=== PATIENT | male | born 1950 | race Caucasian/White ===

== ENCOUNTER 2018-07-03 12:04 | Observation (INO) | payer MEDICARE ==
--- NOTE | 2018-07-03 12:52 | ERPHSYRPT ---
- History of Present Illness Time Seen by Provider: 07/03/18 12:20 Source: patient Exam Limitations: clinical condition Patient Subjective Stated Complaint: Been confused for the past week, doesn't know if he has messed up his meds or not, fell and hit head 2 weeks ago and states that he has a headache rated at 7/10 Triage Nursing Assessment: Pt reports that he fell and hit his head on his coffee table 2 weeks ago and did lose consciousness, for the past week he has been confused and doing "strange" things like talking into the phone and no one is there, he has a headache rated 7/10, he isn't sure if he has messed his medications up or if he has even taken them, dizzy, mild weakness on the right side Physician History: PATIENT WITH A HISTORY OF HYPERTENSION, CORONARY ARTERY DISEASE, COPD, SLIPPED AND FELL 2 WEEKS AGO AND STRUCK TOP OF HIS HEAD ON COFFEE TABLE, HAD ASSOCIATED LOSS OF CONSCIOUSNESS, INTERMITTENT HEADACHE OVER PASS WEEK. PATIENT COMPLAINS OF DIZZINESS AND CONFUSION. DENIES BLURRED VISION, SLURRED SPEECH, NECK PAIN, OR FOCAL NUMBNESS, TINGLING OR WEAKNESS IN EXTREMITIES. PATIENT SMOKES 3 PACKS CIGARETTS DAILY FOR 50 YEARS. ALSO COMPLAINS OF A NONPRODUCTIVE COUGH. Timing/Duration: week(s) Severity: moderate Character of Deficits: other (CONFUSION) Baseline/Normal Cognition: alert oriented x 3 Current Cognition: alert oriented x 3 Baseline Gait: walks w/o assistance Associated Symptoms: confusion Allergies/Adverse Reactions: No Known Drug Allergies Allergy (Verified 07/03/18 12:28) Home Medications: Carvedilol 25 mg PO BID 07/03/18 [History] Diltiazem HCl [Cartia Xt] 240 mg PO DAILY 07/03/18 [History] Isosorbide Mononitrate 30 mg [Imdur 30 MG] 30 mg PO DAILY 07/03/18 [History ] - Review of Systems Constitutional: No Fever, No Chills Eyes: No Symptoms Ears, Nose, & Throat: No Symptoms Respiratory: No Symptoms, No Cough, No Dyspnea Cardiac: No Symptoms, No Chest Pain, No Edema, No Syncope Abdominal/Gastrointestinal: No Symptoms, No Abdominal Pain, No Nausea, No Vomiting, No Diarrhea Genitourinary Symptoms: No Symptoms, No Dysuria Musculoskeletal: No Back Pain, No Neck Pain Skin: No Rash Neurological: Headache, Other (CONFUSION), No Dizziness, No Focal Weakness, No Sensory Changes Psychological: No Symptoms Endocrine: No Symptoms All Other Systems: Reviewed and Negative - Past Medical History Pertinent Past Medical History: Yes Cardiac History: Arrhythmia, Other Respiratory History: Pneumonia, Tuberculosis History: Renal Disease - Past Surgical History Past Surgical History: Yes Genitourinary: Kidney Surgery Musculoskeletal: Other - Social History Smoking Status: Current every day smoker How long have you smoked: 60 years Exposure to second hand smoke: Yes Drug Use: none Patient Lives Alone: Yes - Nursing Vital Signs Nursing Vital Signs: Initial Vital Signs Temperature 98.2 F 07/03/18 12:15 Pulse Rate 62 07/03/18 12:15 Blood Pressure 155/93 07/03/18 12:15 O2 Sat by Pulse Oximetry 98 07/03/18 12:15 Pain Scale Pain Intensity 7 - Denzel Coma Scale Best Eye Response (Denzel): (4) open spontaneously Best Verbal Response (Denzel): (5) oriented Best Motor Response (Mathias): (6) obeys commands Denzel Total: 15 - Physical Exam General Appearance: no apparent distress, alert Eye Exam: bilateral eye: PERRL, EOMI Ears, Nose, Throat Exam: normal ENT inspection, moist mucous membranes Neck Exam: normal inspection, non-tender, supple Respiratory: normal breath sounds, lungs clear, airway intact, No respiratory distress Cardiovascular: regular rate/rhythm, No edema Gastrointestinal: soft, normal bowel sounds, other (NONTENDER), No tenderness, No distention Back Exam: normal inspection Extremity Exam: normal inspection, No pedal edema Peripheral Pulses: carotid (R): 2+, carotid (L): 2+, femoral (R): 2+, femoral (L ): 2+, dorsalis-pedis (R): 2+, dorsalis-pedis (L): 2+ Mental 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: alert, 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 Exam: normal hearing, normal speech, tongue midline Coordination/Gait: normal finger to nose, normal gait Motor/Sensory: no motor deficit, no sensory deficit DTR: bicep (R): 2+, bicep (L): 2+, tricep (R): 2+, tricep (L): 2+, knee (R): 2+ , knee (L): 2+, ankle (R): 2+, ankle (L): 2+ Skin Exam: normal color, warm, dry, No rash SpO2 Interpretation: normal SpO2: 98 - Course EKG Interpreted by Me: RATE, Sinus Rhythm, Sinus Ryan, Left [place] Deviation, Non -specific ST Changes - Radiology Exams Chest X-ray Interpretation: Discussed w/ radiologist, Negative, No Infiltrates - CT Exams Head CT Interpretation: Discussed w/radiologist, No/Intracranial Hemorrhag Ordered Tests: Active Orders 24 hr Category Date Time Status Field Recruiter STAT Care 07/03/18 12:42 Active Clean Catch Urine Specimen STAT Care 07/03/18 12:39 Active EKG-ER Only STAT Care 07/03/18 12:39 Active IV Insertion STAT Care 07/03/18 12:39 Active CHEST 1 VIEW (PORTABLE) Stat Exams 07/03/18 12:45 Completed HEAD WITHOUT CONTRAST [CT] Stat Exams 07/03/18 12:50 Completed BLOOD CULTURE Stat Lab 07/03/18 13:40 Received CBC W DIFF Stat Lab 07/03/18 12:55 Completed CMP Stat Lab 07/03/18 12:55 Completed MAGNESIUM Stat Lab 07/03/18 12:55 Completed PT INR [PROTIME WITH INR] Stat Lab 07/03/18 12:55 Completed TROPONIN Q3H Lab 07/03/18 12:55 Completed TROPONIN Q3H Lab 07/03/18 16:00 Ordered TROPONIN Q3H Lab 07/03/18 19:00 Ordered TROPONIN Q3H Lab 07/03/18 22:00 Ordered TROPONIN Q3H Lab 07/04/18 01:00 Ordered UA W/RFX UR CULTURE Stat Lab 07/03/18 13:27 Completed VBG [VENOUS BLOOD GAS] Stat Lab 07/03/18 13:00 Completed Peak Expiratory Flow Rate ONCE RT 07/03/18 14:17 Active Respiratory Nebulizer STAT RT 07/03/18 14:17 Completed Respiratory Therapy Assessment DAILY RT 07/03/18 14:28 Active Transfer Order Routine Transfer 07/03/18 Ordered Medication Summary Generic Name Dose Route Start Last Admin Trade Name Freq PRN Reason Stop Dose Admin Sodium Chloride 1,000 mls @ 50 mls/hr 07/03/18 13:00 07/03/18 13:11 Sodium Chloride 0.9% 1000 Ml IV 08/02/18 12:59 50 mls/hr .Q20H CLOTILDE Administration Discontinued Medications Generic Name Dose Route Start Last Admin Trade Name Freq PRN Reason Stop Dose Admin Acetaminophen Confirm 07/03/18 13:12 Tylenol 325 Mg Administered 07/03/18 13:13 Dose 650 mg .ROUTE .STK-MED ONE Albuterol/Ipratropium 3 ml 07/03/18 14:17 07/03/18 14:25 Duoneb 0.5-3 Mg/3 Ml Neb IH 07/03/18 14:18 3 ml STAT ONE Administration Albuterol/Ipratropium Confirm 07/03/18 14:25 Duoneb 0.5-3 Mg/3 Ml Neb Administered 07/03/18 14:26 Dose 3 ml IH .STK-MED ONE Ceftriaxone Sodium/Dextrose 1 g in 50 mls @ 100 mls/hr 07/03/18 13:28 14:26 Rocephin 1 Gm-D5w 50 Ml Bag IV 07/03/18 13:57 Infused STAT STA Infusion Azithromycin 500 mg in 250 mls @ 250 mls/hr 07/03/18 13:28 07/03/18 13:52 Zithromax 500 Mg/ 250 Ml Nacl Premix IV 07/03/18 14:27 250 mls/hr STAT STA 250 mls/hr Administration Azithromycin Confirm 07/03/18 13:42 Zithromax 500 Mg/ 250 Ml Nacl Premix Administered 07/03/18 13:43 Dose 500 mg in 250 mls @ ud IV .STK-MED ONE Ceftriaxone Sodium/Dextrose Confirm 07/03/18 13:42 Rocephin 1 Gm-D5w 50 Ml Bag Administered 07/03/18 13:43 Dose 1 g in 50 mls @ ud IV .STK-MED ONE Methylprednisolone Sodium Succinate 125 mg 07/03/18 14:17 07/03/18 14:25 Solu-Medrol 125 Mg IV 07/03/18 14:18 125 mg STAT ONE Administration Methylprednisolone Sodium Succinate Confirm 07/03/18 14:20 Solu-Medrol 125 Mg Administered 07/03/18 14:21 Dose 125 mg .ROUTE .STK-MED ONE Lab/Rad Data: Laboratory Result Diagrams 07/03/18 12:55 07/03/18 12:55 Laboratory Results 07/03/18 07/03/18 07/03/18 Range/Units 13:27 13:00 12:55 WBC (4.0-10.5) K/mm3 RBC (4.1-5.6) M/mm3 Hgb (12.5-18.0) gm/dl Hct (42-50) % MCV (78-100) fl MCH (26-32) pg MCHC (32-36) g/dl RDW (11.5-14.0) % Plt Count (150-450) K/mm3 MPV (6-9.5) fl Gran % (36.0-66.0) % Eos # (Auto) (0-0.5) Absolute Lymphs (auto) (1.0-4.6) Absolute Monos (auto) (0.0-1.3) Lymphocytes % (24.0-44.0) % Monocytes % (0.0-12.0) % Eosinophils % (0.00-5.0) % Basophils % (0.0-0.4) % Absolute Granulocytes (1.4-6.9) Basophils # (0-0.4) PT 12.8 (8.83-12.87) SECONDS INR 1.10 (0.8-3.0) pO2/FiO2 Ratio 21.0 % VBG pH 7.46 H (7.32-7.42) VBG pCO2 at Pat Temp 36 L (42-55) mm/Hg VBG pO2 at Pat Temp 53 H (25-40) mm/Hg VBG HCO3 25.6 (22-28) meq/L VBG O2 Sat (Rebeca) 93.5 L (95-100) VBG Base Excess 2.0 (-2.0-2.0) VBG Hemoglobin 15.0 VBG Carboxyhemoglobin 10.7 H* (0.0-6.9) % T HGB POC Potassium 3.9 (3.5-5.1) Sodium (137-145) mmol/L Potassium (3.5-5.1) mmol/L Chloride (98-107) mmol/L Carbon Dioxide (22-30) mmol/L Anion Gap (5-15) MEQ/L BUN (9-20) mg/dL Creatinine (0.66-1.25) mg/dL Estimated GFR ML/MIN Glucose (74-106) mg/dL Calcium (8.4-10.2) mg/dL Magnesium (1.6-2.3) mg/dL Total Bilirubin (0.2-1.3) mg/dL AST (17-59) U/L ALT (0-50) U/L Alkaline Phosphatase (38-126) U/L Troponin I (0.000-0.034) ng/mL Serum Total Protein (6.3-8.2) g/dL Albumin (3.5-5.0) g/dL Urine Color YELLOW (YELLOW) Urine Appearance CLEAR (CLEAR) Urine pH 7.0 (5-6) Ur Specific [place] 1.014 (1.005-1.025) Urine Protein NEGATIVE (Negative) Urine Ketones NEGATIVE (NEGATIVE) Urine Blood SMALL (0-5) Emil/ul Urine Nitrite NEGATIVE (NEGATIVE) Urine Bilirubin NEGATIVE (NEGATIVE) Urine Urobilinogen 2 (0-1) mg/dL Ur Leukocyte Esterase NEGATIVE (NEGATIVE) Urine WBC (Auto) NONE SEEN (0-5) /HPF Urine RBC (Auto) 3-5 (0-2) /HPF U Epithel Cells (Auto) NONE (FEW) /HPF Urine Bacteria (Auto) NONE SEEN (NEGATIVE) /HPF Urine Mucus (Auto) SLIGHT (NEGATIVE) /HPF Urine Culture Reflexed NO (NO) Urine Glucose NEGATIVE (NEGATIVE) mg/dL 07/03/18 07/03/18 07/03/18 Range/Units 12:55 12:55 12:55 WBC (4.0-10.5) K/mm3 RBC (4.1-5.6) M/mm3 Hgb (12.5-18.0) gm/dl Hct (42-50) % MCV (78-100) fl MCH (26-32) pg MCHC (32-36) g/dl RDW (11.5-14.0) % Plt Count (150-450) K/mm3 MPV (6-9.5) fl Gran % (36.0-66.0) % Eos # (Auto) (0-0.5) Absolute Lymphs (auto) (1.0-4.6) Absolute Monos (auto) (0.0-1.3) Lymphocytes % (24.0-44.0) % Monocytes % (0.0-12.0) % Eosinophils % (0.00-5.0) % Basophils % (0.0-0.4) % Absolute Granulocytes (1.4-6.9) Basophils # (0-0.4) PT (8.83-12.87) SECONDS INR (0.8-3.0) pO2/FiO2 Ratio % VBG pH (7.32-7.42) VBG pCO2 at Pat Temp (42-55) mm/Hg VBG pO2 at Pat Temp (25-40) mm/Hg VBG HCO3 (22-28) meq/L VBG O2 Sat (Rebeca) (95-100) VBG Base Excess (-2.0-2.0) VBG Hemoglobin VBG Carboxyhemoglobin (0.0-6.9) % T HGB POC Potassium (3.5-5.1) Sodium 142 (137-145) mmol/L Potassium 4.0 (3.5-5.1) mmol/L Chloride 106 (98-107) mmol/L Carbon Dioxide 25 (22-30) mmol/L Anion Gap 15.1 H (5-15) MEQ/L BUN 22 H (9-20) mg/dL Creatinine 1.28 H (0.66-1.25) mg/dL Estimated GFR 59.8 ML/MIN Glucose 102 (74-106) mg/dL Calcium 9.5 (8.4-10.2) mg/dL Magnesium 2.1 (1.6-2.3) mg/dL Total Bilirubin 0.60 (0.2-1.3) mg/dL AST 27 (17-59) U/L ALT 19 (0-50) U/L Alkaline Phosphatase 117 (38-126) U/L Troponin I 0.013 (0.000-0.034) ng/mL Serum Total Protein 7.4 (6.3-8.2) g/dL Albumin 4.3 (3.5-5.0) g/dL Urine Color (YELLOW) Urine Appearance (CLEAR) Urine pH (5-6) Ur Specific [place] (1.005-1.025) Urine Protein (Negative) Urine Ketones (NEGATIVE) Urine Blood (0-5) Emil/ul Urine Nitrite (NEGATIVE) Urine Bilirubin (NEGATIVE) Urine Urobilinogen (0-1) mg/dL Ur Leukocyte Esterase (NEGATIVE) Urine WBC (Auto) (0-5) /HPF Urine RBC (Auto) (0-2) /HPF U Epithel Cells (Auto) (FEW) /HPF Urine Bacteria (Auto) (NEGATIVE) /HPF Urine Mucus (Auto) (NEGATIVE) /HPF Urine Culture Reflexed (NO) Urine Glucose (NEGATIVE) mg/dL 07/03/18 Range/Units 12:55 WBC 12.1 H (4.0-10.5) K/mm3 RBC 4.53 (4.1-5.6) M/mm3 Hgb 14.2 (12.5-18.0) gm/dl Hct 42.3 (42-50) % MCV 93.4 (78-100) fl MCH 31.3 (26-32) pg MCHC 33.6 (32-36) g/dl RDW 14.6 H (11.5-14.0) % Plt Count 243 (150-450) K/mm3 MPV 9.4 (6-9.5) fl Gran % 71.2 H (36.0-66.0) % Eos # (Auto) 0.12 (0-0.5) Absolute Lymphs (auto) 2.41 (1.0-4.6) Absolute Monos (auto) 0.92 (0.0-1.3) Lymphocytes % 19.9 L (24.0-44.0) % Monocytes % 7.6 (0.0-12.0) % Eosinophils % 1.0 (0.00-5.0) % Basophils % 0.3 (0.0-0.4) % Absolute Granulocytes 8.62 H (1.4-6.9) Basophils # 0.04 (0-0.4) PT (8.83-12.87) SECONDS INR (0.8-3.0) pO2/FiO2 Ratio % VBG pH (7.32-7.42) VBG pCO2 at Pat Temp (42-55) mm/Hg VBG pO2 at Pat Temp (25-40) mm/Hg VBG HCO3 (22-28) meq/L VBG O2 Sat (Rebeca) (95-100) VBG Base Excess (-2.0-2.0) VBG Hemoglobin VBG Carboxyhemoglobin (0.0-6.9) % T HGB POC Potassium (3.5-5.1) Sodium (137-145) mmol/L Potassium (3.5-5.1) mmol/L Chloride (98-107) mmol/L Carbon Dioxide (22-30) mmol/L Anion Gap (5-15) MEQ/L BUN (9-20) mg/dL Creatinine (0.66-1.25) mg/dL Estimated GFR ML/MIN Glucose (74-106) mg/dL Calcium (8.4-10.2) mg/dL Magnesium (1.6-2.3) mg/dL Total Bilirubin (0.2-1.3) mg/dL AST (17-59) U/L ALT (0-50) U/L Alkaline Phosphatase (38-126) U/L Troponin I (0.000-0.034) ng/mL Serum Total Protein (6.3-8.2) g/dL Albumin (3.5-5.0) g/dL Urine Color (YELLOW) Urine Appearance (CLEAR) Urine pH (5-6) Ur Specific [place] (1.005-1.025) Urine Protein (Negative) Urine Ketones (NEGATIVE) Urine Blood (0-5) Emil/ul Urine Nitrite (NEGATIVE) Urine Bilirubin (NEGATIVE) Urine Urobilinogen (0-1) mg/dL Ur Leukocyte Esterase (NEGATIVE) Urine WBC (Auto) (0-5) /HPF Urine RBC (Auto) (0-2) /HPF U Epithel Cells (Auto) (FEW) /HPF Urine Bacteria (Auto) (NEGATIVE) /HPF Urine Mucus (Auto) (NEGATIVE) /HPF Urine Culture Reflexed (NO) Urine Glucose (NEGATIVE) mg/dL - Progress Progress: unchanged Progress Note: 07/03/18 13:32 VENOUS BLOOD GAS WITH CARBOXY HGB10.7, ADMINISTERED DUONEB AEROSOL TX, AFTER 2 SETS OF BLOOD CULTURES, ADMINISTERED ROCEPHIN 1GM, ZITHROMAX 500MG ORALLY 07/03/18 14:38, PEAK FLOW PRE 210, POST-250 Discussed with : Adilia (DISCUSSED WITH DR RMAACHANDRAN AT 1400 FOR OBSERVATION) - Departure Time of Disposition: 14:45 Departure Disposition: Observation Clinical Impression: ACUTE CONFUSION, Post concussive syndrome, ACUTE EXACERBATION COPD Condition: Stable Critical Care Time: No Referrals: ANAND RAMACHANDRAN [Primary Care Provider] -
[2018-07-03] MEDS ORDERED: Sodium Chloride 0.9% 1000 ML 1,000 ML ONE (12:57)
[2018-07-03 13:01] LABS: BASOPHIL % 0.3 % (0.0-0.4); Basophil (Absolute #) 0.04 (0-0.4); Eosinophil (Absolute #) 0.12 (0-0.5); Granulocyte Absolute (ANC) 8.62 (1.4-6.9); Granulocytes % 71.2 % (36.0-66.0); Hematocrit 42.3 % (42-50); Hemoglobin 14.2 gm/dl (12.5-18.0); Lymphocyte (Absolute #) 2.41 (1.0-4.6); Lymphocytes % 19.9 % (24.0-44.0); Mean Cell Volume 93.4 fl (78-100); Mean Corpuscular Hemoglobin 31.3 pg (26-32); Mean Corpuscular Hgb Concent. 33.6 g/dl (32-36); Mean Platelet Volume 9.4 fl (6-9.5); Monocyte (Absolute #) 0.92 (0.0-1.3); Monocytes % 7.6 % (0.0-12.0); Platelet Count 243 K/mm3 (150-450); Red Blood Count 4.53 M/mm3 (4.1-5.6); Red Cell Distribution Width 14.6 % (11.5-14.0); White Blood Count 12.1 K/mm3 (4.0-10.5)
[2018-07-03 13:06] LABS: INR 1.1 (0.8-3.0); PROTIME 12.8 SECONDS (8.83-12.87)
--- NOTE | 2018-07-03 13:09 | XRAY ---
Indication: Cough and confusion. Comparison: February 16, 2008. Portable apical lordotic chest again demonstrates normal heart and lungs with chronic blunting of the right costophrenic angle and a few calcified granulomas. Bony thorax intact again with mild degenerative changes. No new/acute findings. Impression: Stable nonacute chest with chronic features.
[2018-07-03 13:11] LABS: VBG HCO3- 25.6 meq/L (22-28); VBG O2 SATURATION 93.5 (95-100); VBG POTASSIUM 3.9 (3.5-5.1); VBG pH 7.46 (7.32-7.42)
[2018-07-03] MEDS: Sodium Chloride 0.9% 1000 ML 1,000 ML IV SCH (13:11)
[2018-07-03 13:12] LABS: VBG CARBOXYHEMOGLOBIN 10.7 % T HGB (0.0-6.9)
[2018-07-03] MEDS ORDERED: TYLENOL 325 MG ONE (13:12)
[2018-07-03 13:15] LABS: ALBUMIN 4.3 g/dL (3.5-5.0); ANION GAP 15.1 MEQ/L (5-15); BILIRUBIN,TOTAL 0.6 mg/dL (0.2-1.3); Calcium 9.5 mg/dL (8.4-10.2); Creatinine 1 1.28 mg/dL (0.66-1.25); Total Protein 7.4 g/dL (6.3-8.2)
[2018-07-03] MEDS ORDERED: ROCEPHIN 1 Gm-D5w 50 ml Bag** 1 G/50 ML IVPB IV STA (13:28)
[2018-07-03] MEDS ORDERED: Zithromax 500 MG/ 250 ML NaCl Premix 500 MG/250 ML IVPB IV STA (13:28)
--- NOTE | 2018-07-03 13:30 | XRAY ---
Indication: Confusion. Status post fall 2 weeks ago. Multiple contiguous axial images obtained through the head without contrast. Comparison: None Normal appearing brain parenchyma, ventricles, and bony calvarium. Visualized paranasal sinuses and mastoid air cells are clear. Impression: Normal CT head without contrast exam. CT DI 52.34
[2018-07-03] MEDS ORDERED: ROCEPHIN 1 Gm-D5w 50 ml Bag** 1 G/50 ML IVPB IV ONE (13:42)
[2018-07-03] MEDS ORDERED: Zithromax 500 MG/ 250 ML NaCl Premix 500 MG/250 ML IVPB IV ONE (13:42)
[2018-07-03 13:55] LABS: Appearance CLEAR (CLEAR); Bilirubin NEGATIVE (NEGATIVE); Blood SMALL Ery/ul (0-5); Glucose NEGATIVE (NEGATIVE); Ketones NEGATIVE (NEGATIVE); Leukocyte Esterase NEGATIVE (NEGATIVE); Mucus SLIGHT /HPF (NEGATIVE); Nitrite NEGATIVE (NEGATIVE); Protein,Urine Dip NEGATIVE (Negative); Specific Gravity 1.014 (1.005-1.025); Urobilinogen 2 mg/dL (0-1)
[2018-07-03 13:56] LABS: Bacteria NONE SEEN /HPF (NEGATIVE); WBC NONE SEEN /HPF (0-5)
[2018-07-03] MEDS ORDERED: DUONEB 0.5-3 MG/3 ml Neb IH ONE ×2 (14:17→14:25)
[2018-07-03] MEDS ORDERED: solu-MEDROL 125 MG IV ONE (14:17)
[2018-07-03] MEDS ORDERED: solu-MEDROL 125 MG ONE (14:20)
[2018-07-03] MEDS ORDERED: Zofran 4 MG/2 ML VIAL IV PRN (15:12)
[2018-07-03] MEDS ORDERED: DUONEB 0.5-3 MG/3 ml Neb IH PRN (15:12)
[2018-07-03] MEDS: Nicoderm CQ 21 MG TOP SCH (16:32)
[2018-07-03] MEDS: solu-MEDROL 125 MG IV SCH ×2 (18:50→23:25)
[2018-07-03] MEDS ORDERED: BENADRYL 50 MG/ML IV ONE (20:02)
[2018-07-03] MEDS ORDERED: Ativan 2 MG/1 ML VIAL IV ONE (20:03)
[2018-07-03] MEDS ORDERED: Ativan 2 MG/1 ML VIAL IM ONE (20:58)
[2018-07-03] MEDS: COREG 12.5 MG PO SCH (22:15)
[2018-07-03 22:23] LABS: BASOPHIL % 0.1 % (0.0-0.4); Basophil (Absolute #) 0.01 (0-0.4); Eosinophil (Absolute #) 0 (0-0.5); Granulocyte Absolute (ANC) 8.36 (1.4-6.9); Granulocytes % 91.3 % (36.0-66.0); Hematocrit 44.1 % (42-50); Hemoglobin 14.7 gm/dl (12.5-18.0); Lymphocyte (Absolute #) 0.76 (1.0-4.6); Lymphocytes % 8.3 % (24.0-44.0); Mean Cell Volume 93.6 fl (78-100); Mean Corpuscular Hemoglobin 31.2 pg (26-32); Mean Corpuscular Hgb Concent. 33.3 g/dl (32-36); Mean Platelet Volume 9.7 fl (6-9.5); Monocyte (Absolute #) 0.03 (0.0-1.3); Monocytes % 0.3 % (0.0-12.0); Platelet Count 242 K/mm3 (150-450); Red Blood Count 4.71 M/mm3 (4.1-5.6); Red Cell Distribution Width 14.6 % (11.5-14.0); White Blood Count 9.2 K/mm3 (4.0-10.5)
[2018-07-03] MEDS ORDERED: Ativan 2 MG/1 ML VIAL IV PRN (23:14)
[2018-07-03] MEDS ORDERED: Ativan 1 MG PO PRN (23:14)
[2018-07-03] MEDS ORDERED: Risperdal 1 MG PO ONE ×2 (23:30)
[2018-07-04] MEDS: TYLENOL 325 MG PO PRN (02:15)
[2018-07-04] MEDS: Ativan 2 MG/1 ML VIAL IM PRN ×2 (03:30→07:00)
[2018-07-04] MEDS ORDERED: Risperdal 1 MG PO ONE ×2 (04:10→23:00)
[2018-07-04 04:34] LABS: Amphetamine,Urine NEGATIVE (NEGATIVE); Barbiturate,Urine NEGATIVE (NEGATIVE); Benzodiazepine,Urine NEGATIVE (NEGATIVE); Cocaine,Urine NEGATIVE (NEGATIVE); Methadone,Urine NEGATIVE (NEGATIVE); Opiate,Urine NEGATIVE (NEGATIVE); PCP,Urine NEGATIVE (NEGATIVE); THC,Urine NEGATIVE (NEGATIVE)
[2018-07-04] MEDS ORDERED: Haldol 5 MG IM ONE (04:45)
[2018-07-04] MEDS ORDERED: BENADRYL 50 MG/ML IM ONE (04:46)
[2018-07-04] MEDS: solu-MEDROL 125 MG IV SCH ×4 (06:00→23:29)
[2018-07-04] MEDS ORDERED: Geodon 20 MG INJ IM ONE (06:10)
[2018-07-04] MEDS ORDERED: STERILE WATER FOR INJECTION 20 ML 20 ML ONE (06:15)
[2018-07-04] MEDS ORDERED: Ativan 2 MG/1 ML VIAL IM ONE (06:51)
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
[2018-07-04 10:41] LABS: A-aADO2 17; ABG HEMOGLOBIN 14.5; ABG POTASSIUM 4.1 (3.5-5.1); ABG SITE LEFT BRACHIAL; ARTERIAL BLOOD GAS BASE EXCESS -1.7 (-2.0-2.0); ARTERIAL BLOOD GAS FIO2 21 %; ARTERIAL BLOOD GAS PCO2 38 mmHg (35-45); ARTERIAL BLOOD GAS PO2 85 mmHg (75-100); ARTERIAL BLOOD GAS pH 7.39 (7.35-7.45); CARBOXYHEMOGLOBIN 2.6 % THgb (0.0-6.9); HGB O2 SAT 95.5 g/dF (94-100); paO2 pAO1 0.83
[2018-07-04] MEDS: Ativan 2 MG/1 ML VIAL IM SCH ×3 (10:48→13:09)
[2018-07-04] MEDS: Zithromax 500 MG/ 250 ML NaCl Premix 500 MG/250 ML IVPB IV SCH (11:13)
[2018-07-04] MEDS: ROCEPHIN 1 Gm-D5w 50 ml Bag** 1 G/50 ML IVPB IV SCH (11:13)
[2018-07-04] MEDS: ENOXAPARIN SODIUM SQ SCH (11:14)
[2018-07-04] MEDS: Nicoderm CQ 21 MG TOP SCH (11:15)
[2018-07-04] MEDS: Imdur 30 MG PO SCH (11:35)
[2018-07-04] MEDS: COREG 12.5 MG PO SCH ×3 (11:35→22:35)
[2018-07-04] MEDS: Cardizem CD 240 MG PO SCH (11:35)
[2018-07-04] MEDS ORDERED: Ativan 2 MG/1 ML VIAL IV SCH ×2 (13:15→15:00)
[2018-07-04] MEDS: Ativan 2 MG/1 ML VIAL IV SCH ×5 (15:58→23:28)
[2018-07-04] MEDS: Sodium Chloride 0.9% 1000 ML 1,000 ML IV SCH (18:01)
[2018-07-05] MEDS: Ativan 2 MG/1 ML VIAL IV SCH ×6 (00:31→13:35)
[2018-07-05] MEDS: solu-MEDROL 125 MG IV SCH ×2 (06:14→12:04)
[2018-07-05] MEDS: TYLENOL 325 MG PO PRN (07:55)
[2018-07-05] MEDS: Imdur 30 MG PO SCH (07:55)
[2018-07-05] MEDS: Cardizem CD 240 MG PO SCH (07:55)
[2018-07-05] MEDS: COREG 12.5 MG PO SCH (07:55)
[2018-07-05] MEDS: ROCEPHIN 1 Gm-D5w 50 ml Bag** 1 G/50 ML IVPB IV SCH (09:22)
[2018-07-05] MEDS: Nicoderm CQ 21 MG TOP SCH (09:23)
[2018-07-05] MEDS: ENOXAPARIN SODIUM SQ SCH (09:24)
[2018-07-05] MEDS: Zithromax 500 MG/ 250 ML NaCl Premix 500 MG/250 ML IVPB IV SCH (10:11)
--- NOTE | 2018-07-05 11:24 | PCM.DS ---
Discharge Summary Date of Admission: 07/03/18 15:04 Admitting Physician: ANAND PAT Consults: Consults on Case 07/04/18 10:00 Tele-Health Consult ROUTINE Primary Care Provider: ANAND PAT Allergies Allergies No Known Drug Allergies Allergy (Verified 07/03/18 12:28) Hospital Summary - Hospital Course Hospital Course: Pt is a 67 yo male pt of Dr. Pat with early dementia, COPD, and HTN who was admitted through the ER 2 days ago for confusion and recent head injury. He fell on a rug and hit the R parietal area of his head. He states he's had headaches in that area and increased memory loss since then. He also had respiratory symptoms and has been treated for COPD exacerbation. Head CT nonacute. CXR nonacute. The afternoon of admission he was doing well, alert and oriented, and it was anticipated that he would go home the next day. That evening he became very restless, and in the night he became combative. He was kicking, biting, disoriented, and was licking things. He did not quiet until after receiving a total of 1mg risperdal, 5mg haldol, 10mg geodon, and 7mg ativan. He slept for some time, then was up yesterday in the bathroom and he ate supper. Per his son yesterday, pt has been drinking beer and last drank maybe 4-5d ago. Pt's story is conflicting; says he started drinking beer again because his girlfriend left. Stated this was a week ago, but then stated that he hasn't been drinking for several weeks. Pt does agree he was drinking > 12 beers/d. He denies any other drug history. He does say he wasn't sleeping for about 4 days prior to admission. Son notes that there are some signs of dementia. Pt agrees he has had memory issues. Pt denies any suicidal ideation. Today he is just "restless" but is completely oriented. Feeling good. Denies any pain and specifically no headache. Would like to smoke. Would like to be discharged to home. I did speak with the staff person at [facility], [place]. I had ordered a [facility] consult yesterday but today I feel it is reasonable to discharge him to home and have him follow up outpatient. Home on antibiotics for COPD exacerbation. I discussed sending pt home on a benzodiazepine but he insists it has been some time (weeks) since he drank any alcohol, so I will defer that. Follow up with Dr. Pat should be within the next couple of days. - Vitals & Intake/Output Vital Signs: Vital Signs Temperature 98.6 F 07/05/18 07:10 Pulse Rate 87 07/05/18 07:10 Respiratory Rate 18 07/05/18 07:10 Blood Pressure 140/89 07/05/18 07:10 O2 Sat by Pulse Oximetry 97 07/05/18 07:10 Oxygen-Last Documented O2 Percentage 100% Intake & Output: Intake & Output 07/02/18 07/03/18 07/04/18 07/05/18 11:59 11:59 11:59 11:59 Intake Total 1274 1245 Balance 1274 1245 Weight 67.7 kg - Lab Result Diagrams: 07/03/18 22:22 07/03/18 12:55 Lab Results-Last 24 Hrs: Lab Results-Last 24 Hours 07/05/18 Range/Units 09:20 Ethyl Alcohol < 10 (0-10) mg/dL Micro Results-Entire Visit: Microbiology 07/03/18 13:40 Blood Culture - Preliminary Blood NO GROWTH TO DATE 07/03/18 13:35 Blood Culture - Preliminary Blood NO GROWTH TO DATE - Radiology Exams Ordered Rad Exams-Entire Visit: Radiology Procedures Category Date Time Status CHEST 1 VIEW (PORTABLE) Stat Exams 07/03/18 12:45 Completed HEAD WITHOUT CONTRAST [CT] Stat Exams 07/03/18 12:50 Completed - Procedures and Test Procedures and Tests throughout Hospitalization: Therapy Orders & Screens 07/03/18 14:17 Peak Expiratory Flow Rate ONCE Comment: Reason For Exam: Diagnosis: Shortness of Breath Respiratory Nebulizer STAT Comment: Diagnosis: Shortness of Breath 07/03/18 14:28 Respiratory Therapy Assessment DAILY Comment: Diagnosis: Shortness of Breath 07/03/18 15:12 Oxygen Nasal Cannula 2 lpm Comment: Respiratory Therapy Consult ROUTINE Comment: Reason For Exam: 07/03/18 15:17 Respiratory Therapy Assessment DAILY Comment: Discharge Exam General Appearance: no apparent distress, alert Neurologic Exam: oriented x 3, cooperative Skin Exam: normal color, warm, dry, No rash Neck Exam: normal inspection, non-tender, No lymphadenopathy Respiratory Exam: normal breath sounds, lungs clear, No crackles/rales, No rhonchi, No wheezing Cardiovascular Exam: regular rate/rhythm, normal heart sounds, No murmur Gastrointestinal/Abdomen Exam: soft, normal bowel sounds, No tenderness, No distention, No mass, No guarding, No rebound Extremity Exam: normal inspection, No pedal edema, No swelling Back Exam: normal inspection, No rash Final Diagnosis/Problem List - Final Discharge Diagnosis/Problem (1) COPD exacerbation Current Visit: Yes Status: Acute Assessment & Plan: Finish 10d of augmentin. Initially pt was on solumedrol, but that was discontinued when he had altered mental status. (2) Post concussive syndrome Current Visit: Yes Status: Acute Assessment & Plan: Clinically much better today. Likely exacerbated by illness and lack of sleep. (3) Altered mental status Current Visit: Yes Status: Resolved (4) Alcohol abuse Current Visit: Yes Status: Chronic Assessment & Plan: Recommend f/u to help him stay sober; he is stating currently that he'll just stop with no issues. (5) Dementia Current Visit: Yes Status: Chronic Assessment & Plan: Per son some signs of mild dementia. Recommend he not drive until further evaluation. (6) Insomnia Current Visit: Yes Status: Acute Assessment & Plan: Will try melatonin. - Discharge Disposition: Home, Self-Care Condition: Good Prescriptions: New Amoxicillin/Potassium Clav [Augmentin 875-125 Tablet] 875 mg PO BID #16 tablet Melatonin 5 mg PO QHS PRN #30 capsule PRN Reason: Insomnia Continue Isosorbide Mononitrate 30 mg [Imdur 30 MG] 30 mg PO DAILY Diltiazem HCl [Cartia Xt] 240 mg PO DAILY Carvedilol 25 mg PO BID Follow up with: ANAND PAT [Primary Care Provider] - 1 Week
[2018-07-05 12:01] VITALS: O2SAT 95
[2018-07-05 13:52] VITALS: BP 146/69; PULSE 75
--- NOTE | 2018-07-06 10:58 | HP ---
CHIEF COMPLAINT: Confusion. HISTORY OF PRESENT ILLNESS: The patient is a 67 year-old white male patient, heavy smoker, who reports that he fell about week or so ago and hit his head. He reports that he tripped on a throw rug. He did report losing consciousness shortly afterwards. He has been having problems with headaches since that time. He has had no appetite. He began seeing strange things and talking on the phone and then finding out that he realized that it was not even on. The patient at this time on my evaluation is alert, oriented x3 and recognizes me. He knows the day, date and time and the President of [facility]. He has no obvious neurologic deficits at this time focally otherwise. PAST MEDICAL/SURGICAL HISTORY: Coronary artery disease. MEDICATIONS: He takes carvedilol 25 mg b.i.d., diltiazem 240 mg daily, isosorbide 30 mg daily. ALLERGIES: NKDA. PHYSICAL EXAMINATION: His vital signs on admission showed temperature 98.2F, pulse 62, respiratory rate 16, blood pressure 155/93. O2 saturation 98% on room air. HEENT: Normocephalic, atraumatic. Pupils equal round reactive to light. Extraocular movements intact. Oropharynx is pink and moist. NECK: Supple without lymphadenopathy, thyromegaly or JVD. CHEST: Clear to auscultation with good air movement bilaterally. HEART: Regular rate and rhythm without murmurs, rubs or gallops. ABDOMEN: Soft. No palpable masses. EXTREMITIES: Without cyanosis, clubbing or edema. NEUROLOGIC: The patient is alert and oriented x3 with no focal deficits. LAB DATA AND TESTS: Magnesium 2.1. White count was elevated at 12,100 with hemoglobin 14.2, PLT 243,000. Venous blood gas showing pH 7.46, pCO2 of 32, carboxyhemoglobin however was 10.7. International normalized ratio was normal at 1.10. Troponin was 0.013. Sugar 102, BUN 23, creatinine 1.28. Electrolytes were normal. UA showed 3 to 5 red blood cells, no white blood cells, specific gravity of 1.014. CT scan of the head was normal without contrast. Chest x-ray was stable nonacute with chronic features. His EKG showed sinus bradycardia with no acute changes, left axis deviation. No significant ST or T wave changes are noted. ASSESSMENT: A patient with confusion which has been going on for the past week. He was admitted to the hospital for neural checks and observation. He has been discussed about stopping smoking as he smokes about three packs a day. He lives alone. His son works near where he lives but lives in [place]. The patient did drive himself to the hospital this morning. He is now in observation with IV fluid hydration and we will see how he tracks neurologically. He may need tele-neural consult but at this point in time he seems to be essentially back to normal.
== END 2018-07-05 14:07 | disposition home or self-care (01) ==
LOC: ED 12:04 → MED SURG 15:04
PROVIDERS: ADMIT Family Medicine; ATTEND Family Medicine
DX: J44.1 Chronic obstructive pulmonary disease with (acute) exacerbation (principal); G44.309 Post-traumatic headache, unspecified, not intractable; F07.81 Postconcussional syndrome; R41.82 Altered mental status, unspecified; F10.10 Alcohol abuse, uncomplicated; F03.90 Unspecified dementia, unspecified severity, without behavioral disturbance, psychotic disturbance, mood disturbance, and anxiety; G47.00 Insomnia, unspecified; I10 Essential (primary) hypertension; I25.10 Atherosclerotic heart disease of native coronary artery without angina pectoris; Z79.899 Other long term (current) drug therapy; F17.200 Nicotine dependence, unspecified, uncomplicated
CPT/HCPCS: 36415; 36600; 70450; 71045; 80053; 80307; 81001; 82140; 82375; 82803; 82805; 83735; 83880; 84484; 85025; 85610; 87040; 93005; 93041; 94150; 94640; 94760; 94762; 96365; 96374; 99285; G0480; 90791; 96360; 96368; G0378; J0456; J0696; J1200; J1630; J1650; J2060; J2930; J3486; Q3014; A9270-GY

== ENCOUNTER 2019-02-18 09:19 | Emergency (ER) | payer MEDICARE ==
[2019-02-18] MEDS ORDERED: Rocephin 1000 MG INJ IM STA (09:46)
[2019-02-18] MEDS ORDERED: CLEOCIN 150 MG CAPSULE PO ONE (09:46)
[2019-02-18] MEDS ORDERED: CLEOCIN 150 MG CAPSULE ONE (09:51)
[2019-02-18 09:52] VITALS: O2SAT 99
--- NOTE | 2019-02-18 09:53 | ERPHSYRPT ---
- History of Present Illness Time Seen by Provider: 02/18/19 09:31 Source: patient Exam Limitations: no limitations Patient Subjective Stated Complaint: states has had two 'spider bites' for two weeks. one on right forearm and one on left groin. states the groin area is draining. Triage Nursing Assessment: ambulated to room per self. skin w/d, color normal. large red area noted to right forearm with no drainage. red area to left upper thigh with drainaged. culture taken of left thigh area. Timing/Duration: day(s) (4) Quality: other Severity: moderate Location: extremities, genitalia Possible Causes: insect bite Allergies/Adverse Reactions: No Known Drug Allergies Allergy (Verified 02/18/19 09:31) Home Medications: Carvedilol 25 mg PO BID 07/03/18 [History] Diltiazem HCl [Cartia Xt] 240 mg PO DAILY 07/03/18 [History] Isosorbide Mononitrate 30 mg [Imdur 30 MG] 30 mg PO DAILY 07/03/18 [History ] Bupropion HCl Xl 150 mg [Wellbutrin XL 150 MG] 150 mg PO DAILY 02/18/19 [ History] Lisinopril 10 mg [Zestril 10 MG] 10 mg PO DAILY 02/18/19 [History] Hx Tetanus, Diphtheria Vaccination/Date Given: No Hx Influenza Vaccination/Date Given: No Hx Pneumococcal Vaccination/Date Given: Yes - Review of Systems Constitutional: No Fever, No Chills Eyes: No Symptoms Ears, Nose, & Throat: No Symptoms Respiratory: No Cough, No Dyspnea Cardiac: No Chest Pain, No Edema, No Syncope Abdominal/Gastrointestinal: No Abdominal Pain, No Nausea, No Vomiting, No Diarrhea Genitourinary Symptoms: No Dysuria Musculoskeletal: No Back Pain, No Neck Pain Skin: Cellulitis, Other (abscess) Neurological: No Dizziness, No Focal Weakness, No Sensory Changes Psychological: No Symptoms Endocrine: No Symptoms All Other Systems: Reviewed and Negative - Past Medical History Pertinent Past Medical History: Yes Neurological History: Seizures Cardiac History: Arrhythmia, Coronary Artery Disease, Hypertension, Other Respiratory History: COPD, Pneumonia, Tuberculosis History: Renal Disease Other Medical History: tuberculosis of kidney - Past Surgical History Past Surgical History: Yes Genitourinary: Kidney Surgery Musculoskeletal: Other Other Surgical History: Toes sewed together - Social History Smoking Status: Current every day smoker How long have you smoked: 54 Exposure to second hand smoke: Yes Drug Use: none Patient Lives Alone: No - Nursing Vital Signs Nursing Vital Signs: Initial Vital Signs Temperature 97.9 F 02/18/19 09:26 Pulse Rate 60 02/18/19 09:26 Respiratory Rate 16 02/18/19 09:26 Blood Pressure 158/61 02/18/19 09:26 O2 Sat by Pulse Oximetry 99 02/18/19 09:26 Pain Scale Pain Intensity 5 - Physical Exam General Appearance: no apparent distress, alert Eye Exam: PERRL/EOMI, eyes nml inspection Ears, Nose, Throat Exam: normal ENT inspection, pharynx normal, moist mucous membranes Neck Exam: normal inspection, non-tender, supple, full range of motion Respiratory Exam: normal breath sounds, lungs clear, No respiratory distress Cardiovascular Exam: regular rate/rhythm, normal heart sounds Gastrointestinal/Abdomen Exam: soft, mass, No tenderness Back Exam: normal inspection, normal range of motion, No CVA tenderness, No vertebral tenderness Extremity Exam: normal inspection, normal range of motion Neurologic Exam: alert, oriented x 3, cooperative, normal mood/affect, sensation nml, No motor deficits Skin Exam: normal color, warm, dry, other (abscess) SpO2: 99 Ordered Tests: Active Orders 24 hr Category Date Time Status CULTURE,WOUND Stat Lab 02/18/19 09:46 Uncollected Medication Summary Generic Name Dose Route Start Last Admin Trade Name Freq PRN Reason Stop Dose Admin Ceftriaxone Sodium mg 02/18/19 09:46 Rocephin 1000 Mg Inj IM 02/18/19 09:47 STAT STA Clindamycin HCl 300 mg 02/18/19 09:46 Cleocin 150 Mg Capsule PO 02/18/19 09:47 STAT ONE - Departure Departure Disposition: Home Clinical Impression: Abscess Condition: Stable Critical Care Time: No Referrals: ANAND RAMACHANDRAN [Primary Care Provider] - Plan of Treatment: Antibiotics warm soaks F/U with PCP in 2-3 days Prescriptions: Clindamycin HCl 300 mg PO TID 10 Days #30 capsule
[2019-02-18] MEDS ORDERED: Rocephin 1000 MG INJ ONE (09:54)
[2019-02-18] MEDS ORDERED: XYLOCAINE 1% HCL 20 ML MDV ONE (09:55)
[2019-02-18] MEDS ORDERED: Rocephin 1000 MG INJ IM ONE (09:58)
[2019-02-18 10:08] VITALS: BP 110/66; PULSE 58
== END 2019-02-18 10:22 | disposition home or self-care (01) ==
LOC: ED 09:19
DX: L02.214 Cutaneous abscess of groin (principal); T63.301A Toxic effect of unspecified spider venom, accidental (unintentional), initial encounter
CPT/HCPCS: 87070; 87077; 87186; 96372; 99284; J0696; A9270-GY

== ENCOUNTER 2019-03-25 19:34 | Emergency (ER) | payer MEDICARE ==
[2019-03-25] MEDS ORDERED: Catapres 0.1 MG PO ONE (20:38)
[2019-03-25 20:46] VITALS: O2SAT 98
[2019-03-25] MEDS ORDERED: Catapres 0.1 MG ONE (20:47)
--- NOTE | 2019-03-25 21:11 | ERPHSYRPT ---
- History of Present Illness Time Seen by Provider: 03/25/19 19:38 Source: patient, family Exam Limitations: other (PATIENT --CONFUSION :AMS FOR THE PAST 2 DAYS S/P FALL YESTERDAY WITH BLUNT HEAD TRAUMA ) Patient Subjective Stated Complaint: PT STATES HE HAS HAD HYPERTENSION FOR THE LAST TWO DAYS THAT IS ACCOMOPANIED BY HEADACHE AND SLEEPINESS THROUGHOUT THE DAY. Triage Nursing Assessment: PT ALERT AND ORIENTED, STATES THAT HE HAS NO PAIN AT THIS TIME BUT FEELS GENERALLY UNWELL. Timing/Duration: yesterday, worse Severity: moderate Character of Deficits: other (AMS;CONFUSION INITIALLY WITH SPEECH DIFFICULTY -- STARTED YESTERDAY LIVES WITH HER DAUGHTER : --SHE BROUGHT HER IN FOR [employer] ) Deficits: decrease ability to walk Baseline/Normal Cognition: alert/disoriented to time Current Cognition: alert but confused Allergies/Adverse Reactions: No Known Drug Allergies Allergy (Verified 02/18/19 09:31) Home Medications: Carvedilol 25 mg PO BID 07/03/18 [History] Diltiazem HCl [Cartia Xt] 240 mg PO DAILY 07/03/18 [History] Isosorbide Mononitrate 30 mg [Imdur 30 MG] 30 mg PO DAILY 07/03/18 [History ] Bupropion HCl Xl 150 mg [Wellbutrin XL 150 MG] 150 mg PO DAILY 02/18/19 [ History] Lisinopril 10 mg [Zestril 10 MG] 10 mg PO DAILY 02/18/19 [History] Hx Tetanus, Diphtheria Vaccination/Date Given: No Hx Influenza Vaccination/Date Given: No Hx Pneumococcal Vaccination/Date Given: Yes - Review of Systems Constitutional: Fatigue, Other (ALTERED MENTAL STATUS ---CONFUSION) Eyes: No Symptoms, No Discharge, No Eye Pain, No Eye Redness, No Itchy, No Photophobia Ears, Nose, & Throat: Hearing Changes, Nose Congestion, No Ear Pain, No Ear Discharge, No Epistaxis, No Mouth Pain, No Mouth Swelling Respiratory: Cough Cardiac: No Symptoms Abdominal/Gastrointestinal: No Symptoms, No Abdominal Pain, No Nausea, No Vomiting, No Diarrhea Genitourinary Symptoms: No Symptoms, Other (POS: PAST HX OF FREQ UTI'S PER HX OF THE DAUGHTER), No Dysuria, No Frequency, No Hematuria Musculoskeletal: Arthralgias, Back Pain, Joint Pain (POS: 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), Other (MILD DJD C,T, L SPINE WITH DECREASED ROM) Skin: No Symptoms Neurological: Dizziness, Other (POS: AMS: CONFUSION) Psychological: Hallucinations, Memory Loss, Other (GENERAL : AMS--CONFUSION ), No Alcohol Abuse, No Drug Abuse Endocrine: No Symptoms Hematologic/Lymphatic: No Symptoms Immunological/Allergic: No Symptoms All Other Systems: Reviewed and Negative - Past Medical History Pertinent Past Medical History: Yes Neurological History: Seizures Cardiac History: Arrhythmia, Coronary Artery Disease, Hypertension, Other Respiratory History: COPD, Pneumonia, Tuberculosis History: Renal Disease Other Medical History: tuberculosis of kidney - Past Surgical History Past Surgical History: Yes Genitourinary: Kidney Surgery Musculoskeletal: Other Other Surgical History: Toes sewed together - Social History Smoking Status: Current some day smoker How long have you smoked: 42 Exposure to second hand smoke: Yes Drug Use: none Patient Lives Alone: No - Nursing Vital Signs Nursing Vital Signs: Initial Vital Signs Temperature 98.7 F 03/25/19 19:38 Pulse Rate 58 L 03/25/19 19:38 Respiratory Rate 18 03/25/19 19:38 Blood Pressure 218/96 03/25/19 19:38 O2 Sat by Pulse Oximetry 99 03/25/19 19:38 - Denzel Coma Scale Best Eye Response (Denzel): (4) open spontaneously Best Verbal Response (Denzel): (4) confused conversation Best Motor Response (Denzel): (6) obeys commands Denzel Total: 14 - Physical Exam General Appearance: no apparent distress Eye Exam: bilateral eye: normal inspection, PERRL Ears, Nose, Throat Exam: normal ENT inspection, dry mucous membranes, other (NEG : TONGUE DEVIATION GAG REFLEX INTACT ) Neck Exam: other (POS: DJD WITH DECREASED ROM NEG: SPRING TEST POIS: SUBOCCIPITAL TENDERNESS R>L POS: PARACERVIOCAL FULLNESS R>L) Respiratory: diminished breath sounds, crackles/rales (BASES ), No respiratory distress Cardiovascular: regular rate/rhythm, murmur (GRD:2/6 SYS APEX PMI: SL : LAT DISPLACED ), capillary refill <2 sec, No edema, No pulse deficit Gastrointestinal: soft, normal bowel sounds, No tenderness, No distention, No mass, No guarding, No ecchymosis, No organomegaly, No splenomegaly Back Exam: other (POS: MILD KYPHOSIS POS: DJD C,T,L SPINE NEG: SIGNIFICANT TENDERNESS POS: DECREASED ROM) Extremity Exam: other (MODERATE DJD : BILATERAL SHOULDERS WITH DECRESES ROM : TENDERNESS [POS: DJD; LARGHE JOINTS LOWER EXTREMITIES WITH DECREASED ROM NEG : HIP --TENDERNESS OR KNEE TENDERNESS) Peripheral Pulses: carotid (R): 1+, carotid (L): 1+, femoral (R): 1+, femoral (L ): 1+ dining room captain Exam: tongue midline, No facial asymmetry, No facial droop, No facial paresthesias, No facial weakness, No gaze palsy, No hearing deficit (R), No hearing deficit (L), No tongue deviation to R, No tongue deviation to L Coordination/Gait: normal finger to nose Motor/Sensory: no motor deficit, no pronator drift, No pronator drift (R), No pronator drift (L), No weak motor strength LUE (SYMMETRICAL STRENTH U/L EXTREMITIES CONSISTENT WITH AGE/HABITUS ), No weak motor strength RLE, No weak motor strength LLE Skin Exam: normal color, dry SpO2 Interpretation: normal SpO2: 98 O2 Delivery: Room Air Ordered Tests: Active Orders 24 hr Category Date Time Status HEAD WITHOUT CONTRAST [CT] Stat Exams 03/25/19 21:05 Taken KUB Stat Exams 03/25/19 20:38 Taken LUMBAR LIMITED (2 OR 3 VIEWS) Stat Exams 03/25/19 21:05 Taken CBC W DIFF Stat Lab 03/25/19 20:36 Ordered CMP Stat Lab 03/25/19 20:36 Ordered Medication Summary Discontinued Medications Generic Name Dose Route Start Last Admin Trade Name Adrianne PRN Reason Stop Dose Admin Clonidine 0.1 mg 03/25/19 20:38 03/25/19 20:49 Catapres 0.1 Mg PO 03/25/19 20:39 0.1 mg STAT ONE Administration Clonidine Confirm 03/25/19 20:47 Catapres 0.1 Mg Administered 03/25/19 20:48 Dose 0.1 mg .ROUTE .STK-MED ONE - Departure Condition: Fair Referrals: ANAND RAMACHANDRAN [Primary Care Provider] -
[2019-03-25 21:17] LABS: Absolute Neutrophil Ct (ANC) 5.46 (1.4-6.9); BASOPHIL % 0.5 % (0.0-0.4); Basophil (Absolute #) 0.04 (0-0.4); Eosinophil % 2.7 % (0.00-5.0); Eosinophil (Absolute #) 0.23 (0-0.5); Hematocrit 43.2 % (42-50); Lymphocyte (Absolute #) 2.34 (1.0-4.6); Lymphocytes % 27.1 % (24.0-44.0); Mean Cell Volume 94.5 fl (78-100); Mean Corpuscular Hemoglobin 30.6 pg (26-32); Mean Corpuscular Hgb Concent. 32.4 g/dl (32-36); Mean Platelet Volume 10.4 fl (6-9.5); Monocyte (Absolute #) 0.55 (0.0-1.3); Monocytes % 6.4 % (0.0-12.0); Neutrophil % 63.3 % (36.0-66.0); Platelet Count 203 K/mm3 (150-450); Red Blood Count 4.57 M/mm3 (4.1-5.6); Red Cell Distribution Width 14.6 % (11.5-14.0); White Blood Count 8.6 K/mm3 (4.0-10.5)
[2019-03-25 21:31] LABS: ALBUMIN 4.5 g/dL (3.5-5.0); ANION GAP 14.7 MEQ/L (5-15); BILIRUBIN,TOTAL 0.4 mg/dL (0.2-1.3); Calcium 9.9 mg/dL (8.4-10.2); Creatinine 1 1.91 mg/dL (0.66-1.25); Potassium 4.4 mmol/L (3.5-5.1); Total Protein 8.2 g/dL (6.3-8.2)
--- NOTE | 2019-03-25 22:06 | ERPHSYRPT ---
- History of Present Illness Time Seen by Provider: 03/25/19 19:38 Source: patient, family Exam Limitations: no limitations Patient Subjective Stated Complaint: PT STATES HE HAS HAD HYPERTENSION FOR THE LAST TWO DAYS THAT IS ACCOMOPANIED BY HEADACHE AND SLEEPINESS THROUGHOUT THE DAY. Triage Nursing Assessment: PT ALERT AND ORIENTED, STATES THAT HE HAS NO PAIN AT THIS TIME BUT FEELS GENERALLY UNWELL. Physician History: C/O FATIGUE--HEADACHE MILD ,DIZZINESS TODAY FELT FATIGUED YESTERDAY HEAVY 3PPD SMOKER --POS: HX CAD S/P [place] X2 BLOOD PRESSURE TODAY 212/100 CURRENTLY W /O HEADACHE Timing/Duration: yesterday Severity: mild Modifying Factors: Improves With: movement, other (GENERAL ACTIVITY W/O CP/P OR SOB) Associated Symptoms: cough, headaches, malaise, No nausea, No vomiting, No abdominal pain, No shortness of breath, No heartburn, No diaphoresis, No chest pain, No fever Allergies/Adverse Reactions: No Known Drug Allergies Allergy (Verified 02/18/19 09:31) Home Medications: Carvedilol 25 mg PO BID 07/03/18 [History] Diltiazem HCl [Cartia Xt] 240 mg PO DAILY 07/03/18 [History] Isosorbide Mononitrate 30 mg [Imdur 30 MG] 30 mg PO DAILY 07/03/18 [History ] Bupropion HCl Xl 150 mg [Wellbutrin XL 150 MG] 150 mg PO DAILY 02/18/19 [ History] Lisinopril 10 mg [Zestril 10 MG] 10 mg PO DAILY 02/18/19 [History] Hx Tetanus, Diphtheria Vaccination/Date Given: No Hx Influenza Vaccination/Date Given: No Hx Pneumococcal Vaccination/Date Given: Yes - Review of Systems Constitutional: Fatigue, Malaise Eyes: No Symptoms Ears, Nose, & Throat: No Symptoms Respiratory: Cough Cardiac: No Chest Pain, No Edema Abdominal/Gastrointestinal: No Abdominal Pain, No Nausea, No Vomiting Musculoskeletal: Arthralgias, Back Pain Skin: No Symptoms Neurological: Dizziness, Headache Psychological: No Symptoms Endocrine: No Symptoms Hematologic/Lymphatic: No Symptoms Immunological/Allergic: No Symptoms All Other Systems: Reviewed and Negative - Past Medical History Pertinent Past Medical History: Yes Neurological History: Seizures Cardiac History: Arrhythmia, Coronary Artery Disease, Hypertension, Other Respiratory History: COPD, Pneumonia, Tuberculosis History: Renal Disease Other Medical History: tuberculosis of kidney - Past Surgical History Past Surgical History: Yes Genitourinary: Kidney Surgery Musculoskeletal: Other Other Surgical History: Toes sewed together - Social History Smoking Status: Current some day smoker How long have you smoked: 42 Exposure to second hand smoke: Yes Drug Use: none Patient Lives Alone: No - Nursing Vital Signs Nursing Vital Signs: Initial Vital Signs Temperature 98.7 F 03/25/19 19:38 Pulse Rate 58 L 03/25/19 19:38 Respiratory Rate 18 03/25/19 19:38 Blood Pressure 218/96 03/25/19 19:38 O2 Sat by Pulse Oximetry 99 03/25/19 19:38 Pain Scale Pain Intensity 0 - Physical Exam General Appearance: no apparent distress Eye Exam: PERRL/EOMI, eyes nml inspection Ears, Nose, Throat Exam: normal ENT inspection, TM abnormal (L) Neck Exam: normal inspection, non-tender, supple, full range of motion, No meningismus Respiratory Exam: diminished breath sounds, prolonged expirations, crackles/ rales (BASES), No respiratory distress Cardiovascular Exam: regular rate/rhythm, murmur (GRD1-2/6 APEX), capillary refill <2 sec (POS:CAROTIOD ,ABDOMIONAL,FEMOPRAL BRUIT), No edema Gastrointestinal/Abdomen Exam: soft, normal bowel sounds, bruit, No tenderness, No distention, No guarding, No rebound Male Genitalia Exam: normal genitalia Back Exam: normal inspection, normal range of motion, No CVA tenderness, No vertebral tenderness, No rash, No decreased range of motion Extremity Exam: normal inspection, normal range of motion, pelvis stable, No calf tenderness, No deformities Neurologic Exam: alert, oriented x 3, cooperative, mushroom picker II-XII nml as tested, normal mood/affect, nml cerebellar function, nml station & gait SpO2 Interpretation: normal SpO2: 98 O2 Delivery: Room Air - Course Nursing assessment & vital signs reviewed: Yes EKG Interpreted by Me: Left Finley Deviation, LAFB, Other (IRBBB LAD) Ordered Tests: Active Orders 24 hr Category Date Time Status HEAD WITHOUT CONTRAST [CT] Stat Exams 03/25/19 21:05 Taken KUB Stat Exams 03/25/19 20:38 Taken LUMBAR LIMITED (2 OR 3 VIEWS) Stat Exams 03/25/19 21:05 Taken CBC W DIFF Stat Lab 03/25/19 21:00 Completed CMP Stat Lab 03/25/19 21:00 Completed Medication Summary Discontinued Medications Generic Name Dose Route Start Last Admin Trade Name Adrianne PRN Reason Stop Dose Admin Clonidine 0.1 mg 03/25/19 20:38 03/25/19 20:49 Catapres 0.1 Mg PO 03/25/19 20:39 0.1 mg STAT ONE Administration Clonidine Confirm 03/25/19 20:47 Catapres 0.1 Mg Administered 03/25/19 20:48 Dose 0.1 mg .ROUTE .STK-MED ONE Lab/Rad Data: Laboratory Result Diagrams 03/25/19 21:00 03/25/19 21:00 Laboratory Results 03/25/19 03/25/19 Range/Units 21:00 21:00 WBC 8.6 (4.0-10.5) K/mm3 RBC 4.57 (4.1-5.6) M/mm3 Hgb 14.0 (12.5-18.0) gm/dl Hct 43.2 (42-50) % MCV 94.5 (78-100) fl MCH 30.6 (26-32) pg MCHC 32.4 (32-36) g/dl RDW 14.6 H (11.5-14.0) % Plt Count 203 (150-450) K/mm3 MPV 10.4 H (6-9.5) fl Gran % 63.3 (36.0-66.0) % Eos # (Auto) 0.23 (0-0.5) Absolute Lymphs (auto) 2.34 (1.0-4.6) Absolute Monos (auto) 0.55 (0.0-1.3) Lymphocytes % 27.1 (24.0-44.0) % Monocytes % 6.4 (0.0-12.0) % Eosinophils % 2.7 (0.00-5.0) % Basophils % 0.5 (0.0-0.4) % Absolute Granulocytes 5.46 (1.4-6.9) Basophils # 0.04 (0-0.4) Sodium 144 (137-145) mmol/L Potassium 4.4 (3.5-5.1) mmol/L Chloride 110 H (98-107) mmol/L Carbon Dioxide 23 (22-30) mmol/L Anion Gap 14.7 (5-15) MEQ/L BUN 29 H (9-20) mg/dL Creatinine 1.91 H (0.66-1.25) mg/dL Estimated GFR 37.5 ML/MIN Glucose 90 (74-106) mg/dL Calcium 9.9 (8.4-10.2) mg/dL Total Bilirubin 0.40 (0.2-1.3) mg/dL AST 23 (17-59) U/L ALT 11 (0-50) U/L Alkaline Phosphatase 155 H (38-126) U/L Serum Total Protein 8.2 (6.3-8.2) g/dL Albumin 4.5 (3.5-5.0) g/dL - Progress Progress: improved (D/C BP 144/84 ) Counseled pt/family regarding: lab results, diagnosis, need for follow-up, rad results, smoking cessation - Departure Departure Disposition: Home Clinical Impression: HTN (hypertension), malignant, Peripheral vascular disease, COPD (chronic obstructive pulmonary disease) Condition: Stable Critical Care Time: No Referrals: ANAND RAMACHANDRAN [Primary Care Provider] - Instructions: Chronic Obstructive Pulmonary Disease Additional Instructions: ADVISED STRONGLY TO STOP SMOKING--IMPROVE GENERAL LIFE STYLE FOLLOW UP WITH PCP NEXT WEEK TWICE A DAY BLOOD PRESSURE READING AND TAKE MEDICATIONS DIRECTED
[2019-03-25 22:11] VITALS: BP 144/84; PULSE 52
--- NOTE | 2019-03-26 08:31 | XRAY ---
Exam: CT of the head without IV contrast from 03/25/2019 CTDI: 56.14 Comparison: CT of the head without IV contrast from 07/03/2018. Indication: 68-year-old male with high blood pressure and headache in frontal area. Technique: Non-IV contrast axial images were obtained through the brain. Reconstructed coronal and sagittal images were created and reviewed. Findings: The ventricles appear of normal size and configuration. No focal mass effect or midline shift is seen. No acute intracranial bleed or abnormal extracerebral fluid collection is seen. The león matter-white matter interfaces appear unremarkable. No low attenuation lesion is seen to suggest a focal territorial infarction or localized edema. Some atherosclerotic vascular calcification is seen within the distal left vertebral artery on axial images #11 and #12. I also see some atherosclerotic vascular calcification within the distal internal carotid arteries in the parasellar region bilaterally. The cortical sulci and cisterns appear of normal size for age. The visualized maxillary sinuses appear clear. The mastoid air cells reveal no worrisome opacification or effusions. The middle ear cavities appear grossly unremarkable bilaterally. The calvarium of the skull is intact without fracture or other significant bone lesion. Impression: 1. No acute intracranial bleed or other acute intracranial process is seen. The findings are unchanged from 07/03/2018.
--- NOTE | 2019-03-26 09:10 | XRAY ---
Exam: 3 view lumbar spine series from 03/25/2019. Comparison: 3 view lumbar spine series from 09/20/2011. Indication: 68-year-old male with pain. Technique: AP, lateral, and a coned-down lateral film of the lumbosacral junction were obtained. Findings: There are 5 ahr-csx-eltnasp lumbar vertebra. I see no acute lumbar spine fracture or AP subluxation. There is some mild to moderate narrowing of the L-1L2 interspace height associated with vacuum disc phenomena and anterior lateral vertebral endplate spurring indicating mild to moderate degenerative disc disease at this level. These findings have mildly progressed as compared to 09/20/2011. There is also mild narrowing of the L2-L3 interspace which has progressed some. Slight narrowing of the L5-S1 interspace height is again seen. The other interspace heights are fairly well-maintained. I also note mild anterior lateral vertebral endplate spurs throughout the remainder of the lumbar spine. No bone destruction or definite spondylolysis is seen. Some atherosclerotic vascular calcification is seen within the distal abdominal aorta and iliac arteries. A small saccular aneurysm anterior to the L4 vertebral body cannot be excluded. This measures about 3.0 cm in AP dimension on the lateral radiograph. Consider further evaluation with a CT of the abdomen and pelvis with IV contrast for initial further evaluation. Surgical clips are seen overlying the medial aspect of the right mid abdomen. Correlate with prior surgical history. I also note some fine surgical suture material within the medial aspect of the right upper quadrant and a surgical clip just to the right of the L1 vertebral body. The bowel gas pattern appears unremarkable. No hepatosplenomegaly is seen. Atherosclerotic vascular calcification is seen within both common femoral arteries. Impression: 1. On the lateral radiograph, there is a suggestion of a possible small saccular aneurysm anterior to L4 within the most distal aspect of the abdominal aorta. Further evaluation with a CT of abdomen and pelvis with IV contrast is suggested. I personally called this report to the emergency Department at 8:54 AM on 03/26/2019. 2. Compared to 09/20/2011, there has been interval surgery. Surgical clips and fine surgical suture material are seen within the medial aspect of the right upper quadrant and right midabdomen. Correlate with surgical history. 3. I see no acute lumbar spine fracture or AP subluxation. 4. Mild to moderate degenerative changes are seen within the lumbar line. Specifically, there is mild to moderate degenerative disc disease at L1-L2 and mild degenerative disc disease at L2-L3 which have mildly progressed as compared to 09/20/2011.
--- NOTE | 2019-03-26 09:13 | XRAY ---
Exam: Supine film of the abdomen from 03/25/2019. Comparison: AP film of the abdomen from a lumbar spine series from 09/20/2011. Indication: 68-year-old male with pain. I am also given a history that the patient has high blood pressure and has had his right kidney removed in the past. Findings: The bowel gas pattern appears nonspecific with slight prominence of some small bowel within the left midabdomen. No significant bowel distention is seen. A mild amount of scattered colonic stool is seen. No hepatosplenomegaly is seen. Surgical clips and suture material are seen within medial aspect of the right upper quadrant and right midabdomen. This is consistent with the patient's prior right nephrectomy. No extrinsic soft tissue mass impressions or abnormal calcifications are seen. I note some atherosclerotic vascular calcification within portions of the iliac arteries. Mild diffuse degenerative changes are seen throughout the lumbar spine, most pronounced at L-1L2. The sacroiliac joints and hip joint spaces appear unremarkable. Impression: 1. Nonspecific bowel gas pattern, as described above. 2. Evidence of prior abdominal surgery to right of midline, as discussed above. 3. Mild lumbar spondylosis, most pronounced at L-1L2.
== END 2019-03-25 22:29 | disposition home or self-care (01) ==
LOC: ED 19:34
DX: I10 Essential (primary) hypertension (principal); I73.9 Peripheral vascular disease, unspecified; J44.9 Chronic obstructive pulmonary disease, unspecified; I25.10 Atherosclerotic heart disease of native coronary artery without angina pectoris; N28.9 Disorder of kidney and ureter, unspecified
CPT/HCPCS: 36415; 70450; 72100; 74018; 80053; 85025; 99284; A9270-GY

== ENCOUNTER 2020-10-13 05:46 | Day surgery (SDC) | payer MEDICARE ==
[2020-10-13] MEDS ORDERED: Lactated Ringers 1,000 ML IV SCH (06:30)
[2020-10-13] MEDS ORDERED: DIPRIVAN 200 MG/20 ML IV ONE ×2 (07:54→08:07)
[2020-10-13] MEDS ORDERED: ROBINUL ONE (08:07)
[2020-10-13] MEDS ORDERED: Ephedrine Sulfate 50 MG/ML ONE (08:09)
[2020-10-13 09:06] VITALS: O2SAT 99
[2020-10-13 09:28] VITALS: PULSE 64
[2020-10-13 09:32] VITALS: BP 112/74
--- NOTE | 2020-10-13 11:37 | OP ---
SURGERY DATE: 10/13/2020 SURGERY TIME: 755 PREOPERATIVE DIAGNOSIS: 1. RIGHT LOWER QUADRANT ABDOMINAL PAIN. POSTOPERATIVE DIAGNOSIS: 1. SIGMOID DIVERTICULOSIS, OTHERWISE NORMAL COLON. PROCEDURE: 1. Colonoscopy. SURGEON: Dr. Pat. ANESTHESIA: MAC. Medications given by the Anesthesia Department. BRIEF HISTORY: The patient is a 70 y/o WM patient who presents now for colonoscopic evaluation. He reports he has been having problems with right lower quadrant pain off and on for several days. He reports it was not better with the colon prep. On examination, his abdomen was soft and no palpable masses were felt. The patient was felt to need to have endoscopic evaluation. He was appraised of the risks of the procedure including the risk of perforation, phlebitis, untoward reaction to medication, bleeding, and missed lesions. The patient verbalized his understanding and desired to have the procedure performed. DESCRIPTION OF PROCEDURE: The patient was given the medications by the Anesthesia Department. He had continuous pulse oximetry, ECG monitoring, intermittent BP monitoring, and end tidal CO2 monitoring during the examination. He was placed in the left lateral decubitus position. A digital rectal examination was performed and revealed normal anal sphincter tone, no masses, and a normal prostate. The flexible Olympus pediatric colonoscope was used to intubate the rectum. A view of the colon was developed sequentially to the cecum. Upon insertion and withdrawal, including a retroflex view, was noted mild to moderate sigmoid diverticulosis. No other mucosal lesions were encountered. The scope was removed from the patient who tolerated the procedure well and was sent back to OP recovery in good condition. The prep was noted to be fair to good.
== END 2020-10-13 09:25 | disposition home or self-care (01) ==
LOC: SDC 05:46
PROVIDERS: ATTEND Family Medicine
DX: Z12.11 Encounter for screening for malignant neoplasm of colon (principal); K57.30 Diverticulosis of large intestine without perforation or abscess without bleeding; I10 Essential (primary) hypertension; J44.9 Chronic obstructive pulmonary disease, unspecified; Z79.899 Other long term (current) drug therapy
CPT/HCPCS: 82947; 93005; J2704

== ENCOUNTER 2020-12-26 09:17 | Inpatient (IN) | payer MEDICARE ==
[2020-12-26] MEDS ORDERED: Sodium Chloride 0.9% 1000 ML 1,000 ML IV STA (10:01)
[2020-12-26] MEDS ORDERED: Zofran 4 MG/2 ML VIAL IV ONE (10:01)
[2020-12-26 10:13] LABS: VBG BASE EXCESS -14.4 (-2.0-2.0); VBG CARBOXYHEMOGLOBIN 5.5 % T HGB (0.0-6.9); VBG HCO3- 13.5 meq/L (22-28); VBG HEMOGLOBIN 12.2; VBG O2 SATURATION 49.1 (95-100); VBG POTASSIUM 5.9 (3.5-5.1); VBG pH 7.16 (7.32-7.42)
--- NOTE | 2020-12-26 10:16 | ERPHSYRPT ---
- History of Present Illness Time Seen by Provider: 12/26/20 09:45 Source: patient Exam Limitations: no limitations Patient Subjective Stated Complaint: Patient states his blood pressure was 77/35 this morning. States it has been running low after he takes his blood pressure medication but if he doesnt take it, it will be high over the last 2 weeks. Triage Nursing Assessment: patient to ed for hypotension. patient is short of breath with subcostal retractions and expiratory wheeze. Physician History: This is a 70-year-old white male patient of Dr. Ramachandran and Dr. Gilmore(nephrology) who presents with weakness, nausea vomiting diarrhea, and low blood pressure. Patient states when he takes his blood pressure medicine the morning his blood pressure is very low. If he does not take his blood pressure medication his blood pressure runs too high per his report. This morning, his systolic blood pressure was in the high 70s. He denies chest pain. He denies shortness of breath. Patient does have a history of hypertension, COPD, peripheral vascular disease, dementia and history of alcohol abuse. Patient states that he does ache all over and he does have a mild cough. Patient has received the COVID-19 vaccination. He has not had a fever. His symptoms have been ongoing for approximately 2 weeks. Although the patient sees a doughmaker, he is not on any type of dialysis. Patient states that his card iologist is the younger Ennis that he sees here at [facility] cardiology clinic. Patient states he only has 1 kidney (the left 1 remains). Timing/Duration: week(s) (2) Associated Symptoms: nausea, vomiting, malaise, weakness, other (Diarrhea, a rthralgias myalgias.) Allergies/Adverse Reactions: No Known Drug Allergies Allergy (Verified 12/26/20 09:37) Home Medications: Diltiazem HCl [Cartia Xt] 240 mg PO DAILY 07/03/18 [History] Isosorbide Mononitrate 30 mg [Imdur 30 MG] 60 mg PO DAILY 07/03/18 [History] carvediloL [Carvedilol] 25 mg PO BID 07/03/18 [History] Lisinopril 10 mg [Zestril 10 MG] 20 mg PO DAILY 02/18/19 [History] Acetaminophen [Tylenol Extra Strength] 500 mg PO DAILY 10/13/20 [History] Donepezil HCl 10 mg [Aricept 10 MG] 10 mg DAILY 10/13/20 [History] Memantine HCl 5 mg [Namenda 5 MG] 5 tab PO 12/26/20 [History] Hx Tetanus, Diphtheria Vaccination/Date Given: No Hx Influenza Vaccination/Date Given: No Hx Pneumococcal Vaccination/Date Given: Yes Immunizations Up to Date: Yes Travel Risk - International Travel Have you traveled outside of the country in past 3 weeks: No - Coronavirus Screening Are you exhibiting any of the following symptoms?: Yes Symptoms: Cough: New Onset, Shortness of Breath Close contact with a COVID-19 positive Pt in past 14-21 Days: No - Vaccine Status Have you recieved a Covid-19 vaccination: Yes Infection Preventionist: Moderna - Vaccination Dates Date of 2cond Vaccination (if applicable): 07/05/20 - Review of Systems Constitutional: Weakness Eyes: No Symptoms Ears, Nose, & Throat: No Symptoms Respiratory: No Symptoms Cardiac: No Symptoms Abdominal/Gastrointestinal: Nausea, Vomiting, Diarrhea, No Abdominal Pain Genitourinary Symptoms: No Symptoms Musculoskeletal: Arthralgias, Myalgias Skin: No Symptoms Neurological: No Symptoms Psychological: No Symptoms Endocrine: No Symptoms Hematologic/Lymphatic: No Symptoms Immunological/Allergic: No Symptoms All Other Systems: Reviewed and Negative - Past Medical History Pertinent Past Medical History: Yes Neurological History: Seizures ENT History: No Pertinent History Cardiac History: Arrhythmia, Coronary Artery Disease, Hypertension, Other Respiratory History: CHF, COPD, Pneumonia, Tuberculosis Endocrine Medical History: No Pertinent History Musculoskeletal History: No Pertinent History GI Medical History: GI Bleed, Hemorrhoids, Polyps History: Renal Disease Psycho-Social History: No Pertinent History Male Reproductive Disorders: No Pertinent History Other Medical History: tuberculosis of kidney - Past Surgical History Past Surgical History: Yes Neuro Surgical History: No Pertinent History Cardiac: Cardiac Catheterization Respiratory: No Pertinent History Gastrointestinal: No Pertinent History Genitourinary: Kidney Surgery Musculoskeletal: Other Male Surgical History: No Pertinent History Other Surgical History: Toes sewed together,colonoscopy - Social History Smoking Status: Current every day smoker How long have you smoked: 54 Exposure to second hand smoke: Yes Drug Use: none Patient Lives Alone: Yes - Nursing Vital Signs Nursing Vital Signs: Initial Vital Signs Temperature 97 F 12/26/20 09:26 Pulse Rate 57 L 12/26/20 09:26 Respiratory Rate 16 12/26/20 09:26 Blood Pressure 86/45 12/26/20 09:26 O2 Sat by Pulse Oximetry 97 12/26/20 09:26 Pain Scale Pain Intensity 7 - Physical Exam General Appearance: no apparent distress, alert, anxiety Eye Exam: PERRL/EOMI, eyes nml inspection Ears, Nose, Throat Exam: normal ENT inspection, moist mucous membranes Neck Exam: normal inspection, non-tender, supple, full range of motion Respiratory Exam: normal breath sounds, lungs clear, airway intact, No chest tenderness, No respiratory distress Cardiovascular Exam: regular rate/rhythm, normal heart sounds, normal peripheral pulses Gastrointestinal/Abdomen Exam: soft, normal bowel sounds, No tenderness Rectal Exam: not done Back Exam: normal inspection, normal range of motion, No CVA tenderness, No vertebral tenderness Extremity Exam: normal inspection, normal range of motion, pelvis stable Neurologic Exam: alert, oriented x 3, cooperative, 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 as tested, normal mood/affect, nml cerebellar function, nml station & gait, sensation nml Skin Exam: normal color, warm, dry Lymphatic Exam: No adenopathy SpO2 Interpretation: normal SpO2: 97 O2 Delivery: Room Air - Course Nursing assessment & vital signs reviewed: Yes Ordered Tests: Active Orders 24 hr Category Date Time Status EKG-ER Only STAT Care 12/26/20 10:01 Active IV Insertion STAT Care 12/26/20 10:01 Active IV Insertion-2nd Peripheral STAT Care 12/26/20 11:14 Active Isolation, Initiate & Maintain STAT Care 12/26/20 10:01 Active CHEST 1 VIEW (PORTABLE) Stat Exams 12/26/20 10:02 Completed AMYLASE Stat Lab 12/26/20 10:00 Completed BLOOD CULTURE Stat Lab 12/26/20 10:28 Received CBC W DIFF Stat Lab 12/26/20 10:00 Completed CMP Stat Lab 12/26/20 10:00 Completed Ferritin Stat Lab 12/26/20 10:00 Completed INFLUENZA A+B MOMO Stat Lab 12/26/20 10:22 Completed LDH-LACTATE DEHYDROGENASE Stat Lab 12/26/20 10:00 Completed LIPASE Stat Lab 12/26/20 10:00 Completed Lactic Acid Stat Lab 12/26/20 10:01 Completed MAGNESIUM Stat Lab 12/26/20 10:00 Completed Marathon Screen Stat Lab 12/26/20 10:00 Completed POCT GLUCOSE Stat Lab 12/26/20 11:10 Completed TROPONIN Q3H Lab 12/26/20 10:00 Completed TROPONIN Q3H Lab 12/26/20 13:24 Received TROPONIN Q3H Lab 12/26/20 16:15 Ordered TROPONIN Q3H Lab 12/26/20 19:15 Ordered TROPONIN Q3H Lab 12/26/20 22:15 Ordered UA W/RFX UR CULTURE Stat Lab 12/26/20 12:12 Completed VBG [VENOUS BLOOD GAS] Stat Lab 12/26/20 10:12 Completed Transfer Order Routine Transfer 12/26/20 Ordered Medication Summary Discontinued Medications Generic Name Dose Route Start Last Admin Trade Name Dariusq PRN Reason Stop Dose Admin Atropine Sulfate 1 mg 12/26/20 11:05 12/26/20 12:06 Atropine Sulfate 1mg Syr Abboject IV 12/26/20 11:06 1 mg STAT ONE Administration Atropine Sulfate Confirm 12/26/20 12:05 Atropine Sulfate 1mg Syr Abboject Administered 12/26/20 12:06 Dose 1 mg .ROUTE .STK-MED ONE Calcium Gluconate 1,000 mg 12/26/20 11:03 12/26/20 11:19 Calcium Gluconate 10% 1000 Mg IV 12/26/20 11:04 1,000 mg STAT ONE Administration Calcium Gluconate Confirm 12/26/20 11:15 Calcium Gluconate 10% 1000 Mg Administered 12/26/20 11:16 Dose 1,000 mg IV .STK-MED ONE Dextrose 50 ml 12/26/20 11:02 12/26/20 11:20 D50w 50 Ml Abboject IV 12/26/20 11:03 50 ml STAT ONE Administration Dextrose Confirm 12/26/20 11:17 D50w 50 Ml Abboject Administered 12/26/20 11:18 Dose 50 ml IV .STK-MED ONE Sodium Chloride 1,000 mls @ 999 mls/hr 12/26/20 10:01 12/26/20 11:32 Sodium Chloride 0.9% 1000 Ml IV 12/26/20 11:01 Infused .Q1H1M STA Infusion Sodium Chloride Confirm 12/26/20 10:21 Sodium Chloride 0.9% 1000 Ml Administered 12/26/20 10:22 Dose 1,000 mls @ ud .ROUTE .STK-MED ONE Insulin Human Regular 4 unit 12/26/20 11:03 12/26/20 11:20 Humulin R IV 12/26/20 11:04 4 unit STAT ONE Administration Insulin Human Regular Confirm 12/26/20 11:16 Humulin R Administered 12/26/20 11:17 Dose 4 unit .ROUTE .STK-MED ONE Ondansetron HCl 4 mg 12/26/20 10:01 12/26/20 10:24 Zofran 4 Mg/2 Ml Vial IV 12/26/20 10:02 4 mg STAT ONE Administration Ondansetron HCl Confirm 12/26/20 10:21 Zofran 4 Mg/2 Ml Vial Administered 12/26/20 10:22 Dose 4 mg .ROUTE .STK-MED ONE Patiromer 8.4 gm 12/26/20 11:04 12/26/20 11:19 Veltassa PO 12/26/20 11:05 8.4 gm STAT STA Administration Patiromer Confirm 12/26/20 11:17 Veltassa Administered 12/26/20 11:18 Dose 8.4 gm PO .STK-MED ONE Lab/Rad Data: Laboratory Result Diagrams 12/26/20 10:00 12/26/20 10:00 Laboratory Results 12/26/20 12/26/20 12/26/20 Range/Units 12:12 11:10 10:22 WBC (4.0-10.5) K/mm3 RBC (4.1-5.6) M/mm3 Hgb (12.5-18.0) gm/dl Hct (42-50) % MCV (78-100) fl MCH (26-32) pg MCHC (32-36) g/dl RDW (11.5-14.0) % Plt Count (150-450) K/mm3 MPV (7.5-11.0) fl Gran % (36.0-66.0) % Eos # (Auto) (0-0.5) Absolute Lymphs (auto) (1.0-4.6) Absolute Monos (auto) (0.0-1.3) Lymphocytes % (24.0-44.0) % Monocytes % (0.0-12.0) % Eosinophils % (0.00-5.0) % Basophils % (0.0-0.4) % Absolute Granulocytes (1.4-6.9) Basophils # (0-0.4) pO2/FiO2 Ratio % VBG pH (7.32-7.42) VBG pCO2 at Pat Temp (42-55) mm/Hg VBG pO2 at Pat Temp (25-40) mm/Hg VBG HCO3 (22-28) meq/L VBG O2 Sat (Rebeca) (95-100) VBG Base Excess (-2.0-2.0) VBG Hemoglobin VBG Carboxyhemoglobin (0.0-6.9) % T HGB POC Potassium (3.5-5.1) Sodium (137-145) mmol/L Potassium (3.5-5.1) mmol/L Chloride (98-107) mmol/L Carbon Dioxide (22-30) mmol/L Anion Gap (5-15) MEQ/L BUN (9-20) mg/dL Creatinine (0.66-1.25) mg/dL Estimated GFR ML/MIN Glucose (74-106) mg/dL POC Glucometer 103 (74 to 106) mg/dL Lactic Acid (0.4-2.0) Calcium (8.4-10.2) mg/dL Magnesium (1.6-2.3) mg/dL Ferritin (17.9-464) ng/mL Total Bilirubin (0.2-1.3) mg/dL AST (17-59) U/L ALT (0-50) U/L Alkaline Phosphatase (38-126) U/L Lactate Dehydrogenase (120-246) U/L Troponin I (0.000-0.034) ng/mL Serum Total Protein (6.3-8.2) g/dL Albumin (3.5-5.0) g/dL Amylase (30-110) U/L Lipase (23-300) U/L Urine Color YELLOW (YELLOW) Urine Appearance SLIGHTLY CLOUDY (CLEAR) Urine pH 5.0 (5-6) Ur Specific Sellers 1.027 (1.005-1.025) Urine Protein 30 (Negative) Urine Ketones NEGATIVE (NEGATIVE) Urine Blood NEGATIVE (0-5) Emil/ul Urine Nitrite NEGATIVE (NEGATIVE) Urine Bilirubin SMALL (NEGATIVE) Urine Urobilinogen NEGATIVE (0-1) mg/dL Ur Leukocyte Esterase NEGATIVE (NEGATIVE) Urine WBC (Auto) 0-2 (0-5) /HPF Urine RBC (Auto) NONE (0-2) /HPF U Epithel Cells (Auto) NONE (FEW) /HPF Urine Bacteria (Auto) NONE (NEGATIVE) /HPF Urine Mucus (Auto) SLIGHT (NEGATIVE) /HPF Urine Culture Reflexed NO (NO) Urine Glucose NEGATIVE (NEGATIVE) mg/dL Monoscreen (Negative) Influenza Type A Ag (NEGATIVE) Influenza Type B Ag (NEGATIVE) Group A Strep Antibody NOT DETECTED (NEGATIVE) 12/26/20 12/26/20 12/26/20 Range/Units 10:22 10:12 10:01 WBC (4.0-10.5) K/mm3 RBC (4.1-5.6) M/mm3 Hgb (12.5-18.0) gm/dl Hct (42-50) % MCV (78-100) fl MCH (26-32) pg MCHC (32-36) g/dl RDW (11.5-14.0) % Plt Count (150-450) K/mm3 MPV (7.5-11.0) fl Gran % (36.0-66.0) % Eos # (Auto) (0-0.5) Absolute Lymphs (auto) (1.0-4.6) Absolute Monos (auto) (0.0-1.3) Lymphocytes % (24.0-44.0) % Monocytes % (0.0-12.0) % Eosinophils % (0.00-5.0) % Basophils % (0.0-0.4) % Absolute Granulocytes (1.4-6.9) Basophils # (0-0.4) pO2/FiO2 Ratio 21.0 % VBG pH 7.16 L* (7.32-7.42) VBG pCO2 at Pat Temp 38 L (42-55) mm/Hg VBG pO2 at Pat Temp 24 L (25-40) mm/Hg VBG HCO3 13.5 L* (22-28) meq/L VBG O2 Sat (Rebeca) 49.1 L (95-100) VBG Base Excess -14.4 L (-2.0-2.0) VBG Hemoglobin 12.2 VBG Carboxyhemoglobin 5.5 (0.0-6.9) % T HGB POC Potassium 5.9 H (3.5-5.1) Sodium (137-145) mmol/L Potassium (3.5-5.1) mmol/L Chloride (98-107) mmol/L Carbon Dioxide (22-30) mmol/L Anion Gap (5-15) MEQ/L BUN (9-20) mg/dL Creatinine (0.66-1.25) mg/dL Estimated GFR ML/MIN Glucose (74-106) mg/dL POC Glucometer (74 to 106) mg/dL Lactic Acid 0.6 (0.4-2.0) Calcium (8.4-10.2) mg/dL Magnesium (1.6-2.3) mg/dL Ferritin (17.9-464) ng/mL Total Bilirubin (0.2-1.3) mg/dL AST (17-59) U/L ALT (0-50) U/L Alkaline Phosphatase (38-126) U/L Lactate Dehydrogenase (120-246) U/L Troponin I (0.000-0.034) ng/mL Serum Total Protein (6.3-8.2) g/dL Albumin (3.5-5.0) g/dL Amylase (30-110) U/L Lipase (23-300) U/L Urine Color (YELLOW) Urine Appearance (CLEAR) Urine pH (5-6) Ur Specific Sellers (1.005-1.025) Urine Protein (Negative) Urine Ketones (NEGATIVE) Urine Blood (0-5) Emil/ul Urine Nitrite (NEGATIVE) Urine Bilirubin (NEGATIVE) Urine Urobilinogen (0-1) mg/dL Ur Leukocyte Esterase (NEGATIVE) Urine WBC (Auto) (0-5) /HPF Urine RBC (Auto) (0-2) /HPF U Epithel Cells (Auto) (FEW) /HPF Urine Bacteria (Auto) (NEGATIVE) /HPF Urine Mucus (Auto) (NEGATIVE) /HPF Urine Culture Reflexed (NO) Urine Glucose (NEGATIVE) mg/dL Monoscreen (Negative) Influenza Type A Ag NEGATIVE (NEGATIVE) Influenza Type B Ag NEGATIVE (NEGATIVE) Group A Strep Antibody (NEGATIVE) 12/26/20 12/26/20 12/26/20 Range/Units 10:00 10:00 10:00 WBC (4.0-10.5) K/mm3 RBC (4.1-5.6) M/mm3 Hgb (12.5-18.0) gm/dl Hct (42-50) % MCV (78-100) fl MCH (26-32) pg MCHC (32-36) g/dl RDW (11.5-14.0) % Plt Count (150-450) K/mm3 MPV (7.5-11.0) fl Gran % (36.0-66.0) % Eos # (Auto) (0-0.5) Absolute Lymphs (auto) (1.0-4.6) Absolute Monos (auto) (0.0-1.3) Lymphocytes % (24.0-44.0) % Monocytes % (0.0-12.0) % Eosinophils % (0.00-5.0) % Basophils % (0.0-0.4) % Absolute Granulocytes (1.4-6.9) Basophils # (0-0.4) pO2/FiO2 Ratio % VBG pH (7.32-7.42) VBG pCO2 at Pat Temp (42-55) mm/Hg VBG pO2 at Pat Temp (25-40) mm/Hg VBG HCO3 (22-28) meq/L VBG O2 Sat (Rebeca) (95-100) VBG Base Excess (-2.0-2.0) VBG Hemoglobin VBG Carboxyhemoglobin (0.0-6.9) % T HGB POC Potassium (3.5-5.1) Sodium (137-145) mmol/L Potassium (3.5-5.1) mmol/L Chloride (98-107) mmol/L Carbon Dioxide (22-30) mmol/L Anion Gap (5-15) MEQ/L BUN (9-20) mg/dL Creatinine (0.66-1.25) mg/dL Estimated GFR ML/MIN Glucose (74-106) mg/dL POC Glucometer (74 to 106) mg/dL Lactic Acid (0.4-2.0) Calcium (8.4-10.2) mg/dL Magnesium 2.5 H (1.6-2.3) mg/dL Ferritin 130 (17.9-464) ng/mL Total Bilirubin (0.2-1.3) mg/dL AST (17-59) U/L ALT (0-50) U/L Alkaline Phosphatase (38-126) U/L Lactate Dehydrogenase (120-246) U/L Troponin I (0.000-0.034) ng/mL Serum Total Protein (6.3-8.2) g/dL Albumin (3.5-5.0) g/dL Amylase (30-110) U/L Lipase (23-300) U/L Urine Color (YELLOW) Urine Appearance (CLEAR) Urine pH (5-6) Ur Specific Sellers (1.005-1.025) Urine Protein (Negative) Urine Ketones (NEGATIVE) Urine Blood (0-5) Emil/ul Urine Nitrite (NEGATIVE) Urine Bilirubin (NEGATIVE) Urine Urobilinogen (0-1) mg/dL Ur Leukocyte Esterase (NEGATIVE) Urine WBC (Auto) (0-5) /HPF Urine RBC (Auto) (0-2) /HPF U Epithel Cells (Auto) (FEW) /HPF Urine Bacteria (Auto) (NEGATIVE) /HPF Urine Mucus (Auto) (NEGATIVE) /HPF Urine Culture Reflexed (NO) Urine Glucose (NEGATIVE) mg/dL Monoscreen NEGATIVE (Negative) Influenza Type A Ag (NEGATIVE) Influenza Type B Ag (NEGATIVE) Group A Strep Antibody (NEGATIVE) 12/26/20 12/26/20 12/26/20 Range/Units 10:00 10:00 10:00 WBC 9.4 (4.0-10.5) K/mm3 RBC 3.78 L (4.1-5.6) M/mm3 Hgb 12.0 L (12.5-18.0) gm/dl Hct 38.2 L (42-50) % MCV 101.1 H (78-100) fl MCH 31.7 (26-32) pg MCHC 31.4 L (32-36) g/dl RDW 15.0 H (11.5-14.0) % Plt Count 253 (150-450) K/mm3 MPV 10.6 (7.5-11.0) fl Gran % 77.8 H (36.0-66.0) % Eos # (Auto) 0.29 (0-0.5) Absolute Lymphs (auto) 1.33 (1.0-4.6) Absolute Monos (auto) 0.42 (0.0-1.3) Lymphocytes % 14.1 L (24.0-44.0) % Monocytes % 4.5 (0.0-12.0) % Eosinophils % 3.1 (0.00-5.0) % Basophils % 0.5 (0.0-0.4) % Absolute Granulocytes 7.32 H (1.4-6.9) Basophils # 0.05 (0-0.4) pO2/FiO2 Ratio % VBG pH (7.32-7.42) VBG pCO2 at Pat Temp (42-55) mm/Hg VBG pO2 at Pat Temp (25-40) mm/Hg VBG HCO3 (22-28) meq/L VBG O2 Sat (Rebeca) (95-100) VBG Base Excess (-2.0-2.0) VBG Hemoglobin VBG Carboxyhemoglobin (0.0-6.9) % T HGB POC Potassium (3.5-5.1) Sodium 140 (137-145) mmol/L Potassium 6.0 H* (3.5-5.1) mmol/L Chloride 116 H (98-107) mmol/L Carbon Dioxide 11 L* (22-30) mmol/L Anion Gap 19.1 H (5-15) MEQ/L BUN 91 H (9-20) mg/dL Creatinine 4.43 H (0.66-1.25) mg/dL Estimated GFR 14.1 ML/MIN Glucose 109 H (74-106) mg/dL POC Glucometer (74 to 106) mg/dL Lactic Acid (0.4-2.0) Calcium 9.5 (8.4-10.2) mg/dL Magnesium (1.6-2.3) mg/dL Ferritin (17.9-464) ng/mL Total Bilirubin 0.30 (0.2-1.3) mg/dL AST 18 (17-59) U/L ALT 11 (0-50) U/L Alkaline Phosphatase 139 H (38-126) U/L Lactate Dehydrogenase 123 (120-246) U/L Troponin I < 0.012 (0.000-0.034) ng/mL Serum Total Protein 7.6 (6.3-8.2) g/dL Albumin 4.5 (3.5-5.0) g/dL Amylase 143 H (30-110) U/L Lipase 393 H (23-300) U/L Urine Color (YELLOW) Urine Appearance (CLEAR) Urine pH (5-6) Ur Specific Sellers (1.005-1.025) Urine Protein (Negative) Urine Ketones (NEGATIVE) Urine Blood (0-5) Emil/ul Urine Nitrite (NEGATIVE) Urine Bilirubin (NEGATIVE) Urine Urobilinogen (0-1) mg/dL Ur Leukocyte Esterase (NEGATIVE) Urine WBC (Auto) (0-5) /HPF Urine RBC (Auto) (0-2) /HPF U Epithel Cells (Auto) (FEW) /HPF Urine Bacteria (Auto) (NEGATIVE) /HPF Urine Mucus (Auto) (NEGATIVE) /HPF Urine Culture Reflexed (NO) Urine Glucose (NEGATIVE) mg/dL Monoscreen (Negative) Influenza Type A Ag (NEGATIVE) Influenza Type B Ag (NEGATIVE) Group A Strep Antibody (NEGATIVE) - Progress Progress: improved, re-examined Progress Note: 12/26/20 11:40 Chest x-ray showed mild blunting of bilateral costovertebral angles. No new/acute cardiopulmonary processes. 12/26/20 12:37 Medical decision making: This patient has been having bradycardia and hypertension for nearly 2 weeks per his report. It is symptomatic.. After IV fluid, cardioprotection with calcium gluconate, lowering of potassium using Veltassa, insulin, IV fluids and dextrose plus a milligram of intravenous atropine, the patient's heart rate is now in the 50s instead of the high 30s and low 40s. His systolic blood pressure now is in the high 80s to low 90s. Patient is aware we still may need to pace him. At this time he does not want that and he seems to be responding to the treatment. Per his request, we have contacted [facility] in [facility]. They are incomplete di version or not excepting any patients at this time. We will contact [facility] to attempt to arrange transfer there. If unable to transfer there then we will try [facility] in [facility]. 12/26/20 14:00 Medical decision making [facility] in [facility] are not accepting patients in transfer. [facility] told us that there may not be any beds available for 2 days. [facility] in [facility] states that they do not have any open beds for this patient. I spoke with Dr. Desir who is covering for Dr. Ramachandran (the patient's primary care provider), and I reviewed the patient history, the results of his work-up, and the response to the treatment given here in the emergency department. She accepts him for admission into a monitored bed. She wants me to prescribe him his Coreg but half the dose for this evening. She will make a determination on what his blood pressure medicine regimen will be in the hospital tomorrow morning. We will repeat his potassium level tonight and repeat other labs in the morning. Counseled pt/family regarding: lab results, diagnosis, need for follow-up, rad results - Departure Departure Disposition: In-patient Admission Clinical Impression: Hypotension, Bradycardia, Acute on chronic renal failure, Hyperkalemia Condition: Fair Critical Care Time: Yes Critical Care Time(excluding separately billable procedures): Critical 30-74 mi ns Referrals: ANAND RAMACHANDRAN [Primary Care Provider] -
[2020-12-26] MEDS ORDERED: Sodium Chloride 0.9% 1000 ML 1,000 ML ONE ×2 (10:21→14:15)
[2020-12-26] MEDS ORDERED: Zofran 4 MG/2 ML VIAL ONE (10:21)
[2020-12-26 10:45] LABS: Absolute Neutrophil Ct (ANC) 7.32 (1.4-6.9); BASOPHIL % 0.5 % (0.0-0.4); Basophil (Absolute #) 0.05 (0-0.4); Eosinophil % 3.1 % (0.00-5.0); Eosinophil (Absolute #) 0.29 (0-0.5); Hematocrit 38.2 % (42-50); Lymphocyte (Absolute #) 1.33 (1.0-4.6); Lymphocytes % 14.1 % (24.0-44.0); Mean Cell Volume 101.1 fl (78-100); Mean Corpuscular Hemoglobin 31.7 pg (26-32); Mean Corpuscular Hgb Concent. 31.4 g/dl (32-36); Mean Platelet Volume 10.6 fl (7.5-11.0); Monocyte (Absolute #) 0.42 (0.0-1.3); Monocytes % 4.5 % (0.0-12.0); Neutrophil % 77.8 % (36.0-66.0); Platelet Count 253 K/mm3 (150-450); Red Blood Count 3.78 M/mm3 (4.1-5.6); White Blood Count 9.4 K/mm3 (4.0-10.5)
[2020-12-26 10:56] LABS: ALBUMIN 4.5 g/dL (3.5-5.0); ANION GAP 19.1 MEQ/L (5-15); BILIRUBIN,TOTAL 0.3 mg/dL (0.2-1.3); Calcium 9.5 mg/dL (8.4-10.2); Creatinine 1 4.43 mg/dL (0.66-1.25); EST GLOMERULAR FILTRATION RATE 14.1 ML/MIN; Total Protein 7.6 g/dL (6.3-8.2)
--- NOTE | 2020-12-26 10:57 | XRAY ---
Indication: Weakness. Low blood pressure. Comparison: July 03, 2018. Portable chest again demonstrates chronic blunting right costophrenic angle and a few tiny calcified granulomas. Remaining heart and lungs unremarkable. Bony thorax intact again with mild degenerative changes. No new/acute findings.
[2020-12-26] MEDS ORDERED: D50W 50 ml Abboject IV ONE ×2 (11:02→11:17)
[2020-12-26] MEDS ORDERED: Calcium Gluconate 10% 1000 MG IV ONE ×2 (11:03→11:15)
[2020-12-26] MEDS ORDERED: HUMULIN R IV ONE (11:03)
[2020-12-26] MEDS ORDERED: VELTASSA PO STA (11:04)
[2020-12-26] MEDS ORDERED: ATROPINE SULFATE 1MG SYR ABBOJECT IV ONE (11:05)
[2020-12-26 11:14] LABS: INFLUENZA A NEGATIVE (NEGATIVE); INFLUENZA B NEGATIVE (NEGATIVE)
[2020-12-26] MEDS ORDERED: HUMULIN R ONE (11:16)
[2020-12-26] MEDS ORDERED: VELTASSA PO ONE (11:17)
[2020-12-26] MEDS ORDERED: ATROPINE SULFATE 1MG SYR ABBOJECT ONE (12:05)
[2020-12-26 12:27] LABS: Appearance SLIGHTLY CLOUDY (CLEAR); Bilirubin SMALL (NEGATIVE); Blood NEGATIVE Ery/ul (0-5); Glucose NEGATIVE (NEGATIVE); Ketones NEGATIVE (NEGATIVE); Leukocyte Esterase NEGATIVE (NEGATIVE); Mucus SLIGHT /HPF (NEGATIVE); Nitrite NEGATIVE (NEGATIVE); Protein,Urine Dip 30 (Negative); Specific Gravity 1.027 (1.005-1.025); Urobilinogen NEGATIVE mg/dL (0-1); WBC 0-2 /HPF (0-5)
[2020-12-26] MEDS ORDERED: Zofran 4 MG/2 ML VIAL IV PRN (17:09)
[2020-12-26] MEDS ORDERED: TYLENOL 325 MG PO PRN (17:22)
[2020-12-26] MEDS ORDERED: Nicoderm CQ 21 MG ONE (17:26)
[2020-12-26] MEDS ORDERED: TYLENOL 325 MG ONE (17:26)
[2020-12-26] MEDS: Nicoderm CQ 21 MG TOP SCH (17:33)
[2020-12-26] MEDS: Sodium Chloride 0.9% 1000 ML 1,000 ML IV SCH ×2 (17:36→22:42)
[2020-12-26] MEDS ORDERED: Ativan 1 MG PO PRN (18:28)
[2020-12-26] MEDS: MORPHINE SULFATE 4 MG INJ IV PRN (18:50)
[2020-12-26 19:29] LABS: ANION GAP 17.5 MEQ/L (5-15); Creatinine 1 3.64 mg/dL (0.66-1.25); EST GLOMERULAR FILTRATION RATE 17.7 ML/MIN; Potassium 5.7 mmol/L (3.5-5.1)
[2020-12-26] MEDS ORDERED: COREG 12.5 MG PO SCH (22:00)
[2020-12-26] MEDS: Namenda 5 MG PO SCH (22:39)
[2020-12-26] MEDS: Aricept 10 MG PO SCH (22:39)
[2020-12-27] MEDS: MORPHINE SULFATE 4 MG INJ IV PRN ×3 (04:00→18:17)
[2020-12-27 05:06] LABS: Absolute Neutrophil Ct (ANC) 6.65 (1.4-6.9); BASOPHIL % 0.4 % (0.0-0.4); Basophil (Absolute #) 0.04 (0-0.4); Eosinophil % 3.7 % (0.00-5.0); Eosinophil (Absolute #) 0.35 (0-0.5); Hematocrit 34.4 % (42-50); Hemoglobin 10.7 gm/dl (12.5-18.0); Lymphocyte (Absolute #) 1.85 (1.0-4.6); Lymphocytes % 19.6 % (24.0-44.0); Mean Cell Volume 101.2 fl (78-100); Mean Corpuscular Hemoglobin 31.5 pg (26-32); Mean Corpuscular Hgb Concent. 31.1 g/dl (32-36); Mean Platelet Volume 10.1 fl (7.5-11.0); Monocyte (Absolute #) 0.53 (0.0-1.3); Monocytes % 5.6 % (0.0-12.0); Neutrophil % 70.7 % (36.0-66.0); Platelet Count 234 K/mm3 (150-450); White Blood Count 9.4 K/mm3 (4.0-10.5)
[2020-12-27 05:25] LABS: ALBUMIN 3.7 g/dL (3.5-5.0); ANION GAP 15.1 MEQ/L (5-15); BILIRUBIN,TOTAL 0.2 mg/dL (0.2-1.3); Calcium 8.9 mg/dL (8.4-10.2); Creatinine 1 2.63 mg/dL (0.66-1.25); EST GLOMERULAR FILTRATION RATE 25.8 ML/MIN; Potassium 5.4 mmol/L (3.5-5.1); Total Protein 6.7 g/dL (6.3-8.2)
[2020-12-27] MEDS ORDERED: Lactated Ringers 1,000 ML IV ONE ×2 (06:56→10:46)
--- NOTE | 2020-12-27 08:41 | XRAY ---
Indication: Right abdomen pain, nausea, and vomiting. Right nephrectomy and cholecystectomy. Multiple contiguous axial images obtained through the abdomen and pelvis without contrast. Comparison: April 01, 2019. Lung bases again demonstrates minimal subsegmental atelectasis/scarring. No infiltrate or effusion. Heart not enlarged. Stomach is distended with food/fluid. Noncontrasted stomach and bowel loops nonobstructed. Normal appendix. Again scattered descending/sigmoid diverticulosis, right nephrectomy, and cholecystectomy. No free fluid/air. Remaining liver, pancreas, spleen, adrenal glands, left kidney, left ureter, and bladder are unremarkable for noncontrast exam. Again moderate diffuse scattered aortoiliac calcifications without AAA. Osseous structures intact again with mild/moderate degenerative changes of the spine. Impression: 1. Again incidental colonic diverticulosis without diverticulitis and scattered arteriosclerotic disease. 2. Remaining CT abdomen/pelvis without contrast exam is negative.
--- NOTE | 2020-12-27 08:58 | PCM.HP ---
History of Present Illness - Chief Complaint Chief Complaint: hypotension and ckd History of Present Illness: is a 70 year old male pt of DR. Pat with HTN, COPD, PVD, dementia, hx EtOH abuse, and chronic renal failure who was admitted through ER with acute renal failure, hypotension, and bradycardia. He had been ill for 2 weeks with N/V/D, abd pain, weakness, aching, and cough. No fever. BP was 70s systolic at home the day of admission. He would have high BP then take his BP meds then have low blood pressure. In ER, his HR was 30s-40s initially and BP 70s-80s systolic. K+ was > 6. He was given IV fluids, calcium gluconate, Valtessa, insulin, and dextrose. Given 1 mg atropine. HR improved and is now 40s-50s with BP 108-148 systolic. Initially his CO2 was 11, and improved to 12. This morning is was 9. He is still c/o abd pain; periumbilical, constant, 8/10, nonradiating. was previously in RLQ. Did tolerate some orange juice this morning. CT abd/pelvis in ER (without contrast) was nonacute. eGFR appears to generally be in the 30s; he sees Dr. Rees but has not wanted dialysis. On admission the eGFR was 14.1; this morning it is 25.8. He made 1250 of urine last night. - Review of Systems Constitutional: Fatigue, Weakness, No Fever Respiratory: Cough, Short Of Breath (chronic) Cardiac: Chest Pain (chronic) Abdominal/Gastrointestinal: Abdominal Pain, Nausea, Vomiting, Diarrhea Musculoskeletal: Back Pain (posterior shoulders/upper back), Neck Pain Neurological: Dizziness, Headache Psychological: Anxiety, Depression, No Suicidal Ideations, No Homicidal Ideations All Other Systems: Reviewed and Negative Medications & Allergies Home Medications: Home Medication List Diltiazem HCl [Cartia Xt] 360 mg PO DAILY 07/03/18 [History Confirmed 12/26/20] Isosorbide Mononitrate 30 mg [Imdur 30 MG] 60 mg PO DAILY 07/03/18 [History Confirmed 12/26/20] carvediloL [Carvedilol] 25 mg PO BID 07/03/18 [History Confirmed 12/26/20] Lisinopril 10 mg [Zestril 10 MG] 20 mg PO DAILY 02/18/19 [History Confirmed 12/26/20] Acetaminophen [Tylenol Extra Strength] 500 mg PO DAILY PRN 10/13/20 [History Confirmed 12/26/20] Donepezil HCl 10 mg [Aricept 10 MG] 10 mg HS 10/13/20 [History Confirmed 12/26/20] Melatonin 10 mg PO QHS PRN 12/26/20 [History Confirmed 12/26/20] Memantine HCl 5 mg [Namenda 5 MG] 5 tab PO BID 12/26/20 [History Confirmed 12/26/20] Allergies/Adverse Reactions: Allergies Allergy/AdvReac Type Severity Reaction Status Date / Time No Known Drug Allergies Allergy Verified 12/26/20 09:37 - Past Medical History Past Medical History: Yes Neurological History: Seizures ENT History: No Pertinent History Cardiac History: Arrhythmia, Coronary Artery Disease, Hypertension, Other Respiratory History: CHF, COPD, Pneumonia, Tuberculosis Endocrine Medical History: No Pertinent History Musculoskelatal History: No Pertinent History GI Medical History: GI Bleed, Hemorrhoids, Polyps History: Renal Disease Pyscho-Social History: No Pertinent History Male Reproductive Disorders: No Pertinent History Comment: tuberculosis of kidney - Past Surgical History Past Surgical History: Yes Neuro Surgical History: No Pertinent History Cardiac History: Cardiac Catheterization Respiratory Surgery: No Pertinent History GI Surgical History: No Pertinent History Genitourinary Surgical Hx: Kidney Surgery, Other Musculskeletal Surgical Hx: Other Male Surgical History: No Pertinent History Other Surgical History: Toes sewed together,colonoscopy, pt only has left kidney - Social History Smoking Status: Current every day smoker How long have you smoked: 54 Exposure to second hand smoke: Yes Alcohol: None Drug Use: none - Physical Exam Vital Signs: Vital Signs - 24 hr Temp Pulse Resp BP Pulse Ox 12/27/20 04:00 97.6 F 52 L 20 148/67 98 12/27/20 00:00 98.3 F 52 L 20 108/51 97 12/26/20 20:01 97.9 F 54 L 18 111/56 98 12/26/20 20:00 18 12/26/20 16:22 97.5 F 51 L 16 132/60 99 12/26/20 16:01 97.5 F 51 L 22 132/60 98 12/26/20 15:10 55 L 16 122/51 98 12/26/20 14:11 97 12/26/20 14:06 50 L 104/52 100 12/26/20 13:00 52 L 16 93/52 99 12/26/20 12:04 42 L 18 89/51 98 12/26/20 11:07 47 L 17 71/43 100 12/26/20 09:26 97 F 57 L 16 86/45 97 General Appearance: no apparent distress, alert Neurologic Exam: oriented x 3, cooperative Eye Exam: eyes nml inspection Ears, Nose, Throat Exam: moist mucous membranes Neck Exam: normal inspection Respiratory Exam: diminished breath sounds, wheezing (expiratory, mild to moderate, throughout), No crackles/rales, No rhonchi Cardiovascular Exam: regular rate/rhythm, normal heart sounds, No murmur Gastrointestinal/Abdomen Exam: soft, normal bowel sounds, tenderness (generalized, mild), No distention, No mass, No guarding, No rebound Extremity Exam: normal inspection, No pedal edema, No swelling Skin Exam: normal color, warm, dry, No rash Results - Labs Lab/Micro Results: Lab Results-Last 24 Hours 12/26/20 12/26/20 12/26/20 Range/Units 10:00 10:00 10:00 WBC 9.4 (4.0-10.5) K/mm3 RBC 3.78 L (4.1-5.6) M/mm3 Hgb 12.0 L (12.5-18.0) gm/dl Hct 38.2 L (42-50) % MCV 101.1 H (78-100) fl MCH 31.7 (26-32) pg MCHC 31.4 L (32-36) g/dl RDW 15.0 H (11.5-14.0) % Plt Count 253 (150-450) K/mm3 MPV 10.6 (7.5-11.0) fl Gran % 77.8 H (36.0-66.0) % Eos # (Auto) 0.29 (0-0.5) Absolute Lymphs (auto) 1.33 (1.0-4.6) Absolute Monos (auto) 0.42 (0.0-1.3) Lymphocytes % 14.1 L (24.0-44.0) % Monocytes % 4.5 (0.0-12.0) % Eosinophils % 3.1 (0.00-5.0) % Basophils % 0.5 (0.0-0.4) % Absolute Granulocytes 7.32 H (1.4-6.9) Basophils # 0.05 (0-0.4) pO2/FiO2 Ratio % VBG pH (7.32-7.42) VBG pCO2 at Pat Temp (42-55) mm/Hg VBG pO2 at Pat Temp (25-40) mm/Hg VBG HCO3 (22-28) meq/L VBG O2 Sat (Rebeca) (95-100) VBG Base Excess (-2.0-2.0) VBG Hemoglobin VBG Carboxyhemoglobin (0.0-6.9) % T HGB POC Potassium (3.5-5.1) Sodium 140 (137-145) mmol/L Potassium 6.0 H* (3.5-5.1) mmol/L Chloride 116 H (98-107) mmol/L Carbon Dioxide 11 L* (22-30) mmol/L Anion Gap 19.1 H (5-15) MEQ/L BUN 91 H (9-20) mg/dL Creatinine 4.43 H (0.66-1.25) mg/dL Estimated GFR 14.1 ML/MIN Glucose 109 H (74-106) mg/dL POC Glucometer (74 to 106) mg/dL Lactic Acid (0.4-2.0) Calcium 9.5 (8.4-10.2) mg/dL Magnesium (1.6-2.3) mg/dL Ferritin (17.9-464) ng/mL Total Bilirubin 0.30 (0.2-1.3) mg/dL AST 18 (17-59) U/L ALT 11 (0-50) U/L Alkaline Phosphatase 139 H (38-126) U/L Lactate Dehydrogenase 123 (120-246) U/L Troponin I < 0.012 (0.000-0.034) ng/mL Serum Total Protein 7.6 (6.3-8.2) g/dL Albumin 4.5 (3.5-5.0) g/dL Amylase 143 H (30-110) U/L Lipase 393 H (23-300) U/L Urine Color (YELLOW) Urine Appearance (CLEAR) Urine pH (5-6) Ur Specific [place] (1.005-1.025) Urine Protein (Negative) Urine Ketones (NEGATIVE) Urine Blood (0-5) Emil/ul Urine Nitrite (NEGATIVE) Urine Bilirubin (NEGATIVE) Urine Urobilinogen (0-1) mg/dL Ur Leukocyte Esterase (NEGATIVE) Urine WBC (Auto) (0-5) /HPF Urine RBC (Auto) (0-2) /HPF U Epithel Cells (Auto) (FEW) /HPF Urine Bacteria (Auto) (NEGATIVE) /HPF Urine Mucus (Auto) (NEGATIVE) /HPF Urine Culture Reflexed (NO) Urine Glucose (NEGATIVE) mg/dL Monoscreen (Negative) Influenza Type A Ag (NEGATIVE) Influenza Type B Ag (NEGATIVE) SARS-CoV-2 (PCR) (NEGATIVE) Group A Strep Antibody (NEGATIVE) 12/26/20 12/26/20 12/26/20 Range/Units 10:00 10:00 10:00 WBC (4.0-10.5) K/mm3 RBC (4.1-5.6) M/mm3 Hgb (12.5-18.0) gm/dl Hct (42-50) % MCV (78-100) fl MCH (26-32) pg MCHC (32-36) g/dl RDW (11.5-14.0) % Plt Count (150-450) K/mm3 MPV (7.5-11.0) fl Gran % (36.0-66.0) % Eos # (Auto) (0-0.5) Absolute Lymphs (auto) (1.0-4.6) Absolute Monos (auto) (0.0-1.3) Lymphocytes % (24.0-44.0) % Monocytes % (0.0-12.0) % Eosinophils % (0.00-5.0) % Basophils % (0.0-0.4) % Absolute Granulocytes (1.4-6.9) Basophils # (0-0.4) pO2/FiO2 Ratio % VBG pH (7.32-7.42) VBG pCO2 at Pat Temp (42-55) mm/Hg VBG pO2 at Pat Temp (25-40) mm/Hg VBG HCO3 (22-28) meq/L VBG O2 Sat (Rebeca) (95-100) VBG Base Excess (-2.0-2.0) VBG Hemoglobin VBG Carboxyhemoglobin (0.0-6.9) % T HGB POC Potassium (3.5-5.1) Sodium (137-145) mmol/L Potassium (3.5-5.1) mmol/L Chloride (98-107) mmol/L Carbon Dioxide (22-30) mmol/L Anion Gap (5-15) MEQ/L BUN (9-20) mg/dL Creatinine (0.66-1.25) mg/dL Estimated GFR ML/MIN Glucose (74-106) mg/dL POC Glucometer (74 to 106) mg/dL Lactic Acid (0.4-2.0) Calcium (8.4-10.2) mg/dL Magnesium 2.5 H (1.6-2.3) mg/dL Ferritin 130 (17.9-464) ng/mL Total Bilirubin (0.2-1.3) mg/dL AST (17-59) U/L ALT (0-50) U/L Alkaline Phosphatase (38-126) U/L Lactate Dehydrogenase (120-246) U/L Troponin I (0.000-0.034) ng/mL Serum Total Protein (6.3-8.2) g/dL Albumin (3.5-5.0) g/dL Amylase (30-110) U/L Lipase (23-300) U/L Urine Color (YELLOW) Urine Appearance (CLEAR) Urine pH (5-6) Ur Specific [place] (1.005-1.025) Urine Protein (Negative) Urine Ketones (NEGATIVE) Urine Blood (0-5) Emil/ul Urine Nitrite (NEGATIVE) Urine Bilirubin (NEGATIVE) Urine Urobilinogen (0-1) mg/dL Ur Leukocyte Esterase (NEGATIVE) Urine WBC (Auto) (0-5) /HPF Urine RBC (Auto) (0-2) /HPF U Epithel Cells (Auto) (FEW) /HPF Urine Bacteria (Auto) (NEGATIVE) /HPF Urine Mucus (Auto) (NEGATIVE) /HPF Urine Culture Reflexed (NO) Urine Glucose (NEGATIVE) mg/dL Monoscreen NEGATIVE (Negative) Influenza Type A Ag (NEGATIVE) Influenza Type B Ag (NEGATIVE) SARS-CoV-2 (PCR) (NEGATIVE) Group A Strep Antibody (NEGATIVE) 12/26/20 12/26/20 12/26/20 Range/Units 10:01 10:12 10:22 WBC (4.0-10.5) K/mm3 RBC (4.1-5.6) M/mm3 Hgb (12.5-18.0) gm/dl Hct (42-50) % MCV (78-100) fl MCH (26-32) pg MCHC (32-36) g/dl RDW (11.5-14.0) % Plt Count (150-450) K/mm3 MPV (7.5-11.0) fl Gran % (36.0-66.0) % Eos # (Auto) (0-0.5) Absolute Lymphs (auto) (1.0-4.6) Absolute Monos (auto) (0.0-1.3) Lymphocytes % (24.0-44.0) % Monocytes % (0.0-12.0) % Eosinophils % (0.00-5.0) % Basophils % (0.0-0.4) % Absolute Granulocytes (1.4-6.9) Basophils # (0-0.4) pO2/FiO2 Ratio 21.0 % VBG pH 7.16 L* (7.32-7.42) VBG pCO2 at Pat Temp 38 L (42-55) mm/Hg VBG pO2 at Pat Temp 24 L (25-40) mm/Hg VBG HCO3 13.5 L* (22-28) meq/L VBG O2 Sat (Rebeca) 49.1 L (95-100) VBG Base Excess -14.4 L (-2.0-2.0) VBG Hemoglobin 12.2 VBG Carboxyhemoglobin 5.5 (0.0-6.9) % T HGB POC Potassium 5.9 H (3.5-5.1) Sodium (137-145) mmol/L Potassium (3.5-5.1) mmol/L Chloride (98-107) mmol/L Carbon Dioxide (22-30) mmol/L Anion Gap (5-15) MEQ/L BUN (9-20) mg/dL Creatinine (0.66-1.25) mg/dL Estimated GFR ML/MIN Glucose (74-106) mg/dL POC Glucometer (74 to 106) mg/dL Lactic Acid 0.6 (0.4-2.0) Calcium (8.4-10.2) mg/dL Magnesium (1.6-2.3) mg/dL Ferritin (17.9-464) ng/mL Total Bilirubin (0.2-1.3) mg/dL AST (17-59) U/L ALT (0-50) U/L Alkaline Phosphatase (38-126) U/L Lactate Dehydrogenase (120-246) U/L Troponin I (0.000-0.034) ng/mL Serum Total Protein (6.3-8.2) g/dL Albumin (3.5-5.0) g/dL Amylase (30-110) U/L Lipase (23-300) U/L Urine Color (YELLOW) Urine Appearance (CLEAR) Urine pH (5-6) Ur Specific [place] (1.005-1.025) Urine Protein (Negative) Urine Ketones (NEGATIVE) Urine Blood (0-5) Emil/ul Urine Nitrite (NEGATIVE) Urine Bilirubin (NEGATIVE) Urine Urobilinogen (0-1) mg/dL Ur Leukocyte Esterase (NEGATIVE) Urine WBC (Auto) (0-5) /HPF Urine RBC (Auto) (0-2) /HPF U Epithel Cells (Auto) (FEW) /HPF Urine Bacteria (Auto) (NEGATIVE) /HPF Urine Mucus (Auto) (NEGATIVE) /HPF Urine Culture Reflexed (NO) Urine Glucose (NEGATIVE) mg/dL Monoscreen (Negative) Influenza Type A Ag NEGATIVE (NEGATIVE) Influenza Type B Ag NEGATIVE (NEGATIVE) SARS-CoV-2 (PCR) (NEGATIVE) Group A Strep Antibody (NEGATIVE) 12/26/20 12/26/20 12/26/20 Range/Units 10:22 11:10 12:12 WBC (4.0-10.5) K/mm3 RBC (4.1-5.6) M/mm3 Hgb (12.5-18.0) gm/dl Hct (42-50) % MCV (78-100) fl MCH (26-32) pg MCHC (32-36) g/dl RDW (11.5-14.0) % Plt Count (150-450) K/mm3 MPV (7.5-11.0) fl Gran % (36.0-66.0) % Eos # (Auto) (0-0.5) Absolute Lymphs (auto) (1.0-4.6) Absolute Monos (auto) (0.0-1.3) Lymphocytes % (24.0-44.0) % Monocytes % (0.0-12.0) % Eosinophils % (0.00-5.0) % Basophils % (0.0-0.4) % Absolute Granulocytes (1.4-6.9) Basophils # (0-0.4) pO2/FiO2 Ratio % VBG pH (7.32-7.42) VBG pCO2 at Pat Temp (42-55) mm/Hg VBG pO2 at Pat Temp (25-40) mm/Hg VBG HCO3 (22-28) meq/L VBG O2 Sat (Rebeca) (95-100) VBG Base Excess (-2.0-2.0) VBG Hemoglobin VBG Carboxyhemoglobin (0.0-6.9) % T HGB POC Potassium (3.5-5.1) Sodium (137-145) mmol/L Potassium (3.5-5.1) mmol/L Chloride (98-107) mmol/L Carbon Dioxide (22-30) mmol/L Anion Gap (5-15) MEQ/L BUN (9-20) mg/dL Creatinine (0.66-1.25) mg/dL Estimated GFR ML/MIN Glucose (74-106) mg/dL POC Glucometer 103 (74 to 106) mg/dL Lactic Acid (0.4-2.0) Calcium (8.4-10.2) mg/dL Magnesium (1.6-2.3) mg/dL Ferritin (17.9-464) ng/mL Total Bilirubin (0.2-1.3) mg/dL AST (17-59) U/L ALT (0-50) U/L Alkaline Phosphatase (38-126) U/L Lactate Dehydrogenase (120-246) U/L Troponin I (0.000-0.034) ng/mL Serum Total Protein (6.3-8.2) g/dL Albumin (3.5-5.0) g/dL Amylase (30-110) U/L Lipase (23-300) U/L Urine Color YELLOW (YELLOW) Urine Appearance SLIGHTLY CLOUDY (CLEAR) Urine pH 5.0 (5-6) Ur Specific [place] 1.027 (1.005-1.025) Urine Protein 30 (Negative) Urine Ketones NEGATIVE (NEGATIVE) Urine Blood NEGATIVE (0-5) Emil/ul Urine Nitrite NEGATIVE (NEGATIVE) Urine Bilirubin SMALL (NEGATIVE) Urine Urobilinogen NEGATIVE (0-1) mg/dL Ur Leukocyte Esterase NEGATIVE (NEGATIVE) Urine WBC (Auto) 0-2 (0-5) /HPF Urine RBC (Auto) NONE (0-2) /HPF U Epithel Cells (Auto) NONE (FEW) /HPF Urine Bacteria (Auto) NONE (NEGATIVE) /HPF Urine Mucus (Auto) SLIGHT (NEGATIVE) /HPF Urine Culture Reflexed NO (NO) Urine Glucose NEGATIVE (NEGATIVE) mg/dL Monoscreen (Negative) Influenza Type A Ag (NEGATIVE) Influenza Type B Ag (NEGATIVE) SARS-CoV-2 (PCR) (NEGATIVE) Group A Strep Antibody NOT DETECTED (NEGATIVE) 12/26/20 12/26/20 12/26/20 Range/Units 13:24 14:07 16:00 WBC (4.0-10.5) K/mm3 RBC (4.1-5.6) M/mm3 Hgb (12.5-18.0) gm/dl Hct (42-50) % MCV (78-100) fl MCH (26-32) pg MCHC (32-36) g/dl RDW (11.5-14.0) % Plt Count (150-450) K/mm3 MPV (7.5-11.0) fl Gran % (36.0-66.0) % Eos # (Auto) (0-0.5) Absolute Lymphs (auto) (1.0-4.6) Absolute Monos (auto) (0.0-1.3) Lymphocytes % (24.0-44.0) % Monocytes % (0.0-12.0) % Eosinophils % (0.00-5.0) % Basophils % (0.0-0.4) % Absolute Granulocytes (1.4-6.9) Basophils # (0-0.4) pO2/FiO2 Ratio % VBG pH (7.32-7.42) VBG pCO2 at Pat Temp (42-55) mm/Hg VBG pO2 at Pat Temp (25-40) mm/Hg VBG HCO3 (22-28) meq/L VBG O2 Sat (Rebeca) (95-100) VBG Base Excess (-2.0-2.0) VBG Hemoglobin VBG Carboxyhemoglobin (0.0-6.9) % T HGB POC Potassium (3.5-5.1) Sodium (137-145) mmol/L Potassium (3.5-5.1) mmol/L Chloride (98-107) mmol/L Carbon Dioxide (22-30) mmol/L Anion Gap (5-15) MEQ/L BUN (9-20) mg/dL Creatinine (0.66-1.25) mg/dL Estimated GFR ML/MIN Glucose (74-106) mg/dL POC Glucometer (74 to 106) mg/dL Lactic Acid (0.4-2.0) Calcium (8.4-10.2) mg/dL Magnesium (1.6-2.3) mg/dL Ferritin (17.9-464) ng/mL Total Bilirubin (0.2-1.3) mg/dL AST (17-59) U/L ALT (0-50) U/L Alkaline Phosphatase (38-126) U/L Lactate Dehydrogenase (120-246) U/L Troponin I < 0.012 < 0.012 (0.000-0.034) ng/mL Serum Total Protein (6.3-8.2) g/dL Albumin (3.5-5.0) g/dL Amylase (30-110) U/L Lipase (23-300) U/L Urine Color (YELLOW) Urine Appearance (CLEAR) Urine pH (5-6) Ur Specific [place] (1.005-1.025) Urine Protein (Negative) Urine Ketones (NEGATIVE) Urine Blood (0-5) Emil/ul Urine Nitrite (NEGATIVE) Urine Bilirubin (NEGATIVE) Urine Urobilinogen (0-1) mg/dL Ur Leukocyte Esterase (NEGATIVE) Urine WBC (Auto) (0-5) /HPF Urine RBC (Auto) (0-2) /HPF U Epithel Cells (Auto) (FEW) /HPF Urine Bacteria (Auto) (NEGATIVE) /HPF Urine Mucus (Auto) (NEGATIVE) /HPF Urine Culture Reflexed (NO) Urine Glucose (NEGATIVE) mg/dL Monoscreen (Negative) Influenza Type A Ag (NEGATIVE) Influenza Type B Ag (NEGATIVE) SARS-CoV-2 (PCR) NEGATIVE (NEGATIVE) Group A Strep Antibody (NEGATIVE) 12/26/20 12/26/20 12/26/20 Range/Units 19:15 19:15 22:29 WBC (4.0-10.5) K/mm3 RBC (4.1-5.6) M/mm3 Hgb (12.5-18.0) gm/dl Hct (42-50) % MCV (78-100) fl MCH (26-32) pg MCHC (32-36) g/dl RDW (11.5-14.0) % Plt Count (150-450) K/mm3 MPV (7.5-11.0) fl Gran % (36.0-66.0) % Eos # (Auto) (0-0.5) Absolute Lymphs (auto) (1.0-4.6) Absolute Monos (auto) (0.0-1.3) Lymphocytes % (24.0-44.0) % Monocytes % (0.0-12.0) % Eosinophils % (0.00-5.0) % Basophils % (0.0-0.4) % Absolute Granulocytes (1.4-6.9) Basophils # (0-0.4) pO2/FiO2 Ratio % VBG pH (7.32-7.42) VBG pCO2 at Pat Temp (42-55) mm/Hg VBG pO2 at Pat Temp (25-40) mm/Hg VBG HCO3 (22-28) meq/L VBG O2 Sat (Rebeca) (95-100) VBG Base Excess (-2.0-2.0) VBG Hemoglobin VBG Carboxyhemoglobin (0.0-6.9) % T HGB POC Potassium (3.5-5.1) Sodium 140 (137-145) mmol/L Potassium 5.7 H (3.5-5.1) mmol/L Chloride 116 H (98-107) mmol/L Carbon Dioxide 12 L* (22-30) mmol/L Anion Gap 17.5 H (5-15) MEQ/L BUN 88 H (9-20) mg/dL Creatinine 3.64 H (0.66-1.25) mg/dL Estimated GFR 17.7 ML/MIN Glucose 101 (74-106) mg/dL POC Glucometer (74 to 106) mg/dL Lactic Acid (0.4-2.0) Calcium 9.0 (8.4-10.2) mg/dL Magnesium (1.6-2.3) mg/dL Ferritin (17.9-464) ng/mL Total Bilirubin (0.2-1.3) mg/dL AST (17-59) U/L ALT (0-50) U/L Alkaline Phosphatase (38-126) U/L Lactate Dehydrogenase (120-246) U/L Troponin I < 0.012 < 0.012 (0.000-0.034) ng/mL Serum Total Protein (6.3-8.2) g/dL Albumin (3.5-5.0) g/dL Amylase (30-110) U/L Lipase (23-300) U/L Urine Color (YELLOW) Urine Appearance (CLEAR) Urine pH (5-6) Ur Specific [place] (1.005-1.025) Urine Protein (Negative) Urine Ketones (NEGATIVE) Urine Blood (0-5) Emil/ul Urine Nitrite (NEGATIVE) Urine Bilirubin (NEGATIVE) Urine Urobilinogen (0-1) mg/dL Ur Leukocyte Esterase (NEGATIVE) Urine WBC (Auto) (0-5) /HPF Urine RBC (Auto) (0-2) /HPF U Epithel Cells (Auto) (FEW) /HPF Urine Bacteria (Auto) (NEGATIVE) /HPF Urine Mucus (Auto) (NEGATIVE) /HPF Urine Culture Reflexed (NO) Urine Glucose (NEGATIVE) mg/dL Monoscreen (Negative) Influenza Type A Ag (NEGATIVE) Influenza Type B Ag (NEGATIVE) SARS-CoV-2 (PCR) (NEGATIVE) Group A Strep Antibody (NEGATIVE) 12/27/20 12/27/20 Range/Units 04:56 04:56 WBC 9.4 (4.0-10.5) K/mm3 RBC 3.40 L (4.1-5.6) M/mm3 Hgb 10.7 L (12.5-18.0) gm/dl Hct 34.4 L (42-50) % MCV 101.2 H (78-100) fl MCH 31.5 (26-32) pg MCHC 31.1 L (32-36) g/dl RDW 15.0 H (11.5-14.0) % Plt Count 234 (150-450) K/mm3 MPV 10.1 (7.5-11.0) fl Gran % 70.7 H (36.0-66.0) % Eos # (Auto) 0.35 (0-0.5) Absolute Lymphs (auto) 1.85 (1.0-4.6) Absolute Monos (auto) 0.53 (0.0-1.3) Lymphocytes % 19.6 L (24.0-44.0) % Monocytes % 5.6 (0.0-12.0) % Eosinophils % 3.7 (0.00-5.0) % Basophils % 0.4 (0.0-0.4) % Absolute Granulocytes 6.65 (1.4-6.9) Basophils # 0.04 (0-0.4) pO2/FiO2 Ratio % VBG pH (7.32-7.42) VBG pCO2 at Pat Temp (42-55) mm/Hg VBG pO2 at Pat Temp (25-40) mm/Hg VBG HCO3 (22-28) meq/L VBG O2 Sat (Rebeca) (95-100) VBG Base Excess (-2.0-2.0) VBG Hemoglobin VBG Carboxyhemoglobin (0.0-6.9) % T HGB POC Potassium (3.5-5.1) Sodium 140 (137-145) mmol/L Potassium 5.4 H (3.5-5.1) mmol/L Chloride 121 H (98-107) mmol/L Carbon Dioxide 9 L* (22-30) mmol/L Anion Gap 15.1 H (5-15) MEQ/L BUN 73 H (9-20) mg/dL Creatinine 2.63 H (0.66-1.25) mg/dL Estimated GFR 25.8 ML/MIN Glucose 88 (74-106) mg/dL POC Glucometer (74 to 106) mg/dL Lactic Acid (0.4-2.0) Calcium 8.9 (8.4-10.2) mg/dL Magnesium (1.6-2.3) mg/dL Ferritin (17.9-464) ng/mL Total Bilirubin 0.20 (0.2-1.3) mg/dL AST 18 (17-59) U/L ALT 11 (0-50) U/L Alkaline Phosphatase 138 H (38-126) U/L Lactate Dehydrogenase (120-246) U/L Troponin I (0.000-0.034) ng/mL Serum Total Protein 6.7 (6.3-8.2) g/dL Albumin 3.7 (3.5-5.0) g/dL Amylase (30-110) U/L Lipase (23-300) U/L Urine Color (YELLOW) Urine Appearance (CLEAR) Urine pH (5-6) Ur Specific [place] (1.005-1.025) Urine Protein (Negative) Urine Ketones (NEGATIVE) Urine Blood (0-5) Eiml/ul Urine Nitrite (NEGATIVE) Urine Bilirubin (NEGATIVE) Urine Urobilinogen (0-1) mg/dL Ur Leukocyte Esterase (NEGATIVE) Urine WBC (Auto) (0-5) /HPF Urine RBC (Auto) (0-2) /HPF U Epithel Cells (Auto) (FEW) /HPF Urine Bacteria (Auto) (NEGATIVE) /HPF Urine Mucus (Auto) (NEGATIVE) /HPF Urine Culture Reflexed (NO) Urine Glucose (NEGATIVE) mg/dL Monoscreen (Negative) Influenza Type A Ag (NEGATIVE) Influenza Type B Ag (NEGATIVE) SARS-CoV-2 (PCR) (NEGATIVE) Group A Strep Antibody (NEGATIVE) - Radiology Impressions Radiology Exams & Impressions: Radiology Procedures Category Date Time Status ABDOMEN AND PELVIS W/0 CONTRAS [CT] Routine Exams 12/26/20 17:09 Completed CHEST 1 VIEW (PORTABLE) Stat Exams 12/26/20 10:02 Completed Assessment/Plan (1) Acute on chronic renal failure Current Visit: Yes Status: Acute Qualifiers: Acute renal failure type: unspecified Chronic kidney disease stage: stage 5, not on chronic dialysis Qualified Code(s): N17.9 - Acute kidney failure, unspecified; N18.5 - Chronic kidney disease, stage 5 Assessment & Plan: Likely due to long course of dehydration. Improved this morning. Will consult nephrology. CO2 still quite low. He is getting infusion of LR but his urine output is high. Code(s): N17.9 - ACUTE KIDNEY FAILURE, UNSPECIFIED; N18.9 - CHRONIC KIDNEY DISEASE, UNSPECIFIED (2) Abdominal pain Current Visit: Yes Status: Acute Qualifiers: Abdominal location: periumbilical Qualified Code(s): R10.33 - Periumbilical pain Assessment & Plan: His CT abd/pelvis (albeit w/o contrast) was nonacute yesterday. Will back off on diet (I had ordered CLD yesterday, but he had a full breakfast ordered this morning, of which he only ate orange juice). Exam is benign. Code(s): R10.9 - UNSPECIFIED ABDOMINAL PAIN (3) Hypertension Current Visit: Yes Status: Chronic Qualifiers: Hypertension type: primary hypertension Qualified Code(s): I10 - Essential (primary) hypertension Assessment & Plan: I have adjusted his BP meds; will need to resume home meds as his condition improves. Code(s): I10 - ESSENTIAL (PRIMARY) HYPERTENSION (4) Bradycardia Current Visit: Yes Status: Acute Assessment & Plan: I have decreased his cardizem po by half. Code(s): R00.1 - BRADYCARDIA, UNSPECIFIED (5) Hyperkalemia Current Visit: Yes Status: Acute Assessment & Plan: Mild this morning, K+ 5.4. Code(s): E87.5 - HYPERKALEMIA (6) Hypotension Current Visit: Yes Status: Resolved Qualifiers: Hypotension type: hypotension due to hypovolemia Qualified Code(s): I95.89 - Other hypotension; E86.1 - Hypovolemia Code(s): I95.9 - HYPOTENSION, UNSPECIFIED (7) COPD (chronic obstructive pulmonary disease) Current Visit: No Status: Acute Qualifiers: COPD type: unspecified COPD Qualified Code(s): J44.9 - Chronic obstructive pulmonary disease, unspecified Assessment & Plan: wheezing; nebs prn
[2020-12-27] MEDS: Cardizem CD 180 MG PO SCH (09:41)
[2020-12-27] MEDS: Namenda 5 MG PO SCH ×2 (09:41→21:04)
[2020-12-27] MEDS: COREG 12.5 MG PO SCH ×2 (09:41→21:04)
[2020-12-27] MEDS: Nicoderm CQ 21 MG TOP SCH (09:41)
[2020-12-27] MEDS ORDERED: DILTIAZEM HCL 180 MG PO SCH (10:00)
[2020-12-27] MEDS ORDERED: CARVEDILOL 12.5 MG PO SCH (10:00)
[2020-12-27 10:09] LABS: Calcium 8.8 mg/dL (8.4-10.2); Creatinine 1 2.09 mg/dL (0.66-1.25); EST GLOMERULAR FILTRATION RATE 33.6 ML/MIN; Potassium 5.4 mmol/L (3.5-5.1)
[2020-12-27] MEDS ORDERED: Ativan 2 MG/1 ML VIAL IV PRN (10:44)
[2020-12-27] MEDS ORDERED: Ativan 1 MG PO PRN (10:44)
[2020-12-27] MEDS: PROTONIX 40 MG IV IV SCH (10:58)
[2020-12-27] MEDS: Sodium Chloride 0.9% 1000 ML 1,000 ML IV SCH ×2 (11:36→21:08)
[2020-12-27 15:52] LABS: ANION GAP 12.6 MEQ/L (5-15); Calcium 8.8 mg/dL (8.4-10.2); Creatinine 1 1.67 mg/dL (0.66-1.25); EST GLOMERULAR FILTRATION RATE 43.6 ML/MIN; Potassium 5.7 mmol/L (3.5-5.1)
[2020-12-27] MEDS: Aricept 10 MG PO SCH (21:04)
[2020-12-28] MEDS: MORPHINE SULFATE 4 MG INJ IV PRN (05:51)
[2020-12-28] MEDS: Sodium Chloride 0.9% 1000 ML 1,000 ML IV SCH (06:53)
[2020-12-28 08:24] LABS: VBG BASE EXCESS -10.4 (-2.0-2.0); VBG CARBOXYHEMOGLOBIN 2.3 % T HGB (0.0-6.9); VBG HCO3- 15.7 meq/L (22-28); VBG HEMOGLOBIN 11.1; VBG O2 SATURATION 85.7 (95-100); VBG POTASSIUM 5.6 (3.5-5.1); VBG pH 7.26 (7.32-7.42)
[2020-12-28] MEDS: Dextrose 5% -0.45 NaCl 1000 ML 1,000 ML IV SCH ×3 (08:47→17:10)
[2020-12-28] MEDS: Nicoderm CQ 21 MG TOP SCH (09:21)
[2020-12-28] MEDS: COREG 12.5 MG PO SCH ×2 (09:21→21:23)
[2020-12-28] MEDS: PROTONIX 40 MG IV IV SCH (09:21)
[2020-12-28] MEDS: Cardizem CD 180 MG PO SCH (09:21)
[2020-12-28] MEDS: Namenda 5 MG PO SCH ×2 (09:21→21:23)
[2020-12-28 09:23] LABS: ALBUMIN 3.8 g/dL (3.5-5.0); ALKALINE PHOSPHATASE 105 U/L (38-126); ANION GAP 13.1 MEQ/L (5-15); BLOOD UREA NITROGEN 32 mg/dL (9-20); CHLORIDE 119 mmol/L (98-107); EST GLOMERULAR FILTRATION RATE > 60.0 ML/MIN; Glucose 84 mg/dL (74-106); Potassium 5.5 mmol/L (3.5-5.1); SGOT/AST 22 U/L (17-59); SGPT/ALT 13 U/L (0-50); SODIUM 142 mmol/L (137-145); Total Protein 6.6 g/dL (6.3-8.2)
[2020-12-28 09:25] LABS: Carbon Dioxide 15 mmol/L (22-30)
[2020-12-28 09:43] LABS: Absolute Neutrophil Ct (ANC) 4.69 (1.4-6.9); BASOPHIL % 0.6 % (0.0-0.4); Basophil (Absolute #) 0.04 (0-0.4); Eosinophil % 3.6 % (0.00-5.0); Eosinophil (Absolute #) 0.24 (0-0.5); Hematocrit 35.3 % (42-50); Lymphocyte (Absolute #) 1.29 (1.0-4.6); Lymphocytes % 19.4 % (24.0-44.0); Mean Cell Volume 101.1 fl (78-100); Mean Corpuscular Hemoglobin 31.5 pg (26-32); Mean Corpuscular Hgb Concent. 31.2 g/dl (32-36); Mean Platelet Volume 10.2 fl (7.5-11.0); Neutrophil % 70.4 % (36.0-66.0); Platelet Count 243 K/mm3 (150-450); Red Blood Count 3.49 M/mm3 (4.1-5.6); Red Cell Distribution Width 14.9 % (11.5-14.0); White Blood Count 6.7 K/mm3 (4.0-10.5)
[2020-12-28 11:52] VITALS: O2SAT 98
[2020-12-28] MEDS: NORCO 5/325 MG PO PRN ×2 (13:04→21:28)
[2020-12-29] MEDS: Dextrose 5% -0.45 NaCl 1000 ML 1,000 ML IV SCH (00:53)
[2020-12-29 05:33] LABS: BASOPHIL % 0.6 % (0.0-0.4); Basophil (Absolute #) 0.04 (0-0.4); Eosinophil % 5.2 % (0.00-5.0); Eosinophil (Absolute #) 0.36 (0-0.5); Hematocrit 32.6 % (42-50); Hemoglobin 10.2 gm/dl (12.5-18.0); Lymphocyte (Absolute #) 1.73 (1.0-4.6); Lymphocytes % 24.8 % (24.0-44.0); Mean Cell Volume 99.4 fl (78-100); Mean Corpuscular Hemoglobin 31.1 pg (26-32); Mean Corpuscular Hgb Concent. 31.3 g/dl (32-36); Mean Platelet Volume 10.4 fl (7.5-11.0); Monocyte (Absolute #) 0.54 (0.0-1.3); Monocytes % 7.7 % (0.0-12.0); Neutrophil % 61.7 % (36.0-66.0); Platelet Count 229 K/mm3 (150-450); Red Blood Count 3.28 M/mm3 (4.1-5.6); Red Cell Distribution Width 14.6 % (11.5-14.0)
[2020-12-29 06:01] LABS: ALBUMIN 3.4 g/dL (3.5-5.0); ALKALINE PHOSPHATASE 119 U/L (38-126); ANION GAP 11.7 MEQ/L (5-15); BLOOD UREA NITROGEN 21 mg/dL (9-20); CHLORIDE 115 mmol/L (98-107); Calcium 8.9 mg/dL (8.4-10.2); Carbon Dioxide 17 mmol/L (22-30); Creatinine 1 1.02 mg/dL (0.66-1.25); EST GLOMERULAR FILTRATION RATE > 60.0 ML/MIN; Glucose 75 mg/dL (74-106); PROCALCITONIN 0.045 ng/mL (0.030-0.080); Potassium 4.5 mmol/L (3.5-5.1); SGOT/AST 21 U/L (17-59); SGPT/ALT 12 U/L (0-50); SODIUM 140 mmol/L (137-145)
[2020-12-29 09:12] VITALS: BP 117/79; PULSE 58
[2020-12-29] MEDS: Namenda 5 MG PO SCH (09:53)
[2020-12-29] MEDS: COREG 12.5 MG PO SCH (09:53)
[2020-12-29] MEDS: Cardizem CD 180 MG PO SCH (09:53)
--- NOTE | 2020-12-29 12:52 | DS ---
DISCHARGE DIAGNOSES: 1) HYPOTENSION. 2) ACUTE KIDNEY INJURY. 3) BRADYCARDIA. HOSPITAL COURSE: The patient is a 70 year-old white male patient who had been for approximately two weeks at home before he sought help in the emergency room. The patient was found to be hypotensive, bradycardic. He had a creatinine of over 4 and was acidotic. The patient responded nicely to just IV fluid hydration and continuing his medications. His kidney functions resolved remarkably to a creatinine of only 1.02 and BUN 21 from high greater than 4 on his creatinine. The patient's CO2 is still slightly low at 17 but has improved from his original of 11. He is eating and drinking fine at this point in time. His procalcitonin level was normal. His white count was normal. His hemoglobin was slightly anemic at 10.2. The patient was felt to be ready for discharge home on 12/29/2020 to follow up in the office. The only medicine we changed on his home medication list was benazepril which we discontinued. He was continued on his usual home medications including diltiazem, isosorbide, lisinopril, acetaminophen and melatonin. The patient does see a renal specialist which we asked for a consultation during his stay but this was not accomplished during his stay. The patient was asked to see his home companion as an outpatient, to follow up with me in the office in the next ten days. He is to call if he has any further problems in the interim.
[2021-01-01 19:15] LABS: QuantiFERON-TB Gold Plus Positive (Negative)
== END 2020-12-29 10:00 | disposition home or self-care (01) | DRG 315 ==
LOC: ED 09:17 → MED SURG 15:50
PROVIDERS: ADMIT Family Medicine; ATTEND Family Medicine
DX: I95.9 Hypotension, unspecified (principal); N17.9 Acute kidney failure, unspecified; E87.5 Hyperkalemia; I13.10 Hypertensive heart and chronic kidney disease without heart failure, with stage 1 through stage 4 chronic kidney disease, or unspecified chronic kidney disease; N18.9 Chronic kidney disease, unspecified; R00.1 Bradycardia, unspecified; Z79.899 Other long term (current) drug therapy; R07.9 Chest pain, unspecified; R06.02 Shortness of breath; J44.9 Chronic obstructive pulmonary disease, unspecified; Z90.5 Acquired absence of kidney; R10.9 Unspecified abdominal pain; Z20.822 Contact with and (suspected) exposure to COVID-19
CPT/HCPCS: 36000; 36415; 71045; 74176; 80048; 80053; 81001; 82150; 82728; 82805; 82947; 83605; 83615; 83690; 83735; 84145; 84484; 85025; 86308; 86480; 87040; 87400; 87651; 93005; 94760; 96360; 96374; 96375; 99285; 99291; U0003; J0461; J0610; J1815; J2060; J2270; J2405; A9270-GY

== ENCOUNTER 2024-02-02 08:41 | Emergency (ER) | payer MEDICARE ==
[2024-02-02 09:06] VITALS: TEMP 98.3
[2024-02-02 09:26] LABS: Absolute Neutrophil Ct (ANC) 6.22 x10^3/uL (1.78-5.38); BASOPHIL % 0.8 % (0.2-1.2); Basophil (Absolute #) 0.07 x10^3/uL (0.01-0.08); Eosinophil % 2.1 % (0.8-7.0); Eosinophil (Absolute #) 0.19 x10^3/uL (0.04-0.54); Hemoglobin 14.5 g/dL (13.7-17.5); IMMATURE GRAN # 0.05 x10^3u/L (0.001-0.031); IMMATURE GRAN % 0.5 % (0.001-0.429); Lymphocyte (Absolute #) 2.12 x10^3/uL (1.32-3.57); Lymphocytes % 23.3 % (21.8-53.1); Mean Cell Volume 97.9 fL (79.0-92.2); Mean Corpuscular Hemoglobin 30.9 pg (25.7-32.2); Mean Corpuscular Hgb Concent. 31.5 g/dL (32.3-36.5); Mean Platelet Volume 9.9 fL (9.4-12.4); Monocyte (Absolute #) 0.46 x10^3/uL (0.30-0.82); Neutrophil % 68.3 % (34.0-67.9); Platelet Count 246 x10^3/uL (163-337); Red Cell Distribution Width 14.6 % (11.6-14.4); White Blood Count 9.1 x10^3/uL (4.23-9.07)
--- NOTE | 2024-02-02 09:26 | ERPHSYRPT ---
- History of Present Illness Time Seen by Provider: 02/02/24 09:00 Source: patient Exam Limitations: no limitations Patient Subjective Stated Complaint: pt called an ambulance last week thinking he was having a heart attack but refused to go to the hospital and the EMT told him he needed to get to the hospital and get checked out so he is here a week later, pt also c/o of pain in right calf when he walks stating that it feels like a arianna horse sometimes it happens in the left, this has been going on for 6 months, pt also c/o of painful urination for the past 6 months, audible wheezing also heard Triage Nursing Assessment: Pt brought self to the ER, tachycardic, rates leg pain as 4/10, pulses normal, audible wheezing heard from across the room, a-fib and pvc's, smokes 3 packs a day, painful urination for 6 months, skin n/w/d, chest pain last week and stated that his heart rate was in the 160's but refused to come to the hospital at that time Physician History: Patient was having chest pain last week. He called EMS. He then refused to come in. He decided to come back and now that he is asymptomatic from any chest pain. He wants to make sure his heart is okay. He also has had dysuria for 6 months as well as claudication for 6 months in the right leg. He does not have any chest pain or shortness of breath at this time. He has no nausea vomiting. He is not getting dyspneic on exertion more than usual. He smokes 3 packs a day and has pretty significant COPD. He has cramps in his right calf that get more intense with walking. At rest there is no problems. It is pretty classic for claudication. He does not have any signs or symptoms of arterial obstruction or DVT. There is no edema or pallor or anything in the lower extremity. He says that he has chronic low back pain. He is currently not having any chest pain.Last week he had chest pain it resolved on its own and he decided not to come in by EMS. Allergies/Adverse Reactions: No Known Drug Allergies Allergy (Verified 02/02/24 09:06) Home Medications: Isosorbide Mononitrate 30 mg [Imdur 30 MG] 60 mg PO DAILY 07/03/18 [History] dilTIAZem HCL [Cartia Xt] 360 mg PO DAILY 07/03/18 [History] Lisinopril 10 mg [Zestril 10 MG] 10 mg PO DAILY 02/18/19 [History] Melatonin 30 mg PO QHS PRN 12/26/20 [History] Memantine HCl 5 mg [Namenda 5 MG] 10 tab PO BID 12/26/20 [History] Albuterol 2.5 mg/3 ml Neb [Proventil 2.5 mg/3 ml Neb] 2.5 mg IH Q6HRT 01/19 08/12 [History] Apixaban [Eliquis] 5 mg PO BID 02/02/24 [History] Hydrocodone/Acetaminophen [Hydrocodone-Acetamin 10-325 mg] 1 each PO Q46H 02/02/24 [History] Hx Tetanus, Diphtheria Vaccination/Date Given: No Hx Influenza Vaccination/Date Given: No Hx Pneumococcal Vaccination/Date Given: Yes Travel Risk - International Travel Have you traveled outside of the country in past 3 weeks: No - Emerging Infectious Disease Are you exhibiting symptoms associated with any current EIDs: No - Review of Systems Constitutional: No Symptoms Eyes: Photophobia Cardiac: No Symptoms Abdominal/Gastrointestinal: No Symptoms Genitourinary Symptoms: Dysuria Skin: No Symptoms Neurological: No Symptoms Psychological: No Symptoms - Past Medical History Pertinent Past Medical History: Yes Neurological History: Seizures ENT History: No Pertinent History Cardiac History: Arrhythmia, Coronary Artery Disease, Hypertension, Other Respiratory History: CHF, COPD, Pneumonia, Tuberculosis Endocrine Medical History: No Pertinent History Musculoskeletal History: No Pertinent History GI Medical History: GI Bleed, Hemorrhoids, Polyps History: Renal Disease Psycho-Social History: No Pertinent History Male Reproductive Disorders: No Pertinent History Other Medical History: tuberculosis of kidney - Past Surgical History Past Surgical History: Yes Neuro Surgical History: No Pertinent History Cardiac: Cardiac Catheterization Respiratory: No Pertinent History Gastrointestinal: No Pertinent History Genitourinary: Kidney Surgery, Other Musculoskeletal: Other Male Surgical History: No Pertinent History Other Surgical History: Toes sewed together,colonoscopy, pt only has left kidney - Social History Smoking Status: Current every day smoker How long have you smoked: 54 Exposure to second hand smoke: Yes Drug Use: none Patient Lives Alone: Yes - Social Determinants of Health Will the patient participate in the screening: Yes Do you worry about a steady place to live?: No Do you have any problems with any of the following?: No known problems In the past 12 months,have you had to go without utilities?: No Transportation Issues: No Has anyone in your support network made you feel unsafe?: No Have you or anyone in your house had to go without enough: No - Nursing Vital Signs Nursing Vital Signs: Initial Vital Signs Temperature 98.3 F 02/02/24 08:49 Pulse Rate 115 H 02/02/24 08:49 Respiratory Rate 16 02/02/24 08:49 Blood Pressure 118/90 02/02/24 08:49 O2 Sat by Pulse Oximetry 98 02/02/24 08:49 Pain Scale Pain Intensity 4 - Physical Exam General Appearance: no apparent distress Eye Exam: PERRL/EOMI Respiratory Exam: other (Coarse breath sounds and wheezing bilaterally. I believe this is chronic.) Cardiovascular Exam: other (A-fib rhythm) Gastrointestinal/Abdomen Exam: soft, normal bowel sounds Neurologic Exam: alert, oriented x 3, cooperative Skin Exam: normal color SpO2: 98 - Course EKG Interpreted by Me: RATE, Sinus Rhythm, NORMAL AXIS, NORMAL INTERVALS Ordered Tests: Active Orders 24 hr Category Date Time Status EKG-ER Only STAT Care 02/02/24 09:22 Active CHEST 1 VIEW (PORTABLE) Stat Exams 02/02/24 09:27 Completed CBC W DIFF Stat Lab 02/02/24 09:05 Completed CMP Stat Lab 02/02/24 09:05 Completed UA W/RFX UR CULTURE Stat Lab 02/02/24 10:45 Completed VENOUS BLOOD GAS Stat Lab 02/02/24 11:00 Completed Medication Summary Discontinued Medications Generic Name Dose Route Start Last Admin Trade Name Freq PRN Reason Stop Dose Admin Sodium Chloride 1,000 mls @ 999 mls/hr 02/02/24 11:00 02/02/24 11:06 Sodium Chloride 0.9% 1000 Ml IV 02/02/24 12:00 999 mls/hr .Q1H1M STA Administration Sodium Chloride Confirm 02/02/24 11:06 Sodium Chloride 0.9% 1000 Ml Administered 02/02/24 11:07 Dose 1,000 mls @ ud .ROUTE .STK-MED ONE Lab/Rad Data: Laboratory Result Diagrams 02/02/24 09:05 02/02/24 09:05 Laboratory Results 02/02/24 02/02/24 02/02/24 Range/Units 11:00 10:45 09:05 WBC (4.23-9.07) x10^3/uL RBC (4.63-6.08) x10^6/uL Hgb (13.7-17.5) g/dL Hct (40.1-51.0) % MCV (79.0-92.2) fL MCH (25.7-32.2) pg MCHC (32.3-36.5) g/dL RDW (11.6-14.4) % Plt Count (163-337) x10^3/uL MPV (9.4-12.4) fL Gran % (34.0-67.9) % Immature Gran % (Auto) (0.001-0.429) % Nucleat RBC Rel Count (0.00-0.2) % Eos # (Auto) (0.04-0.54) x10^3/uL Immature Gran # (Auto) (0.001-0.031) x10^3u/L Absolute Lymphs (auto) (1.32-3.57) x10^3/uL Absolute Monos (auto) (0.30-0.82) x10^3/uL Absolute Nucleated RBC (0.00-0.012) x10^3u/L Lymphocytes % (21.8-53.1) % Monocytes % (5.3-12.2) % Eosinophils % (0.8-7.0) % Basophils % (0.2-1.2) % Absolute Granulocytes (1.78-5.38) x10^3/uL Basophils # (0.01-0.08) x10^3/uL pO2/FiO2 Ratio 21.0 % VBG pH 7.37 (7.32-7.42) VBG pCO2 at Pat Temp 34 L (42-55) mm/Hg VBG pO2 at Pat Temp 65 H (25-40) mm/Hg VBG HCO3 19.7 L (22-28) meq/L VBG O2 Sat (Rebeca) 94.7 L (95-100) VBG Base Excess -4.7 L (-2.0-2.0) VBG Hemoglobin 15.1 VBG Carboxyhemoglobin 7.6 H* (0.0-6.9) % T HGB POC Potassium 5.6 H (3.5-5.1) Sodium 142 (135-145) mmol/L Potassium 4.6 (3.5-5.1) mmol/L Chloride 111 H (98-107) mmol/L Carbon Dioxide 16 L* (22-30) mmol/L Anion Gap 20.5 H (5-15) MEQ/L BUN 29 H (9-20) mg/dL Creatinine 1.76 H (0.66-1.25) mg/dL Estimated GFR 40.6 ML/MIN Glucose 107 H (74-106) mg/dL Calcium 9.7 (8.4-10.2) mg/dL Total Bilirubin 0.70 (0.2-1.3) mg/dL AST 33 (17-59) U/L ALT 30 (0-50) U/L Alkaline Phosphatase 200 H (38-126) U/L Serum Total Protein 7.9 (6.3-8.2) g/dL Albumin 4.4 (3.5-5.0) g/dL Urine Color Dark Yellow (Yellow) Urine Appearance Clear (Clear) Urine pH 5.0 (4.6-8.0) Ur Specific Burns >=1.030 A (1.005-1.030) Urine Protein Trace A (Negative) Urine Glucose (UA) Negative (Negative) mg/dL Urine Ketones Trace A (Negative) Urine Blood Negative (Negative) Urine Nitrite Negative (Negative) Urine Bilirubin Negative (Negative) Urine Urobilinogen 0.2 (0.2) mg/dL Ur Leukocyte Esterase Negative (Negative) U Hyaline Cast (Auto) 3-5 A (0-2) /LPF Urine Microscopic RBC 0-2 (0-5) /HPF Urine Microscopic WBC 0-2 (0-5) /HPF Ur Epithelial Cells None Seen (None Seen) /HPF Urine Bacteria None Seen (None Seen) /HPF Urine Culture Reflexed NO (NO) 02/02/24 Range/Units 09:05 WBC 9.1 H (4.23-9.07) x10^3/uL RBC 4.70 (4.63-6.08) x10^6/uL Hgb 14.5 (13.7-17.5) g/dL Hct 46.0 (40.1-51.0) % MCV 97.9 H (79.0-92.2) fL MCH 30.9 (25.7-32.2) pg MCHC 31.5 L (32.3-36.5) g/dL RDW 14.6 H (11.6-14.4) % Plt Count 246 (163-337) x10^3/uL MPV 9.9 (9.4-12.4) fL Gran % 68.3 H (34.0-67.9) % Immature Gran % (Auto) 0.5 H (0.001-0.429) % Nucleat RBC Rel Count 0.0 (0.00-0.2) % Eos # (Auto) 0.19 (0.04-0.54) x10^3/uL Immature Gran # (Auto) 0.05 H (0.001-0.031) x10^3u/L Absolute Lymphs (auto) 2.12 (1.32-3.57) x10^3/uL Absolute Monos (auto) 0.46 (0.30-0.82) x10^3/uL Absolute Nucleated RBC 0.00 (0.00-0.012) x10^3u/L Lymphocytes % 23.3 (21.8-53.1) % Monocytes % 5.0 L (5.3-12.2) % Eosinophils % 2.1 (0.8-7.0) % Basophils % 0.8 (0.2-1.2) % Absolute Granulocytes 6.22 H (1.78-5.38) x10^3/uL Basophils # 0.07 (0.01-0.08) x10^3/uL pO2/FiO2 Ratio % VBG pH (7.32-7.42) VBG pCO2 at Pat Temp (42-55) mm/Hg VBG pO2 at Pat Temp (25-40) mm/Hg VBG HCO3 (22-28) meq/L VBG O2 Sat (Rebeca) (95-100) VBG Base Excess (-2.0-2.0) VBG Hemoglobin VBG Carboxyhemoglobin (0.0-6.9) % T HGB POC Potassium (3.5-5.1) Sodium (135-145) mmol/L Potassium (3.5-5.1) mmol/L Chloride (98-107) mmol/L Carbon Dioxide (22-30) mmol/L Anion Gap (5-15) MEQ/L BUN (9-20) mg/dL Creatinine (0.66-1.25) mg/dL Estimated GFR ML/MIN Glucose (74-106) mg/dL Calcium (8.4-10.2) mg/dL Total Bilirubin (0.2-1.3) mg/dL AST (17-59) U/L ALT (0-50) U/L Alkaline Phosphatase (38-126) U/L Serum Total Protein (6.3-8.2) g/dL Albumin (3.5-5.0) g/dL Urine Color (Yellow) Urine Appearance (Clear) Urine pH (4.6-8.0) Ur Specific Burns (1.005-1.030) Urine Protein (Negative) Urine Glucose (UA) (Negative) mg/dL Urine Ketones (Negative) Urine Blood (Negative) Urine Nitrite (Negative) Urine Bilirubin (Negative) Urine Urobilinogen (0.2) mg/dL Ur Leukocyte Esterase (Negative) U Hyaline Cast (Auto) (0-2) /LPF Urine Microscopic RBC (0-5) /HPF Urine Microscopic WBC (0-5) /HPF Ur Epithelial Cells (None Seen) /HPF Urine Bacteria (None Seen) /HPF Urine Culture Reflexed (NO) - Progress Progress: unchanged Progress Note: Patient was stable throughout stay. His lab work came back. I did not see anything that appeared to be acute. His EKG showed no acute changes. Chest x- ray was clear. He has COPD and chronic findings. At this time I think that he can be worked up on an outpatient basis. As for his dysuria I do not know why he is having that. It appears that he is having claudication in his right lower extremity. He can follow-up with his primary care doctor and get an evaluation from vascular surgery for that. His A-fib is chronic and it is controlled at this time. He is not having any chest pain. 02/02/24 12:05 Medical Desision Making - Diagnostic Testing Diagnostic test were ordered, analyzed, and reviewed by me: Yes Radiological Interpretation: Reviewed by me - Risk of complications Minimal Risk: Minimal risk of morbidity Low Risk: Low risk of morbidity from additional dx testing or treatment - Departure Departure Disposition: Home Clinical Impression: Atrial fibrillation, Right leg claudication, Dysuria Condition: Stable Critical Care Time: No Referrals: ANAND RAMACHANDRAN [Primary Care Provider] - Follow up/PCP as directed Additional Instructions: Call your primary care doctor for follow-up for the leg cramps as well as the dysuria. You will probably need to be referred to some specialist for that.
[2024-02-02 09:32] LABS: ALBUMIN 4.4 g/dL (3.5-5.0); ANION GAP 20.5 MEQ/L (5-15); BILIRUBIN,TOTAL 0.7 mg/dL (0.2-1.3); Calcium 9.7 mg/dL (8.4-10.2); Creatinine 1 1.76 mg/dL (0.66-1.25); EST GLOMERULAR FILTRATION RATE 40.6 ML/MIN; Potassium 4.6 mmol/L (3.5-5.1); Total Protein 7.9 g/dL (6.3-8.2)
--- NOTE | 2024-02-02 10:01 | XRAY ---
Indication: Dyspnea. Comparison: December 26, 2020 Portable apical lordotic chest again demonstrates minimal right mid lung discoid atelectasis/scarring, chronic blunting right costophrenic angle, and a few tiny right lung calcified granulomas. No focal infiltrate, consolidation, or large effusion. Heart not enlarged for AP portable technique. Bony thorax intact again with osteopenia and mild generative changes. Impression: Continued nonacute chest with chronic features.
[2024-02-02 10:57] LABS: Appearance Clear (Clear); Bacteria None Seen /HPF (None Seen); Bilirubin Negative (Negative); Blood Negative (Negative); Epithelial Cells None Seen /HPF (None Seen); Glucose, Urine Negative (Negative); Ketones Trace (Negative); Leukocyte Esterase Negative (Negative); Nitrite Negative (Negative); Protein,Urine Dip Trace (Negative); Specific Gravity >=1.030 (1.005-1.030); Urobilinogen 0.2 mg/dL (0.2); WBC 0-2 /HPF (0-5)
[2024-02-02 10:59] LABS: RBC 0-2 /HPF (0-5)
[2024-02-02] MEDS: Sodium Chloride 0.9% 1000 ML 1,000 ML IV STA (11:06)
[2024-02-02] MEDS ORDERED: Sodium Chloride 0.9% 1000 ML 1,000 ML ONE (11:06)
[2024-02-02 11:08] LABS: VBG BASE EXCESS -4.7 (-2.0-2.0); VBG HCO3- 19.7 meq/L (22-28); VBG HEMOGLOBIN 15.1; VBG O2 SATURATION 94.7 (95-100); VBG POTASSIUM 5.6 (3.5-5.1); VBG pH 7.37 (7.32-7.42)
[2024-02-02 11:09] LABS: VBG CARBOXYHEMOGLOBIN 7.6 % T HGB (0.0-6.9)
[2024-02-02 12:09] VITALS: O2SAT 98
[2024-02-02 12:26] VITALS: BP 136/68; PULSE 73; RESP 25
== END 2024-02-02 12:39 | disposition home or self-care (01) ==
LOC: ED 08:41
DX: I48.91 Unspecified atrial fibrillation (principal); I73.9 Peripheral vascular disease, unspecified; R30.0 Dysuria; I10 Essential (primary) hypertension; Z79.01 Long term (current) use of anticoagulants; Z79.891 Long term (current) use of opiate analgesic; Z79.899 Other long term (current) drug therapy; Z72.0 Tobacco use
CPT/HCPCS: 36415; 71045; 80053; 81001; 82805; 85025; 93005; 99284

== ENCOUNTER 2024-04-22 12:54 | Inpatient (IN) | payer MEDICARE ==
[2024-04-22] MEDS ORDERED: DUONEB 0.5-3 MG/3 ml Neb IH ONE ×5 (13:12→18:21)
[2024-04-22] MEDS: DUONEB 0.5-3 MG/3 ml Neb IH ONE ×5 (13:13→18:33)
[2024-04-22] MEDS ORDERED: solu-MEDROL ONE ×2 (13:16→22:42)
[2024-04-22] MEDS ORDERED: Sodium Chloride 0.9% 1000 ML 1,000 ML ONE ×2 (13:16→18:06)
[2024-04-22] MEDS ORDERED: Sterile H2O 10 ml IJ ONE ×2 (13:16→22:43)
[2024-04-22] MEDS ORDERED: MAGNESIUM SULF 2 G/50 ML BAG 2 GM/50 ML PIGGYBACK IV ONE (13:16)
[2024-04-22] MEDS: solu-MEDROL 125 MG, Sterile H2O 10 ml 2 ML IV ONE (13:17)
[2024-04-22] MEDS: MAGNESIUM SULF 2 G/50 ML BAG 2 GM/50 ML PIGGYBACK IV ONE (13:18)
[2024-04-22] MEDS: Sodium Chloride 0.9% 1000 ML 1,000 ML IV SCH ×2 (13:18→18:06)
[2024-04-22 13:25] LABS: A-aADO2 30; ABG HEMOGLOBIN 12.4; ABG POTASSIUM 4.9 (3.5-5.1); ABG SITE LEFT BRACHIAL; ARTERIAL BLOOD GAS BASE EXCESS -0.9 (-2.0-2.0); ARTERIAL BLOOD GAS FIO2 35 %; ARTERIAL BLOOD GAS PCO2 37 mmHg (35-45); ARTERIAL BLOOD GAS PO2 173 mmHg (75-100); ARTERIAL BLOOD GAS pH 7.41 (7.35-7.45); CARBOXYHEMOGLOBIN 6.4 % THgb (0.0-6.9); HCO3- 23.5 (22-28); HGB O2 SAT 92.8 g/dF (94-100); Methhemoglobin 0.7 % (1.4-1.5); paO2 pAO1 0.85
[2024-04-22 13:32] LABS: Absolute Neutrophil Ct (ANC) 7.03 x10^3/uL (1.78-5.38); BASOPHIL % 0.6 % (0.2-1.2); Basophil (Absolute #) 0.06 x10^3/uL (0.01-0.08); Eosinophil % 1.6 % (0.8-7.0); Eosinophil (Absolute #) 0.15 x10^3/uL (0.04-0.54); Hemoglobin 11.9 g/dL (13.7-17.5); IMMATURE GRAN # 0.03 x10^3u/L (0.001-0.031); IMMATURE GRAN % 0.3 % (0.001-0.429); Lymphocytes % 16.9 % (21.8-53.1); Mean Cell Volume 98.4 fL (79.0-92.2); Mean Corpuscular Hemoglobin 30.8 pg (25.7-32.2); Mean Corpuscular Hgb Concent. 31.3 g/dL (32.3-36.5); Mean Platelet Volume 10.1 fL (9.4-12.4); Monocyte (Absolute #) 0.58 x10^3/uL (0.30-0.82); Monocytes % 6.1 % (5.3-12.2); Neutrophil % 74.5 % (34.0-67.9); Platelet Count 274 x10^3/uL (163-337); Red Blood Count 3.86 x10^6/uL (4.63-6.08); Red Cell Distribution Width 14.5 % (11.6-14.4); White Blood Count 9.5 x10^3/uL (4.23-9.07)
[2024-04-22 13:45] LABS: ANION GAP 17.6 MEQ/L (5-15); BILIRUBIN,TOTAL 0.6 mg/dL (0.2-1.3); Calcium 9.6 mg/dL (8.4-10.2); Creatinine 1 1.54 mg/dL (0.66-1.25); EST GLOMERULAR FILTRATION RATE 47.6 ML/MIN; MAGNESIUM 2.3 mg/dL (1.6-2.3); Potassium 5.1 mmol/L (3.5-5.1)
--- NOTE | 2024-04-22 13:51 | XRAY ---
Indication: Dyspnea. Comparison: February 02, 2024 Portable chest unchanged again hyperinflated with scattered peripheral fibrosis/scarring, right midlung discoid atelectasis/scarring, and chronic blunting right costophrenic angle. Heart borderline enlarged. Bony thorax intact again with osteopenia and mild degenerative changes. Impression: Continued nonacute hyperinflated chest with chronic features.
[2024-04-22 13:59] LABS: TROPONIN 0.031 ng/mL (0.000-0.033)
[2024-04-22 14:09] LABS: INFLUENZA A NEGATIVE (NEGATIVE); INFLUENZA B NEGATIVE (NEGATIVE); RESPIRATORY SYNCTIAL VIRUS NEGATIVE (NEGATIVE); SARS-CoV-2 Xpert Express NEGATIVE (NEGATIVE)
[2024-04-22 16:53] LABS: ALBUMIN 3.9 g/dL (3.5-5.0); ANION GAP 14.2 MEQ/L (5-15); BILIRUBIN,TOTAL 0.6 mg/dL (0.2-1.3); Calcium 8.7 mg/dL (8.4-10.2); Creatinine 1 1.39 mg/dL (0.66-1.25); EST GLOMERULAR FILTRATION RATE 53.9 ML/MIN; Potassium 4.8 mmol/L (3.5-5.1); Total Protein 7.1 g/dL (6.3-8.2)
[2024-04-22] MEDS: NORCO 10-325 MG PO PRN (18:30)
[2024-04-22] MEDS ORDERED: Cardizem IV 50 MG/10 ML IV ONE (18:35)
[2024-04-22] MEDS: Cardizem IV 50 MG/10 ML IV ONE (18:36)
[2024-04-22] MEDS ORDERED: CARDIZEM DRIP 100 MG/100 ML D5W 100 ML IV ONE (18:45)
--- NOTE | 2024-04-22 18:51 | ERPHSYRPT ---
- History of Present Illness Time Seen by Provider: 04/22/24 13:07 Source: patient Exam Limitations: clinical condition Patient Subjective Stated Complaint: C/O SOB for about a week that is much worse today. Denies fever. Triage Nursing Assessment: Patient brought back to ER in a W/C. He is SOB. Dry, weak, non-productive cough present. Wheezes throughout. Pitting edema to BLE. Alert and oriented. Pale. Timing/Duration: today Severity: moderate Modifying Factors: Improves With: movement Associated Symptoms: shortness of breath Allergies/Adverse Reactions: No Known Drug Allergies Allergy (Verified 04/22/24 13:01) Home Medications: Isosorbide Mononitrate 30 mg [Imdur 30 MG] 60 mg PO DAILY 07/03/18 [History] dilTIAZem HCL [Cartia Xt] 360 mg PO DAILY 07/03/18 [History] Lisinopril 10 mg [Zestril 10 MG] 5 mg PO DAILY 02/18/19 [History] Melatonin 30 mg PO QHS PRN 12/26/20 [History] Memantine HCl 5 mg [Namenda 5 MG] 10 tab PO BID 12/26/20 [History] Albuterol 2.5 mg/3 ml Neb [Proventil 2.5 mg/3 ml Neb] 2.5 mg IH Q6HRT 02/02/24 [History] Apixaban [Eliquis] 5 mg PO BID 02/02/24 [History] Hydrocodone/Acetaminophen [Hydrocodone-Acetamin 10-325 mg] 1 each PO Q46H 02/02/24 [History] Hx Tetanus, Diphtheria Vaccination/Date Given: Yes Hx Influenza Vaccination/Date Given: No Hx Pneumococcal Vaccination/Date Given: Yes Immunizations Up to Date: Yes Travel Risk - International Travel Have you traveled outside of the country in past 3 weeks: No - Emerging Infectious Disease Are you exhibiting symptoms associated with any current EIDs: Yes Symptoms: Cough: New Onset, Shortness of Breath - Review of Systems Constitutional: No Symptoms Eyes: No Symptoms Ears, Nose, & Throat: No Symptoms Respiratory: Dyspnea, Dyspnea on Exertion (NOEL), Wheezing Cardiac: No Symptoms Abdominal/Gastrointestinal: No Symptoms Genitourinary Symptoms: No Symptoms Musculoskeletal: No Symptoms Skin: No Symptoms Neurological: No Symptoms Psychological: No Symptoms - Past Medical History Pertinent Past Medical History: Yes Neurological History: Seizures ENT History: No Pertinent History Cardiac History: Arrhythmia, Congestive Heart Failure, Coronary Artery Disease, Hypertension, Other Respiratory History: CHF, COPD, Pneumonia, Tuberculosis Endocrine Medical History: No Pertinent History Musculoskeletal History: No Pertinent History GI Medical History: GI Bleed, Hemorrhoids, Polyps History: Renal Disease Psycho-Social History: No Pertinent History Male Reproductive Disorders: No Pertinent History Other Medical History: tuberculosis of kidney, [employer] 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 - Past Surgical History Past Surgical History: Yes Neuro Surgical History: No Pertinent History Cardiac: Cardiac Catheterization Respiratory: No Pertinent History Gastrointestinal: No Pertinent History Genitourinary: Kidney Surgery, Other Musculoskeletal: Other Male Surgical History: No Pertinent History Other Surgical History: Toes sewed together,colonoscopy, pt only has left kidney - Social History Smoking Status: Current every day smoker How long have you smoked: 54 years Exposure to second hand smoke: Yes Drug Use: none Patient Lives Alone: Yes - Social Determinants of Health Will the patient participate in the screening: Declined to provide - Nursing Vital Signs Nursing Vital Signs: Initial Vital Signs Temperature 97.7 F 04/22/24 12:55 Pulse Rate 150 H 04/22/24 12:55 Respiratory Rate 30 H 04/22/24 12:55 O2 Sat by Pulse Oximetry 97 04/22/24 12:55 Pain Scale Pain Intensity 7 - Physical Exam General Appearance: moderate distress Eye Exam: PERRL/EOMI Ears, Nose, Throat Exam: normal ENT inspection Neck Exam: normal inspection Respiratory Exam: respiratory distress, wheezing Cardiovascular Exam: tachycardia Neurologic Exam: alert, oriented x 3 SpO2: 100 Ordered Tests: Active Orders 24 hr Category Date Time Status CHEST 1 VIEW (PORTABLE) Stat Exams 04/22/24 13:08 Completed CHEST WITH CONTRAST [CT] Stat Exams 04/22/24 13:58 Taken ARTERIAL BLOOD GASES Stat Lab 04/22/24 13:23 Completed CBC W DIFF Stat Lab 04/22/24 13:25 Completed CMP Stat Lab 04/22/24 13:25 Completed CMP Stat Lab 04/22/24 15:21 Completed D-DIMER QUANTITATIVE Stat Lab 04/22/24 13:30 Completed MAGNESIUM Stat Lab 04/22/24 13:25 Completed NT PRO BNPII Stat Lab 04/22/24 13:25 Completed TROPONIN Q4H Lab 04/22/24 13:25 Completed TROPONIN Q4H Lab 04/22/24 17:18 Completed TROPONIN Q4H Lab 04/22/24 21:15 Ordered BiPap/CPAP STAT RT 04/22/24 13:07 Active Respiratory Therapy Assessment DAILY RT 04/22/24 13:39 Active Medication Summary Generic Name Dose Route Start Last Admin Trade Name Adrianne PRN Reason Stop Dose Admin Hydrocodone Bitart/Acetaminophen 1 tablet 04/22/24 18:14 04/22/24 18:30 Hydrocodone/Acetamin 10-325 Mg Tablet PO 04/27/24 18:13 1 tablet Q4H PRN PRN Administration PAIN Sodium Chloride 1,000 mls @ 50 mls/hr 04/22/24 13:15 04/22/24 15:53 Sodium Chloride 0.9% 1000 Ml IV 05/22/24 13:14 Infused .Q20H CLOTILDE Infusion Sodium Chloride 1,000 mls @ 250 mls/hr 04/22/24 17:15 04/22/24 18:06 Sodium Chloride 0.9% 1000 Ml IV 05/22/24 17:14 250 mls/hr .Q4H CLOTILDE Administration Diltiazem HCl 100 mls @ 5 mls/hr 04/22/24 18:52 04/22/24 18:53 Cardizem Drip 100 Mg/100 Ml D5w IV 05/22/24 18:51 5 mg/hr .Q20H PRN 5 mls/hr HEART RATE/ A-FIB Administration Protocol 5 MG/HR Discontinued Medications Generic Name Dose Route Start Last Admin Trade Name Adrianne PRN Reason Stop Dose Admin Albuterol/Ipratropium 3 ml 04/22/24 13:07 04/22/24 13:13 Ipratropium/Albuterol Sulfate 3 Ml Ampul.Neb IH 04/22/24 13:08 3 ml STAT ONE Administration Albuterol/Ipratropium Confirm 04/22/24 13:12 Ipratropium/Albuterol Sulfate 3 Ml Ampul.Neb Administered 04/22/24 13:13 Dose 3 ml IH .STK-MED ONE Albuterol/Ipratropium 3 ml 04/22/24 13:47 04/22/24 13:52 Ipratropium/Albuterol Sulfate 3 Ml Ampul.Neb IH 04/22/24 13:48 3 ml STAT ONE Administration Albuterol/Ipratropium Confirm 04/22/24 13:51 Ipratropium/Albuterol Sulfate 3 Ml Ampul.Neb Administered 04/22/24 13:52 Dose 3 ml IH .STK-MED ONE Albuterol/Ipratropium Confirm 04/22/24 14:43 Ipratropium/Albuterol Sulfate 3 Ml Ampul.Neb Administered 04/22/24 14:44 Dose 3 ml IH .STK-MED ONE Albuterol/Ipratropium 3 ml 04/22/24 14:47 04/22/24 14:46 Ipratropium/Albuterol Sulfate 3 Ml Ampul.Neb IH 04/22/24 14:48 3 ml STAT ONE Administration Albuterol/Ipratropium 3 ml 04/22/24 18:15 04/22/24 18:32 Ipratropium/Albuterol Sulfate 3 Ml Ampul.Neb IH 04/22/24 18:16 3 ml STAT ONE Administration Albuterol/Ipratropium 3 ml 04/22/24 18:15 04/22/24 18:33 Ipratropium/Albuterol Sulfate 3 Ml Ampul.Neb IH 04/22/24 18:16 3 ml STAT ONE Administration Albuterol/Ipratropium Confirm 04/22/24 18:20 Ipratropium/Albuterol Sulfate 3 Ml Ampul.Neb Administered 04/22/24 18:21 Dose 3 ml IH .STK-MED ONE Albuterol/Ipratropium Confirm 04/22/24 18:21 Ipratropium/Albuterol Sulfate 3 Ml Ampul.Neb Administered 04/22/24 18:22 Dose 3 ml IH .STK-MED ONE Methylprednisolone Sodium 0 mg 04/22/24 13:07 04/22/24 13:17 Succinate 125 mg/ Sterile IV 04/22/24 13:08 125 mg Water 2 ml STAT ONE Administration Diltiazem HCl 20 mg 04/22/24 18:34 04/22/24 18:36 Diltiazem Hcl Iv 5 Mg/Ml Vial IV 04/22/24 18:35 20 mg STAT ONE Administration Diltiazem HCl Confirm 04/22/24 18:35 Diltiazem Hcl Iv 5 Mg/Ml Vial Administered 04/22/24 18:36 Dose 50 mg IV .STK-MED ONE Magnesium Sulfate/Water 2 gm in 50 mls @ 100 mls/hr 04/22/24 13:09 04/22/24 13:54 Magnesium Sulf 2 G/50 Ml Bag IV 04/22/24 13:38 Infused ONCE ONE Infusion Magnesium Sulfate/Water Confirm 04/22/24 13:16 Magnesium Sulf 2 G/50 Ml Bag Administered 04/22/24 13:17 Dose 2 gm in 50 mls @ ud IV .STK-MED ONE Diltiazem HCl Confirm 04/22/24 18:45 Cardizem Drip 100 Mg/100 Ml D5w Administered 04/22/24 18:46 Dose 100 mls @ ud IV .STK-MED ONE Methylprednisolone Sodium Succinate Confirm 04/22/24 13:16 Methylprednis Sod Succ 125 Mg/2 Ml Vial Administered 04/22/24 13:17 Dose 125 mg .ROUTE .STK-MED ONE Sterile Water Confirm 04/22/24 13:16 Water For Injection,Sterile 10 Ml Vial Administered 04/22/24 13:17 Dose 10 ml IJ .STK-MED ONE Lab/Rad Data: Laboratory Result Diagrams 04/22/24 13:25 04/22/24 15:21 Laboratory Results 04/22/24 04/22/24 04/22/24 Range/Units 17:18 15:21 13:30 WBC (4.23-9.07) x10^3/uL RBC (4.63-6.08) x10^6/uL Hgb (13.7-17.5) g/dL Hct (40.1-51.0) % MCV (79.0-92.2) fL MCH (25.7-32.2) pg MCHC (32.3-36.5) g/dL RDW (11.6-14.4) % Plt Count (163-337) x10^3/uL MPV (9.4-12.4) fL Gran % (34.0-67.9) % Immature Gran % (Auto) (0.001-0.429) % Nucleat RBC Rel Count (0.00-0.2) % Eos # (Auto) (0.04-0.54) x10^3/uL Immature Gran # (Auto) (0.001-0.031) x10^3u/L Absolute Lymphs (auto) (1.32-3.57) x10^3/uL Absolute Monos (auto) (0.30-0.82) x10^3/uL Absolute Nucleated RBC (0.00-0.012) x10^3u/L Lymphocytes % (21.8-53.1) % Monocytes % (5.3-12.2) % Eosinophils % (0.8-7.0) % Basophils % (0.2-1.2) % Absolute Granulocytes (1.78-5.38) x10^3/uL Basophils # (0.01-0.08) x10^3/uL D-Dimer (0.0-0.50) mg/L Puncture Site pCO2 (35-45) mmHg pO2 (75-100) mmHg Base Excess (-2.0-2.0) O2 Saturation (94-100) g/dF ABG pH (7.35-7.45) ABG HCO3 (22-28) ABG O2 Sat (Measured) (95-100) % Keaton Test A-a Gradient a/A Ratio Hemoglobin Carboxyhemoglobin (0.0-6.9) % THgb Methemoglobin (1.4-1.5) % Potassium 4.8 (3.5-5.1) Temperature C POC O2 Flow Rate % Sodium 141 (135-145) mmol/L Chloride 112 H (98-107) mmol/L Carbon Dioxide 20 L (22-30) mmol/L Anion Gap 14.2 (5-15) MEQ/L BUN 24 H (9-20) mg/dL Creatinine 1.39 H (0.66-1.25) mg/dL Estimated GFR 53.9 ML/MIN Glucose 99 (74-106) mg/dL Calcium 8.7 (8.4-10.2) mg/dL Magnesium (1.6-2.3) mg/dL Total Bilirubin 0.60 (0.2-1.3) mg/dL AST 31 (17-59) U/L ALT 23 (0-50) U/L Alkaline Phosphatase 170 H (38-126) U/L Troponin I 0.024 (0.000-0.033) ng/mL NT-Pro-B Natriuret Pep (<300) pg/mL Serum Total Protein 7.1 (6.3-8.2) g/dL Albumin 3.9 (3.5-5.0) g/dL Influenza Type A Ag NEGATIVE (NEGATIVE) Influenza Type B Ag NEGATIVE (NEGATIVE) RSV (PCR) NEGATIVE (NEGATIVE) SARS-CoV-2 (PCR) NEGATIVE (NEGATIVE) 04/22/24 04/22/24 04/22/24 Range/Units 13:30 13:25 13:25 WBC (4.23-9.07) x10^3/uL RBC (4.63-6.08) x10^6/uL Hgb (13.7-17.5) g/dL Hct (40.1-51.0) % MCV (79.0-92.2) fL MCH (25.7-32.2) pg MCHC (32.3-36.5) g/dL RDW (11.6-14.4) % Plt Count (163-337) x10^3/uL MPV (9.4-12.4) fL Gran % (34.0-67.9) % Immature Gran % (Auto) (0.001-0.429) % Nucleat RBC Rel Count (0.00-0.2) % Eos # (Auto) (0.04-0.54) x10^3/uL Immature Gran # (Auto) (0.001-0.031) x10^3u/L Absolute Lymphs (auto) (1.32-3.57) x10^3/uL Absolute Monos (auto) (0.30-0.82) x10^3/uL Absolute Nucleated RBC (0.00-0.012) x10^3u/L Lymphocytes % (21.8-53.1) % Monocytes % (5.3-12.2) % Eosinophils % (0.8-7.0) % Basophils % (0.2-1.2) % Absolute Granulocytes (1.78-5.38) x10^3/uL Basophils # (0.01-0.08) x10^3/uL D-Dimer 1.97 H* (0.0-0.50) mg/L Puncture Site pCO2 (35-45) mmHg pO2 (75-100) mmHg Base Excess (-2.0-2.0) O2 Saturation (94-100) g/dF ABG pH (7.35-7.45) ABG HCO3 (22-28) ABG O2 Sat (Measured) (95-100) % Keaton Test A-a Gradient a/A Ratio Hemoglobin Carboxyhemoglobin (0.0-6.9) % THgb Methemoglobin (1.4-1.5) % Potassium 5.1 (3.5-5.1) Temperature C POC O2 Flow Rate % Sodium 142 (135-145) mmol/L Chloride 111 H (98-107) mmol/L Carbon Dioxide 19 L (22-30) mmol/L Anion Gap 17.6 H (5-15) MEQ/L BUN 24 H (9-20) mg/dL Creatinine 1.54 H (0.66-1.25) mg/dL Estimated GFR 47.6 ML/MIN Glucose 89 (74-106) mg/dL Calcium 9.6 (8.4-10.2) mg/dL Magnesium 2.3 (1.6-2.3) mg/dL Total Bilirubin 0.60 (0.2-1.3) mg/dL AST 30 (17-59) U/L ALT 25 (0-50) U/L Alkaline Phosphatase 173 H (38-126) U/L Troponin I 0.031 (0.000-0.033) ng/mL NT-Pro-B Natriuret Pep 76360 (<300) pg/mL Serum Total Protein 7.0 (6.3-8.2) g/dL Albumin 4.0 (3.5-5.0) g/dL Influenza Type A Ag (NEGATIVE) Influenza Type B Ag (NEGATIVE) RSV (PCR) (NEGATIVE) SARS-CoV-2 (PCR) (NEGATIVE) 04/22/24 04/22/24 Range/Units 13:25 13:23 WBC 9.5 H (4.23-9.07) x10^3/uL RBC 3.86 L (4.63-6.08) x10^6/uL Hgb 11.9 L (13.7-17.5) g/dL Hct 38.0 L (40.1-51.0) % MCV 98.4 H (79.0-92.2) fL MCH 30.8 (25.7-32.2) pg MCHC 31.3 L (32.3-36.5) g/dL RDW 14.5 H (11.6-14.4) % Plt Count 274 (163-337) x10^3/uL MPV 10.1 (9.4-12.4) fL Gran % 74.5 H (34.0-67.9) % Immature Gran % (Auto) 0.3 (0.001-0.429) % Nucleat RBC Rel Count 0.0 (0.00-0.2) % Eos # (Auto) 0.15 (0.04-0.54) x10^3/uL Immature Gran # (Auto) 0.03 (0.001-0.031) x10^3u/L Absolute Lymphs (auto) 1.60 (1.32-3.57) x10^3/uL Absolute Monos (auto) 0.58 (0.30-0.82) x10^3/uL Absolute Nucleated RBC 0.00 (0.00-0.012) x10^3u/L Lymphocytes % 16.9 L (21.8-53.1) % Monocytes % 6.1 (5.3-12.2) % Eosinophils % 1.6 (0.8-7.0) % Basophils % 0.6 (0.2-1.2) % Absolute Granulocytes 7.03 H (1.78-5.38) x10^3/uL Basophils # 0.06 (0.01-0.08) x10^3/uL D-Dimer (0.0-0.50) mg/L Puncture Site LEFT BRACHIAL pCO2 37 (35-45) mmHg pO2 173 H* (75-100) mmHg Base Excess -0.9 (-2.0-2.0) O2 Saturation 92.8 L (94-100) g/dF ABG pH 7.41 (7.35-7.45) ABG HCO3 23.5 (22-28) ABG O2 Sat (Measured) 100.0 (95-100) % Keaton Test NOT APPLICABLE A-a Gradient 30 a/A Ratio 0.85 Hemoglobin 12.4 Carboxyhemoglobin 6.4 (0.0-6.9) % THgb Methemoglobin 0.7 L (1.4-1.5) % Potassium 4.9 (3.5-5.1) Temperature 37.0 C POC O2 Flow Rate 35 % Sodium (135-145) mmol/L Chloride (98-107) mmol/L Carbon Dioxide (22-30) mmol/L Anion Gap (5-15) MEQ/L BUN (9-20) mg/dL Creatinine (0.66-1.25) mg/dL Estimated GFR ML/MIN Glucose (74-106) mg/dL Calcium (8.4-10.2) mg/dL Magnesium (1.6-2.3) mg/dL Total Bilirubin (0.2-1.3) mg/dL AST (17-59) U/L ALT (0-50) U/L Alkaline Phosphatase (38-126) U/L Troponin I (0.000-0.033) ng/mL NT-Pro-B Natriuret Pep (<300) pg/mL Serum Total Protein (6.3-8.2) g/dL Albumin (3.5-5.0) g/dL Influenza Type A Ag (NEGATIVE) Influenza Type B Ag (NEGATIVE) RSV (PCR) (NEGATIVE) SARS-CoV-2 (PCR) (NEGATIVE) - Progress Progress Note: 04/22/24 18:48 Patient was seen and evaluated for acute respiratory distress he was placed on BiPAP and given DuoNebs Solu-Medrol to which he responded well. The workup was initiated labs were drawn, based on his elevated D-dimer a CT PE study was ordered however given the patient's renal function he was given IV hydration prior and repeat CMP revealed a improvement of his GFR. After lengthy discussion all risk and benefits were explained to the patient he wished to have a CT PE study to rule out PE. All risk and benefits were explained with Philly KOHLER present. Patient was noted to have tachycardia this was monitored repeat EKG reveals A-fi b this was treated with Cardizem bolus and then a drip. CT PE study reveals components of CHF and COPD. Patient is responding slowly to the Cardizem. I informed the patient of the need for admission he is agreeable. I spoke to the hospitalist Dr. Rahman who was updated with the patient's current therapies lab results and CT results he will accept the patient as a admit. Patient and family have no further questions at this time 04/22/24 19:29 Medical Desision Making - Discussion of managment Care discussed with:: hospitalist Agreed on:: decision to admit, place in obs Will see patient: in hospital - Departure Departure Disposition: Observation Clinical Impression: COPD (chronic obstructive pulmonary disease), Acute on chronic renal failure, Atrial fibrillation, Hypertension, COPD exacerbation Condition: Stable Critical Care Time: Yes Critical Care Time(excluding separately billable procedures): Critical 75-104 mins (104 minutes) Referrals: ANAND RAMACHANDRAN [Primary Care Provider] - Follow up/PCP as directed Instructions: Chronic Obstructive Pulmonary Disease
[2024-04-22] MEDS: CARDIZEM DRIP 100 MG/100 ML D5W 100 ML IV PRN (18:53)
[2024-04-22] MEDS ORDERED: NORCO 5/325 MG PO PRN (20:53)
--- NOTE | 2024-04-22 20:59 | PCM.HP ---
History of Present Illness - Chief Complaint Chief Complaint: sob Date: 04/22/24 History of Present Illness: Mr. NOVA is a 73 year old male with a past medical history significant for hypertension, hyperlipidemia, chronic kidney disease with history of R nephrectomy and COPD who presents to the hospital with complaints of shortness of breath and bilateral lower extremity edema. Initial labs were notable for a creatinine of 1.5 and he had an elevated d-dimer. He was given IVFs with some improvement of his creatinine to 1.4 so he was sent for a CTA chest to rule out PE. This came back negative for clot but did show fluid overload and evidence of COPD. He then became tachycardic, initially thought to be SVT, but then appeared to be atrial fibrillation. He was placed on a cardizem drip and recommended for admission. He is seen via telehealth with nurse at bedside to assist. He has been short of breath and requiring breathing treatments, but otherwise appears hemodynamically stable and comfortable. No fever/chills. No chest pain or palpitations, though he does have some vague abdominal discomfort. No nausea, vomiting or diarrhea. No dysuria, hematuria or urgency. - Review of Systems Constitutional: No Fever, No Chills Eyes: No Eye Pain Ears, Nose, & Throat: No Nose Discharge, No Sinus Drainage Respiratory: Orthopnea, Short Of Breath, Wheezing Cardiac: Edema, No Chest Pain, No Palpitations Abdominal/Gastrointestinal: Abdominal Pain, No Nausea, No Vomiting, No Diarrhea Genitourinary Symptoms: No Dysuria, No Frequency, No Hematuria Musculoskeletal: No Back Pain, No Joint Pain Skin: No Rash Neurological: No Dizziness, No Headache Psychological: No Suicidal Ideations Endocrine: No Polyuria, No Polydipsia Medications & Allergies Home Medications: Home Medication List Isosorbide Mononitrate 30 mg [Imdur 30 MG] 60 mg PO DAILY 07/03/18 [History Confirmed 04/22/24] dilTIAZem HCL [Cartia Xt] 360 mg PO DAILY 07/03/18 [History Confirmed 04/22/24] Lisinopril 10 mg [Zestril 10 MG] 5 mg PO DAILY 02/18/19 [History Confirmed 04/22/24] Melatonin 30 mg PO QHS PRN 12/26/20 [History Confirmed 04/22/24] Memantine HCl 5 mg [Namenda 5 MG] 10 tab PO BID 12/26/20 [History Confirmed 04/22/24] Albuterol 2.5 mg/3 ml Neb [Proventil 2.5 mg/3 ml Neb] 2.5 mg IH Q6HRT 02/02/24 [History Confirmed 04/22/24] Apixaban [Eliquis] 5 mg PO BID 02/02/24 [History Confirmed 04/22/24] Hydrocodone/Acetaminophen [Hydrocodone-Acetamin 10-325 mg] 1 each PO Q46H 02/02/24 [History Confirmed 04/22/24] Allergies/Adverse Reactions: Allergies Allergy/AdvReac Type Severity Reaction Status Date / Time No Known Drug Allergies Allergy Verified 04/22/24 13:01 - Past Medical History Past Medical History: Yes Neurological History: Seizures ENT History: No Pertinent History Cardiac History: Arrhythmia, Congestive Heart Failure, Coronary Artery Disease, Hypertension, Other Respiratory History: CHF, COPD, Pneumonia, Tuberculosis Endocrine Medical History: No Pertinent History Musculoskelatal History: No Pertinent History GI Medical History: GI Bleed, Hemorrhoids, Polyps History: Renal Disease Pyscho-Social History: No Pertinent History Male Reproductive Disorders: No Pertinent History Comment: tuberculosis of kidney, Quality Assurance Coach: Dr. Ennis - Past Surgical History Past Surgical History: Yes Neuro Surgical History: No Pertinent History Cardiac History: Cardiac Catheterization Respiratory Surgery: No Pertinent History GI Surgical History: No Pertinent History Genitourinary Surgical Hx: Kidney Surgery, Other Musculskeletal Surgical Hx: Other Male Surgical History: No Pertinent History Other Surgical History: Toes sewed together,colonoscopy, pt only has left kidney - Social History Smoking Status: Current every day smoker How long have you smoked: 54 years Exposure to second hand smoke: Yes Alcohol: None Drug Use: none - Social Determinants of Health Will the patient participate in the screening: Declined to provide Do you worry about a steady place to live?: No In the past 12 months,have you had to go without utilities?: No Have you or anyone in your house had to go without enough: No Transportation Issues: No Has anyone in your support network made you feel unsafe?: No - Physical Exam Vital Signs: Vital Signs - 24 hr Temp Pulse Resp BP Pulse Ox 04/22/24 20:16 132 H 102/79 98 04/22/24 20:01 131 H 16 91/57 99 04/22/24 19:45 133 H 22 104/70 04/22/24 19:31 100 04/22/24 19:30 139 H 26 H 96/61 97 04/22/24 19:23 128 H 13 96/72 100 04/22/24 19:20 121 H 21 77/54 98 04/22/24 19:17 106 H 16 90/56 88 L 04/22/24 19:00 153 H 26 H 111/85 99 04/22/24 18:53 115 H 19 119/83 04/22/24 18:45 131 H 20 119/83 99 04/22/24 18:35 122 H 20 97 04/22/24 18:30 149 H 25 H 129/108 100 04/22/24 18:16 126 H 20 133/111 99 04/22/24 18:15 152 H 23 93 L 04/22/24 18:10 144 H 31 H 95 04/22/24 18:00 145 H 24 04/22/24 17:50 160 H 26 H 110/56 99 04/22/24 17:42 155 H 34 H 04/22/24 17:20 138 H 16 99 04/22/24 17:17 153 H 19 98 04/22/24 17:00 148 H 25 H 100/78 99 04/22/24 16:45 158 H 24 107/84 97 04/22/24 16:31 146 H 16 114/91 04/22/24 16:15 150 H 28 H 113/91 97 04/22/24 16:00 141 H 19 117/84 96 04/22/24 15:45 151 H 18 109/83 96 04/22/24 15:31 143 H 21 108/91 99 04/22/24 15:30 129 H 18 98 04/22/24 15:20 141 H 25 H 120/66 98 04/22/24 15:10 127 H 19 97 04/22/24 15:03 141 H 18 98 04/22/24 14:48 135 H 26 H 99 04/22/24 14:46 117 H 21 181/146 99 04/22/24 14:40 122 H 21 99 04/22/24 14:30 118 H 20 98 04/22/24 14:20 140 H 19 97 01/02/25 14:10 144 H 27 H 98 04/22/24 14:00 125 H 15 99 04/22/24 13:57 148 H 27 H 99 04/22/24 13:50 137 H 20 70 L 04/22/24 13:48 140 H 21 100 04/22/24 13:40 150 H 27 H 99 04/22/24 13:31 130 H 28 H 89/60 99 04/22/24 13:00 120 H 28 H 114/78 98 04/22/24 12:55 97.7 F 150 H 30 H 97 General Appearance: mild distress Neurologic Exam: alert, oriented x 3 Ears, Nose, Throat Exam: moist mucous membranes Neck Exam: supple Respiratory Exam: rhonchi, No respiratory distress Cardiovascular Exam: regular rate/rhythm, tachycardia Gastrointestinal/Abdomen Exam: soft Extremity Exam: pedal edema, swelling Skin Exam: normal color, No rash Results - Labs Lab/Micro Results: Lab Results-Last 24 Hours 04/22/24 04/22/24 04/22/24 Range/Units 13:23 13:25 13:25 WBC 9.5 H (4.23-9.07) x10^3/uL RBC 3.86 L (4.63-6.08) x10^6/uL Hgb 11.9 L (13.7-17.5) g/dL Hct 38.0 L (40.1-51.0) % MCV 98.4 H (79.0-92.2) fL MCH 30.8 (25.7-32.2) pg MCHC 31.3 L (32.3-36.5) g/dL RDW 14.5 H (11.6-14.4) % Plt Count 274 (163-337) x10^3/uL MPV 10.1 (9.4-12.4) fL Gran % 74.5 H (34.0-67.9) % Immature Gran % (Auto) 0.3 (0.001-0.429) % Nucleat RBC Rel Count 0.0 (0.00-0.2) % Eos # (Auto) 0.15 (0.04-0.54) x10^3/uL Immature Gran # (Auto) 0.03 (0.001-0.031) x10^3u/L Absolute Lymphs (auto) 1.60 (1.32-3.57) x10^3/uL Absolute Monos (auto) 0.58 (0.30-0.82) x10^3/uL Absolute Nucleated RBC 0.00 (0.00-0.012) x10^3u/L Lymphocytes % 16.9 L (21.8-53.1) % Monocytes % 6.1 (5.3-12.2) % Eosinophils % 1.6 (0.8-7.0) % Basophils % 0.6 (0.2-1.2) % Absolute Granulocytes 7.03 H (1.78-5.38) x10^3/uL Basophils # 0.06 (0.01-0.08) x10^3/uL D-Dimer (0.0-0.50) mg/L Puncture Site LEFT BRACHIAL pCO2 37 (35-45) mmHg pO2 173 H* (75-100) mmHg Base Excess -0.9 (-2.0-2.0) O2 Saturation 92.8 L (94-100) g/dF ABG pH 7.41 (7.35-7.45) ABG HCO3 23.5 (22-28) ABG O2 Sat (Measured) 100.0 (95-100) % Keaton Test NOT APPLICABLE A-a Gradient 30 a/A Ratio 0.85 Hemoglobin 12.4 Carboxyhemoglobin 6.4 (0.0-6.9) % THgb Methemoglobin 0.7 L (1.4-1.5) % Potassium 4.9 5.1 (3.5-5.1) Temperature 37.0 C POC O2 Flow Rate 35 % Sodium 142 (135-145) mmol/L Chloride 111 H (98-107) mmol/L Carbon Dioxide 19 L (22-30) mmol/L Anion Gap 17.6 H (5-15) MEQ/L BUN 24 H (9-20) mg/dL Creatinine 1.54 H (0.66-1.25) mg/dL Estimated GFR 47.6 ML/MIN Glucose 89 (74-106) mg/dL Calcium 9.6 (8.4-10.2) mg/dL Magnesium 2.3 (1.6-2.3) mg/dL Total Bilirubin 0.60 (0.2-1.3) mg/dL AST 30 (17-59) U/L ALT 25 (0-50) U/L Alkaline Phosphatase 173 H (38-126) U/L Troponin I (0.000-0.033) ng/mL NT-Pro-B Natriuret Pep (<300) pg/mL Serum Total Protein 7.0 (6.3-8.2) g/dL Albumin 4.0 (3.5-5.0) g/dL Influenza Type A Ag (NEGATIVE) Influenza Type B Ag (NEGATIVE) RSV (PCR) (NEGATIVE) SARS-CoV-2 (PCR) (NEGATIVE) 04/22/24 04/22/24 04/22/24 Range/Units 13:25 13:30 13:30 WBC (4.23-9.07) x10^3/uL RBC (4.63-6.08) x10^6/uL Hgb (13.7-17.5) g/dL Hct (40.1-51.0) % MCV (79.0-92.2) fL MCH (25.7-32.2) pg MCHC (32.3-36.5) g/dL RDW (11.6-14.4) % Plt Count (163-337) x10^3/uL MPV (9.4-12.4) fL Gran % (34.0-67.9) % Immature Gran % (Auto) (0.001-0.429) % Nucleat RBC Rel Count (0.00-0.2) % Eos # (Auto) (0.04-0.54) x10^3/uL Immature Gran # (Auto) (0.001-0.031) x10^3u/L Absolute Lymphs (auto) (1.32-3.57) x10^3/uL Absolute Monos (auto) (0.30-0.82) x10^3/uL Absolute Nucleated RBC (0.00-0.012) x10^3u/L Lymphocytes % (21.8-53.1) % Monocytes % (5.3-12.2) % Eosinophils % (0.8-7.0) % Basophils % (0.2-1.2) % Absolute Granulocytes (1.78-5.38) x10^3/uL Basophils # (0.01-0.08) x10^3/uL D-Dimer 1.97 H* (0.0-0.50) mg/L Puncture Site pCO2 (35-45) mmHg pO2 (75-100) mmHg Base Excess (-2.0-2.0) O2 Saturation (94-100) g/dF ABG pH (7.35-7.45) ABG HCO3 (22-28) ABG O2 Sat (Measured) (95-100) % Keaton Test A-a Gradient a/A Ratio Hemoglobin Carboxyhemoglobin (0.0-6.9) % THgb Methemoglobin (1.4-1.5) % Potassium (3.5-5.1) Temperature C POC O2 Flow Rate % Sodium (135-145) mmol/L Chloride (98-107) mmol/L Carbon Dioxide (22-30) mmol/L Anion Gap (5-15) MEQ/L BUN (9-20) mg/dL Creatinine (0.66-1.25) mg/dL Estimated GFR ML/MIN Glucose (74-106) mg/dL Calcium (8.4-10.2) mg/dL Magnesium (1.6-2.3) mg/dL Total Bilirubin (0.2-1.3) mg/dL AST (17-59) U/L ALT (0-50) U/L Alkaline Phosphatase (38-126) U/L Troponin I 0.031 (0.000-0.033) ng/mL NT-Pro-B Natriuret Pep 74046 (<300) pg/mL Serum Total Protein (6.3-8.2) g/dL Albumin (3.5-5.0) g/dL Influenza Type A Ag NEGATIVE (NEGATIVE) Influenza Type B Ag NEGATIVE (NEGATIVE) RSV (PCR) NEGATIVE (NEGATIVE) SARS-CoV-2 (PCR) NEGATIVE (NEGATIVE) 04/22/24 04/22/24 Range/Units 15:21 17:18 WBC (4.23-9.07) x10^3/uL RBC (4.63-6.08) x10^6/uL Hgb (13.7-17.5) g/dL Hct (40.1-51.0) % MCV (79.0-92.2) fL MCH (25.7-32.2) pg MCHC (32.3-36.5) g/dL RDW (11.6-14.4) % Plt Count (163-337) x10^3/uL MPV (9.4-12.4) fL Gran % (34.0-67.9) % Immature Gran % (Auto) (0.001-0.429) % Nucleat RBC Rel Count (0.00-0.2) % Eos # (Auto) (0.04-0.54) x10^3/uL Immature Gran # (Auto) (0.001-0.031) x10^3u/L Absolute Lymphs (auto) (1.32-3.57) x10^3/uL Absolute Monos (auto) (0.30-0.82) x10^3/uL Absolute Nucleated RBC (0.00-0.012) x10^3u/L Lymphocytes % (21.8-53.1) % Monocytes % (5.3-12.2) % Eosinophils % (0.8-7.0) % Basophils % (0.2-1.2) % Absolute Granulocytes (1.78-5.38) x10^3/uL Basophils # (0.01-0.08) x10^3/uL D-Dimer (0.0-0.50) mg/L Puncture Site pCO2 (35-45) mmHg pO2 (75-100) mmHg Base Excess (-2.0-2.0) O2 Saturation (94-100) g/dF ABG pH (7.35-7.45) ABG HCO3 (22-28) ABG O2 Sat (Measured) (95-100) % Keaton Test A-a Gradient a/A Ratio Hemoglobin Carboxyhemoglobin (0.0-6.9) % THgb Methemoglobin (1.4-1.5) % Potassium 4.8 (3.5-5.1) Temperature C POC O2 Flow Rate % Sodium 141 (135-145) mmol/L Chloride 112 H (98-107) mmol/L Carbon Dioxide 20 L (22-30) mmol/L Anion Gap 14.2 (5-15) MEQ/L BUN 24 H (9-20) mg/dL Creatinine 1.39 H (0.66-1.25) mg/dL Estimated GFR 53.9 ML/MIN Glucose 99 (74-106) mg/dL Calcium 8.7 (8.4-10.2) mg/dL Magnesium (1.6-2.3) mg/dL Total Bilirubin 0.60 (0.2-1.3) mg/dL AST 31 (17-59) U/L ALT 23 (0-50) U/L Alkaline Phosphatase 170 H (38-126) U/L Troponin I 0.024 (0.000-0.033) ng/mL NT-Pro-B Natriuret Pep (<300) pg/mL Serum Total Protein 7.1 (6.3-8.2) g/dL Albumin 3.9 (3.5-5.0) g/dL Influenza Type A Ag (NEGATIVE) Influenza Type B Ag (NEGATIVE) RSV (PCR) (NEGATIVE) SARS-CoV-2 (PCR) (NEGATIVE) - Radiology Impressions Radiology Exams & Impressions: Radiology Procedures Category Date Time Status CHEST 1 VIEW (PORTABLE) Stat Exams 04/22/24 13:08 Completed CHEST WITH CONTRAST [CT] Stat Exams 04/22/24 13:58 Taken - Other Procedures and Tests Respiratory Therapy 04/22/24 13:39 Respiratory Therapy Assessment DAILY 04/22/24 20:54 Oxygen Nasal Cannula 4 lpm Assessment/Plan (1) Shortness of breath Current Visit: Yes Status: Acute Assessment & Plan: Likely secondary to COPD/CHF exacerbation 1. Admit to hospital 2. Duonebs, steroids, supplemental O2 3. Monitor O2 sats 4. DVT/GI prophylaxis Code(s): R06.02 - SHORTNESS OF BREATH (2) CHF (congestive heart failure) Current Visit: Yes Status: Acute Assessment & Plan: Evidence of fluid overload on CT chest and bilateral LE edema 1. D/C IVFs 2. Attempt diuresis 3. Follow I/os 4. Daily weights Code(s): I50.9 - HEART FAILURE, UNSPECIFIED (3) Acute on chronic renal failure Current Visit: Yes Status: Acute Qualifiers: Acute renal failure type: unspecified Chronic kidney disease stage: stage 3 (moderate) Chronic kidney disease stage 3 subtype: stage 3a (GFR 45-59) Qualified Code(s): N17.9 - Acute kidney failure, unspecified; N18.31 - Chronic kidney disease, stage 3a Assessment & Plan: Secondary to cardiorenal syndrome and history of R nephrectomy - at risk for contrast nephropathy from CTA 1. Encourage PO intake 2. Hold ALEX/ARB 3. Diuresis 4. Watch electrolytes, creatinine closely Code(s): N17.9 - ACUTE KIDNEY FAILURE, UNSPECIFIED; N18.9 - CHRONIC KIDNEY DISEASE, UNSPECIFIED (4) Atrial fibrillation Current Visit: Yes Status: Acute Assessment & Plan: In afib with RVR 1. Cardizem drip 2. Systemic anticoagulation 3. Telemetry 4. Check TSH, Mg Code(s): I48.91 - UNSPECIFIED ATRIAL FIBRILLATION (5) COPD exacerbation Current Visit: Yes Status: Acute Assessment & Plan: With COPD exacerbation 1. Duonebs, steroids, supplemental O2 2. Monitor O2 sats Code(s): J44.1 - CHRONIC OBSTRUCTIVE PULMONARY DISEASE W (ACUTE) EXACERBATION Telemedicine Encounter - Telemedicine Encounter Telemedicine Encounter: "The entirety of this encounter was performed via Telemedicine" This visit was performed using real-time audio and video connection between my location and thepatients locationwith the assistance of a surrogateat the patients location. Written or verbal consent was obtained from the patient/guardian to perform this visit using[employer]lemedicine technology . Any patient questions regarding the telemedicine interaction were answered.
[2024-04-22] MEDS ORDERED: ELIQUIS 2.5 MG TABLET ONE (22:42)
[2024-04-22] MEDS: solu-MEDROL 40 MG, Sterile H2O 10 ml 1 ML IV SCH (22:45)
[2024-04-22] MEDS: BUMEX 1 MG IV SCH (22:45)
[2024-04-22] MEDS: NON-FORMULARY ITEM (Apixaban [Eliquis] 5 MG Tablet) PO SCH (22:47)
[2024-04-23] MEDS ORDERED: DUONEB 0.5-3 MG/3 ml Neb IH ONE ×2 (01:13→06:18)
[2024-04-23] MEDS: DUONEB 0.5-3 MG/3 ml Neb IH SCH (01:20)
[2024-04-23 03:27] LABS: A-aADO2 113; ABG HEMOGLOBIN 12.2; ABG POTASSIUM 4.9 (3.5-5.1); ABG SITE RIGHT BRACHIAL; ARTERIAL BLD GAS O2 SATURATION 98.9 % (95-100); ARTERIAL BLOOD GAS BASE EXCESS -5.2 (-2.0-2.0); ARTERIAL BLOOD GAS FIO2 36 %; ARTERIAL BLOOD GAS PCO2 37 mmHg (35-45); ARTERIAL BLOOD GAS PO2 97 mmHg (75-100); ARTERIAL BLOOD GAS pH 7.34 (7.35-7.45); CARBOXYHEMOGLOBIN 1.7 % THgb (0.0-6.9); HGB O2 SAT 96.7 g/dF (94-100); Methhemoglobin 0.5 % (1.4-1.5); paO2 pAO1 0.46
[2024-04-23 05:10] LABS: Absolute Neutrophil Ct (ANC) 9.38 x10^3/uL (1.78-5.38); Basophil (Absolute #) 0 x10^3/uL (0.01-0.08); Eosinophil (Absolute #) 0 x10^3/uL (0.04-0.54); Hematocrit 37.8 % (40.1-51.0); Hemoglobin 11.6 g/dL (13.7-17.5); IMMATURE GRAN # 0.05 x10^3u/L (0.001-0.031); IMMATURE GRAN % 0.5 % (0.001-0.429); Lymphocyte (Absolute #) 0.28 x10^3/uL (1.32-3.57); Lymphocytes % 2.9 % (21.8-53.1); Mean Cell Volume 100.3 fL (79.0-92.2); Mean Corpuscular Hemoglobin 30.8 pg (25.7-32.2); Mean Corpuscular Hgb Concent. 30.7 g/dL (32.3-36.5); Monocyte (Absolute #) 0.05 x10^3/uL (0.30-0.82); Monocytes % 0.5 % (5.3-12.2); Neutrophil % 96.1 % (34.0-67.9); Platelet Count 260 x10^3/uL (163-337); Red Blood Count 3.77 x10^6/uL (4.63-6.08); Red Cell Distribution Width 14.7 % (11.6-14.4); White Blood Count 9.8 x10^3/uL (4.23-9.07)
[2024-04-23 05:27] LABS: ALBUMIN 4.1 g/dL (3.5-5.0); ANION GAP 15.8 MEQ/L (5-15); BILIRUBIN,TOTAL 0.4 mg/dL (0.2-1.3); Creatinine 1 1.64 mg/dL (0.66-1.25); EST GLOMERULAR FILTRATION RATE 44.2 ML/MIN; MAGNESIUM 2.7 mg/dL (1.6-2.3); Total Protein 7.5 g/dL (6.3-8.2)
[2024-04-23 05:49] LABS: Slide Review 1 YES
[2024-04-23] MEDS: Namenda 5 MG PO SCH (06:56)
[2024-04-23] MEDS: BUMEX 1 MG IV ONE (07:07)
[2024-04-23] MEDS: BENADRYL 50 MG/ML IV ONE (08:29)
[2024-04-23] MEDS: Nicoderm CQ 21 MG TOP SCH (08:51)
--- NOTE | 2024-04-23 08:51 | XRAY ---
Indication: Dyspnea. Elevated d-dimer. Pulmonary embolus. Multiple contiguous axial images obtained through the chest using 80 cc Isovue 370 contrast and PE protocol. Comparison: None Good opacification pulmonary arteries. However mild diffuse respiration artifact limits evaluation of the more distal lobar and segmental branches. No obvious pulmonary embolus. Heart is enlarged with scattered coronary calcifications. Aorta is moderately arteriosclerotic without aneurysm/dissection. Tiny mediastinal/right hilar calcified nodes. No pathologic mediastinal/hilar lymphadenopathy. Small hiatal hernia. Lungs demonstrates moderate diffuse pulmonary emphysema, bilateral upper lobe subpleural cystic changes and small right lower lobe calcified granuloma. Small bilateral pleural effusions with bibasilar compressive atelectasis. Bony thorax intact with mild degenerative changes throughout spine. Limited upper abdomen demonstrates tiny perihepatic fluid. Previous cholecystectomy and right total nephrectomy. Impression: 1. Respiration artifact limits evaluation for pulmonary embolus. No obvious pulmonary embolus. 2. Cardiomegaly and bilateral effusions favoring cardiac decompensation/CHF. Tiny perihepatic fluid presumed related. 3. Chronic findings including pulmonary emphysema, hiatal hernia, arteriosclerotic disease, degenerative spondylosis, and old granulomatous disease.
[2024-04-23] MEDS: Xopenex 1.25 MG/0.5 ML UD NEBULE IH PRN (09:29)
[2024-04-23] MEDS: Sodium Chloride 3 ML UD NEBULES IH PRN (09:29)
[2024-04-23] MEDS ORDERED: DILTIAZEM HCL PO SCH (10:00)
[2024-04-23] MEDS: ELIQUIS 2.5 MG TABLET PO SCH (10:25)
[2024-04-23] MEDS: Imdur 30 MG PO SCH (10:25)
[2024-04-23] MEDS: Protonix 40MG Tablet PO SCH (10:25)
[2024-04-23] MEDS: BUMEX 1 MG IV SCH (10:26)
[2024-04-23] MEDS: Cardizem CD PO SCH (10:26)
--- NOTE | 2024-04-23 12:33 | PCM.NOTE ---
Date and Time: 04/23/24 1225 Subjective Assessment: 04/23/24 Mr. SHEFFIELD is a 73 year old male with a past medical history significant for hypertension, hyperlipidemia, chronic kidney disease with history of R nephrectomy and COPD. He presented to the hospital on 04/22/24 with complaints of shortness of breath and bilateral lower extremity edema. Initial labs were notable for a creatinine of 1.5 and he had an elevated d-dimer. He was given IVFs with some improvement of his creatinine to 1.4 so he was sent for a CTA chest to rule out PE. This came back negative for clot but did show fluid overload and evidence of COPD. He then became tachycardic, initially thought to be SVT, but then appeared to be atrial fibrillation. He was placed on a cardizem drip and recommended for admission. He has been short of breath and requiring breathing treatments, but otherwise appears hemodynamically stable and comfortable. No fever/chills. No chest pain or palpitations, though he does have some vague abdominal discomfort. No nausea, vomiting or diarrhea. No dysuria, hematuria or urgency. Cardiology and nephrology consulted today. He denies CP, abd. pain, N/V/D. - Review of Systems Constitutional: No Fever, No Chills Eyes: No Symptoms Ears, Nose, & Throat: No Symptoms Respiratory: Short Of Breath, No Cough Cardiac: Edema, Orthopnea, No Chest Pain, No Syncope Abdominal/Gastrointestinal: No Abdominal Pain, No Nausea, No Vomiting, No Diarrhea Genitourinary Symptoms: No Dysuria Musculoskeletal: No Back Pain, No Neck Pain Skin: No Rash Neurological: No Dizziness, No Focal Weakness, No Sensory Changes Psychological: No Symptoms Endocrine: No Symptoms Hematologic/Lymphatic: No Symptoms Immunological/Allergic: No Symptoms Objective Exam General Appearance: mild distress, alert, obese Neurologic Exam: alert, oriented x 3, cooperative, normal mood/affect, nml cerebellar function, sensation nml, No motor deficits Skin Exam: normal color, warm, dry Eye Exam: PERRL, EOMI, eyes nml inspection Ears, Nose, Throat Exam: normal ENT inspection, pharynx normal, moist mucous membranes, other (Wheezing of throat region.) Neck Exam: normal inspection, non-tender, supple, full range of motion Respiratory Exam: normal breath sounds, lungs clear, No respiratory distress Cardiovascular Exam: normal heart sounds, irregular, edema (BLLE) Gastrointestinal/Abdomen Exam: soft, No tenderness, No mass Extremity Exam: normal inspection, normal range of motion Back Exam: normal inspection, normal range of motion, No CVA tenderness, No vertebral tenderness Male Genitalia Exam: deferred Rectal Exam: deferred Objective Data Vital Signs: Vital Signs - 24 hr Temp Pulse Resp BP BP Pulse Ox 04/23/24 12:00 128 H 16 115/89 100 04/23/24 11:30 106 H 14 113/93 98 04/23/24 11:20 97.1 F 04/23/24 11:02 134 H 17 102/83 99 04/23/24 11:01 142 H 20 96 04/23/24 11:00 108 H 18 99 04/23/24 10:50 139 H 22 95 04/23/24 10:40 134 H 19 97 04/23/24 10:30 127 H 04/23/24 10:20 133 H 04/23/24 10:10 135 H 04/23/24 10:03 135 H 97 04/23/24 09:31 120 H 20 139/83 99 04/23/24 09:09 91 H 27 H 122/88 04/23/24 09:01 124 H 16 122/88 99 04/23/24 08:31 116 H 20 125/96 99 04/23/24 08:30 110 H 26 H 100 04/23/24 08:10 96 H 22 99 04/23/24 08:00 96.9 F 95 H 04/23/24 07:50 130 H 23 99 04/23/24 07:32 89 11 L 04/23/24 07:24 131 H 29 H 117/86 04/23/24 07:00 123 H 19 117/86 96 04/23/24 06:36 141 H 23 135/97 99 04/23/24 06:20 114 H 22 99 04/23/24 06:05 112 H 19 110/87 04/23/24 06:04 127 H 17 110/87 98 04/23/24 05:30 83 13 115/88 99 04/23/24 05:18 84 13 129/106 100 04/23/24 05:01 115 H 19 124/101 99 04/23/24 04:56 128 H 21 128/68 04/23/24 04:42 113 H 18 128/68 04/23/24 04:32 97.9 F 102 H 17 128/68 98 04/23/24 04:05 116 H 22 116/67 04/23/24 04:01 120 H 20 116/67 99 04/23/24 04:00 121 H 04/23/24 03:42 121 H 23 106/77 04/23/24 03:31 119 H 21 106/77 97 04/23/24 03:04 134 H 27 H 124/90 04/23/24 03:03 133 H 24 124/90 97 04/23/24 02:30 130 H 26 H 108/77 97 04/23/24 02:09 135 H 20 122/92 04/23/24 02:07 112 H 27 H 122/92 98 04/23/24 02:00 115 H 20 132/105 97 04/23/24 01:36 141 H 30 H 112/92 04/23/24 01:35 117 H 22 112/92 100 04/23/24 01:31 120 H 19 131/106 95 04/23/24 01:10 113 H 22 106/84 04/23/24 01:00 135 H 17 106/84 100 04/23/24 00:32 132 H 16 122/85 04/23/24 00:30 132 H 16 122/85 99 04/23/24 00:12 120 H 19 106/79 04/23/24 00:10 140 H 24 106/79 95 04/23/24 00:09 133 H 18 97 04/23/24 00:02 97.6 F 127 H 15 99 04/23/24 00:01 131 H 04/22/24 23:39 131 H 23 138/77 04/22/24 23:37 122 H 14 138/77 99 04/22/24 23:01 105 H 16 107/80 97 04/22/24 23:00 116 H 16 107/80 04/22/24 22:26 136 H 18 123/72 04/22/24 22:22 120 H 17 123/72 97 04/22/24 22:01 132 H 23 109/72 95 04/22/24 21:05 97.7 F 119 H 33 H 125/101 99 04/22/24 21:01 99 04/22/24 21:00 133 H 20 125/101 99 04/22/24 20:50 115 H 17 99 04/22/24 20:40 99 04/22/24 20:38 99 04/22/24 20:16 132 H 102/79 98 04/22/24 20:01 131 H 16 91/57 99 04/22/24 19:53 136 H 18 123/72 04/22/24 19:45 133 H 22 104/70 04/22/24 19:31 100 04/22/24 19:30 139 H 26 H 96/61 97 04/22/24 19:23 128 H 13 96/72 100 04/22/24 19:20 121 H 21 77/54 98 04/22/24 19:17 106 H 16 90/56 88 L 04/22/24 19:00 153 H 26 H 111/85 99 04/22/24 18:53 115 H 19 119/83 04/22/24 18:45 131 H 20 119/83 99 04/22/24 18:35 122 H 20 97 04/22/24 18:30 149 H 25 H 129/108 100 04/22/24 18:16 126 H 20 133/111 99 04/22/24 18:15 152 H 23 93 L 04/22/24 18:10 144 H 31 H 95 04/22/24 18:00 145 H 24 04/22/24 17:50 160 H 26 H 110/56 99 04/22/24 17:42 155 H 34 H 04/22/24 17:20 138 H 16 99 04/22/24 17:17 153 H 19 98 04/22/24 17:00 148 H 25 H 100/78 99 04/22/24 16:45 158 H 24 107/84 97 04/22/24 16:31 146 H 16 114/91 04/22/24 16:15 150 H 28 H 113/91 97 04/22/24 16:00 141 H 19 117/84 96 04/22/24 15:45 151 H 18 109/83 96 04/22/24 15:31 143 H 21 108/91 99 04/22/24 15:30 129 H 18 98 04/22/24 15:20 141 H 25 H 120/66 98 04/22/24 15:10 127 H 19 97 04/22/24 15:03 141 H 18 98 04/22/24 14:48 135 H 26 H 99 04/22/24 14:46 117 H 21 181/146 99 04/22/24 14:40 122 H 21 99 04/22/24 14:30 118 H 20 98 04/22/24 14:20 140 H 19 97 04/22/24 14:10 144 H 27 H 98 04/22/24 14:00 125 H 15 99 04/22/24 13:57 148 H 27 H 99 04/22/24 13:50 137 H 20 70 L 04/22/24 13:48 140 H 21 100 04/22/24 13:40 150 H 27 H 99 04/22/24 13:31 130 H 28 H 89/60 99 04/22/24 13:00 120 H 28 H 114/78 98 04/22/24 12:55 97.7 F 150 H 30 H 97 Pain Assessment - Last Documented Pain Intensity 7 Pain Scale Used 0-10 Pain Scale Intake and Output: Intake & Output 04/21/24 04/22/24 04/23/24 04/24/24 11:59 11:59 11:59 11:59 Intake Total 1057 Output Total 1275 Balance -218 Weight 81.9 kg Lab Results: Lab Results-Last 24 Hours 04/22/24 04/22/24 04/22/24 Range/Units 13:23 13:25 13:25 WBC 9.5 H (4.23-9.07) x10^3/uL RBC 3.86 L (4.63-6.08) x10^6/uL Hgb 11.9 L (13.7-17.5) g/dL Hct 38.0 L (40.1-51.0) % MCV 98.4 H (79.0-92.2) fL MCH 30.8 (25.7-32.2) pg MCHC 31.3 L (32.3-36.5) g/dL RDW 14.5 H (11.6-14.4) % Plt Count 274 (163-337) x10^3/uL MPV 10.1 (9.4-12.4) fL Gran % 74.5 H (34.0-67.9) % Immature Gran % (Auto) 0.3 (0.001-0.429) % Nucleat RBC Rel Count 0.0 (0.00-0.2) % Eos # (Auto) 0.15 (0.04-0.54) x10^3/uL Immature Gran # (Auto) 0.03 (0.001-0.031) x10^3u/L Absolute Lymphs (auto) 1.60 (1.32-3.57) x10^3/uL Absolute Monos (auto) 0.58 (0.30-0.82) x10^3/uL Absolute Nucleated RBC 0.00 (0.00-0.012) x10^3u/L Lymphocytes % 16.9 L (21.8-53.1) % Monocytes % 6.1 (5.3-12.2) % Eosinophils % 1.6 (0.8-7.0) % Basophils % 0.6 (0.2-1.2) % Absolute Granulocytes 7.03 H (1.78-5.38) x10^3/uL Basophils # 0.06 (0.01-0.08) x10^3/uL D-Dimer (0.0-0.50) mg/L Puncture Site LEFT BRACHIAL pCO2 37 (35-45) mmHg pO2 173 H* (75-100) mmHg Base Excess -0.9 (-2.0-2.0) O2 Saturation 92.8 L (94-100) g/dF ABG pH 7.41 (7.35-7.45) ABG HCO3 23.5 (22-28) ABG O2 Sat (Measured) 100.0 (95-100) % Keaton Test NOT APPLICABLE A-a Gradient 30 a/A Ratio 0.85 Hemoglobin 12.4 Carboxyhemoglobin 6.4 (0.0-6.9) % THgb Methemoglobin 0.7 L (1.4-1.5) % Potassium 4.9 5.1 (3.5-5.1) Temperature 37.0 C POC O2 Flow Rate 35 % Sodium 142 (135-145) mmol/L Chloride 111 H (98-107) mmol/L Carbon Dioxide 19 L (22-30) mmol/L Anion Gap 17.6 H (5-15) MEQ/L BUN 24 H (9-20) mg/dL Creatinine 1.54 H (0.66-1.25) mg/dL Estimated GFR 47.6 ML/MIN Glucose 89 (74-106) mg/dL Lactic Acid (0.4-2.0) Calcium 9.6 (8.4-10.2) mg/dL Magnesium 2.3 (1.6-2.3) mg/dL Total Bilirubin 0.60 (0.2-1.3) mg/dL AST 30 (17-59) U/L ALT 25 (0-50) U/L Alkaline Phosphatase 173 H (38-126) U/L Troponin I (0.000-0.033) ng/mL NT-Pro-B Natriuret Pep (<300) pg/mL Serum Total Protein 7.0 (6.3-8.2) g/dL Albumin 4.0 (3.5-5.0) g/dL Influenza Type A Ag (NEGATIVE) Influenza Type B Ag (NEGATIVE) RSV (PCR) (NEGATIVE) SARS-CoV-2 (PCR) (NEGATIVE) Slides for Path Review 04/22/24 04/22/24 04/22/24 Range/Units 13:25 13:30 13:30 WBC (4.23-9.07) x10^3/uL RBC (4.63-6.08) x10^6/uL Hgb (13.7-17.5) g/dL Hct (40.1-51.0) % MCV (79.0-92.2) fL MCH (25.7-32.2) pg MCHC (32.3-36.5) g/dL RDW (11.6-14.4) % Plt Count (163-337) x10^3/uL MPV (9.4-12.4) fL Gran % (34.0-67.9) % Immature Gran % (Auto) (0.001-0.429) % Nucleat RBC Rel Count (0.00-0.2) % Eos # (Auto) (0.04-0.54) x10^3/uL Immature Gran # (Auto) (0.001-0.031) x10^3u/L Absolute Lymphs (auto) (1.32-3.57) x10^3/uL Absolute Monos (auto) (0.30-0.82) x10^3/uL Absolute Nucleated RBC (0.00-0.012) x10^3u/L Lymphocytes % (21.8-53.1) % Monocytes % (5.3-12.2) % Eosinophils % (0.8-7.0) % Basophils % (0.2-1.2) % Absolute Granulocytes (1.78-5.38) x10^3/uL Basophils # (0.01-0.08) x10^3/uL D-Dimer 1.97 H* (0.0-0.50) mg/L Puncture Site pCO2 (35-45) mmHg pO2 (75-100) mmHg Base Excess (-2.0-2.0) O2 Saturation (94-100) g/dF ABG pH (7.35-7.45) ABG HCO3 (22-28) ABG O2 Sat (Measured) (95-100) % Keaton Test A-a Gradient a/A Ratio Hemoglobin Carboxyhemoglobin (0.0-6.9) % THgb Methemoglobin (1.4-1.5) % Potassium (3.5-5.1) Temperature C POC O2 Flow Rate % Sodium (135-145) mmol/L Chloride (98-107) mmol/L Carbon Dioxide (22-30) mmol/L Anion Gap (5-15) MEQ/L BUN (9-20) mg/dL Creatinine (0.66-1.25) mg/dL Estimated GFR ML/MIN Glucose (74-106) mg/dL Lactic Acid (0.4-2.0) Calcium (8.4-10.2) mg/dL Magnesium (1.6-2.3) mg/dL Total Bilirubin (0.2-1.3) mg/dL AST (17-59) U/L ALT (0-50) U/L Alkaline Phosphatase (38-126) U/L Troponin I 0.031 (0.000-0.033) ng/mL NT-Pro-B Natriuret Pep 14804 (<300) pg/mL Serum Total Protein (6.3-8.2) g/dL Albumin (3.5-5.0) g/dL Influenza Type A Ag NEGATIVE (NEGATIVE) Influenza Type B Ag NEGATIVE (NEGATIVE) RSV (PCR) NEGATIVE (NEGATIVE) SARS-CoV-2 (PCR) NEGATIVE (NEGATIVE) Slides for Path Review 01/02/25 01/02/25 01/02/25 Range/Units 15:21 17:18 21:25 WBC (4.23-9.07) x10^3/uL RBC (4.63-6.08) x10^6/uL Hgb (13.7-17.5) g/dL Hct (40.1-51.0) % MCV (79.0-92.2) fL MCH (25.7-32.2) pg MCHC (32.3-36.5) g/dL RDW (11.6-14.4) % Plt Count (163-337) x10^3/uL MPV (9.4-12.4) fL Gran % (34.0-67.9) % Immature Gran % (Auto) (0.001-0.429) % Nucleat RBC Rel Count (0.00-0.2) % Eos # (Auto) (0.04-0.54) x10^3/uL Immature Gran # (Auto) (0.001-0.031) x10^3u/L Absolute Lymphs (auto) (1.32-3.57) x10^3/uL Absolute Monos (auto) (0.30-0.82) x10^3/uL Absolute Nucleated RBC (0.00-0.012) x10^3u/L Lymphocytes % (21.8-53.1) % Monocytes % (5.3-12.2) % Eosinophils % (0.8-7.0) % Basophils % (0.2-1.2) % Absolute Granulocytes (1.78-5.38) x10^3/uL Basophils # (0.01-0.08) x10^3/uL D-Dimer (0.0-0.50) mg/L Puncture Site pCO2 (35-45) mmHg pO2 (75-100) mmHg Base Excess (-2.0-2.0) O2 Saturation (94-100) g/dF ABG pH (7.35-7.45) ABG HCO3 (22-28) ABG O2 Sat (Measured) (95-100) % Keaton Test A-a Gradient a/A Ratio Hemoglobin Carboxyhemoglobin (0.0-6.9) % THgb Methemoglobin (1.4-1.5) % Potassium 4.8 (3.5-5.1) Temperature C POC O2 Flow Rate % Sodium 141 (135-145) mmol/L Chloride 112 H (98-107) mmol/L Carbon Dioxide 20 L (22-30) mmol/L Anion Gap 14.2 (5-15) MEQ/L BUN 24 H (9-20) mg/dL Creatinine 1.39 H (0.66-1.25) mg/dL Estimated GFR 53.9 ML/MIN Glucose 99 (74-106) mg/dL Lactic Acid (0.4-2.0) Calcium 8.7 (8.4-10.2) mg/dL Magnesium (1.6-2.3) mg/dL Total Bilirubin 0.60 (0.2-1.3) mg/dL AST 31 (17-59) U/L ALT 23 (0-50) U/L Alkaline Phosphatase 170 H (38-126) U/L Troponin I 0.024 0.021 (0.000-0.033) ng/mL NT-Pro-B Natriuret Pep (<300) pg/mL Serum Total Protein 7.1 (6.3-8.2) g/dL Albumin 3.9 (3.5-5.0) g/dL Influenza Type A Ag (NEGATIVE) Influenza Type B Ag (NEGATIVE) RSV (PCR) (NEGATIVE) SARS-CoV-2 (PCR) (NEGATIVE) Slides for Path Review 04/23/24 04/23/24 04/23/24 Range/Units 03:15 03:15 04:50 WBC 9.8 H (4.23-9.07) x10^3/uL RBC 3.77 L (4.63-6.08) x10^6/uL Hgb 11.6 L (13.7-17.5) g/dL Hct 37.8 L (40.1-51.0) % MCV 100.3 H (79.0-92.2) fL MCH 30.8 (25.7-32.2) pg MCHC 30.7 L (32.3-36.5) g/dL RDW 14.7 H (11.6-14.4) % Plt Count 260 (163-337) x10^3/uL MPV 10.0 (9.4-12.4) fL Gran % 96.1 H (34.0-67.9) % Immature Gran % (Auto) 0.5 H (0.001-0.429) % Nucleat RBC Rel Count 0.0 (0.00-0.2) % Eos # (Auto) 0 L (0.04-0.54) x10^3/uL Immature Gran # (Auto) 0.05 H (0.001-0.031) x10^3u/L Absolute Lymphs (auto) 0.28 L (1.32-3.57) x10^3/uL Absolute Monos (auto) 0.05 L (0.30-0.82) x10^3/uL Absolute Nucleated RBC 0.00 (0.00-0.012) x10^3u/L Lymphocytes % 2.9 L (21.8-53.1) % Monocytes % 0.5 L (5.3-12.2) % Eosinophils % 0.0 L (0.8-7.0) % Basophils % 0.0 L (0.2-1.2) % Absolute Granulocytes 9.38 H (1.78-5.38) x10^3/uL Basophils # 0 L (0.01-0.08) x10^3/uL D-Dimer (0.0-0.50) mg/L Puncture Site RIGHT BRACHIAL pCO2 37 (35-45) mmHg pO2 97 (75-100) mmHg Base Excess -5.2 L (-2.0-2.0) O2 Saturation 96.7 (94-100) g/dF ABG pH 7.34 L (7.35-7.45) ABG HCO3 20.0 L (22-28) ABG O2 Sat (Measured) 98.9 (95-100) % Keaton Test NOT APPLICABLE A-a Gradient 113 a/A Ratio 0.46 Hemoglobin 12.2 Carboxyhemoglobin 1.7 (0.0-6.9) % THgb Methemoglobin 0.5 L (1.4-1.5) % Potassium 4.9 (3.5-5.1) Temperature 37.0 C POC O2 Flow Rate 36 % Sodium (135-145) mmol/L Chloride (98-107) mmol/L Carbon Dioxide (22-30) mmol/L Anion Gap (5-15) MEQ/L BUN (9-20) mg/dL Creatinine (0.66-1.25) mg/dL Estimated GFR ML/MIN Glucose (74-106) mg/dL Lactic Acid 2.6 H (0.4-2.0) Calcium (8.4-10.2) mg/dL Magnesium (1.6-2.3) mg/dL Total Bilirubin (0.2-1.3) mg/dL AST (17-59) U/L ALT (0-50) U/L Alkaline Phosphatase (38-126) U/L Troponin I (0.000-0.033) ng/mL NT-Pro-B Natriuret Pep (<300) pg/mL Serum Total Protein (6.3-8.2) g/dL Albumin (3.5-5.0) g/dL Influenza Type A Ag (NEGATIVE) Influenza Type B Ag (NEGATIVE) RSV (PCR) (NEGATIVE) SARS-CoV-2 (PCR) (NEGATIVE) Slides for Path Review YES 04/23/24 Range/Units 04:50 WBC (4.23-9.07) x10^3/uL RBC (4.63-6.08) x10^6/uL Hgb (13.7-17.5) g/dL Hct (40.1-51.0) % MCV (79.0-92.2) fL MCH (25.7-32.2) pg MCHC (32.3-36.5) g/dL RDW (11.6-14.4) % Plt Count (163-337) x10^3/uL MPV (9.4-12.4) fL Gran % (34.0-67.9) % Immature Gran % (Auto) (0.001-0.429) % Nucleat RBC Rel Count (0.00-0.2) % Eos # (Auto) (0.04-0.54) x10^3/uL Immature Gran # (Auto) (0.001-0.031) x10^3u/L Absolute Lymphs (auto) (1.32-3.57) x10^3/uL Absolute Monos (auto) (0.30-0.82) x10^3/uL Absolute Nucleated RBC (0.00-0.012) x10^3u/L Lymphocytes % (21.8-53.1) % Monocytes % (5.3-12.2) % Eosinophils % (0.8-7.0) % Basophils % (0.2-1.2) % Absolute Granulocytes (1.78-5.38) x10^3/uL Basophils # (0.01-0.08) x10^3/uL D-Dimer (0.0-0.50) mg/L Puncture Site pCO2 (35-45) mmHg pO2 (75-100) mmHg Base Excess (-2.0-2.0) O2 Saturation (94-100) g/dF ABG pH (7.35-7.45) ABG HCO3 (22-28) ABG O2 Sat (Measured) (95-100) % Keaton Test A-a Gradient a/A Ratio Hemoglobin Carboxyhemoglobin (0.0-6.9) % THgb Methemoglobin (1.4-1.5) % Potassium 5.0 (3.5-5.1) Temperature C POC O2 Flow Rate % Sodium 140 (135-145) mmol/L Chloride 109 H (98-107) mmol/L Carbon Dioxide 20 L (22-30) mmol/L Anion Gap 15.8 H (5-15) MEQ/L BUN 30 H (9-20) mg/dL Creatinine 1.64 H (0.66-1.25) mg/dL Estimated GFR 44.2 ML/MIN Glucose 186 H (74-106) mg/dL Lactic Acid (0.4-2.0) Calcium 9.0 (8.4-10.2) mg/dL Magnesium 2.7 H (1.6-2.3) mg/dL Total Bilirubin 0.40 (0.2-1.3) mg/dL AST 36 (17-59) U/L ALT 30 (0-50) U/L Alkaline Phosphatase 178 H (38-126) U/L Troponin I (0.000-0.033) ng/mL NT-Pro-B Natriuret Pep (<300) pg/mL Serum Total Protein 7.5 (6.3-8.2) g/dL Albumin 4.1 (3.5-5.0) g/dL Influenza Type A Ag (NEGATIVE) Influenza Type B Ag (NEGATIVE) RSV (PCR) (NEGATIVE) SARS-CoV-2 (PCR) (NEGATIVE) Slides for Path Review Radiology Exams: Radiology Procedures Category Date Time Status CHEST 1 VIEW (PORTABLE) Stat Exams 04/22/24 13:08 Completed CHEST WITH CONTRAST [CT] Stat Exams 04/22/24 13:58 Completed ECHO W/2D AND DOPPLER [US] Routine Exams 04/23/24 06:52 Taken Multi-Disciplinary Progress Notes: Multi-Disciplinary Progress Notes 04/22/24 15:47 Respiratory Note by Sara Soni PT'S OXYGEN WAS DECREASED FROM 3LPM VIA NASAL CANNULA TO 2LPM VIA NASAL CANNULA. O2 SAT 97%. Initialized on 04/22/24 15:47 - END OF NOTE Assessment/Plan (1) Shortness of breath Current Visit: Yes Status: Acute Assessment & Plan: Likely secondary to COPD/CHF exacerbation 1. Admit to hospital 2. xoponex, steroids, supplemental O2 3. Monitor O2 sats 4. DVT/GI prophylaxis Code(s): R06.02 - SHORTNESS OF BREATH (2) Acute on chronic renal failure Current Visit: Yes Status: Acute Qualifiers: Acute renal failure type: unspecified Chronic kidney disease stage: stage 3 (moderate) Chronic kidney disease stage 3 subtype: stage 3a (GFR 45-59) Qualified Code(s): N17.9 - Acute kidney failure, unspecified; N18.31 - Chronic kidney disease, stage 3a Assessment & Plan: Secondary to cardiorenal syndrome and history of R nephrectomy - at risk for contrast nephropathy from CTA 1. Encourage PO intake 2. Hold ALEX/ARB 3. Diuresis 4. Watch electrolytes, creatinine closely 5. nephrology consulted 6. CMP reviewed Code(s): N17.9 - ACUTE KIDNEY FAILURE, UNSPECIFIED; N18.9 - CHRONIC KIDNEY DISEASE, UNSPECIFIED (3) Atrial fibrillation Current Visit: Yes Status: Acute Assessment & Plan: In afib with RVR 1. Cardizem drip 2. Systemic anticoagulation 3. Telemetry 4. Check TSH, Mg+ 5. Eliquis- has chronic a-fib 6. Cardiology consult 7. Echo 8. Tele- ICU Code(s): I48.91 - UNSPECIFIED ATRIAL FIBRILLATION (4) CHF (congestive heart failure) Current Visit: Yes Status: Acute Assessment & Plan: Evidence of fluid overload on CT chest and bilateral LE edema 1. D/C IVFs 2. Attempt diuresis 3. Follow I/O's 4. Daily weights Code(s): I50.9 - HEART FAILURE, UNSPECIFIED (5) COPD (chronic obstructive pulmonary disease) Current Visit: Yes Status: Acute Qualifiers: Assessment & Plan: With COPD exacerbation 1. Xoponex, steroids, supplemental O2 2. Monitor O2 sats 3. CMP reviewed (6) Smoker Current Visit: Yes Status: Chronic Assessment & Plan: - advised cessation - nicotine patch - smokes 3 PPD and not interested in quitting - discussed rn long term care side effects Code(s): F17.200 - NICOTINE DEPENDENCE, UNSPECIFIED, UNCOMPLICATED (7) Hypertension Current Visit: Yes Status: Chronic Qualifiers: Assessment & Plan: - heart healthy diet - lisinopril held d/t gilberto - BP stable- monitor VTE: Eliquis PPI: Protonix Next of KIN: Child- Bernardo Sheffield [phone] Code status: SCO/DNR D/C plan: 1-2 dasy Code(s): I10 - ESSENTIAL (PRIMARY) HYPERTENSION
[2024-04-23] MEDS: Xopenex 1.25 MG/0.5 ML UD NEBULE IH SCH (12:54)
[2024-04-23] MEDS: Sodium Chloride 3 ML UD NEBULES IH SCH (12:54)
[2024-04-23] MEDS: Cozaar 50 MG PO SCH (15:12)
--- NOTE | 2024-04-23 22:06 | PCM.CONS ---
History of Present Illness - Date of Consult Date of Encounter: 04/23/24 Consulting Real Estate Valuer: EDSON BEGUM MD Requesting Provider: Attending Provider: DEJAN CARR MD Primary Care Provider: PCP: ANAND RAMACHANDRAN Consent was: Given for this tele-med encounter - Consult Narrative Reason for Consult: Atrial fibrillation with rapid ventricular response HPI: Patient is a 73 yo male with history of persistent atrial fibrillation on Eliquis, CHF (details unknown), CAD never requiring revascularization, HTN, HLP, stage IIla CKD S/P right nephrectomy, and COPD who presented with a one day history of shortness of breath, bilateral LE edema, and a nonproductive cough. He was in atrial fibrillation with a RVR with a positive D-dimer. CTA of PA was negative for a pulmonary embolism, but was consistent with CHF. He was started on IV Bumex. He was placed on a diltiazem infusion for his rapid ventricular response, but his VR has remained 110 -140 bpm. He denies any chest pain or palpitations. cc:: The requesting physician will be sent a copy of the consult. Review of Systems - Review of Systems All systems: all other systems reviewed and were unremarkable (except that he is hard or hearing.) - Past Medical History Past Medical History: Yes Neurological History: Seizures ENT History: No Pertinent History Cardiac History: Arrhythmia (Persistent atrial fibrillation for over one year.), Congestive Heart Failure, Coronary Artery Disease ([place] in 2008 - [place]), Hypertension, Other Respiratory History: CHF, COPD, Pneumonia, Tuberculosis Endocrine Medical History: No Pertinent History Musculoskelatal History: No Pertinent History GI Medical History: GI Bleed, Hemorrhoids, Polyps History: Renal Disease Pyscho-Social History: No Pertinent History Male Reproductive Disorders: No Pertinent History Comment: tuberculosis of kidney, Real Estate Valuer: Dr. Ennis - Past Surgical History Past Surgical History: Yes Neuro Surgical History: No Pertinent History Cardiac History: Cardiac Catheterization (Last in 2021 - "OK" , intervention never required.) Respiratory Surgery: No Pertinent History GI Surgical History: No Pertinent History Genitourinary Surgical Hx: Kidney Surgery (Right nephrectomy for tuberculous involvement), Other Musculskeletal Surgical Hx: Other Male Surgical History: No Pertinent History Other Surgical History: Toes sewed together,colonoscopy, pt only has left kidney - Social History Smoking Status: Current every day smoker How long have you smoked: 54 years Exposure to second hand smoke: Yes Alcohol: None Drug Use: none - Social Determinants of Health Will the patient participate in the screening: Declined to provide Do you worry about a steady place to live?: No In the past 12 months,have you had to go without utilities?: No Have you or anyone in your house had to go without enough: No Transportation Issues: No Has anyone in your support network made you feel unsafe?: No Medications & Allergies Home Medications: Home Medication List Isosorbide Mononitrate 30 mg [Imdur 30 MG] 60 mg PO DAILY 07/03/18 [History Confirmed 04/22/24] dilTIAZem HCL [Cartia Xt] 360 mg PO DAILY 07/03/18 [History Confirmed 04/22/24] Lisinopril 10 mg [Zestril 10 MG] 5 mg PO DAILY 02/18/19 [History Confirmed 04/22/24] Melatonin 30 mg PO QHS PRN 12/26/20 [History Confirmed 04/22/24] Memantine HCl 5 mg [Namenda 5 MG] 10 mg PO BID 12/26/20 [History Confirmed 04/22/24] Albuterol 2.5 mg/3 ml Neb [Proventil 2.5 mg/3 ml Neb] 2.5 mg IH Q6H 02/02/24 [History Confirmed 04/22/24] Apixaban [Eliquis] 5 mg PO BID 02/02/24 [History Confirmed 04/22/24] Hydrocodone/Acetaminophen [Hydrocodone-Acetamin 10-325 mg] 1 each PO Q4-6HPRN PRN 02/02/24 [History Confirmed 04/22/24] Allergies/Adverse Reactions: Allergies Allergy/AdvReac Type Severity Reaction Status Date / Time No Known Drug Allergies Allergy Verified 04/22/24 13:01 Exam - Vitals Vital Signs: Vital Signs - 24 hr Temp Pulse Resp BP Pulse Ox 04/23/24 21:30 135 H 26 H 104/83 98 04/23/24 21:00 109 H 30 H 116/90 98 04/23/24 20:38 109 H 24 122/85 04/23/24 20:30 107 H 16 122/85 100 04/23/24 20:01 102 H 15 103/75 98 04/23/24 20:00 111 H 04/23/24 19:38 100 H 19 115/85 04/23/24 19:33 97.0 F 132 H 24 115/85 99 04/23/24 19:30 109 H 18 97 04/23/24 19:20 126 H 21 99 04/23/24 19:10 122 H 18 99 04/23/24 19:03 115 H 27 H 98 04/23/24 18:45 130 H 22 97 04/23/24 18:31 140 H 36 H 103/84 96 04/23/24 18:30 120 H 25 H 99 04/23/24 18:20 109 H 32 H 98 04/23/24 18:10 115 H 22 100 04/23/24 18:03 137 H 22 99 04/23/24 17:31 139 H 30 H 141/103 98 04/23/24 17:00 141 H 21 126/92 99 04/23/24 16:31 102 H 17 125/106 99 04/23/24 16:30 139 H 20 100 04/23/24 16:20 128 H 16 100 04/23/24 16:10 114 H 16 100 04/23/24 16:03 141 H 17 100 04/23/24 16:00 145 H 04/23/24 15:31 131 H 21 128/61 100 04/23/24 15:00 99 H 21 111/89 96 04/23/24 14:30 113 H 27 H 121/87 97 04/23/24 14:17 117 H 17 111/77 04/23/24 14:00 124 H 25 H 111/77 97 04/23/24 13:30 124 H 91/74 97 04/23/24 13:00 106 H 19 93/78 97 04/23/24 12:56 129 H 20 100 04/23/24 12:32 140 H 24 128/78 100 04/23/24 12:00 113 H 16 115/89 100 04/23/24 11:30 106 H 14 113/93 98 04/23/24 11:20 97.1 F 04/23/24 11:02 134 H 17 102/83 99 04/23/24 11:01 142 H 20 96 04/23/24 11:00 108 H 18 99 04/23/24 10:50 139 H 22 95 04/23/24 10:40 134 H 19 97 04/23/24 10:30 127 H 04/23/24 10:20 133 H 04/23/24 10:10 135 H 04/23/24 10:03 135 H 97 04/23/24 09:31 120 H 20 139/83 99 04/23/24 09:09 91 H 27 H 122/88 04/23/24 09:01 124 H 16 122/88 99 04/23/24 08:31 116 H 20 125/96 99 04/23/24 08:30 110 H 26 H 100 04/23/24 08:10 96 H 22 99 04/23/24 08:00 96.9 F 95 H 04/23/24 07:50 130 H 23 99 04/23/24 07:32 89 11 L 04/23/24 07:24 131 H 29 H 117/86 04/23/24 07:00 123 H 19 117/86 96 04/23/24 06:36 141 H 23 135/97 99 04/23/24 06:20 114 H 22 99 04/23/24 06:05 112 H 19 110/87 04/23/24 06:04 127 H 17 110/87 98 04/23/24 05:30 83 13 115/88 99 04/23/24 05:18 84 13 129/106 100 04/23/24 05:01 115 H 19 124/101 99 04/23/24 04:56 128 H 21 128/68 04/23/24 04:42 113 H 18 128/68 04/23/24 04:32 97.9 F 102 H 17 128/68 98 04/23/24 04:05 116 H 22 116/67 04/23/24 04:01 120 H 20 116/67 99 04/23/24 04:00 121 H 04/23/24 03:42 121 H 23 106/77 04/23/24 03:31 119 H 21 106/77 97 04/23/24 03:04 134 H 27 H 124/90 04/23/24 03:03 133 H 24 124/90 97 04/23/24 02:30 130 H 26 H 108/77 97 04/23/24 02:09 135 H 20 122/92 04/23/24 02:07 112 H 27 H 122/92 98 04/23/24 02:00 115 H 20 132/105 97 04/23/24 01:36 141 H 30 H 112/92 04/23/24 01:35 117 H 22 112/92 100 04/23/24 01:31 120 H 19 131/106 95 04/23/24 01:10 113 H 22 106/84 04/23/24 01:00 135 H 17 106/84 100 04/23/24 00:32 132 H 16 122/85 04/23/24 00:30 132 H 16 122/85 99 04/23/24 00:12 120 H 19 106/79 04/23/24 00:10 140 H 24 106/79 95 04/23/24 00:09 133 H 18 97 04/23/24 00:02 97.6 F 127 H 15 99 04/23/24 00:01 131 H 04/22/24 23:39 131 H 23 138/77 04/22/24 23:37 122 H 14 138/77 99 04/22/24 23:01 105 H 16 107/80 97 04/22/24 23:00 116 H 16 107/80 04/22/24 22:26 136 H 18 123/72 04/22/24 22:22 120 H 17 123/72 97 04/22/24 22:01 132 H 23 109/72 95 General:: mild distress (with coughing.) HEENT: EOMI, No JVD Cardiovascular Exam: normal heart sounds, tachycardia, irregular, other (weak pedal pulses), No murmur, No friction rub, No gallop Respiratory Exam: wheezing SpO2: 98 Oxygen Delivery: Nasal Cannula Gastrointestinal/Abdomen Exam: normal bowel sounds Skin Exam: warm Extremity Exam: No edema Neurologic: No motor deficits Results Vital Signs: Vital Signs - 24 hr Temp Pulse Resp BP Pulse Ox 04/23/24 21:30 135 H 26 H 104/83 98 04/23/24 21:00 109 H 30 H 116/90 98 04/23/24 20:38 109 H 24 122/85 04/23/24 20:30 107 H 16 122/85 100 04/23/24 20:01 102 H 15 103/75 98 04/23/24 20:00 111 H 04/23/24 19:38 100 H 19 115/85 04/23/24 19:33 97.0 F 132 H 24 115/85 99 04/23/24 19:30 109 H 18 97 04/23/24 19:20 126 H 21 99 04/23/24 19:10 122 H 18 99 04/23/24 19:03 115 H 27 H 98 04/23/24 18:45 130 H 22 97 04/23/24 18:31 140 H 36 H 103/84 96 04/23/24 18:30 120 H 25 H 99 04/23/24 18:20 109 H 32 H 98 04/23/24 18:10 115 H 22 100 04/23/24 18:03 137 H 22 99 04/23/24 17:31 139 H 30 H 141/103 98 04/23/24 17:00 141 H 21 126/92 99 04/23/24 16:31 102 H 17 125/106 99 04/23/24 16:30 139 H 20 100 04/23/24 16:20 128 H 16 100 04/23/24 16:10 114 H 16 100 04/23/24 16:03 141 H 17 100 04/23/24 16:00 145 H 04/23/24 15:31 131 H 21 128/61 100 04/23/24 15:00 99 H 21 111/89 96 04/23/24 14:30 113 H 27 H 121/87 97 04/23/24 14:17 117 H 17 111/77 04/23/24 14:00 124 H 25 H 111/77 97 04/23/24 13:30 124 H 91/74 97 04/23/24 13:00 106 H 19 93/78 97 04/23/24 12:56 129 H 20 100 04/23/24 12:32 140 H 24 128/78 100 04/23/24 12:00 113 H 16 115/89 100 04/23/24 11:30 106 H 14 113/93 98 04/23/24 11:20 97.1 F 04/23/24 11:02 134 H 17 102/83 99 04/23/24 11:01 142 H 20 96 04/23/24 11:00 108 H 18 99 04/23/24 10:50 139 H 22 95 04/23/24 10:40 134 H 19 97 04/23/24 10:30 127 H 04/23/24 10:20 133 H 04/23/24 10:10 135 H 04/23/24 10:03 135 H 97 04/23/24 09:31 120 H 20 139/83 99 04/23/24 09:09 91 H 27 H 122/88 04/23/24 09:01 124 H 16 122/88 99 04/23/24 08:31 116 H 20 125/96 99 04/23/24 08:30 110 H 26 H 100 04/23/24 08:10 96 H 22 99 04/23/24 08:00 96.9 F 95 H 04/23/24 07:50 130 H 23 99 04/23/24 07:32 89 11 L 04/23/24 07:24 131 H 29 H 117/86 04/23/24 07:00 123 H 19 117/86 96 04/23/24 06:36 141 H 23 135/97 99 04/23/24 06:20 114 H 22 99 04/23/24 06:05 112 H 19 110/87 04/23/24 06:04 127 H 17 110/87 98 04/23/24 05:30 83 13 115/88 99 04/23/24 05:18 84 13 129/106 100 04/23/24 05:01 115 H 19 124/101 99 04/23/24 04:56 128 H 21 128/68 04/23/24 04:42 113 H 18 128/68 04/23/24 04:32 97.9 F 102 H 17 128/68 98 04/23/24 04:05 116 H 22 116/67 04/23/24 04:01 120 H 20 116/67 99 04/23/24 04:00 121 H 04/23/24 03:42 121 H 23 106/77 04/23/24 03:31 119 H 21 106/77 97 04/23/24 03:04 134 H 27 H 124/90 04/23/24 03:03 133 H 24 124/90 97 04/23/24 02:30 130 H 26 H 108/77 97 04/23/24 02:09 135 H 20 122/92 04/23/24 02:07 112 H 27 H 122/92 98 04/23/24 02:00 115 H 20 132/105 97 04/23/24 01:36 141 H 30 H 112/92 04/23/24 01:35 117 H 22 112/92 100 04/23/24 01:31 120 H 19 131/106 95 04/23/24 01:10 113 H 22 106/84 04/23/24 01:00 135 H 17 106/84 100 04/23/24 00:32 132 H 16 122/85 04/23/24 00:30 132 H 16 122/85 99 04/23/24 00:12 120 H 19 106/79 04/23/24 00:10 140 H 24 106/79 95 04/23/24 00:09 133 H 18 97 04/23/24 00:02 97.6 F 127 H 15 99 04/23/24 00:01 131 H 04/22/24 23:39 131 H 23 138/77 04/22/24 23:37 122 H 14 138/77 99 04/22/24 23:01 105 H 16 107/80 97 04/22/24 23:00 116 H 16 107/80 04/22/24 22:26 136 H 18 123/72 04/22/24 22:22 120 H 17 123/72 97 04/22/24 22:01 132 H 23 109/72 95 Pain Assessment - Last Documented Pain Intensity 4 Pain Scale Used 0-10 Pain Scale Intake and Output: Intake & Output 04/21/24 04/22/24 04/23/24 04/24/24 11:59 11:59 11:59 11:59 Intake Total 1057 362 Output Total 1275 1025 Balance -218 -663 Weight 81.9 kg LAB: I have reviewed the Labs in [facility]. Troponin-I: 0. 031, 0.24, 0.021. Radiology Exams: Radiology Procedures Category Date Time Status CHEST 1 VIEW (PORTABLE) Stat Exams 04/22/24 13:08 Completed CHEST WITH CONTRAST [CT] Stat Exams 04/22/24 13:58 Completed ECHO W/2D AND DOPPLER [US] Routine Exams 04/23/24 06:52 Taken TTE 04/23/2024: 1. Moderately dilated right atrium and right ventricle. Mildly dilated left atrium and left ventricle. 2. Poor left ventricular systolic function due to severe global hypokinesis. Estimated EF 15-20%. 3. Unable to assess grade of diastolic dysfunction due to underlying atrial fibrillation. 4. Mildly depressed right ventricular systolic function. 5. Mildly dilated aortic root. 6. Structurally normal valves. 7. Doppler: Mild mitral and tricuspid regurgitation. 8. Mild pulmonary hypertension with an estimated PA systolic pressure 46 mmHg. 9. Normal right atrial pressure. 10. No pericardial effusion. CXR (AP) 04/22/2024: Hyperinflated with scattered peripheral fibrosis/scarring, right midlung discoid atelectasis/scarring, and chronic blunting right costophrenic angle. Heart borderline enlarged. Chest CT with contrast 04/22/2024: 1. Respiration artifact limits evaluation for pulmonary embolus. No obvious pulmonary embolus. 2. Cardiomegaly and bilateral effusions favoring cardiac decompensation/CHF. Tiny perihepatic fluid presumed related. 3. Chronic findings including pulmonary emphysema, hiatal hernia, arteriosclerotic disease, degenerative spondylosis, and old granulomatous disease. Tracing 1 Attestation: I have reviewed this EKG and interpreted as documented below. 04/22/2014 at 1831: Atrial fibrillation with rapid ventricular response at [address] and T wave abnormality. 04/22/2024 at 1251: Atrial fibrillation with rapid ventricular response at [address] and T wave abnormality. 02/02/2024 qt 1831: Atrial fibrillation with controlled ventricular response and occ PVCs vs aberrancy at 97 bpm. Telemetry: During this enconter: Atrial fibrillation at 110 - 140 bpm. Multi-Disciplinary Progress Notes: Multi-Disciplinary Progress Notes 04/23/24 21:57 Radiology Note by EDSON BEGUM TRANSTHORACIC ECHOCARDIOGRAM 04/23/2024: 1. Moderately dilated right atrium and right ventricle. Mildly dilated left atrium and left ventricle. 2. Poor left ventricular systolic function due to severe global hypokinesis. Estimated EF 15-20%. 3. Unable to assess grade of diastolic dysfunction due to underlying atrial fibrillation. 4. Mildly depressed right ventricular systolic function. 5. Mildly dilated aortic root. 6. Structurally normal valves. 7. Doppler: Mild mitral and tricuspid regurgitation. 8. Mild pulmonary hypertension with an estimated PA systolic pressure 46 mmHg. 9. Normal right atrial pressure. 10. No pericardial effusion. Edson Begum MD [facility] Initialized on 04/23/24 21:57 - END OF NOTE 04/23/24 12:37 Case Management Note by Flores Lynn REFERRAL FAXED TO [facility]. THEY WILL NEED NOTIFIED AT TIME OF DC AT [phone]. THEY WILL NEED FAXED THE DC INSTRUCTIONS, DC MED LIST AND DC SUMMARY TO [phone] Initialized on 04/23/24 12:37 - END OF NOTE Assessment & Plan (1) Persistent atrial fibrillation Current Visit: Yes Status: Acute Assessment & Plan: Patient aware of this diagnosis of at least one year. Always treated with rate control and systemic anticoagulation. Rhythm control never attempted. Currently in rapid VR of unclear duration despite maximum dose of diltiazem infusion at 20 mg/hr. Will start amiodarone 150 mg IVP, followed by 1 mg/hr x 6 hours, followed by 0.5 mg/hr x 18 hours. Oral loading dose 200 mg by mouth with meals TID x 3 weeks, then decrease to 200 mg daily. Will consider starting metoprolol if unable to wean down diltiazem (prefer metoprolol over diltiazem in the setting of patient's cardiomyopathy but will hold off due to his bronchospasms. Check TSH. Code(s): I48.19 - OTHER PERSISTENT ATRIAL FIBRILLATION (2) Acute on chronic HFrEF (heart failure with reduced ejection fraction) Current Visit: Yes Status: Acute Assessment & Plan: EF prior to this hospitalization is unknown. Cannot exclude a tachycardia induced cardiomyopathy. Tonight's exam and estimated RA pressure on ECHO suggests he is approaching a euvolemic state. In the setting of his severe cardiomyopathy, would like to wean off diltiazem infusion as soon as VR permits. If creatinine rises in am, will discontinue IV Bumex and restart oral diuretics when creatinine improves. Will address GDMT once VR is better controlled and HENOK resolved. Code(s): I50.23 - ACUTE ON CHRONIC SYSTOLIC (CONGESTIVE) HEART FAILURE (3) COPD exacerbation Current Visit: Yes Status: Acute Assessment & Plan: Bronchospams present appear to be pulmonary related but cannot exclude a contribution from residual pulmonary edema. Treatment as per primary team. Code(s): J44.1 - CHRONIC OBSTRUCTIVE PULMONARY DISEASE W (ACUTE) EXACERBATION (4) Acute on chronic renal failure Current Visit: Yes Status: Acute Qualifiers: Acute renal failure type: unspecified Chronic kidney disease stage: stage 3 (moderate) Chronic kidney disease stage 3 subtype: stage 3a (GFR 45-59) Qualified Code(s): N17.9 - Acute kidney failure, unspecified; N18.31 - Chronic kidney disease, stage 3a Assessment & Plan: Solitary kidney. Will hold nephrotoxic agents except Bumex IV as discussed above. Code(s): N17.9 - ACUTE KIDNEY FAILURE, UNSPECIFIED; N18.9 - CHRONIC KIDNEY D ISEASE, UNSPECIFIED - Encounter Encounter: "The entirety of this encounter was performed via Telemedicine using audio and visual " Entire encounter was performed via telemedicine. Permission granted by patient for this type of encounter. Edson Begum MD [facility] [phone]
[2024-04-23] MEDS ORDERED: Cordarone 150 MG/3 ML Injection ONE (23:39)
[2024-04-23] MEDS ORDERED: D5w 100ML Mini Bag 100 ML 100 ML IV ONE (23:44)
[2024-04-23] MEDS: Cordarone 150 MG/3 ML Injection*** 150 MG in D5w 100ML Mini Bag 100 ML 100 ML IV ONE (23:54)
[2024-04-24] MEDS: NEXTERONE 360 MG/200 ML BAG 360 MG/200 ML PLAST..BAG IV SCH (00:08)
[2024-04-24] MEDS: Lanoxin 0.125MG TABLET PO STA (00:40)
[2024-04-24 06:03] LABS: Hemoglobin 11.5 g/dL (13.7-17.5); Mean Cell Volume 98.7 fL (79.0-92.2); Mean Corpuscular Hemoglobin 30.7 pg (25.7-32.2); Mean Corpuscular Hgb Concent. 31.1 g/dL (32.3-36.5); Mean Platelet Volume 10.1 fL (9.4-12.4); Platelet Count 273 x10^3/uL (163-337); Red Blood Count 3.75 x10^6/uL (4.63-6.08); Red Cell Distribution Width 14.7 % (11.6-14.4)
[2024-04-24 06:50] LABS: ANION GAP 13.6 MEQ/L (5-15); BILIRUBIN,TOTAL 0.5 mg/dL (0.2-1.3); Calcium 9.3 mg/dL (8.4-10.2); Creatinine 1 1.69 mg/dL (0.66-1.25); EST GLOMERULAR FILTRATION RATE 42.6 ML/MIN; Potassium 4.9 mmol/L (3.5-5.1); TSH, 3RD Generation 0.364 mIU/L (0.470-4.680); Total Protein 7.1 g/dL (6.3-8.2)
[2024-04-24] MEDS ORDERED: Lanoxin 0.125MG TABLET PO ONE (08:00)
[2024-04-24] MEDS: Lanoxin 0.125MG TABLET PO ONE ×2 (08:02→16:00)
[2024-04-24] MEDS: ROCEPHIN 1 GM / 100 ML NaCl 1 GM/100 ML IVPB IV SCH (09:18)
[2024-04-24] MEDS: Cordarone 150 MG/3 ML Injection IV ONE (09:38)
--- NOTE | 2024-04-24 10:44 | PCM.NOTE ---
Date and Time: 04/24/24 1043 Pt feels about the same as yesterday. Denies any new symtpoms Exam Cardiovascular: No Regular Rate & Rhythm (irrerularly irregular rate and rhythm, variable s1, normal s2, could not apprecaite murmurs) Respiratory:: wheezing, No clear to auscultation silvano, No normal breath sounds Objective Data Vital Signs: Vital Signs - 24 hr Temp Pulse Resp BP Pulse Ox 04/24/24 23:55 110 H 24 122/75 04/24/24 10:33 106 H 24 73/55 04/24/24 10:01 127 H 20 113/88 97 04/24/24 10:00 121 H 18 113/88 04/24/24 09:26 96 H 18 93/58 97 04/24/24 09:10 128 H 17 129/94 96 04/24/24 08:52 109 H 16 153/88 97 04/24/24 08:31 124 H 20 129/85 96 04/24/24 08:27 141 H 20 114/92 04/24/24 08:02 133 H 114/92 04/24/24 08:01 97.8 F 120 H 18 114/92 98 04/24/24 08:00 139 H 04/24/24 07:26 135 H 22 142/82 04/24/24 07:09 116 H 22 97 04/24/24 07:00 113 H 26 H 142/82 96 04/24/24 06:31 130 H 20 113/88 96 04/24/24 06:11 98 04/24/24 06:00 122 H 24 126/81 97 04/24/24 05:30 99 H 15 114/91 97 04/24/24 05:00 96 H 20 123/95 98 04/24/24 04:31 100 H 17 99/59 98 04/24/24 04:01 97.7 F 105 H 124/95 98 04/24/24 04:00 105 H 22 124/95 04/24/24 03:30 106 H 13 115/96 98 04/24/24 03:01 102 H 16 116/95 97 04/24/24 03:00 117 H 23 113/98 04/24/24 02:42 125 H 22 113/98 97 04/24/24 02:31 115 H 19 98 04/24/24 02:16 126 H 13 91/66 98 04/24/24 02:01 107 H 17 120/91 98 04/24/24 02:00 120 H 20 120/91 04/24/24 01:46 113 H 18 128/101 98 04/24/24 01:30 115 H 18 113/83 98 04/24/24 01:22 118 H 20 99 04/24/24 01:15 101 H 18 107/82 100 04/24/24 01:01 97.7 F 99 H 15 89/72 99 04/24/24 01:00 104 H 22 107/82 04/24/24 00:45 105 H 17 119/81 99 04/24/24 00:40 109 H 101/77 04/24/24 00:38 115 H 17 101/77 99 04/24/24 00:12 101 H 17 119/81 99 04/24/24 00:01 111 H 30 H 122/103 97 04/23/24 23:56 118 H 16 121/75 97 04/23/24 23:54 110 H 24 121/75 04/23/24 23:14 99 H 20 91/63 98 04/23/24 23:00 128 H 21 135/102 98 04/23/24 22:15 138 H 22 116/77 98 04/23/24 22:13 114 H 27 H 116/77 98 04/23/24 22:00 108 H 16 121/94 99 04/23/24 21:38 104 H 121/94 04/23/24 21:30 135 H 26 H 104/83 98 04/23/24 21:00 109 H 30 H 116/90 98 04/23/24 20:38 109 H 24 122/85 04/23/24 20:30 107 H 16 122/85 100 04/23/24 20:01 102 H 15 103/75 98 04/23/24 20:00 111 H 04/23/24 19:38 100 H 19 115/85 04/23/24 19:33 97.0 F 132 H 24 115/85 99 04/23/24 19:30 109 H 18 97 04/23/24 19:20 126 H 21 99 04/23/24 19:10 122 H 18 99 04/23/24 19:03 115 H 27 H 98 04/23/24 18:45 130 H 22 97 04/23/24 18:31 140 H 36 H 103/84 96 04/23/24 18:30 120 H 25 H 99 04/23/24 18:20 109 H 32 H 98 04/23/24 18:10 115 H 22 100 04/23/24 18:03 137 H 22 99 04/23/24 17:31 139 H 30 H 141/103 98 04/23/24 17:00 141 H 21 126/92 99 04/23/24 16:31 102 H 17 125/106 99 04/23/24 16:30 139 H 20 100 04/23/24 16:20 128 H 16 100 04/23/24 16:10 114 H 16 100 04/23/24 16:03 141 H 17 100 04/23/24 16:00 145 H 04/23/24 15:31 131 H 21 128/61 100 04/23/24 15:00 99 H 21 111/89 96 04/23/24 14:30 113 H 27 H 121/87 97 04/23/24 14:17 117 H 17 111/77 04/23/24 14:00 124 H 25 H 111/77 97 04/23/24 13:30 124 H 91/74 97 04/23/24 13:00 106 H 19 93/78 97 04/23/24 12:56 129 H 20 100 04/23/24 12:32 140 H 24 128/78 100 04/23/24 12:00 113 H 16 115/89 100 04/23/24 11:30 106 H 14 113/93 98 04/23/24 11:20 97.1 F 04/23/24 11:02 134 H 17 102/83 99 04/23/24 11:01 142 H 20 96 04/23/24 11:00 108 H 18 99 04/23/24 10:50 139 H 22 95 Pain Assessment - Last Documented Pain Intensity 4 Pain Scale Used 0-10 Pain Scale Intake and Output: Intake & Output 04/21/24 04/22/24 04/23/24 04/24/24 11:59 11:59 11:59 11:59 Intake Total 1057 1595 Output Total 8815 2015 Balance -218 -420 Weight 81.9 kg 80.7 kg LAB: I have reviewed the Labs in [employer]. Lab Results: Lab Results-Last 24 Hours 04/24/24 04/24/24 04/24/24 Range/Units 05:58 05:58 07:53 WBC 20.0 H (4.23-9.07) x10^3/uL RBC 3.75 L (4.63-6.08) x10^6/uL Hgb 11.5 L (13.7-17.5) g/dL Hct 37.0 L (40.1-51.0) % MCV 98.7 H (79.0-92.2) fL MCH 30.7 (25.7-32.2) pg MCHC 31.1 L (32.3-36.5) g/dL RDW 14.7 H (11.6-14.4) % Plt Count 273 (163-337) x10^3/uL MPV 10.1 (9.4-12.4) fL Sodium 139 (135-145) mmol/L Potassium 4.9 (3.5-5.1) mmol/L Chloride 107 (98-107) mmol/L Carbon Dioxide 24 (22-30) mmol/L Anion Gap 13.6 (5-15) MEQ/L BUN 46 H (9-20) mg/dL Creatinine 1.69 H (0.66-1.25) mg/dL Estimated GFR 42.6 ML/MIN Glucose 137 H (74-106) mg/dL Lactic Acid 3.2 H (0.4-2.0) Calcium 9.3 (8.4-10.2) mg/dL Total Bilirubin 0.50 (0.2-1.3) mg/dL AST 78 H (17-59) U/L ALT 41 (0-50) U/L Alkaline Phosphatase 165 H (38-126) U/L Serum Total Protein 7.1 (6.3-8.2) g/dL Albumin 4.0 (3.5-5.0) g/dL TSH 3rd Generation 0.364 L (0.470-4.680) mIU/L Radiology Exams: Radiology Procedures Category Date Time Status CHEST 1 VIEW (PORTABLE) Stat Exams 04/22/24 13:08 Completed CHEST WITH CONTRAST [CT] Stat Exams 04/22/24 13:58 Completed ECHO W/2D AND DOPPLER [US] Routine Exams 04/23/24 06:52 Taken Multi-Disciplinary Progress Notes: Multi-Disciplinary Progress Notes 04/23/24 21:57 Radiology Note by EDSON BEGUM TRANSTHORACIC ECHOCARDIOGRAM 04/23/2024: 1. Moderately dilated right atrium and right ventricle. Mildly dilated left atrium and left ventricle. 2. Poor left ventricular systolic function due to severe global hypokinesis. Estimated EF 15-20%. 3. Unable to assess grade of diastolic dysfunction due to underlying atrial fibrillation. 4. Mildly depressed right ventricular systolic function. 5. Mildly dilated aortic root. 6. Structurally normal valves. 7. Doppler: Mild mitral and tricuspid regurgitation. 8. Mild pulmonary hypertension with an estimated PA systolic pressure 46 mmHg. 9. Normal right atrial pressure. 10. No pericardial effusion. Edson Begum MD [facility] Initialized on 04/23/24 21:57 - END OF NOTE 04/23/24 12:37 Case Management Note by Flores Lynn REFERRAL FAXED TO [facility]. THEY WILL NEED NOTIFIED AT TIME OF DC AT [phone]. THEY WILL NEED FAXED THE DC INSTRUCTIONS, DC MED LIST AND DC SUMMARY TO [phone] Initialized on 04/23/24 12:37 - END OF NOTE Assessment & Plan (1) Acute on chronic HFrEF (heart failure with reduced ejection fraction) Current Visit: Yes Status: Acute Assessment & Plan: Assessment & Plan (1) Persistent atrial fibrillation Current Visit: Yes Status: Acute Assessment & Plan: Patient aware of this diagnosis of at least one year. Always treated with rate control and systemic anticoagulation. Currently in rapid VR of unclear duration despite maximum dose of diltiazem infusion at 20 mg/hr. Was started on amiodarone 150 mg IVP, followed by 1 mg/hr x 6 hours, followed by 0.5 mg/hr x 18 hours. Oral loading dose 200 mg by mouth with meals TID x 3 weeks, then decrease to 200 mg daily. Start lopressor short acting 25 mg PO tid for better rate control with a goal to wean the pt off of diltiazem gtt Code(s): I48.19 - OTHER PERSISTENT ATRIAL FIBRILLATION (2) Acute on chronic HFrEF (heart failure with reduced ejection fraction) Current Visit: Yes Status: Acute Assessment & Plan: EF prior to this hospitalization is unknown. Cannot exclude a tachycardia induced cardiomyopathy. Tonight's exam and estimated RA pressure on ECHO suggests he is approaching a euvolemic state. In the setting of his severe cardiomyopathy, would like to wean off diltiazem infusion as soon as VR permits. Diuretics on hold due to HENOK. Will address GDMT once VR is better controlled and HENOK resolved. Code(s): I50.23 - ACUTE ON CHRONIC SYSTOLIC (CONGESTIVE) HEART FAILURE (3) COPD exacerbation Current Visit: Yes Status: Acute Assessment & Plan: Bronchospams present appear to be pulmonary related but cannot exclude a contribution from residual pulmonary edema. Treatment as per primary team. Code(s): J44.1 - CHRONIC OBSTRUCTIVE PULMONARY DISEASE W (ACUTE) EXACERBATION (4) Acute on chronic renal failure Current Visit: Yes Status: Acute Qualifiers: Acute renal failure type: unspecified Chronic kidney disease stage: stage 3 (moderate) Chronic kidney disease stage 3 subtype: stage 3a (GFR 45-59) Qualified Code(s): N17.9 - Acute kidney failure, unspecified; N18.31 - Chronic kidney disease, stage 3a Assessment & Plan: Solitary kidney. Will hold nephrotoxic agents except Bumex IV as discussed above. Code(s): N17.9 - ACUTE KIDNEY FAILURE, UNSPECIFIED; N18.9 - CHRONIC KIDNEY D ISEASE, UNSPECIFIED - Encounter Encounter: "The entirety of this encounter was performed via Telemedicine using audio and visual " Entire encounter was performed via telemedicine. Permission granted by patient for this type of encounter. Code(s): I50.23 - ACUTE ON CHRONIC SYSTOLIC (CONGESTIVE) HEART FAILURE - Encounter Encounter: "The entirety of this encounter was performed via Telemedicine using audio and visual "
[2024-04-24] MEDS: Lopressor 25MG Tab PO SCH ×2 (11:09→21:35)
[2024-04-24] MEDS: Pain Relieving Rub TOP PRN (11:18)
[2024-04-24] MEDS ORDERED: NORCO 10-325 MG PO PRN (11:31)
[2024-04-24] MEDS ORDERED: NON-FORMULARY ITEM (Melatonin [Melatonin] 5 MG Capsule) PO PRN (11:31)
--- NOTE | 2024-04-24 11:34 | PCM.NOTE ---
Date and Time: 04/24/24 1123 Subjective Assessment: 04/23/24 Mr. SHEFFIELD is a 73 year old male with a past medical history significant for hypertension, hyperlipidemia, chronic kidney disease with history of R nephrectomy and COPD. He presented to the hospital on 04/22/24 with complaints of shortness of breath and bilateral lower extremity edema. Initial labs were notable for a creatinine of 1.5 and he had an elevated d-dimer. He was given IVFs with some improvement of his creatinine to 1.4 so he was sent for a CTA chest to rule out PE. This came back negative for clot but did show fluid overload and evidence of COPD. He then became tachycardic, initially thought to be SVT, but then appeared to be atrial fibrillation. He was placed on a cardizem drip and recommended for admission. He has been short of breath and requiring breathing treatments, but otherwise appears hemodynamically stable and comfortable. No fever/chills. No chest pain or palpitations, though he does have some vague abdominal discomfort. No nausea, vomiting or diarrhea. No dysuria, hematuria or urgency. Cardiology and nephrology consulted today. He denies CP, abd. pain, N/V/D. 04/24/24 Pt resting back in bed after being up in a chair for awhile this AM. He continues to have SOB, rapid HR, and vague abd pain with radiation down left front of leg. He describes leg pain as a dull ache and asked for some muscle cream. He continues to be in A-fib RVR with a HR of 110 this AM. Cardiology consulted yesterday and started on Amiodarone gtt as well as Cardizem gtt. Bumex held today per cardiology recs as HENOK worse. Nephrology consult pending. Cardiology reevaluated pt today and Cardizem gtt decreased and lopressor 25mg TID started. EF 15-20%. Antibiotics and LABA started in combination with steroids and Xoponex breathing treatments for COPD exacerbation. TSH 0.364 and will need rechecked OP for possible hyperthyroidism, consider referral to endocrinology. Pt is a 3 PPD smoker and states today he is going to stop as he never wants to feel like this again. Pt reports he has not slept in 2 days and will restart melatonin tonight. Lactic Acid 3.2 today likely 2:2 CHF, unable to give fluids at this time. - Review of Systems Constitutional: No Fever, No Chills Eyes: No Symptoms Ears, Nose, & Throat: No Symptoms Respiratory: Orthopnea, Short Of Breath, Wheezing, No Cough Cardiac: Palpitations, Orthopnea, No Chest Pain, No Edema, No Syncope Abdominal/Gastrointestinal: Abdominal Pain, No Nausea, No Vomiting, No Diarrhea Genitourinary Symptoms: No Dysuria Musculoskeletal: No Back Pain, No Neck Pain Skin: No Rash Neurological: No Dizziness, No Focal Weakness, No Sensory Changes Psychological: No Symptoms Endocrine: No Symptoms Hematologic/Lymphatic: No Symptoms Immunological/Allergic: No Symptoms Objective Exam General Appearance: no apparent distress, alert Neurologic Exam: alert, oriented x 3, cooperative, normal mood/affect, nml c erebellar function, sensation nml, No motor deficits Skin Exam: normal color, warm, dry Eye Exam: PERRL, EOMI, eyes nml inspection Ears, Nose, Throat Exam: normal ENT inspection, pharynx normal, moist mucous membranes Neck Exam: normal inspection, non-tender, supple, full range of motion Respiratory Exam: wheezing, No respiratory distress Cardiovascular Exam: regular rate/rhythm, normal heart sounds Gastrointestinal/Abdomen Exam: soft, tenderness, No mass Extremity Exam: normal inspection, normal range of motion Back Exam: normal inspection, normal range of motion, No CVA tenderness, No vertebral tenderness Male Genitalia Exam: deferred Rectal Exam: deferred Objective Data Vital Signs: Vital Signs - 24 hr Temp Pulse Resp BP Pulse Ox 04/24/24 23:55 110 H 24 122/75 04/24/24 11:00 125 H 24 123/99 94 L 04/24/24 10:47 123 H 38 H 130/62 97 04/24/24 10:33 97 H 12 113/92 96 04/24/24 10:32 111 H 21 73/55 99 04/24/24 10:31 112 H 22 64/49 99 04/24/24 10:01 127 H 20 113/88 97 04/24/24 10:00 121 H 18 113/88 04/24/24 09:26 96 H 18 93/58 97 04/24/24 09:10 128 H 17 129/94 96 04/24/24 08:52 109 H 16 153/88 97 04/24/24 08:31 124 H 20 129/85 96 04/24/24 08:27 141 H 20 114/92 04/24/24 08:02 133 H 114/92 04/24/24 08:01 97.8 F 120 H 18 114/92 98 04/24/24 08:00 139 H 04/24/24 07:26 135 H 22 142/82 04/24/24 07:09 116 H 22 97 04/24/24 07:00 113 H 26 H 142/82 96 04/24/24 06:31 130 H 20 113/88 96 04/24/24 06:11 98 04/24/24 06:00 122 H 24 126/81 97 04/24/24 05:30 99 H 15 114/91 97 04/24/24 05:00 96 H 20 123/95 98 04/24/24 04:31 100 H 17 99/59 98 04/24/24 04:01 97.7 F 105 H 124/95 98 04/24/24 04:00 105 H 22 124/95 04/24/24 03:30 106 H 13 115/96 98 04/24/24 03:01 102 H 16 116/95 97 04/24/24 03:00 117 H 23 113/98 04/24/24 02:42 125 H 22 113/98 97 04/24/24 02:31 115 H 19 98 04/24/24 02:16 126 H 13 91/66 98 04/24/24 02:01 107 H 17 120/91 98 04/24/24 02:00 120 H 20 120/91 04/24/24 01:46 113 H 18 128/101 98 04/24/24 01:30 115 H 18 113/83 98 04/24/24 01:22 118 H 20 99 04/24/24 01:15 101 H 18 107/82 100 04/24/24 01:01 97.7 F 99 H 15 89/72 99 04/24/24 01:00 104 H 22 107/82 04/24/24 00:45 105 H 17 119/81 99 04/24/24 00:40 109 H 101/77 04/24/24 00:38 115 H 17 101/77 99 04/24/24 00:12 101 H 17 119/81 99 04/24/24 00:01 111 H 30 H 122/103 97 04/23/24 23:56 118 H 16 121/75 97 04/23/24 23:54 110 H 24 121/75 04/23/24 23:14 99 H 20 91/63 98 04/23/24 23:00 128 H 21 135/102 98 04/23/24 22:15 138 H 22 116/77 98 04/23/24 22:13 114 H 27 H 116/77 98 04/23/24 22:00 108 H 16 121/94 99 04/23/24 21:38 104 H 121/94 04/23/24 21:30 135 H 26 H 104/83 98 04/23/24 21:00 109 H 30 H 116/90 98 04/23/24 20:38 109 H 24 122/85 04/23/24 20:30 107 H 16 122/85 100 04/23/24 20:01 102 H 15 103/75 98 04/23/24 20:00 111 H 04/23/24 19:38 100 H 19 115/85 04/23/24 19:33 97.0 F 132 H 24 115/85 99 04/23/24 19:30 109 H 18 97 04/23/24 19:20 126 H 21 99 04/23/24 19:10 122 H 18 99 04/23/24 19:03 115 H 27 H 98 04/23/24 18:45 130 H 22 97 04/23/24 18:31 140 H 36 H 103/84 96 04/23/24 18:30 120 H 25 H 99 04/23/24 18:20 109 H 32 H 98 04/23/24 18:10 115 H 22 100 04/23/24 18:03 137 H 22 99 04/23/24 17:31 139 H 30 H 141/103 98 04/23/24 17:00 141 H 21 126/92 99 04/23/24 16:31 102 H 17 125/106 99 04/23/24 16:30 139 H 20 100 04/23/24 16:20 128 H 16 100 04/23/24 16:10 114 H 16 100 04/23/24 16:03 141 H 17 100 04/23/24 16:00 145 H 04/23/24 15:31 131 H 21 128/61 100 04/23/24 15:00 99 H 21 111/89 96 04/23/24 14:30 113 H 27 H 121/87 97 04/23/24 14:17 117 H 17 111/77 04/23/24 14:00 124 H 25 H 111/77 97 04/23/24 13:30 124 H 91/74 97 04/23/24 13:00 106 H 19 93/78 97 04/23/24 12:56 129 H 20 100 04/23/24 12:32 140 H 24 128/78 100 04/23/24 12:00 113 H 16 115/89 100 04/23/24 11:30 106 H 14 113/93 98 Pain Assessment - Last Documented Pain Intensity 8 Pain Scale Used 0-10 Pain Scale Intake and Output: Intake & Output 04/21/24 04/22/24 04/23/24 04/24/24 11:59 11:59 11:59 11:59 Intake Total 1057 1595 Output Total 1275 2014 Balance -218 -420 Weight 81.9 kg 80.7 kg Lab Results: Lab Results-Last 24 Hours 04/24/24 04/24/24 04/24/24 Range/Units 05:58 05:58 07:53 WBC 20.0 H (4.23-9.07) x10^3/uL RBC 3.75 L (4.63-6.08) x10^6/uL Hgb 11.5 L (13.7-17.5) g/dL Hct 37.0 L (40.1-51.0) % MCV 98.7 H (79.0-92.2) fL MCH 30.7 (25.7-32.2) pg MCHC 31.1 L (32.3-36.5) g/dL RDW 14.7 H (11.6-14.4) % Plt Count 273 (163-337) x10^3/uL MPV 10.1 (9.4-12.4) fL Sodium 139 (135-145) mmol/L Potassium 4.9 (3.5-5.1) mmol/L Chloride 107 (98-107) mmol/L Carbon Dioxide 24 (22-30) mmol/L Anion Gap 13.6 (5-15) MEQ/L BUN 46 H (9-20) mg/dL Creatinine 1.69 H (0.66-1.25) mg/dL Estimated GFR 42.6 ML/MIN Glucose 137 H (74-106) mg/dL Lactic Acid 3.2 H (0.4-2.0) Calcium 9.3 (8.4-10.2) mg/dL Total Bilirubin 0.50 (0.2-1.3) mg/dL AST 78 H (17-59) U/L ALT 41 (0-50) U/L Alkaline Phosphatase 165 H (38-126) U/L Serum Total Protein 7.1 (6.3-8.2) g/dL Albumin 4.0 (3.5-5.0) g/dL TSH 3rd Generation 0.364 L (0.470-4.680) mIU/L Radiology Exams: Radiology Procedures Category Date Time Status CHEST 1 VIEW (PORTABLE) Stat Exams 04/22/24 13:08 Completed CHEST WITH CONTRAST [CT] Stat Exams 04/22/24 13:58 Completed ECHO W/2D AND DOPPLER [US] Routine Exams 04/23/24 06:52 Taken Multi-Disciplinary Progress Notes: Multi-Disciplinary Progress Notes 04/23/24 21:57 Radiology Note by EDSON BEGUM TRANSTHORACIC ECHOCARDIOGRAM 04/23/2024: 1. Moderately dilated right atrium and right ventricle. Mildly dilated left atrium and left ventricle. 2. Poor left ventricular systolic function due to severe global hypokinesis. Estimated EF 15-20%. 3. Unable to assess grade of diastolic dysfunction due to underlying atrial fibrillation. 4. Mildly depressed right ventricular systolic function. 5. Mildly dilated aortic root. 6. Structurally normal valves. 7. Doppler: Mild mitral and tricuspid regurgitation. 8. Mild pulmonary hypertension with an estimated PA systolic pressure 46 mmHg. 9. Normal right atrial pressure. 10. No pericardial effusion. Edson Begum MD [facility] Initialized on 04/23/24 21:57 - END OF NOTE 04/23/24 12:37 Case Management Note by Flores Lynn REFERRAL FAXED TO [facility]. THEY WILL NEED NOTIFIED AT TIME OF DC AT [phone]. THEY WILL NEED FAXED THE DC INSTRUCTIONS, DC MED LIST AND DC [facility] TO [phone] Initialized on 04/23/24 12:37 - END OF NOTE Assessment/Plan (1) Shortness of breath Current Visit: Yes Status: Acute Code(s): R06.02 - SHORTNESS OF BREATH (2) Acute on chronic renal failure Current Visit: Yes Status: Acute Qualifiers: Acute renal failure type: unspecified Chronic kidney disease stage: stage 3 (moderate) Chronic kidney disease stage 3 subtype: stage 3a (GFR 45-59) Qualified Code(s): N17.9 - Acute kidney failure, unspecified; N18.31 - Chronic kidney disease, stage 3a Code(s): N17.9 - ACUTE KIDNEY FAILURE, UNSPECIFIED; N18.9 - CHRONIC KIDNEY DISEASE, UNSPECIFIED (3) Atrial fibrillation Current Visit: Yes Status: Acute Code(s): I48.91 - UNSPECIFIED ATRIAL FIBRILLATION (4) CHF (congestive heart failure) Current Visit: Yes Status: Acute Code(s): I50.9 - HEART FAILURE, UNSPECIFIED (5) COPD (chronic obstructive pulmonary disease) Current Visit: Yes Status: Acute Qualifiers: (6) Smoker Current Visit: Yes Status: Chronic Code(s): F17.200 - NICOTINE DEPENDENCE, UNSPECIFIED, UNCOMPLICATED (7) Hypertension Current Visit: Yes Status: Chronic Qualifiers: Assessment & Plan: (1) Shortness of breath Current Visit: Yes Status: Acute Assessment & Plan: Likely secondary to COPD/CHF exacerbation 1. Admit to hospital 2. xoponex, steroids, supplemental O2 3. Monitor O2 sats 4. DVT/GI prophylaxis - CT chest negative for PE- reviewed - CXR: Impression: Continued nonacute hyperinflated chest with chronic features. - CBC reviewed Code(s): R06.02 - SHORTNESS OF BREATH (2) Acute on chronic renal failure Current Visit: Yes Status: Acute Qualifiers: Acute renal failure type: unspecified Chronic kidney disease stage: stage 3 (moderate) Chronic kidney disease stage 3 subtype: stage 3a (GFR 45-59) Qualified Code(s): N17.9 - Acute kidney failure, unspecified; N18.31 - Chronic kidney disease, stage 3a Assessment & Plan: Secondary to cardiorenal syndrome and history of R nephrectomy - at risk for contrast nephropathy from CTA 1. Encourage PO intake 2. Hold ALEX/ARB 3. Diuresis 4. Watch electrolytes, creatinine closely 5. nephrology consulted 6. CMP reviewed 04/24 - Creat 1.69- Baseline 1.34 - CMP reviewed - Bumex held Code(s): N17.9 - ACUTE KIDNEY FAILURE, UNSPECIFIED; N18.9 - CHRONIC KIDNEY DISEASE, UNSPECIFIED (3) Atrial fibrillation Current Visit: Yes Status: Acute Assessment & Plan: In afib with RVR 1. Cardizem drip 2. Systemic anticoagulation 3. Telemetry 4. Check TSH, Mg+ 5. Eliquis- has chronic a-fib 6. Cardiology consult 7. Echo 8. Tele- ICU 04/24 - Amiodarone gtt started by cardiology - Lopressor TID PO started by cardiology - Echo EF 15-20% - [facility] notes reviewed and agree with [facility] Code(s): I48.91 - UNSPECIFIED ATRIAL FIBRILLATION (4) CHF (congestive heart failure) Current Visit: Yes Status: Acute Assessment & Plan: Evidence of fluid overload on CT chest and bilateral LE edema 1. D/C IVFs 2. Attempt diuresis 3. Follow I/O's 4. Daily weights 04/24 - Bumex held d/t worsening renal function - 1 kg weight loss Code(s): I50.9 - HEART FAILURE, UNSPECIFIED (5) COPD (chronic obstructive pulmonary disease) Current Visit: Yes Status: Acute Qualifiers: Assessment & Plan: With COPD exacerbation 1. Xoponex, steroids, supplemental O2 2. Monitor O2 sats 04/24 - Ceftriaxone and Advair started (6) Smoker Current Visit: Yes Status: Chronic Assessment & Plan: - advised cessation - nicotine patch - smokes 3 PPD and not interested in quitting - discussed fdc side effects 04/24 - Interested in smoking cessation today- information provided Code(s): F17.200 - NICOTINE DEPENDENCE, UNSPECIFIED, UNCOMPLICATED (7) Hypertension Current Visit: Yes Status: Chronic Qualifiers: Assessment & Plan: - heart healthy diet - lisinopril held d/t henok - BP stable- monitor Code(s): I10 - ESSENTIAL (PRIMARY) HYPERTENSION (8) Elevated lactic acid level Current Visit: Yes Status: Acute Assessment & Plan: - IVF gave in ER and stopped on 04/23 - LA 04/23 2.6 - LA 04/24 3.2 - Likely elevated 2:2 CHF not sepsis - Unable to give fluids at this time d/t CHF and SOB - UA pending Code(s): R79.89 - OTHER SPECIFIED ABNORMAL FINDINGS OF BLOOD CHEMISTRY (9) Abnormal TSH Current Visit: Yes Status: Acute Assessment & Plan: - TSH 0.364- will need rechecked OP - Consider referral to endocrinology Code(s): R79.89 - OTHER SPECIFIED ABNORMAL FINDINGS OF BLOOD CHEMISTRY (10) Elevated d-dimer Current Visit: Yes Status: Acute Assessment & Plan: - D-dimer 1.97- CT negative for PE - CT chest: Impression: 1. Respiration artifact limits evaluation for pulmonary embolus. No obvious pulmonary embolus. 2. Cardiomegaly and bilateral effusions favoring cardiac decompensation/CHF. Tiny perihepatic fluid presumed related. 3. Chronic findings including pulmonary emphysema, hiatal hernia, arteriosclerotic disease, degenerative spondylosis, and old granulomatous disease. Code(s): R79.89 - OTHER SPECIFIED ABNORMAL FINDINGS OF BLOOD CHEMISTRY (11) Leukocytosis Current Visit: Yes Status: Acute Assessment & Plan: - UA pending - likely 2;2 steroids - Ceftriaxone for COPD exacerbation Code(s): D72.829 - ELEVATED WHITE BLOOD CELL COUNT, UNSPECIFIED (12) Insomnia Current Visit: Yes Status: Chronic Assessment & Plan: - restarted melatonin VTE: Eliquis PPI: Protonix Next of KIN: Child- Bernardo Sheffield [phone] Code status: SCO/DNR D/C plan: 1-2 days Code(s): G47.00 - INSOMNIA, UNSPECIFIED
[2024-04-24] MEDS ORDERED: MELATONIN PO PRN (11:52)
[2024-04-24 13:16] LABS: Appearance Clear (Clear); Bacteria None Seen /HPF (None Seen); Bilirubin Negative (Negative); Blood Negative (Negative); Epithelial Cells None Seen /HPF (None Seen); Glucose, Urine Negative (Negative); Ketones Negative (Negative); Leukocyte Esterase Negative (Negative); Nitrite Negative (Negative); Protein,Urine Dip Trace (Negative); RBC 0-2 /HPF (0-5); Specific Gravity 1.025 (1.005-1.030); Urobilinogen 0.2 mg/dL (0.2); WBC 0-2 /HPF (0-5)
[2024-04-24] MEDS ORDERED: NEXTERONE 360 MG/200 ML BAG 360 MG/200 ML PLAST..BAG IV ONE (18:04)
[2024-04-24] MEDS: Advair Hfa 115/21 Common canister IH SCH (19:11)
[2024-04-24] MEDS: Ativan 0.5 MG PO ONE (21:29)
[2024-04-25 06:11] LABS: Hematocrit 40.2 % (40.1-51.0); Hemoglobin 12.6 g/dL (13.7-17.5); Mean Cell Volume 97.6 fL (79.0-92.2); Mean Corpuscular Hemoglobin 30.6 pg (25.7-32.2); Mean Corpuscular Hgb Concent. 31.3 g/dL (32.3-36.5); Platelet Count 320 x10^3/uL (163-337); Red Blood Count 4.12 x10^6/uL (4.63-6.08); Red Cell Distribution Width 14.6 % (11.6-14.4); White Blood Count 19.8 x10^3/uL (4.23-9.07)
[2024-04-25 06:33] LABS: ALBUMIN 4.2 g/dL (3.5-5.0); BILIRUBIN,TOTAL 0.6 mg/dL (0.2-1.3); Calcium 9.5 mg/dL (8.4-10.2); Creatinine 1 1.61 mg/dL (0.66-1.25); EST GLOMERULAR FILTRATION RATE 45.2 ML/MIN; Total Protein 7.5 g/dL (6.3-8.2)
[2024-04-25 06:35] LABS: Potassium 4.9 mmol/L (3.5-5.1)
[2024-04-25 06:37] LABS: ANION GAP 15.9 MEQ/L (5-15)
[2024-04-25] MEDS: Cordarone 200 MG PO SCH ×2 (07:34→14:01)
[2024-04-25] MEDS: Lopressor 50 MG PO SCH ×2 (08:53→17:41)
--- NOTE | 2024-04-25 10:48 | PCM.NOTE ---
Date and Time: 04/25/24 1038 Subjective Assessment: 04/23/24 Mr. SHEFFIELD is a 73 year old male with a past medical history significant for hypertension, hyperlipidemia, chronic kidney disease with history of R nephrectomy and COPD. He presented to the hospital on 04/22/24 with complaints of shortness of breath and bilateral lower extremity edema. Initial labs were notable for a creatinine of 1.5 and he had an elevated d-dimer. He was given IVFs with some improvement of his creatinine to 1.4 so he was sent for a CTA chest to rule out PE. This came back negative for clot but did show fluid overload and evidence of COPD. He then became tachycardic, initially thought to be SVT, but then appeared to be atrial fibrillation. He was placed on a cardizem drip and recommended for admission. He has been short of breath and requiring breathing treatments, but otherwise appears hemodynamically stable and comfortable. No fever/chills. No chest pain or palpitations, though he does have some vague abdominal discomfort. No nausea, vomiting or diarrhea. No dysuria, hematuria or urgency. Cardiology and nephrology consulted today. He denies CP, abd. pain, N/V/D. 04/24/24 Pt resting back in bed after being up in a chair for awhile this AM. He continues to have SOB, rapid HR, and vague abd pain with radiation down left front of leg. He describes leg pain as a dull ache and asked for some muscle cream. He continues to be in A-fib RVR with a HR of 110 this AM. Cardiology consulted yesterday and started on Amiodarone gtt as well as Cardizem gtt. Bumex held today per cardiology recs as HENOK worse. Nephrology consult pending. Cardiology reevaluated pt today and Cardizem gtt decreased and lopressor 25mg TID started. EF 15-20%. Antibiotics and LABA started in combination with steroids and Xoponex breathing treatments for COPD exacerbation. TSH 0.364 and will need rechecked OP for possible hyperthyroidism, consider referral to endocrinology. Pt is a 3 PPD smoker and states today he is going to stop as he never wants to feel like this again. Pt reports he has not slept in 2 days and will restart melatonin tonight. Lactic Acid 3.2 today likely 2:2 CHF, unable to give fluids at this time. 04/25/24 Pt resting in bed. He did not sleep again last night. Pt did not take melatonin last night. He became anxious and agitated last night per nursing and Ativan or dered by shift stacker provider and this made pt have increased confusion. Trazodone ordered to start tonight. HENOK improving, nephrology consult pending. SOB improving but remains on 4LNC 97%, baseline is room air. HR improving this morning with Metoprolol 50mg TID started. Amiodarone gtt stopped at midnight last night. Continues to be on cardizem gtt. Continue antibiotics, steroids, xoponex, and advair for COPD exacerbation. He has edema of LLE and pain in left thigh that is dull and aching. Venous duplex ordered for further eval tomorrow. Pt denies CP, SOB, abd. pain, N/V/D. - Review of Systems Constitutional: No Fever, No Chills Eyes: No Symptoms Ears, Nose, & Throat: No Symptoms Respiratory: Cough (with yellow production), Short Of Breath Cardiac: Edema, Orthopnea (LLE), No Chest Pain, No Syncope Abdominal/Gastrointestinal: No Abdominal Pain, No Nausea, No Vomiting, No Diarrhea Genitourinary Symptoms: No Dysuria Musculoskeletal: No Back Pain, No Neck Pain Skin: No Rash Neurological: No Dizziness, No Focal Weakness, No Sensory Changes Psychological: No Symptoms Endocrine: No Symptoms Hematologic/Lymphatic: No Symptoms Immunological/Allergic: No Symptoms Objective Exam General Appearance: no apparent distress, alert Neurologic Exam: alert, oriented x 3, cooperative, normal mood/affect, nml cerebellar function, sensation nml, No motor deficits Skin Exam: normal color, warm, dry Eye Exam: PERRL, EOMI, eyes nml inspection Ears, Nose, Throat Exam: normal ENT inspection, pharynx normal, moist mucous membranes Neck Exam: normal inspection, non-tender, supple, full range of motion Respiratory Exam: normal breath sounds, lungs clear, No respiratory distress Cardiovascular Exam: regular rate/rhythm, normal heart sounds, edema (LLE) Gastrointestinal/Abdomen Exam: soft, No tenderness, No mass Extremity Exam: normal inspection, normal range of motion Back Exam: normal inspection, normal range of motion, No CVA tenderness, No vertebral tenderness Male Genitalia Exam: deferred Rectal Exam: deferred Objective Data Vital Signs: Vital Signs - 24 hr Temp Pulse Resp BP Pulse Ox 04/25/24 10:32 85 26 H 142/75 04/25/24 10:31 87 21 142/75 97 04/25/24 10:02 80 26 H 121/85 04/25/24 10:01 85 28 H 121/85 96 04/25/24 09:32 93 H 19 119/55 98 04/25/24 09:06 101 H 26 H 137/96 95 04/25/24 08:55 100 H 23 105/59 04/25/24 08:52 129 H 22 105/59 96 04/25/24 08:30 101 H 25 H 151/88 96 04/25/24 08:01 97.6 F 95 H 25 H 130/100 95 04/25/24 08:00 121 H 26 H 130/100 04/25/24 07:51 131 H 04/25/24 07:43 115 H 23 145/111 96 04/25/24 07:30 104 H 33 H 147/120 94 L 04/25/24 07:00 118 H 24 136/115 96 04/25/24 06:47 107 H 136/115 04/25/24 06:40 110 H 24 96 04/25/24 06:30 107 H 20 141/95 04/25/24 06:02 124 H 30 H 147/110 95 04/25/24 05:56 138 H 152/91 04/25/24 05:08 103 H 16 152/91 95 04/25/24 05:07 98 H 19 04/25/24 05:02 86 19 04/25/24 04:56 103 H 26 H 152/91 04/25/24 04:31 83 16 119/91 04/25/24 04:01 96.7 F 87 28 H 120/96 95 04/25/24 04:00 106 H 04/25/24 03:56 88 28 H 120/96 04/25/24 03:31 93 H 16 124/88 04/25/24 03:01 132 H 19 141/103 106 H 04/25/24 03:00 108 H 29 H 04/25/24 02:56 106 H 22 141/103 04/25/24 02:52 119 H 12 04/25/24 02:40 96 H 04/25/24 02:33 95 H 04/25/24 02:00 98 H 23 115/87 95 04/25/24 01:56 98 H 23 115/87 04/25/24 01:31 91 H 31 H 124/100 94 L 04/25/24 01:02 117 H 19 131/106 04/25/24 00:58 110 H 20 128/91 96 04/25/24 00:57 120 H 22 94 L 04/25/24 00:56 136 H 24 131/108 04/25/24 00:50 131 H 24 90 L 04/25/24 00:40 111 H 25 H 94 L 04/25/24 00:33 116 H 28 H 94 L 04/25/24 00:14 110 H 18 96 04/25/24 00:03 98 H 24 128/90 04/25/24 00:00 93 H 24 128/90 94 L 04/24/24 23:56 118 H 27 H 128/90 04/24/24 23:50 109 H 25 H 85 L 04/24/24 23:01 109 H 31 H 123/87 93 L 04/24/24 22:56 114 H 38 H 123/57 04/24/24 22:31 102 H 31 H 99/83 93 L 04/24/24 22:00 111 H 30 H 118/102 93 L 04/24/24 21:31 96.7 F 125 H 22 142/99 95 04/24/24 21:01 124 H 27 H 125/105 94 L 04/24/24 21:00 131 H 04/24/24 20:30 123 H 26 H 131/99 94 L 04/24/24 20:00 132 H 27 H 137/102 94 L 04/24/24 19:50 129 H 30 H 125/89 04/24/24 19:31 116 H 16 125/89 94 L 04/24/24 19:16 101 H 16 97 04/24/24 19:10 111 H 22 94/77 04/24/24 19:00 109 H 26 H 94/77 96 04/24/24 18:30 114 H 20 114/81 97 04/24/24 18:00 113 H 16 99/81 98 04/24/24 17:31 102 H 20 115/84 97 04/24/24 17:06 113 H 17 117/88 97 04/24/24 17:00 117 H 21 117/88 04/24/24 16:29 112 H 22 98 04/24/24 16:01 97.8 F 111 H 20 121/92 95 04/24/24 16:00 115 H 28 H 121/92 04/24/24 15:30 121 H 19 117/90 98 04/24/24 15:11 115 H 18 130/99 04/24/24 15:00 120 H 27 H 130/99 96 04/24/24 14:31 119 H 18 130/96 95 04/24/24 14:00 120 H 24 153/96 99 04/24/24 13:59 112 H 24 153/96 04/24/24 13:30 102 H 20 138/99 99 04/24/24 13:14 111 H 22 147/90 04/24/24 13:10 111 H 14 147/90 99 04/24/24 13:00 113 H 26 H 147/90 04/24/24 12:30 97.0 F 115 H 21 135/94 96 04/24/24 12:21 128 H 24 131/100 04/24/24 12:01 122 H 20 131/100 95 04/24/24 12:00 144 H 16 131/100 04/24/24 11:44 131 H 33 H 130/100 93 L 04/24/24 11:42 122 H 22 97 04/24/24 11:32 126 H 35 H 140/117 96 04/24/24 11:11 128 H 24 115/99 97 04/24/24 11:00 125 H 24 123/99 94 L 04/24/24 10:47 123 H 38 H 130/62 97 Pain Assessment - Last Documented Pain Intensity 5 Pain Scale Used 0-10 Pain Scale Intake and Output: Intake & Output 04/22/24 04/23/24 04/24/24 04/25/24 11:59 11:59 11:59 11:59 Intake Total 1055 1595 1391 Output Total 3898 6406 692 Balance -218 420 118 Weight 81.9 kg 82.6 kg 82.8 kg Lab Results: Lab Results-Last 24 Hours 04/24/24 04/25/24 04/25/24 Range/Units 13:07 06:06 06:06 WBC 19.8 H (4.23-9.07) x10^3/uL RBC 4.12 L (4.63-6.08) x10^6/uL Hgb 12.6 L (13.7-17.5) g/dL Hct 40.2 (40.1-51.0) % MCV 97.6 H (79.0-92.2) fL MCH 30.6 (25.7-32.2) pg MCHC 31.3 L (32.3-36.5) g/dL RDW 14.6 H (11.6-14.4) % Plt Count 320 (163-337) x10^3/uL MPV 10.0 (9.4-12.4) fL Sodium 139 (135-145) mmol/L Potassium 4.9 (3.5-5.1) mmol/L Chloride 106 (98-107) mmol/L Carbon Dioxide 22 (22-30) mmol/L Anion Gap 15.9 H (5-15) MEQ/L BUN 54 H (9-20) mg/dL Creatinine 1.61 H (0.66-1.25) mg/dL Estimated GFR 45.2 ML/MIN Glucose 119 H (74-106) mg/dL Lactic Acid (0.4-2.0) Calcium 9.5 (8.4-10.2) mg/dL Total Bilirubin 0.60 (0.2-1.3) mg/dL AST 133 H (17-59) U/L ALT 71 H (0-50) U/L Alkaline Phosphatase 165 H (38-126) U/L Serum Total Protein 7.5 (6.3-8.2) g/dL Albumin 4.2 (3.5-5.0) g/dL Urine Color Yellow (Yellow) Urine Appearance Clear (Clear) Urine pH 5.0 (4.6-8.0) Ur Specific [place] 1.025 (1.005-1.030) Urine Protein Trace A (Negative) Urine Glucose (UA) Negative (Negative) mg/dL Urine Ketones Negative (Negative) Urine Blood Negative (Negative) Urine Nitrite Negative (Negative) Urine Bilirubin Negative (Negative) Urine Urobilinogen 0.2 (0.2) mg/dL Ur Leukocyte Esterase Negative (Negative) U Hyaline Cast (Auto) 3-5 A (0-2) /LPF Urine Microscopic RBC 0-2 (0-5) /HPF Urine Microscopic WBC 0-2 (0-5) /HPF Ur Epithelial Cells None Seen (None Seen) /HPF Urine Bacteria None Seen (None Seen) /HPF Urine Culture Reflexed NO (NO) 04/25/24 Range/Units 07:42 WBC (4.23-9.07) x10^3/uL RBC (4.63-6.08) x10^6/uL Hgb (13.7-17.5) g/dL Hct (40.1-51.0) % MCV (79.0-92.2) fL MCH (25.7-32.2) pg MCHC (32.3-36.5) g/dL RDW (11.6-14.4) % Plt Count (163-337) x10^3/uL MPV (9.4-12.4) fL Sodium (135-145) mmol/L Potassium (3.5-5.1) mmol/L Chloride (98-107) mmol/L Carbon Dioxide (22-30) mmol/L Anion Gap (5-15) MEQ/L BUN (9-20) mg/dL Creatinine (0.66-1.25) mg/dL Estimated GFR ML/MIN Glucose (74-106) mg/dL Lactic Acid 1.8 (0.4-2.0) Calcium (8.4-10.2) mg/dL Total Bilirubin (0.2-1.3) mg/dL AST (17-59) U/L ALT (0-50) U/L Alkaline Phosphatase (38-126) U/L Serum Total Protein (6.3-8.2) g/dL Albumin (3.5-5.0) g/dL Urine Color (Yellow) Urine Appearance (Clear) Urine pH (4.6-8.0) Ur Specific [place] (1.005-1.030) Urine Protein (Negative) Urine Glucose (UA) (Negative) mg/dL Urine Ketones (Negative) Urine Blood (Negative) Urine Nitrite (Negative) Urine Bilirubin (Negative) Urine Urobilinogen (0.2) mg/dL Ur Leukocyte Esterase (Negative) U Hyaline Cast (Auto) (0-2) /LPF Urine Microscopic RBC (0-5) /HPF Urine Microscopic WBC (0-5) /HPF Ur Epithelial Cells (None Seen) /HPF Urine Bacteria (None Seen) /HPF Urine Culture Reflexed (NO) Radiology Exams: Radiology Procedures Category Date Time Status VENOUS UNILAT/LIMITED EXTREMIT [US] Routine Exams 04/25/24 09:33 Ordered Assessment/Plan (1) Shortness of breath Current Visit: Yes Status: Acute Code(s): R06.02 - SHORTNESS OF BREATH (2) Acute on chronic renal failure Current Visit: Yes Status: Acute Qualifiers: Acute renal failure type: unspecified Chronic kidney disease stage: stage 3 (moderate) Chronic kidney disease stage 3 subtype: stage 3a (GFR 45-59) Qualified Code(s): N17.9 - Acute kidney failure, unspecified; N18.31 - Chronic kidney disease, stage 3a Code(s): N17.9 - ACUTE KIDNEY FAILURE, UNSPECIFIED; N18.9 - CHRONIC KIDNEY DISEASE, UNSPECIFIED (3) Atrial fibrillation Current Visit: Yes Status: Acute Code(s): I48.91 - UNSPECIFIED ATRIAL FIBRILLATION (4) CHF (congestive heart failure) Current Visit: Yes Status: Acute Code(s): I50.9 - HEART FAILURE, UNSPECIFIED (5) COPD (chronic obstructive pulmonary disease) Current Visit: Yes Status: Acute Qualifiers: (6) Smoker Current Visit: Yes Status: Chronic Code(s): F17.200 - NICOTINE DEPENDENCE, UNSPECIFIED, UNCOMPLICATED (7) Hypertension Current Visit: Yes Status: Chronic Qualifiers: Code(s): I10 - ESSENTIAL (PRIMARY) HYPERTENSION (8) Elevated lactic acid level Current Visit: Yes Status: Acute Code(s): R79.89 - OTHER SPECIFIED ABNORMAL FINDINGS OF BLOOD CHEMISTRY (9) Abnormal TSH Current Visit: Yes Status: Acute Code(s): R79.89 - OTHER SPECIFIED ABNORMAL FINDINGS OF BLOOD CHEMISTRY (10) Elevated d-dimer Current Visit: Yes Status: Acute Code(s): R79.89 - OTHER SPECIFIED ABNORMAL FINDINGS OF BLOOD CHEMISTRY (11) Leukocytosis Current Visit: Yes Status: Acute Code(s): D72.829 - ELEVATED WHITE BLOOD CELL COUNT, UNSPECIFIED (12) Insomnia Current Visit: Yes Status: Chronic Assessment & Plan: (1) Shortness of breath Current Visit: Yes Status: Acute Assessment & Plan: Likely secondary to COPD/CHF exacerbation 1. Admit to hospital 2. xoponex, steroids, supplemental O2 3. Monitor O2 sats 4. DVT/GI prophylaxis - CT chest negative for PE- reviewed - CXR: Impression: Continued nonacute hyperinflated chest with chronic features. - CBC reviewed 04/25 - On 4 lNC97%- baseline RA Code(s): R06.02 - SHORTNESS OF BREATH (2) Acute on chronic renal failure Current Visit: Yes Status: Acute Qualifiers: Acute renal failure type: unspecified Chronic kidney disease stage: stage 3 (moderate) Chronic kidney disease stage 3 subtype: stage 3a (GFR 45-59) Qualified Code(s): N17.9 - Acute kidney failure, unspecified; N18.31 - Chronic kidney disease, stage 3a Assessment & Plan: Secondary to cardiorenal syndrome and history of R nephrectomy - at risk for contrast nephropathy from CTA 1. Encourage PO intake 2. Hold ALEX/ARB 3. Diuresis 4. Watch electrolytes, creatinine closely 5. nephrology consulted 6. CMP reviewed 04/24 - Creat 1.69- Baseline 1.34 - CMP reviewed - Bumex held 04/25 - Bumex continues to be held d/t HENOK - CMP reviewed - Creat 1.61- better- BL 1.34 Code(s): N17.9 - ACUTE KIDNEY FAILURE, UNSPECIFIED; N18.9 - CHRONIC KIDNEY DISEASE, UNSPECIFIED (3) Atrial fibrillation Current Visit: Yes Status: Acute Assessment & Plan: In afib with RVR 1. Cardizem drip 2. Systemic anticoagulation 3. Telemetry 4. Check TSH, Mg+ 5. Eliquis- has chronic a-fib 6. Cardiology consult 7. Echo 8. Tele- ICU 04/24 - Amiodarone gtt started by cardiology - Lopressor TID PO started by cardiology - Echo EF 15-20% - Cardiology notes reviewed and agree with [facility] 04/25 - Amio gtt stopped, cardizem gtt continues, Metoprolol increased to 50mg TID- HR improving - remains in A-Fib RVR - cardiology following daily Code(s): I48.91 - UNSPECIFIED ATRIAL FIBRILLATION (4) CHF (congestive heart failure) Current Visit: Yes Status: Acute Assessment & Plan: Evidence of fluid overload on CT chest and bilateral LE edema 1. D/C IVFs 2. Attempt diuresis 3. Follow I/O's 4. Daily weights 04/24 - Bumex held d/t worsening renal function - 1 kg weight loss 1/5 - Bumex held d/t worsening renal function - 1 kg weight gain Code(s): I50.9 - HEART FAILURE, UNSPECIFIED (5) COPD (chronic obstructive pulmonary disease) Current Visit: Yes Status: Acute Qualifiers: Assessment & Plan: With COPD exacerbation 1. Xoponex, steroids, supplemental O2 2. Monitor O2 sats 04/24 - Ceftriaxone and Advair started (6) Smoker Current Visit: Yes Status: Chronic Assessment & Plan: - advised cessation - nicotine patch - smokes 3 PPD and not interested in quitting - discussed senior living side effects 04/24 - Interested in smoking cessation today- information provided and then refused Code(s): F17.200 - NICOTINE DEPENDENCE, UNSPECIFIED, UNCOMPLICATED (7) Hypertension Current Visit: Yes Status: Chronic Qualifiers: Assessment & Plan: - heart healthy diet - Lisinopril held d/t HENOK - BP stable- monitor Code(s): I10 - ESSENTIAL (PRIMARY) HYPERTENSION (8) Elevated lactic acid level Current Visit: Yes Status: Acute Assessment & Plan: - IVF gave in ER and stopped on 04/23 - LA 04/23 2.6 - LA 04/24 3.2 - Likely elevated 2:2 CHF not sepsis - Unable to give fluids at this time d/t CHF and SOB - UA reviewed 04/25 - LA 1.8 Code(s): R79.89 - OTHER SPECIFIED ABNORMAL FINDINGS OF BLOOD CHEMISTRY (9) Abnormal TSH Current Visit: Yes Status: Acute Assessment & Plan: - TSH 0.364- will need rechecked OP - Consider referral to endocrinology Code(s): R79.89 - OTHER SPECIFIED ABNORMAL FINDINGS OF BLOOD CHEMISTRY (10) Elevated d-dimer Current Visit: Yes Status: Acute Assessment & Plan: - D-dimer 1.97- CT negative for PE - CT chest: Impression: 1. Respiration artifact limits evaluation for pulmonary embolus. No obvious pulmonary embolus. 2. Cardiomegaly and bilateral effusions favoring cardiac decompensation/CHF. Tiny perihepatic fluid presumed related. 3. Chronic findings including pulmonary emphysema, hiatal hernia, arteriosclerotic disease, degenerative spondylosis, and old granulomatous disease. Code(s): R79.89 - OTHER SPECIFIED ABNORMAL FINDINGS OF BLOOD CHEMISTRY (11) Leukocytosis Current Visit: Yes Status: Acute Assessment & Plan: - UA pending - likely 2:2 steroids - Ceftriaxone for COPD exacerbation 04/25 - WBC 19.8- improving Code(s): D72.829 - ELEVATED WHITE BLOOD CELL COUNT, UNSPECIFIED (12) Insomnia Current Visit: Yes Status: Chronic Assessment & Plan: - restarted melatonin 04/25 - start trazadone tonight Code(s): G47.00 - INSOMNIA, UNSPECIFIED Code(s): G47.00 - INSOMNIA, UNSPECIFIED (13) Edema of left lower extremity Current Visit: Yes Status: Acute Assessment & Plan: - venous duplex in AM - + pain of left thigh- PRN narcotic pain med VTE: Eliquis PPI: Protonix Next of KIN: Child- Bernardo Sheffield [phone] Code status: SCO/DNR D/C plan: 1-2 days Code(s): R60.0 - LOCALIZED EDEMA
--- NOTE | 2024-04-25 16:57 | PCM.NOTE ---
Date and Time: 04/25/241656 Subjective Assessment: Does not feel any palpitations. Shortness of breath has lessened. OBJECTIVE: Amiodarone started on 04/23/2023. Metoprolol started 1/4 am at 25 mg po TID. Because of RVR, metoprolol increased last night to 50 mg po TID. Per nursing his ventricular response today is usually 110-130s. Lowest when he is still in bed. VR rises with him talking. VR dropped to 80 and 90s x 2 hours after metoprolol dose. When he gets out of bed VR in 130s to 140s (yesterday kadeem to the 160s). Exam General:: no acute distress HEENT: EOMI, No JVD Cardiovascular: s1 s2, tachycardia, irregular, No murmur, No friction rub, No gallop Respiratory:: wheezes Abdominal: active bowel sounds x 4 Extremity Exam: edema (Trace left ankle. Left ankle looks larger than right ankle.) Neurologic: No motor deficits Objective Data Vital Signs: Vital Signs - 24 hr Temp Pulse Resp BP Pulse Ox 04/25/24 16:31 120 H 27 H 119/99 94 L 04/25/24 16:20 122 H 21 119/99 04/25/24 16:01 94 H 21 114/91 96 04/25/24 15:48 102 H 04/25/24 15:31 104 H 16 138/87 96 04/25/24 15:20 109 H 29 H 127/87 04/25/24 15:01 86 20 127/87 04/25/24 15:00 115 H 20 127/87 97 04/25/24 14:40 112 H 17 116/73 97 04/25/24 14:31 142 H 30 H 155/113 97 04/25/24 14:02 130 H 20 106/91 04/25/24 14:00 137 H 22 106/91 97 04/25/24 13:35 112 H 22 97 04/25/24 13:31 121 H 22 113/89 95 04/25/24 13:23 119 H 22 128/107 04/25/24 13:00 97.0 F 115 H 23 128/107 97 04/25/24 12:32 126 H 19 130/110 95 04/25/24 12:30 127 H 21 157/111 96 04/25/24 12:02 120 H 22 131/100 04/25/24 12:01 112 H 14 131/100 97 04/25/24 12:00 118 H 04/25/24 11:35 125 H 22 141/99 95 04/25/24 11:06 80 20 116/74 04/25/24 11:03 91 H 20 116/74 96 04/25/24 10:32 85 26 H 142/75 04/25/24 10:31 87 21 142/75 97 04/25/24 10:02 80 26 H 121/85 04/25/24 10:01 85 28 H 121/85 96 04/25/24 09:32 93 H 19 119/55 98 04/25/24 09:06 101 H 26 H 137/96 95 04/25/24 08:55 100 H 23 105/59 04/25/24 08:52 129 H 22 105/59 96 04/25/24 08:30 101 H 25 H 151/88 96 04/25/24 08:01 97.6 F 95 H 25 H 130/100 95 04/25/24 08:00 121 H 26 H 130/100 04/25/24 07:51 131 H 04/25/24 07:43 115 H 23 145/111 96 04/25/24 07:30 104 H 33 H 147/120 94 L 04/25/24 07:00 118 H 24 136/115 96 04/25/24 06:47 107 H 136/115 04/25/24 06:40 110 H 24 96 04/25/24 06:30 107 H 20 141/95 04/25/24 06:02 124 H 30 H 147/110 95 04/25/24 05:56 138 H 152/91 04/25/24 05:08 103 H 16 152/91 95 04/25/24 05:07 98 H 19 04/25/24 05:02 86 19 04/25/24 04:56 103 H 26 H 152/91 04/25/24 04:31 83 16 119/91 04/25/24 04:01 96.7 F 87 28 H 120/96 95 04/25/24 04:00 106 H 04/25/24 03:56 88 28 H 120/96 04/25/24 03:31 93 H 16 124/88 04/25/24 03:01 132 H 19 141/103 106 H 01/05/25 03:00 108 H 29 H 04/25/24 02:56 106 H 22 141/103 04/25/24 02:52 119 H 12 04/25/24 02:40 96 H 04/25/24 02:33 95 H 04/25/24 02:00 98 H 23 115/87 95 04/25/24 01:56 98 H 23 115/87 04/25/24 01:31 91 H 31 H 124/100 94 L 04/25/24 01:02 117 H 19 131/106 04/25/24 00:58 110 H 20 128/91 96 04/25/24 00:57 120 H 22 94 L 04/25/24 00:56 136 H 24 131/108 04/25/24 00:50 131 H 24 90 L 04/25/24 00:40 111 H 25 H 94 L 04/25/24 00:33 116 H 28 H 94 L 04/25/24 00:14 110 H 18 96 04/25/24 00:03 98 H 24 128/90 04/25/24 00:00 93 H 24 128/90 94 L 04/24/24 23:56 118 H 27 H 128/90 04/24/24 23:50 109 H 25 H 85 L 04/24/24 23:01 109 H 31 H 123/87 93 L 04/24/24 22:56 114 H 38 H 123/57 04/24/24 22:31 102 H 31 H 99/83 93 L 04/24/24 22:00 111 H 30 H 118/102 93 L 04/24/24 21:31 96.7 F 125 H 22 142/99 95 04/24/24 21:01 124 H 27 H 125/105 94 L 04/24/24 21:00 131 H 04/24/24 20:30 123 H 26 H 131/99 94 L 04/24/24 20:00 132 H 27 H 137/102 94 L 04/24/24 19:50 129 H 30 H 125/89 04/24/24 19:31 116 H 16 125/89 94 L 04/24/24 19:16 101 H 16 97 04/24/24 19:10 111 H 22 94/77 04/24/24 19:00 109 H 26 H 94/77 96 04/24/24 18:30 114 H 20 114/81 97 04/24/24 18:00 113 H 16 99/81 98 04/24/24 17:31 102 H 20 115/84 97 04/24/24 17:06 113 H 17 117/88 97 04/24/24 17:00 117 H 21 117/88 Pain Assessment - Last Documented Pain Intensity 3 Pain Scale Used 0-10 Pain Scale Intake and Output: Intake & Output 04/23/24 04/24/24 04/25/24 04/26/24 11:59 11:59 11:59 11:59 Intake Total 1057 1595 1391 454 Output Total 1279 5939 268 300 Balance -218 -420 546 154 Weight 81.9 kg 82.6 kg 82.8 kg LAB: I have reviewed the Labs in [facility]. Lab Results: Lab Results-Last 24 Hours 04/25/24 04/25/24 04/25/24 Range/Units 06:06 06:06 07:42 WBC 19.8 H (4.23-9.07) x10^3/uL RBC 4.12 L (4.63-6.08) x10^6/uL Hgb 12.6 L (13.7-17.5) g/dL Hct 40.2 (40.1-51.0) % MCV 97.6 H (79.0-92.2) fL MCH 30.6 (25.7-32.2) pg MCHC 31.3 L (32.3-36.5) g/dL RDW 14.6 H (11.6-14.4) % Plt Count 320 (163-337) x10^3/uL MPV 10.0 (9.4-12.4) fL Sodium 139 (135-145) mmol/L Potassium 4.9 (3.5-5.1) mmol/L Chloride 106 (98-107) mmol/L Carbon Dioxide 22 (22-30) mmol/L Anion Gap 15.9 H (5-15) MEQ/L BUN 54 H (9-20) mg/dL Creatinine 1.61 H (0.66-1.25) mg/dL Estimated GFR 45.2 ML/MIN Glucose 119 H (74-106) mg/dL Lactic Acid 1.8 (0.4-2.0) Calcium 9.5 (8.4-10.2) mg/dL Total Bilirubin 0.60 (0.2-1.3) mg/dL AST 133 H (17-59) U/L ALT 71 H (0-50) U/L Alkaline Phosphatase 165 H (38-126) U/L Serum Total Protein 7.5 (6.3-8.2) g/dL Albumin 4.2 (3.5-5.0) g/dL Radiology Exams: Radiology Procedures Category Date Time Status VENOUS UNILAT/LIMITED EXTREMIT [US] Routine Exams 04/26/24 09:33 Ordered TTE 04/23/2024: 1. Moderately dilated right atrium and right ventricle. Mildly dilated left atrium and left ventricle. 2. Poor left ventricular systolic function due to severe global hypokinesis. Estimated EF 15-20%. 3. Unable to assess grade of diastolic dysfunction due to underlying atrial fibrillation. 4. Mildly depressed right ventricular systolic function. 5. Mildly dilated aortic root. 6. Structurally normal valves. 7. Doppler: Mild mitral and tricuspid regurgitation. 8. Mild pulmonary hypertension with an estimated PA systolic pressure 46 mmHg. 9. Normal right atrial pressure. 10. No pericardial effusion. CXR (AP) 04/22/2024: Hyperinflated with scattered peripheral fibrosis/scarring, right midlung discoid atelectasis/scarring, and chronic blunting right costophrenic angle. Heart borderline enlarged. Chest CT with contrast 04/22/2024: 1. Respiration artifact limits evaluation for pulmonary embolus. No obvious pulmonary embolus. 2. Cardiomegaly and bilateral effusions favoring cardiac decompensation/CHF. Tiny perihepatic fluid presumed related. 3. Chronic findings including pulmonary emphysema, hiatal hernia, arteriosclerotic disease, degenerative spondylosis, and old granulomatous disease. Tracing 1 Attestation: I have reviewed this EKG and interpreted as documented below. EKG Narrative: 04/22/2014 at 1831: Atrial fibrillation with rapid ventricular response at [address] and T wave abnormality. 04/22/2024 at 1251: Atrial fibrillation with rapid ventricular response at [address] and T wave abnormality. 02/02/2024 at 1831: Atrial fibrillation with controlled ventricular response and occ PVCs vs aberrancy at 97 bpm. Telemetry: During this enconter: Atrial fibrillation at 100 - 130 bpm. Assessment & Plan (1) Persistent atrial fibrillation Current Visit: Yes Status: Acute Assessment & Plan: RVR persists despite initiation of amiodarone and metoprolol. Digoxin 0.5 mg given before amiodarone initiated. Unable to wean off diltiazem infusion (currently at 8 mg/hr). Will increase metoprolol taratrate to 50 mg po every 6 hours. Will observe overnight but anticipate transferring to Dr. Ennis's service tomorrow for cardioversion and work-up of severe cardiomyopathy. Code(s): I48.19 - OTHER PERSISTENT ATRIAL FIBRILLATION (2) Acute on chronic HFrEF (heart failure with reduced ejection fraction) Current Visit: Yes Status: Acute Assessment & Plan: EF prior to this hospitalization is unknown. Cannot exclude a tachycardia induced cardiomyopathy. Remains compensated off diuretics. Unable to wean off diltiazem due to RVR. Restart oral diuretics when creatinine improves. Metoprol ol tartrate will be changed to metoprolol succinate prior to discharge. Will address additional GDMT once HENOK resolved. Code(s): I50.23 - ACUTE ON CHRONIC SYSTOLIC (CONGESTIVE) HEART FAILURE (3) COPD exacerbation Current Visit: Yes Status: Acute Assessment & Plan: Bronchospasms persist. Clinically improving despite initiation of metoprolol yesterday. As per primary service. Code(s): J44.1 - CHRONIC OBSTRUCTIVE PULMONARY DISEASE W (ACUTE) EXACERBATION (4) Acute on chronic renal failure Current Visit: Yes Status: Acute Qualifiers: Acute renal failure type: unspecified Chronic kidney disease stage: stage 3 (moderate) Chronic kidney disease stage 3 subtype: stage 3a (GFR 45-59) Qualified Code(s): N17.9 - Acute kidney failure, unspecified; N18.31 - Chronic kidney disease, stage 3a Assessment & Plan: Creatinine remains elevated but is now stable off Bumex. Anticipate starting an oral loop diuretic once creatinine returns to baseline. Code(s): N17.9 - ACUTE KIDNEY FAILURE, UNSPECIFIED; N18.9 - CHRONIC KIDNEY DISEASE, UNSPECIFIED - Encounter Encounter: "The entirety of this encounter was performed via Telemedicine using audio and visual " Patient granted permission for this type of encounter. Case discussed with Dilma Mullins NP
[2024-04-25] MEDS: DESYREL 50 MG PO SCH (21:24)
[2024-04-26 05:26] LABS: Hematocrit 39.3 % (40.1-51.0); Hemoglobin 12.4 g/dL (13.7-17.5); Mean Cell Volume 97.3 fL (79.0-92.2); Mean Corpuscular Hemoglobin 30.7 pg (25.7-32.2); Mean Corpuscular Hgb Concent. 31.6 g/dL (32.3-36.5); Platelet Count 273 x10^3/uL (163-337); Red Blood Count 4.04 x10^6/uL (4.63-6.08); Red Cell Distribution Width 14.2 % (11.6-14.4); White Blood Count 16.3 x10^3/uL (4.23-9.07)
--- NOTE | 2024-04-26 05:36 | PCM.DS ---
Discharge Summary Date of Admission: 04/22/24 20:24 Date of Discharge: 04/26/24 Admitting Physician: DEJAN CARR MD Consults: Consults on Case 04/22/24 23:05 Consult Cardiology ROUTINE 04/23/24 11:19 Consult Nephrology ROUTINE Primary Care Provider: ANAND RAMACHANDRAN Allergies Allergies No Known Drug Allergies Allergy (Verified 04/22/24 13:01) Hospital Summary - Hospital Course Hospital Course: Mr. SHEFFIELD is a 73 year old male with a past medical history significant for hypertension, hyperlipidemia, chronic kidney disease with history of R nephrectomy and COPD admitted 04/22/24 with complaints of shortness of breath and bilateral lower extremity edema. Initial labs were notable for a creatinine of 1.5 and he had an elevated d-dimer. He was given IVFs with some improvement of his creatinine to 1.4 so he was sent for a CTA chest to rule out PE. This came back negative for clot but did show fluid overload and evidence of COPD. He then became tachycardic, initially thought to be SVT, but then appeared to be atrial fibrillation. Cardiology consulted. He was placed on a cardizem/amiodarone drip. Lopressor started at 50 mg TID. Echo showing EF 15-20%. Antibiotics and LABA started in combination with steroids and Xoponex breathing treatments for COPD exacerbation. TSH 0.364 and will need rechecked OP for possible hyperthyroidism, consider referral to endocrinology. Pt is a 3 PPD smoker and states today he is going to stop as he never wants to feel like this again. Neprhology consulted for HENOK- pending. Cardiology has recommended transfer to higher level of care for cardioversion. Transfer in process pending bed. Discharge Note Latest Assessment & Plan (1) Shortness of breath Likely secondary to COPD/CHF exacerbation/AFIB - xoponex, steroids - CT chest negative for PE- reviewed - CXR demonstrates nonacute hyperinflated chest with chronic features. -Supplemental oxygen with goal spo2 > 92% - On 4 lNC - baseline RA (2) Acute on chronic renal failure Secondary to cardiorenal syndrome and history of R nephrectomy - at risk for contrast nephropathy from CTA -Hold ALEX/ARB- bumex per cardiology recs -Monitor renal/lytes - nephrology consult pending 6. CMP reviewed - Creat baseline 1.34 - Bumex held (3) Atrial fibrillation -Cardiology consulted and following -remains in afib rvr- note reviewed, patient was on amiodarone/cardizem drip - amiodarone now discontinued - cardizem drip continued, metoprolol 50mg TID -HR improving -Telemetry - Eliquis- has chronic a-fib - TSH 0.364 and will need rechecked OP for possible hyperthyroidism - Echo with EF of 15-20% TRANSTHORACIC ECHOCARDIOGRAM 04/23/2024: 1. Moderately dilated right atrium and right ventricle. Mildly dilated left atrium and left ventricle. 2. Poor left ventricular systolic function due to severe global hypokinesis. Estimated EF 15-20%. 3. Unable to assess grade of diastolic dysfunction due to underlying atrial fibrillation. 4. Mildly depressed right ventricular systolic function. 5. Mildly dilated aortic root. 6. Structurally normal valves. 7. Doppler: Mild mitral and tricuspid regurgitation. 8. Mild pulmonary hypertension with an estimated PA systolic pressure 46 mmHg. 9. Normal right atrial pressure. 10. No pericardial effusion. (4) CHF (congestive heart failure) Evidence of fluid overload on CT chest and bilateral LE edema - D/C IVFs -Strict I&O and daily weights - Bumex held d/t worsening renal function (5) COPD (chronic obstructive pulmonary disease) -Xoponex, steroids, supplemental O2 - Ceftriaxone and Advair started (6) Smoker - advised cessation - nicotine patch - Interested in smoking cessation- information provided and then refused (7) Hypertension - heart healthy diet - Lisinopril held d/t HENOK - BP stable- monitor (8) Elevated lactic acid level -resolved (9) Abnormal TSH - TSH 0.364- will need rechecked OP - Consider referral to endocrinology (10) Elevated d-dimer - D-dimer 1.97- CT negative for PE - CT chest reviewed demonstrating cardiomegaly and bilateral effusions favoring cardiac decompensation/CHF. (11) Leukocytosis - UA negative - likely 2:2 steroids - Ceftriaxone for COPD exacerbation (12) Insomnia - trazadone (13) Edema of left lower extremity - venous duplex pending - + pain of left thigh- PRN narcotic pain med VTE: Eliquis PPI: Protonix Next of KIN: Child- Bernardo Sheffield [phone] Code status: SCO/DNR D/C plan: 1-2 days I spent 35 minutes [id number] with the patient on the day of discharge performing discharge exam, discussing hospital stay and discharge instructions with patient and caregivers, preparation of discharge records, prescriptions & referral forms and addressing any questions/concerns the patient had as documented above. - Vitals & Intake/Output Vital Signs: Vital Signs Temperature 98.2 F 04/26/24 03:31 Pulse Rate 110 H 04/26/24 05:15 Respiratory Rate 18 04/26/24 05:15 Blood Pressure 136/101 04/26/24 05:15 O2 Sat by Pulse Oximetry 96 04/26/24 05:08 Intake & Output: Intake & Output 04/23/24 04/24/24 04/25/24 04/26/24 11:59 11:59 11:59 11:59 Intake Total 1057 1595 1391 1174 Output Total 1275 0538 845 1000 Balance -218 420 546 174 Weight 81.9 kg 82.6 kg 82.8 kg - Lab Result Diagrams: 04/26/24 05:20 04/26/24 05:20 Lab Results-Last 24 Hrs: Lab Results-Last 24 Hours 04/25/24 04/25/24 04/25/24 Range/Units 06:06 06:06 07:42 WBC 19.8 H (4.23-9.07) x10^3/uL RBC 4.12 L (4.63-6.08) x10^6/uL Hgb 12.6 L (13.7-17.5) g/dL Hct 40.2 (40.1-51.0) % MCV 97.6 H (79.0-92.2) fL MCH 30.6 (25.7-32.2) pg MCHC 31.3 L (32.3-36.5) g/dL RDW 14.6 H (11.6-14.4) % Plt Count 320 (163-337) x10^3/uL MPV 10.0 (9.4-12.4) fL Sodium 139 (135-145) mmol/L Potassium 4.9 (3.5-5.1) mmol/L Chloride 106 (98-107) mmol/L Carbon Dioxide 22 (22-30) mmol/L Anion Gap 15.9 H (5-15) MEQ/L BUN 54 H (9-20) mg/dL Creatinine 1.61 H (0.66-1.25) mg/dL Estimated GFR 45.2 ML/MIN Glucose 119 H (74-106) mg/dL Lactic Acid 1.8 (0.4-2.0) Calcium 9.5 (8.4-10.2) mg/dL Total Bilirubin 0.60 (0.2-1.3) mg/dL AST 133 H (17-59) U/L ALT 71 H (0-50) U/L Alkaline Phosphatase 165 H (38-126) U/L Serum Total Protein 7.5 (6.3-8.2) g/dL Albumin 4.2 (3.5-5.0) g/dL - Radiology Exams Ordered Rad Exams-Entire Visit: Radiology Procedures Category Date Time Status VENOUS UNILAT/LIMITED EXTREMIT [US] Routine Exams 04/26/24 09:33 Ordered - Procedures and Test Procedures and Tests throughout Hospitalization: Therapy Orders & Screens 04/22/24 13:07 BiPap/CPAP ROUTINE Comment: 04/22/24 13:39 Respiratory Therapy Assessment DAILY Comment: 04/22/24 20:26 Respiratory Therapy Consult ONCE Comment: Reason For Exam: 04/22/24 20:54 Oxygen Nasal Cannula 4 lpm Comment: 04/22/24 21:21 OT Screen per Nursing Assess ONCE Comment: Protocol Order Physician Instructions: Greater than 3 points order OT Admission Screening Reason For Exam: Triggered on Admission Diagnosis: sob Open Wound/Cellutlitis/Pressure Ulcers: No Acute Fx/ORIF/Change in wt bearing status: No Severe MUSCULOSKELETAL pain: Yes ADL Dysfunction: No Acute CVA w/Hemiparesis/Hemiplegia: No Decreased Functional Mobility/Strength: Yes Sprain/Strain: No Acute Post-op Mobility Dysfunction: No Total Points: 6 PT Screen per Nursing Assess ONCE Comment: Protocol Order Physician Instructions: Greater than 3 points order PT Admission Screenin Reason For Exam: Triggered on Admission Diagnosis: sob Open Wound/Cellutlitis/Pressure Ulcers: No Acute Fx/ORIF/Change in wt bearing status: No Severe MUSCULOSKELETAL pain: Yes ADL Dysfunction: No Acute CVA w/Hemiparesis/Hemiplegia: No Decreased Functional Mobility/Strength: Yes Sprain/Strain: No Acute Post-op Mobility Dysfunction: No Total Points: 6 RT Screen per Nursing Assess ONCE Comment: Protocol Order Physician Instructions: Greater than 3 points order RT Admission Screen Reason For Exam: Triggered on Admission Diagnosis: sob Diagnosis: sob Pneumonia: No Home O2: No: wants Asthma: No CHF: Yes Home CPAP/BIPAP: No Home Nebs/MDI: Yes Total Points: 8 Respiratory Therapy Consult ONCE Comment: Reason For Exam: Diagnosis: sob Smoking Cessation Education ONCE Comment: Diagnosis: sob Smoking Status: Current every day smoker How long have you smoked: 54 years Have you smoked in the past 12 months: Yes Approximately how many cigarettes per day: 2-3 packs daily Do you dip or chew tobacco: No Discharge Exam General Appearance: no apparent distress Neurologic Exam: alert, oriented x 3, cooperative Eye Exam: PERRL Ears, Nose, Throat Exam: normal ENT inspection Neck Exam: normal inspection Respiratory Exam: crackles/rales Cardiovascular Exam: tachycardia, irregular Gastrointestinal/Abdomen Exam: soft, normal bowel sounds Male Genitalia Exam: deferred Rectal Exam: deferred Back Exam: normal inspection Extremity Exam: normal inspection Skin Exam: normal color Final Diagnosis/Problem List - Final Discharge Diagnosis/Problem (1) Persistent atrial fibrillation Current Visit: Yes Status: Acute Code(s): I48.19 - OTHER PERSISTENT ATRIAL FIBRILLATION (2) Abnormal TSH Current Visit: Yes Status: Acute Code(s): R79.89 - OTHER SPECIFIED ABNORMAL FINDINGS OF BLOOD CHEMISTRY (3) Acute on chronic HFrEF (heart failure with reduced ejection fraction) Current Visit: Yes Status: Acute Code(s): I50.23 - ACUTE ON CHRONIC SYSTOLIC (CONGESTIVE) HEART FAILURE (4) Acute on chronic renal failure Current Visit: Yes Status: Acute Code(s): N17.9 - ACUTE KIDNEY FAILURE, UNSPECIFIED; N18.9 - CHRONIC KIDNEY DISEASE, UNSPECIFIED (5) COPD (chronic obstructive pulmonary disease) Current Visit: Yes Status: Acute (6) Edema of left lower extremity Current Visit: Yes Status: Acute Code(s): R60.0 - LOCALIZED EDEMA (7) Elevated d-dimer Current Visit: Yes Status: Acute Code(s): R79.89 - OTHER SPECIFIED ABNORMAL FINDINGS OF BLOOD CHEMISTRY (8) Elevated lactic acid level Current Visit: Yes Status: Acute Code(s): R79.89 - OTHER SPECIFIED ABNORMAL FINDINGS OF BLOOD CHEMISTRY (9) Leukocytosis Current Visit: Yes Status: Acute Code(s): D72.829 - ELEVATED WHITE BLOOD CELL COUNT, UNSPECIFIED (10) Shortness of breath Current Visit: Yes Status: Acute Code(s): R06.02 - SHORTNESS OF BREATH (11) Hypertension Current Visit: Yes Status: Chronic Code(s): I10 - ESSENTIAL (PRIMARY) HYPERTENSION (12) Insomnia Current Visit: Yes Status: Chronic Code(s): G47.00 - INSOMNIA, UNSPECIFIED (13) Smoker Current Visit: Yes Status: Chronic Code(s): F17.200 - NICOTINE DEPENDENCE, UNSPECIFIED, UNCOMPLICATED - Discharge Discharge Date: 04/26/24 Disposition: DC TO [facility] Condition: Stable Prescriptions: New Fluticasone/Salmeterol 115/21 [Advair Hfa 115/21 Common canister*] 2 puff IH BIDRT inhaler Diltiazem HCl 100 mg/100 ml [Cardizem Drip 100 mg/100 ml D5w] See Rx Instructions .ROUTE .COMPLEX PRN PRN Reason: HEART RATE/ A-FIB Amiodarone HCl 200 mg [Cordarone 200 MG] 200 mg PO TID tablet Trazodone HCl 50 mg [Desyrel 50 mg] 50 mg PO HS tablet Metoprolol Tartrate 50 mg [Lopressor 50 MG] 50 mg PO Q6H tablet Nicotine 21 mg [Nicoderm CQ 21 MG] 21 mg TOP Q24H patch PANTOPRAZOLE 40 mg Tablet [Protonix 40MG Tablet] 40 mg PO DAILY tablet Ceftriaxone Sodium [ROCEPHIN 1 GM / 100 ML NaCl] 1 gm IV Q24H10 iv piggy NaCl 3Ml For Inhalation [Sodium Chloride 3 ML UD NEBULES] 3 ml IH Q6HRT NaCl 3Ml For Inhalation [Sodium Chloride 3 ML UD NEBULES] 3 ml IH Q4HPRN PRN PRN Reason: Shortness Of Breath/Wheezing Methylprednisolone Sod Suc 40M [solu-MEDROL] 40 mg IV Q12HT Water For Injection,Sterile [Sterile H2O 10 ml] 1 ml IV Q12HT levalbuterol HCl [Xopenex 1.25 MG/0.5 ML UD NEBULE] 1.25 mg IH Q6HRT levalbuterol HCl [Xopenex 1.25 MG/0.5 ML UD NEBULE] 1.25 mg IH Q4H PRN PRN PRN Reason: Shortness Of Breath Continue Isosorbide Mononitrate 30 mg [Imdur 30 MG] 60 mg PO DAILY Lisinopril 10 mg [Zestril 10 MG] 5 mg PO DAILY Memantine HCl 5 mg [Namenda 5 MG] 10 mg PO BID Melatonin 30 mg PO QHS PRN PRN Reason: Insomnia Hydrocodone/Acetaminophen [Hydrocodone-Acetamin 10-325 mg] 1 each PO Q4-6HPRN PRN PRN Reason: Pain Albuterol 2.5 mg/3 ml Neb [Proventil 2.5 mg/3 ml Neb] 2.5 mg IH Q6H Apixaban [Eliquis] 5 mg PO BID Discontinued dilTIAZem HCL [Cartia Xt] 360 mg PO DAILY Follow up with: ANAND RAMACHANDRAN [Primary Care Provider] - MARTINEZ VANESSA MD [CONSULTING PHYSICIAN] - FLORESITA CHEUNG MD [CONSULTING PHYSICIAN] -
[2024-04-26 05:46] LABS: ALBUMIN 3.9 g/dL (3.5-5.0); ANION GAP 12.7 MEQ/L (5-15); BILIRUBIN,TOTAL 0.6 mg/dL (0.2-1.3); Calcium 9.2 mg/dL (8.4-10.2); Creatinine 1 1.46 mg/dL (0.66-1.25); EST GLOMERULAR FILTRATION RATE 50.8 ML/MIN; Potassium 4.8 mmol/L (3.5-5.1); Total Protein 6.9 g/dL (6.3-8.2)
[2024-04-26 10:17] VITALS: RESP 19
--- NOTE | 2024-04-26 11:29 | XRAY ---
Indication: Left leg edema. Atrial fibrillation. Two-dimensional sonogram and color Doppler imaging major venous vessels left leg performed. Comparison: None No thrombus seen in the examined deep venous vessels left leg including greater saphenous vein. Veins demonstrate normal compressibility. Venous waveforms are normal with and without augmentation. Upper calf demonstrates some 7.1 x 1.4 x 1.1 cm fluid collection superficial to gastrocnemius, possible ruptured/leaking Bullard's cyst. Impression: 1. Left leg negative for DVT. 2. Calf fluid collection as detailed. Rule out ruptured/leaking Bullard's cyst.
[2024-04-26 12:39] VITALS: BP 129/95; TEMP 96.9; O2SAT 96
[2024-04-26 12:44] VITALS: PULSE 112
== END 2024-04-26 12:14 | disposition home or self-care (01) | DRG 308 ==
LOC: ED 12:54 → ICU 20:24 → OBSVTOIN 04-24 07:00
PROVIDERS: ADMIT Internal Medicine Nephrology; ATTEND Internal Medicine Nephrology
DX: I48.19 Other persistent atrial fibrillation (principal); I50.23 Acute on chronic systolic (congestive) heart failure; I13.0 Hypertensive heart and chronic kidney disease with heart failure and stage 1 through stage 4 chronic kidney disease, or unspecified chronic kidney disease; N17.9 Acute kidney failure, unspecified; J44.1 Chronic obstructive pulmonary disease with (acute) exacerbation; R79.89 Other specified abnormal findings of blood chemistry; N18.31 Chronic kidney disease, stage 3a; R06.02 Shortness of breath; F17.200 Nicotine dependence, unspecified, uncomplicated; R60.0 Localized edema; D72.829 Elevated white blood cell count, unspecified; G47.00 Insomnia, unspecified; Z79.899 Other long term (current) drug therapy; Z79.01 Long term (current) use of anticoagulants
CPT/HCPCS: 0241U; 36415; 36600; 71045; 71260; 80053; 81001; 82375; 82803; 83605; 83735; 83880; 84443; 84484; 85025; 85027; 85379; 93268; 93306; 93971; 94002; 94003; 94640; 96365; 96374; 96375; 99291; 99292; G0378; Q3014; 99285; J0282; J0696; J1200; J2919; A9270-GY; J3475

== ENCOUNTER 2024-06-10 10:20 | Observation (INO) | payer MEDICARE ==
--- NOTE | 2024-06-10 10:55 | ERPHSYRPT ---
- History of Present Illness Time Seen by Provider: 06/10/24 10:23 Source: patient, EMS Exam Limitations: no limitations Patient Subjective Stated Complaint: pt c/o of shortness of breath with chest pain this morning but denies pain at this time, hx of afib with RVR, pt fell this morning on his right knee Triage Nursing Assessment: Pt brought to the ER by EMS, tachycardic, rates chronic back pain as 5/10, denies chest pain at this time, pulses normal, skin n/w/d, fell this morning and has an abrasion to his right knee, reports tachycardia for the past year, reports shortness of breath but not anymore than usual, doesn't appear to be in any distress Physician History: 73 years old male with multiple medical problems including history of tobacco use, COPD, atrial fibrillation on Eliquis, hypertension, hyperlipidemia, hypothyroidism presented in the ER with complaint of chest pain around 8 AM followed by feeling dizzy and lightheaded with his legs gave away and fell on the right knee with some abrasion but no difficulty movements and minimal discomfort. Patient reports he is also having palpitations. Patient is in A- fib RVR on presentation. Denies any fever chills or difficulty breathing but has some difficulty breathing with exertion at his baseline. Denies any known sick contact. No abdominal pain nausea vomiting or diarrhea. Allergies/Adverse Reactions: lorazepam [From Ativan] Allergy (Verified 06/10/24 10:25) Home Medications: Isosorbide Mononitrate 30 mg [Imdur 30 MG] 60 mg PO DAILY 07/03/18 [History] Melatonin 30 mg PO HS 12/26/20 [History] Albuterol 2.5 mg/3 ml Neb [Proventil 2.5 mg/3 ml Neb] 2.5 mg IH TID 02/02/24 [History] Apixaban [Eliquis] 5 mg PO DAILY 02/02/24 [History] Hydrocodone/Acetaminophen [Hydrocodone-Acetamin 10-325 mg] 1 each PO Q4-6HPRN PRN 02/02/24 [History] Carvedilol 3.125 mg [Coreg 3.125 MG] 3.125 mg PO BID 06/10/24 [History] Empagliflozin [Jardiance] 10 mg PO DAILY 06/10/24 [History] Memantine HCl 10 mg PO BID 06/10/24 [History] Hx Tetanus, Diphtheria Vaccination/Date Given: Yes Hx Influenza Vaccination/Date Given: No Hx Pneumococcal Vaccination/Date Given: Yes Travel Risk - International Travel Have you traveled outside of the country in past 3 weeks: No - Emerging Infectious Disease Are you exhibiting symptoms associated with any current EIDs: No Symptoms: Cough: New Onset, Shortness of Breath - Review of Systems Constitutional: Fatigue, Weakness Eyes: No Symptoms Ears, Nose, & Throat: No Symptoms Respiratory: Dyspnea, Dyspnea on Exertion (NOEL) Cardiac: Chest Pain, Palpitations Abdominal/Gastrointestinal: No Symptoms Genitourinary Symptoms: No Symptoms Musculoskeletal: Joint Redness, Joint Pain, Myalgias Skin: No Symptoms Neurological: Dizziness Endocrine: No Symptoms Hematologic/Lymphatic: No Symptoms Immunological/Allergic: No Symptoms - Past Medical History Pertinent Past Medical History: Yes Neurological History: Seizures ENT History: No Pertinent History Cardiac History: Arrhythmia, Congestive Heart Failure, Coronary Artery Disease, Hypertension, Other Respiratory History: CHF, COPD, Pneumonia, Tuberculosis Endocrine Medical History: No Pertinent History Musculoskeletal History: No Pertinent History GI Medical History: GI Bleed, Hemorrhoids, Polyps History: Renal Disease Psycho-Social History: No Pertinent History Male Reproductive Disorders: No Pertinent History Other Medical History: tuberculosis of kidney, 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 - Past Surgical History Past Surgical History: Yes Neuro Surgical History: No Pertinent History Cardiac: Cardiac Catheterization Respiratory: No Pertinent History Gastrointestinal: No Pertinent History Genitourinary: Kidney Surgery, Other Musculoskeletal: Other Male Surgical History: No Pertinent History Other Surgical History: Toes sewed together,colonoscopy, pt only has left kidney - Social History Smoking Status: Current every day smoker How long have you smoked: 54 years Exposure to second hand smoke: Yes Drug Use: none - Social Determinants of Health Will the patient participate in the screening: Yes Do you worry about a steady place to live?: No Do you have any problems with any of the following?: No known problems In the past 12 months,have you had to go without utilities?: No Transportation Issues: No Has anyone in your support network made you feel unsafe?: No Have you or anyone in your house had to go w/o enough food: No - Nursing Vital Signs Nursing Vital Signs: Initial Vital Signs Temperature 96.7 F 06/10/24 10:26 Pulse Rate 131 H 06/10/24 10:26 Respiratory Rate 25 H 06/10/24 10:26 Blood Pressure 110/76 06/10/24 10:26 O2 Sat by Pulse Oximetry 99 06/10/24 10:26 Pain Scale Pain Intensity 8 - Physical Exam General Appearance: no apparent distress, alert Eye Exam: PERRL/EOMI Ears, Nose, Throat Exam: normal ENT inspection, TMs normal Neck Exam: normal inspection, non-tender, supple, full range of motion Respiratory Exam: normal breath sounds, lungs clear Cardiovascular Exam: tachycardia, irregular Gastrointestinal/Abdomen Exam: soft, normal bowel sounds, No tenderness Back Exam: normal inspection, normal range of motion Neurologic Exam: alert, oriented x 3, cooperative Skin Exam: normal color SpO2 Interpretation: normal SpO2: 99 O2 Delivery: Room Air - Course EKG Interpreted by Me: RATE ([id number]), A-fib, Left [place] Deviation, LAFB, prolonged QT interval, Q-wave, Non-specific ST Changes Ordered Tests: Active Orders 24 hr Category Date Time Status Bedrest ROUTINE Activity 06/10/24 14:36 Active Up With Assistance ROUTINE Activity 06/10/24 14:36 Active Call Admit Doctor for Orders ON ADMISSION Care 06/10/24 14:36 Active Communications Strategist STAT Care 06/10/24 10:45 Completed Code Status Order ROUTINE Care 06/10/24 14:36 Active EKG-ER Only STAT Care 06/10/24 10:44 Completed Fall Protocol Q1H Care 06/10/24 14:36 Active IV Insertion STAT Care 06/10/24 10:44 Completed Orthostatic Vital Signs STAT Care 06/10/24 10:[address] in Observation ROUTINE Care 06/10/24 14:36 Active Telemetry q6h Care 06/10/24 14:36 Active CHEST 1 VIEW (PORTABLE) Stat Exams 06/10/24 10:44 Completed HEAD WITHOUT CONTRAST [CT] Stat Exams 06/10/24 10:44 Completed BNPII [NT PRO BNPII] Stat Lab 06/10/24 14:03 Completed CBC W DIFF Stat Lab 06/10/24 11:07 Completed CMP Stat Lab 06/10/24 11:07 Completed Lactic Acid Stat Lab 06/10/24 11:30 Completed MAGNESIUM Stat Lab 06/10/24 11:07 Completed TROPONIN Q4H Lab 06/10/24 11:07 Completed TROPONIN Q4H Lab 06/10/24 14:03 Completed TROPONIN Q4H Lab 06/10/24 18:45 Ordered UA W/RFX UR CULTURE Stat Lab 06/10/24 10:44 Ordered Pulse Oximetry CONTINUOUS RT 06/10/24 14:36 Active Respiratory Therapy Consult DAILY RT 06/10/24 14:36 Active Transfer Order Routine Transfer 06/10/24 Completed Medication Summary Generic Name Dose Route Start Last Admin Trade Name Freq PRN Reason Stop Dose Admin Hydrocodone Bitart/Acetaminophen 1 tablet 06/10/24 15:34 Hydrocodone/Acetamin 10-325 Mg Tablet PO 06/15/24 15:33 Q4HPRN PRN PAIN Apixaban 5 mg 06/11/24 10:00 Apixaban 2.5 Mg Tablet PO 07/11/24 09:59 DAILY CLOTILDE Bacitracin Zinc 0.9 each 06/10/24 16:19 Bacitracin Packet 1 Each Pckt TP 06/10/24 16:20 STAT ONE Carvedilol 3.125 mg 06/10/24 22:00 Carvedilol 3.125 Mg Tablet PO 07/10/24 21:59 BID CLOTILDE Empagliflozin 10 mg 06/11/24 10:00 Empagliflozin 10 Mg Tablet PO 07/11/24 09:59 DAILY CLOTILDE Sodium Chloride 1,000 mls @ 50 mls/hr 06/10/24 15:30 06/10/24 15:57 Sodium Chloride 0.9% 1000 Ml IV 07/10/24 15:29 50 mls/hr .Q20H CLOTILDE Administration Diltiazem HCl 100 mls @ 5 mls/hr 06/10/24 15:51 06/10/24 15:56 Cardizem Drip 100 Mg/100 Ml D5w IV 07/10/24 15:50 5 mg/hr .Q20H PRN 5 mls/hr HEART RATE/ A-FIB Administration Protocol 5 MG/HR Isosorbide Mononitrate 60 mg 06/11/24 10:00 Isosorbide Mononitrate 60 Mg Tab PO 07/11/24 09:59 DAILY CLOTILDE Levalbuterol HCl 1.25 mg 06/10/24 19:00 Levalbuterol Hcl 1.25 Mg/0.5 Ml Neb IH 07/10/24 18:59 Q6HRT CLOTILDE Melatonin 30 mg 06/10/24 22:00 Melatonin 3 Mg Tablet PO 07/10/24 21:59 HS CLOTILDE Memantine 10 mg 06/10/24 22:00 Memantine Hcl 5 Mg Tablet PO 07/10/24 21:59 BID CLOTILDE Nicotine 21 mg 06/11/24 10:00 Nicotine 21 Mg/Patch Patch TOP 07/11/24 09:59 Q24H10 CLOTILDE Discontinued Medications Generic Name Dose Route Start Last Admin Trade Name Adrianne PRN Reason Stop Dose Admin Hydrocodone Bitart/Acetaminophen 10 ml 06/10/24 13:42 06/10/24 13:44 Hydrocodone/Acetaminophen 5 Ml Udcup PO 06/10/24 13:43 Not Given STAT STA Hydrocodone Bitart/Acetaminophen 1 tablet 06/10/24 14:26 06/10/24 14:28 Hydrocodone/Acetamin 10-325 Mg Tablet PO 06/10/24 14:27 1 tablet ONCE STA Administration Hydrocodone Bitart/Acetaminophen Confirm 06/10/24 14:27 Hydrocodone/Acetamin 10-325 Mg Tablet Administered 06/10/24 14:28 Dose 1 tablet .ROUTE .STK-MED ONE Albuterol Sulfate 2.5 mg 06/10/24 13:00 06/10/24 14:57 Albuterol Sulfate 2.5 Mg/3 Ml Neb IH 07/10/24 12:59 2.5 mg TIDRT CLOTILDE Administration Diphtheria/Tetanus/Acell Pertussis 0.5 ml 06/10/24 10:45 06/10/24 11:12 Tdap --Diph,Pertuss(Acell),Tet Vac/Pf 0.5 Ml Vial IM 06/10/24 10:46 0.5 ml .ONCE ONE Administration Diphtheria/Tetanus/Acell Pertussis Confirm 06/10/24 11:05 Tdap --Diph,Pertuss(Acell),Tet Vac/Pf 0.5 Ml Vial Administered 06/10/24 11:06 Dose 0.5 ml IM .STK-MED ONE Sodium Chloride 1,000 mls @ 100 mls/hr 06/10/24 10:45 06/10/24 11:07 Sodium Chloride 0.9% 1000 Ml IV 07/10/24 10:44 100 mls/hr .Q10H CLOTILDE Administration Diltiazem HCl 100 mls @ 5 mls/hr 06/10/24 12:20 06/10/24 14:00 Cardizem Drip 100 Mg/100 Ml D5w IV 07/10/24 12:19 0 mg/hr .Q20H PRN 0 mls/hr HEART RATE/ A-FIB Titration Protocol 5 MG/HR Diltiazem HCl Confirm 06/10/24 12:26 Cardizem Drip 100 Mg/100 Ml D5w Administered 06/10/24 12:27 Dose 100 mls @ ud IV .STK-MED ONE Nicotine 14 mg 06/10/24 12:15 06/10/24 12:25 Nicotine 14 Mg/Patch Patch TOP 07/10/24 12:14 14 mg Q24H CLOTILDE Administration Nicotine 21 mg 06/10/24 15:30 06/10/24 15:53 Nicotine 21 Mg/Patch Patch TOP 07/10/24 15:29 Not Given Q24H10 CLOTILDE Lab/Rad Data: Laboratory Result Diagrams 06/10/24 11:07 06/10/24 11:07 Laboratory Results 06/10/24 06/10/24 06/10/24 Range/Units 14:03 14:03 11:30 WBC (4.23-9.07) x10^3/uL RBC (4.63-6.08) x10^6/uL Hgb (13.7-17.5) g/dL Hct (40.1-51.0) % MCV (79.0-92.2) fL MCH (25.7-32.2) pg MCHC (32.3-36.5) g/dL RDW (11.6-14.4) % Plt Count (163-337) x10^3/uL MPV (9.4-12.4) fL Gran % (34.0-67.9) % Immature Gran % (Auto) (0.001-0.429) % Nucleat RBC Rel Count (0.00-0.2) % Eos # (Auto) (0.04-0.54) x10^3/uL Immature Gran # (Auto) (0.001-0.031) x10^3u/L Absolute Lymphs (auto) (1.32-3.57) x10^3/uL Absolute Monos (auto) (0.30-0.82) x10^3/uL Absolute Nucleated RBC (0.00-0.012) x10^3u/L Lymphocytes % (21.8-53.1) % Monocytes % (5.3-12.2) % Eosinophils % (0.8-7.0) % Basophils % (0.2-1.2) % Absolute Granulocytes (1.78-5.38) x10^3/uL Basophils # (0.01-0.08) x10^3/uL Sodium (135-145) mmol/L Potassium (3.5-5.1) mmol/L Chloride (98-107) mmol/L Carbon Dioxide (22-30) mmol/L Anion Gap (5-15) MEQ/L BUN (9-20) mg/dL Creatinine (0.66-1.25) mg/dL Estimated GFR ML/MIN Glucose (74-106) mg/dL Lactic Acid 1.7 (0.4-2.0) Calcium (8.4-10.2) mg/dL Magnesium (1.6-2.3) mg/dL Total Bilirubin (0.2-1.3) mg/dL AST (17-59) U/L ALT (0-50) U/L Alkaline Phosphatase (38-126) U/L Troponin I 0.017 (0.000-0.033) ng/mL NT-Pro-B Natriuret Pep 4940 (<300) pg/mL Serum Total Protein (6.3-8.2) g/dL Albumin (3.5-5.0) g/dL 06/10/24 06/10/24 06/10/24 Range/Units 11:07 11:07 11:07 WBC 9.3 H (4.23-9.07) x10^3/uL RBC 5.08 (4.63-6.08) x10^6/uL Hgb 15.5 (13.7-17.5) g/dL Hct 48.5 (40.1-51.0) % MCV 95.5 H (79.0-92.2) fL MCH 30.5 (25.7-32.2) pg MCHC 32.0 L (32.3-36.5) g/dL RDW 17.1 H (11.6-14.4) % Plt Count 235 (163-337) x10^3/uL MPV 10.0 (9.4-12.4) fL Gran % 75.0 H (34.0-67.9) % Immature Gran % (Auto) 0.8 H (0.001-0.429) % Nucleat RBC Rel Count 0.0 (0.00-0.2) % Eos # (Auto) 0.09 (0.04-0.54) x10^3/uL Immature Gran # (Auto) 0.07 H (0.001-0.031) x10^3u/L Absolute Lymphs (auto) 1.53 (1.32-3.57) x10^3/uL Absolute Monos (auto) 0.58 (0.30-0.82) x10^3/uL Absolute Nucleated RBC 0.00 (0.00-0.012) x10^3u/L Lymphocytes % 16.5 L (21.8-53.1) % Monocytes % 6.2 (5.3-12.2) % Eosinophils % 1.0 (0.8-7.0) % Basophils % 0.5 (0.2-1.2) % Absolute Granulocytes 6.97 H (1.78-5.38) x10^3/uL Basophils # 0.05 (0.01-0.08) x10^3/uL Sodium 143 (135-145) mmol/L Potassium 4.7 (3.5-5.1) mmol/L Chloride 108 H (98-107) mmol/L Carbon Dioxide 25 (22-30) mmol/L Anion Gap 16.0 H (5-15) MEQ/L BUN 29 H (9-20) mg/dL Creatinine 1.99 H (0.66-1.25) mg/dL Estimated GFR 35.0 ML/MIN Glucose 74 (74-106) mg/dL Lactic Acid (0.4-2.0) Calcium 9.4 (8.4-10.2) mg/dL Magnesium 2.3 (1.6-2.3) mg/dL Total Bilirubin 0.70 (0.2-1.3) mg/dL AST 38 (17-59) U/L ALT 26 (0-50) U/L Alkaline Phosphatase 179 H (38-126) U/L Troponin I 0.018 (0.000-0.033) ng/mL NT-Pro-B Natriuret Pep (<300) pg/mL Serum Total Protein 7.2 (6.3-8.2) g/dL Albumin 4.2 (3.5-5.0) g/dL - Progress Progress: improved, re-examined Progress Note: 06/10/24 13:23 73 years old is evaluated in the ER for chest pain this morning followed by palpitation and feeling dizzy lightheaded and a fall with abrasion to the right knee. Patient did not hit head. Nonfocal neuroexam. Already have 324 aspirin by EMS EKG showed A-fib RVR with no ST elevations. Chest x-ray showed borderline cardiomegaly with no obvious infiltrative process. Normal white count, chemistries with mild worsening of CKD with a baseline of 1.6 and today is 1.99. Started on gentle hydration. Has negative initial troponin. I have obtained CT head because of patient's dizziness and being on Eliquis and fall although he did not hit his head, still high risk, CT head is negative for any acute intracranial findings. Patient is started on Cardizem drip. Still heart rate in 120s. Discussed with Dr. Figueroa, reviewed history, workup and agreed with admission. Complexity of problems addressed: High Complexity of data reviewed/analyzed: High Risk of complication/morbidity/mortality of patient management: High Critical care: 45 minutes. 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 Figueroa) Reviewed:: Test results Agreed on:: Treatment plan, place in obs Will see patient: in hospital - Diagnostic Testing Diagnostic test were ordered, analyzed, and reviewed by me: Yes Radiological Interpretation: Reviewed by me - Risk of complications The pt has a mod risk of morbidity or mortality based on: Need for prescription drug management The pt has a high risk of morbidity or mortality based on: Decision regarding hospitilization or escalation of hosp level of care - Departure Departure Disposition: Observation Clinical Impression: Atrial fibrillation with rapid ventricular response, Fall, Acute kidney injury superimposed on CKD, Dizziness Knee abrasion Qualifiers: Encounter type: initial encounter Laterality: right Qualified Code(s): S80.211A - Abrasion, right knee, initial encounter Condition: Stable Critical Care Time: Yes Critical Care Time(excluding separately billable procedures): Critical 30-74 mins
[2024-06-10] MEDS ORDERED: Sodium Chloride 0.9% 1000 ML 1,000 ML ONE (11:05)
[2024-06-10] MEDS ORDERED: Adacel Vial IM ONE (11:05)
[2024-06-10 11:07] LABS: Absolute Neutrophil Ct (ANC) 6.97 x10^3/uL (1.78-5.38); BASOPHIL % 0.5 % (0.2-1.2); Basophil (Absolute #) 0.05 x10^3/uL (0.01-0.08); Eosinophil (Absolute #) 0.09 x10^3/uL (0.04-0.54); Hematocrit 48.5 % (40.1-51.0); Hemoglobin 15.5 g/dL (13.7-17.5); IMMATURE GRAN # 0.07 x10^3u/L (0.001-0.031); IMMATURE GRAN % 0.8 % (0.001-0.429); Lymphocyte (Absolute #) 1.53 x10^3/uL (1.32-3.57); Lymphocytes % 16.5 % (21.8-53.1); Mean Cell Volume 95.5 fL (79.0-92.2); Mean Corpuscular Hemoglobin 30.5 pg (25.7-32.2); Monocyte (Absolute #) 0.58 x10^3/uL (0.30-0.82); Monocytes % 6.2 % (5.3-12.2); Platelet Count 235 x10^3/uL (163-337); Red Blood Count 5.08 x10^6/uL (4.63-6.08); Red Cell Distribution Width 17.1 % (11.6-14.4); White Blood Count 9.3 x10^3/uL (4.23-9.07)
[2024-06-10] MEDS: Sodium Chloride 0.9% 1000 ML 1,000 ML IV SCH ×2 (11:07→15:57)
[2024-06-10] MEDS: Adacel Vial IM ONE (11:12)
[2024-06-10 11:22] LABS: ALBUMIN 4.2 g/dL (3.5-5.0); BILIRUBIN,TOTAL 0.7 mg/dL (0.2-1.3); Calcium 9.4 mg/dL (8.4-10.2); Creatinine 1 1.99 mg/dL (0.66-1.25); MAGNESIUM 2.3 mg/dL (1.6-2.3); Potassium 4.7 mmol/L (3.5-5.1); Total Protein 7.2 g/dL (6.3-8.2)
[2024-06-10] MEDS: NICODERM CQ 14 MG TOP SCH (12:25)
[2024-06-10] MEDS ORDERED: CARDIZEM DRIP 100 MG/100 ML D5W 100 ML IV ONE (12:26)
[2024-06-10] MEDS: CARDIZEM DRIP 100 MG/100 ML D5W 100 ML IV PRN ×2 (12:27→15:56)
--- NOTE | 2024-06-10 12:51 | XRAY ---
Indication: Dizziness. Comparison: April 22, 2024 Portable chest again hyperinflated with scattered peripheral fibrosis/scarring, right midlung calcified granulomas, and blunting right costophrenic angle. Heart remains borderline enlarged. Bony thorax intact again with osteopenia and degenerative changes. No new/acute findings.
--- NOTE | 2024-06-10 12:53 | XRAY ---
Indication: Dizziness. Fall. Blood thinner therapy. Multiple contiguous axial images obtained through the head without contrast. Comparison: March 25, 2019 Normal appearing brain parenchyma, ventricles, and bony calvarium for patient's age. Paranasal sinuses and mastoid air cells are clear. Impression: Continued normal CT head without contrast exam.
[2024-06-10] MEDS: HYDROCODONE-ACETAMIN 2.5-108/5 ML SOLUTION PO STA (13:44)
[2024-06-10] MEDS ORDERED: NORCO 10-325 MG ONE (14:27)
[2024-06-10] MEDS: NORCO 10-325 MG PO STA (14:28)
[2024-06-10] MEDS: PROVENTIL 2.5 MG/3 ML NEB IH SCH (14:57)
--- NOTE | 2024-06-10 15:14 | PCM.HP ---
<KAZ MARTIN - Last Filed: 06/10/24 16:05> History of Present Illness - Chief Complaint Chief Complaint: a-fib rvr Date: 06/10/24 History of Present Illness: The patient is a 73-year-old male with a medical history significant for daily tobacco use, COPD, atrial fibrillation (on Eliquis), hypertension, hyperlipidemia, nephrectomy, and hypothyroidism, who presented to the ER with complaints of chest pain at 8 AM, followed by dizziness, lightheadedness, and a fall onto his right knee, resulting in some abrasion but no difficulty with movement and only minimal discomfort. He also reported palpitations. Upon presentation, the patient was found to be in atrial fibrillation with a rapid ventricular response (A-fib RVR). He denies fever, chills, or difficulty breathing but notes some difficulty with exertion, which is typical for his baseline. He also denies abdominal pain, nausea, vomiting, or diarrhea, and has no known sick contacts. In the ER, the patient was treated with Cardizem gtt and IV fluids, but despite this, he remains in A-fib RVR. Head CT and chest X-ray are pending. Initial lab results show a WBC of 9.3, an anion gap of 16.0, and creatinine of 1.99 (baseline 1.39). Given the persistent A-fib RVR and other clinical concerns, cardiology has been consulted for further management. Pt admitted to the ICU. At last visit about 1 month ago pt had to be transferred to a higher level of care for cardioversion. Will obtain records from other hospital on last visit. - Review of Systems Constitutional: No Fever, No Chills Eyes: No Symptoms Ears, Nose, & Throat: No Symptoms Respiratory: No Cough, No Short Of Breath Cardiac: Chest Pain, No Edema, No Syncope Abdominal/Gastrointestinal: No Abdominal Pain, No Nausea, No Vomiting, No Diarrhea Genitourinary Symptoms: No Dysuria Musculoskeletal: No Back Pain, No Neck Pain Skin: Other (right knee abrasion), No Rash Neurological: No Dizziness, No Focal Weakness, No Sensory Changes Psychological: No Symptoms Endocrine: No Symptoms Hematologic/Lymphatic: No Symptoms Immunological/Allergic: No Symptoms Medications & Allergies Home Medications: Home Medication List Isosorbide Mononitrate 30 mg [Imdur 30 MG] 60 mg PO DAILY 07/03/18 [History Confirmed 06/10/24] Melatonin 30 mg PO HS 12/26/20 [History Confirmed 06/10/24] Albuterol 2.5 mg/3 ml Neb [Proventil 2.5 mg/3 ml Neb] 2.5 mg IH TID 02/02/24 [History Confirmed 06/10/24] Apixaban [Eliquis] 5 mg PO DAILY 02/02/24 [History Confirmed 06/10/24] Hydrocodone/Acetaminophen [Hydrocodone-Acetamin 10-325 mg] 1 each PO Q4-6HPRN PRN 02/02/24 [History Confirmed 06/10/24] Carvedilol 3.125 mg [Coreg 3.125 MG] 3.125 mg PO BID 06/10/24 [History Confirmed 06/10/24] Empagliflozin [Jardiance] 10 mg PO DAILY 06/10/24 [History Confirmed 06/10/24] Memantine HCl 10 mg PO BID 06/10/24 [History Confirmed 06/10/24] Allergies/Adverse Reactions: Allergies Allergy/AdvReac Type Severity Reaction Status Date / Time lorazepam [From Ativan] Allergy Verified 06/10/24 10:25 - Past Medical History Past Medical History: Yes Neurological History: No Pertinent History ENT History: Cataracts Cardiac History: Arrhythmia, Congestive Heart Failure, Coronary Artery Disease, Hypertension, Other Respiratory History: CHF, COPD, Pneumonia, Tuberculosis Endocrine Medical History: No Pertinent History Musculoskelatal History: Arthritis GI Medical History: Hemorrhoids History: Renal Disease, Other Pyscho-Social History: Anxiety Male Reproductive Disorders: No Pertinent History Comment: tuberculosis of kidney, Regulatory Internship: Dr. Ennis - Past Surgical History Past Surgical History: Yes Neuro Surgical History: No Pertinent History Cardiac History: Cardiac Catheterization Respiratory Surgery: No Pertinent History GI Surgical History: No Pertinent History Genitourinary Surgical Hx: Kidney Surgery Musculskeletal Surgical Hx: Other Male Surgical History: No Pertinent History Other Surgical History: Toes sewed together,colonoscopy, steel out of left eye, right nephrectomy, right nephrectomy - Social History Smoking Status: Current every day smoker How long have you smoked: 54 years Exposure to second hand smoke: Yes Alcohol: None Drug Use: none - Social Determinants of Health Will the patient participate in the screening: Yes Do you worry about a steady place to live?: No Do you have any problems with any of the following?: No known problems In the past 12 months,have you had to go without utilities?: No Have you or anyone in your house had to go without enough: No Transportation Issues: No Has anyone in your support network made you feel unsafe?: No - Physical Exam Vital Signs: Vital Signs - 24 hr Temp Pulse Resp BP BP Pulse Ox 06/10/24 14:45 97.3 F 127 H 24 131/97 99 06/10/24 14:36 126 H 25 H 99 06/10/24 14:31 106 H 18 99 06/10/24 14:21 111 H 18 106/77 99 06/10/24 14:20 103 H 22 99 06/10/24 14:17 103 H 29 H 98 06/10/24 14:01 92 H 22 94/58 99 06/10/24 13:48 99 06/10/24 13:46 103 H 18 86/63 97 06/10/24 13:45 95 H 24 90 L 06/10/24 13:40 99 H 23 98 06/10/24 13:32 118 H 25 H 98 06/10/24 13:02 113 H 20 104/73 99 06/10/24 12:38 104 H 21 121/77 93 L 06/10/24 12:37 131 H 23 98 06/10/24 12:30 136 H 18 98 06/10/24 12:20 128 H 23 99 06/10/24 12:13 118 H 18 99 06/10/24 12:05 113 H 16 101/61 98 06/10/24 12:02 139 H 20 95/74 98 06/10/24 12:01 120 H 17 96 06/10/24 12:00 125 H 15 100 06/10/24 11:54 120 H 22 94 L 06/10/24 11:31 104 H 21 103/65 98 06/10/24 11:30 109 H 28 H 97 06/10/24 11:20 102 H 21 98 06/10/24 11:10 119 H 18 98 06/10/24 11:02 117 H 25 H 98 06/10/24 10:42 123 H 20 118/81 98 06/10/24 10:26 96.7 F 131 H 25 H 110/76 99 General Appearance: no apparent distress, alert Neurologic Exam: alert, oriented x 3, cooperative, normal mood/affect, nml cerebellar function, nml station & gait, sensation nml, No motor deficits Eye Exam: PERRL/EOMI, eyes nml inspection Ears, Nose, Throat Exam: normal ENT inspection, TMs normal, pharynx normal, moist mucous membranes Neck Exam: normal inspection, non-tender, supple, full range of motion Respiratory Exam: wheezing, No respiratory distress Cardiovascular Exam: normal heart sounds, normal peripheral pulses, irregular Gastrointestinal/Abdomen Exam: soft, normal bowel sounds, No tenderness, No mass Back Exam: normal inspection, normal range of motion, No CVA tenderness, No vertebral tenderness Extremity Exam: normal inspection, normal range of motion, pelvis stable Skin Exam: normal color, warm, dry, other (abrasion to right knee), No rash Lymphatic Exam: No adenopathy Results - Labs Lab/Micro Results: Lab Results-Last 24 Hours 06/10/24 06/10/24 06/10/24 Range/Units 11:07 11:07 11:07 WBC 9.3 H (4.23-9.07) x10^3/uL RBC 5.08 (4.63-6.08) x10^6/uL Hgb 15.5 (13.7-17.5) g/dL Hct 48.5 (40.1-51.0) % MCV 95.5 H (79.0-92.2) fL MCH 30.5 (25.7-32.2) pg MCHC 32.0 L (32.3-36.5) g/dL RDW 17.1 H (11.6-14.4) % Plt Count 235 (163-337) x10^3/uL MPV 10.0 (9.4-12.4) fL Gran % 75.0 H (34.0-67.9) % Immature Gran % (Auto) 0.8 H (0.001-0.429) % Nucleat RBC Rel Count 0.0 (0.00-0.2) % Eos # (Auto) 0.09 (0.04-0.54) x10^3/uL Immature Gran # (Auto) 0.07 H (0.001-0.031) x10^3u/L Absolute Lymphs (auto) 1.53 (1.32-3.57) x10^3/uL Absolute Monos (auto) 0.58 (0.30-0.82) x10^3/uL Absolute Nucleated RBC 0.00 (0.00-0.012) x10^3u/L Lymphocytes % 16.5 L (21.8-53.1) % Monocytes % 6.2 (5.3-12.2) % Eosinophils % 1.0 (0.8-7.0) % Basophils % 0.5 (0.2-1.2) % Absolute Granulocytes 6.97 H (1.78-5.38) x10^3/uL Basophils # 0.05 (0.01-0.08) x10^3/uL Sodium 143 (135-145) mmol/L Potassium 4.7 (3.5-5.1) mmol/L Chloride 108 H (98-107) mmol/L Carbon Dioxide 25 (22-30) mmol/L Anion Gap 16.0 H (5-15) MEQ/L BUN 29 H (9-20) mg/dL Creatinine 1.99 H (0.66-1.25) mg/dL Estimated GFR 35.0 ML/MIN Glucose 74 (74-106) mg/dL Lactic Acid (0.4-2.0) Calcium 9.4 (8.4-10.2) mg/dL Magnesium 2.3 (1.6-2.3) mg/dL Total Bilirubin 0.70 (0.2-1.3) mg/dL AST 38 (17-59) U/L ALT 26 (0-50) U/L Alkaline Phosphatase 179 H (38-126) U/L Troponin I 0.018 (0.000-0.033) ng/mL NT-Pro-B Natriuret Pep (<300) pg/mL Serum Total Protein 7.2 (6.3-8.2) g/dL Albumin 4.2 (3.5-5.0) g/dL 06/10/24 06/10/24 06/10/24 Range/Units 11:30 14:03 14:03 WBC (4.23-9.07) x10^3/uL RBC (4.63-6.08) x10^6/uL Hgb (13.7-17.5) g/dL Hct (40.1-51.0) % MCV (79.0-92.2) fL MCH (25.7-32.2) pg MCHC (32.3-36.5) g/dL RDW (11.6-14.4) % Plt Count (163-337) x10^3/uL MPV (9.4-12.4) fL Gran % (34.0-67.9) % Immature Gran % (Auto) (0.001-0.429) % Nucleat RBC Rel Count (0.00-0.2) % Eos # (Auto) (0.04-0.54) x10^3/uL Immature Gran # (Auto) (0.001-0.031) x10^3u/L Absolute Lymphs (auto) (1.32-3.57) x10^3/uL Absolute Monos (auto) (0.30-0.82) x10^3/uL Absolute Nucleated RBC (0.00-0.012) x10^3u/L Lymphocytes % (21.8-53.1) % Monocytes % (5.3-12.2) % Eosinophils % (0.8-7.0) % Basophils % (0.2-1.2) % Absolute Granulocytes (1.78-5.38) x10^3/uL Basophils # (0.01-0.08) x10^3/uL Sodium (135-145) mmol/L Potassium (3.5-5.1) mmol/L Chloride (98-107) mmol/L Carbon Dioxide (22-30) mmol/L Anion Gap (5-15) MEQ/L BUN (9-20) mg/dL Creatinine (0.66-1.25) mg/dL Estimated GFR ML/MIN Glucose (74-106) mg/dL Lactic Acid 1.7 (0.4-2.0) Calcium (8.4-10.2) mg/dL Magnesium (1.6-2.3) mg/dL Total Bilirubin (0.2-1.3) mg/dL AST (17-59) U/L ALT (0-50) U/L Alkaline Phosphatase (38-126) U/L Troponin I 0.017 (0.000-0.033) ng/mL NT-Pro-B Natriuret Pep 4940 (<300) pg/mL Serum Total Protein (6.3-8.2) g/dL Albumin (3.5-5.0) g/dL - Radiology Impressions Radiology Exams & Impressions: Radiology Procedures Category Date Time Status CHEST 1 VIEW (PORTABLE) Stat Exams 06/10/24 10:44 Completed HEAD WITHOUT CONTRAST [CT] Stat Exams 06/10/24 10:44 Completed - Other Procedures and Tests Respiratory Therapy 06/10/24 14:36 Respiratory Therapy Consult DAILY Assessment/Plan (1) Atrial fibrillation with rapid ventricular response Current Visit: Yes Status: Acute Assessment & Plan: - Cardizem gave in ER - ICU tele - EKG - cardiology consult - cardizem gtt- hold if systolic BP drops < 90 - Keep K> 4 and MG+ > 2 - previous echo reviewed - TSH - Follows Dr. Erick Ennis cardiology Code(s): I48.91 - UNSPECIFIED ATRIAL FIBRILLATION (2) Chest pain Current Visit: Yes Status: Acute Assessment & Plan: -trop x2 negative- trend - ICU tele - cardiology consult - CP resolved since admission - TSH - CXR: Portable chest again hyperinflated with scattered peripheral fibrosis/scarring, right midlung calcified granulomas, and blunting right costophrenic angle. Heart remains borderline enlarged. Bony thorax intact again with osteopenia and degenerative changes. No new/acute findings. Code(s): R07.9 - CHEST PAIN, UNSPECIFIED (3) Acute kidney injury superimposed on CKD Current Visit: Yes Status: Acute Assessment & Plan: -creatinine of 1.99 (baseline 1.39) - pt has one kidney d/t hx nephrectomy - NS @ 50 ml/hr - CMP reviewed Code(s): N17.9 - ACUTE KIDNEY FAILURE, UNSPECIFIED; N18.9 - CHRONIC KIDNEY DISEASE, UNSPECIFIED (4) Fall Current Visit: Yes Status: Acute Assessment & Plan: - ground level fall - Head CT: Impression: Continued normal CT head without contrast exam. Code(s): W19.XXXA - UNSPECIFIED FALL, INITIAL ENCOUNTER (5) Knee abrasion Current Visit: Yes Status: Acute Qualifiers: Encounter type: initial encounter Laterality: right Qualified Code(s): S80.211A - Abrasion, right knee, initial encounter Assessment & Plan: -abrasion rigt knee from fall - tdap gave in ER. Code(s): S80.219A - ABRASION, UNSPECIFIED KNEE, INITIAL ENCOUNTER (6) CHF (congestive heart failure) Current Visit: No Status: Chronic Qualifiers: Heart failure type: systolic Heart failure chronicity: chronic Qualified Code(s): I50.22 - Chronic systolic (congestive) heart failure Assessment & Plan: - Echo 04/24/24- EF- 15-20% - Transferred to higher level of care last visit for cardioversion- will obtain records from hospital he was transferred to. - Continue home meds - Not in acute exacerbation - BNP 4940 Code(s): I50.9 - HEART FAILURE, UNSPECIFIED (7) COPD (chronic obstructive pulmonary disease) Current Visit: No Status: Chronic Assessment & Plan: - not in acute exacerbation - Continue proventil inhaler - CBC reviewed - Xoponex (8) Dementia Current Visit: No Status: Chronic Assessment & Plan: - continue namenda Code(s): F03.90 - UNSP DEMENTIA, UNSP SEVERITY, WITHOUT BEH/PSYCH/MOOD/ANX (9) Hypertension Current Visit: No Status: Chronic Assessment & Plan: - BP stable - Continue home meds Code(s): I10 - ESSENTIAL (PRIMARY) HYPERTENSION (10) Insomnia Current Visit: No Status: Chronic Assessment & Plan: - Melatonin at HS Code(s): G47.00 - INSOMNIA, UNSPECIFIED (11) Smoker Current Visit: No Status: Chronic Assessment & Plan: - nicotine patch - advised cessation VTE: Eliquis [place] [employer] KIN: Child, P[employer] D/C plan: 2-3 days Code status: SCO/DNR Code(s): F17.200 - NICOTINE DEPENDENCE, UNSPECIFIED, UNCOMPLICATED Telemedicine Encounter - Telemedicine Encounter Telemedicine Encounter: "The entirety of this encounter was performed via Telemedicine" This visit was performed using real-time audio and video connection between my location and thepatients locationwith the assistance of a surrogateat the patients location. Written or verbal consent was obtained from the patient/guardian to perform this visit usingsynchronoustelemedicine technology. Any patient questions regarding the telemedicine interaction were answered. <HUBER HERNADEZ - Last Filed: 06/10/24 21:52> History of Present Illness - Chief Complaint History of Present Illness: is a 73 year old male. - Physical Exam Vital Signs: Vital Signs - 24 hr Temp Pulse Resp BP BP Pulse Ox 06/10/24 21:00 110 H 22 102/79 98 06/10/24 20:36 109 H 20 100/80 97 06/10/24 20:01 107 H 22 106/71 97 06/10/24 19:31 97.9 F 114 H 24 117/81 97 06/10/24 19:15 109 H 06/10/24 19:00 97 H 21 131/85 99 06/10/24 18:50 110 H 22 97 06/10/24 18:46 98 06/10/24 18:31 123 H 28 H 103/52 97 06/10/24 18:06 124 H 23 113/78 06/10/24 18:00 111 H 22 113/78 98 06/10/24 17:40 140 H 24 131/91 06/10/24 17:39 146 H 29 H 131/91 06/10/24 17:33 133 H 15 06/10/24 17:27 130 H 23 153/59 06/10/24 17:26 136 H 24 153/59 98 06/10/24 17:25 125 H 22 94 L 06/10/24 17:20 120 H 20 98 06/10/24 17:10 113 H 22 97 06/10/24 17:02 109 H 19 97 06/10/24 16:56 113 H 21 06/10/24 16:34 105 H 21 112/86 06/10/24 16:32 97.8 F 120 H 34 H 112/86 98 06/10/24 16:31 99 06/10/24 16:01 115 H 25 H 122/80 95 06/10/24 16:00 120 H 06/10/24 15:56 122 H 26 H 132/95 06/10/24 15:43 118 H 19 132/95 97 06/10/24 15:40 116 H 18 97 06/10/24 15:33 107 H 18 98 06/10/24 15:09 97.3 F 133 H 24 131/97 99 06/10/24 14:45 97.3 F 127 H 24 131/97 99 06/10/24 14:36 126 H 25 H 99 06/10/24 14:31 106 H 18 99 06/10/24 14:21 111 H 18 106/77 99 06/10/24 14:20 103 H 22 99 06/10/24 14:17 103 H 29 H 98 06/10/24 14:01 92 H 22 94/58 99 06/10/24 13:46 103 H 18 86/63 97 06/10/24 13:45 95 H 24 90 L 06/10/24 13:40 99 H 23 98 06/10/24 13:32 118 H 25 H 98 06/10/24 13:02 113 H 20 104/73 99 06/10/24 12:38 104 H 21 121/77 93 L 06/10/24 12:37 131 H 23 98 06/10/24 12:30 136 H 18 98 06/10/24 12:20 128 H 23 99 06/10/24 12:13 118 H 18 99 06/10/24 12:05 113 H 16 101/61 98 06/10/24 12:02 139 H 20 95/74 98 06/10/24 12:01 120 H 17 96 06/10/24 12:00 125 H 15 100 06/10/24 11:54 120 H 22 94 L 06/10/24 11:31 104 H 21 103/65 98 06/10/24 11:30 109 H 28 H 97 06/10/24 11:20 102 H 21 98 06/10/24 11:10 119 H 18 98 06/10/24 11:02 117 H 25 H 98 06/10/24 10:42 123 H 20 118/81 98 06/10/24 10:26 96.7 F 131 H 25 H 110/76 99 Results - Labs Lab/Micro Results: Lab Results-Last 24 Hours 06/10/24 06/10/24 06/10/24 Range/Units 11:07 11:07 11:07 WBC 9.3 H (4.23-9.07) x10^3/uL RBC 5.08 (4.63-6.08) x10^6/uL Hgb 15.5 (13.7-17.5) g/dL Hct 48.5 (40.1-51.0) % MCV 95.5 H (79.0-92.2) fL MCH 30.5 (25.7-32.2) pg MCHC 32.0 L (32.3-36.5) g/dL RDW 17.1 H (11.6-14.4) % Plt Count 235 (163-337) x10^3/uL MPV 10.0 (9.4-12.4) fL Gran % 75.0 H (34.0-67.9) % Immature Gran % (Auto) 0.8 H (0.001-0.429) % Nucleat RBC Rel Count 0.0 (0.00-0.2) % Eos # (Auto) 0.09 (0.04-0.54) x10^3/uL Immature Gran # (Auto) 0.07 H (0.001-0.031) x10^3u/L Absolute Lymphs (auto) 1.53 (1.32-3.57) x10^3/uL Absolute Monos (auto) 0.58 (0.30-0.82) x10^3/uL Absolute Nucleated RBC 0.00 (0.00-0.012) x10^3u/L Lymphocytes % 16.5 L (21.8-53.1) % Monocytes % 6.2 (5.3-12.2) % Eosinophils % 1.0 (0.8-7.0) % Basophils % 0.5 (0.2-1.2) % Absolute Granulocytes 6.97 H (1.78-5.38) x10^3/uL Basophils # 0.05 (0.01-0.08) x10^3/uL Sodium 143 (135-145) mmol/L Potassium 4.7 (3.5-5.1) mmol/L Chloride 108 H (98-107) mmol/L Carbon Dioxide 25 (22-30) mmol/L Anion Gap 16.0 H (5-15) MEQ/L BUN 29 H (9-20) mg/dL Creatinine 1.99 H (0.66-1.25) mg/dL Estimated GFR 35.0 ML/MIN Glucose 74 (74-106) mg/dL Lactic Acid (0.4-2.0) Calcium 9.4 (8.4-10.2) mg/dL Magnesium 2.3 (1.6-2.3) mg/dL Total Bilirubin 0.70 (0.2-1.3) mg/dL AST 38 (17-59) U/L ALT 26 (0-50) U/L Alkaline Phosphatase 179 H (38-126) U/L Troponin I 0.018 (0.000-0.033) ng/mL NT-Pro-B Natriuret Pep (<300) pg/mL Serum Total Protein 7.2 (6.3-8.2) g/dL Albumin 4.2 (3.5-5.0) g/dL 06/10/24 06/10/24 06/10/24 Range/Units 11:30 14:03 14:03 WBC (4.23-9.07) x10^3/uL RBC (4.63-6.08) x10^6/uL Hgb (13.7-17.5) g/dL Hct (40.1-51.0) % MCV (79.0-92.2) fL MCH (25.7-32.2) pg MCHC (32.3-36.5) g/dL RDW (11.6-14.4) % Plt Count (163-337) x10^3/uL MPV (9.4-12.4) fL Gran % (34.0-67.9) % Immature Gran % (Auto) (0.001-0.429) % Nucleat RBC Rel Count (0.00-0.2) % Eos # (Auto) (0.04-0.54) x10^3/uL Immature Gran # (Auto) (0.001-0.031) x10^3u/L Absolute Lymphs (auto) (1.32-3.57) x10^3/uL Absolute Monos (auto) (0.30-0.82) x10^3/uL Absolute Nucleated RBC (0.00-0.012) x10^3u/L Lymphocytes % (21.8-53.1) % Monocytes % (5.3-12.2) % Eosinophils % (0.8-7.0) % Basophils % (0.2-1.2) % Absolute Granulocytes (1.78-5.38) x10^3/uL Basophils # (0.01-0.08) x10^3/uL Sodium (135-145) mmol/L Potassium (3.5-5.1) mmol/L Chloride (98-107) mmol/L Carbon Dioxide (22-30) mmol/L Anion Gap (5-15) MEQ/L BUN (9-20) mg/dL Creatinine (0.66-1.25) mg/dL Estimated GFR ML/MIN Glucose (74-106) mg/dL Lactic Acid 1.7 (0.4-2.0) Calcium (8.4-10.2) mg/dL Magnesium (1.6-2.3) mg/dL Total Bilirubin (0.2-1.3) mg/dL AST (17-59) U/L ALT (0-50) U/L Alkaline Phosphatase (38-126) U/L Troponin I 0.017 (0.000-0.033) ng/mL NT-Pro-B Natriuret Pep 4940 (<300) pg/mL Serum Total Protein (6.3-8.2) g/dL Albumin (3.5-5.0) g/dL 06/10/24 Range/Units 18:35 WBC (4.23-9.07) x10^3/uL RBC (4.63-6.08) x10^6/uL Hgb (13.7-17.5) g/dL Hct (40.1-51.0) % MCV (79.0-92.2) fL MCH (25.7-32.2) pg MCHC (32.3-36.5) g/dL RDW (11.6-14.4) % Plt Count (163-337) x10^3/uL MPV (9.4-12.4) fL Gran % (34.0-67.9) % Immature Gran % (Auto) (0.001-0.429) % Nucleat RBC Rel Count (0.00-0.2) % Eos # (Auto) (0.04-0.54) x10^3/uL Immature Gran # (Auto) (0.001-0.031) x10^3u/L Absolute Lymphs (auto) (1.32-3.57) x10^3/uL Absolute Monos (auto) (0.30-0.82) x10^3/uL Absolute Nucleated RBC (0.00-0.012) x10^3u/L Lymphocytes % (21.8-53.1) % Monocytes % (5.3-12.2) % Eosinophils % (0.8-7.0) % Basophils % (0.2-1.2) % Absolute Granulocytes (1.78-5.38) x10^3/uL Basophils # (0.01-0.08) x10^3/uL Sodium (135-145) mmol/L Potassium (3.5-5.1) mmol/L Chloride (98-107) mmol/L Carbon Dioxide (22-30) mmol/L Anion Gap (5-15) MEQ/L BUN (9-20) mg/dL Creatinine (0.66-1.25) mg/dL Estimated GFR ML/MIN Glucose (74-106) mg/dL Lactic Acid (0.4-2.0) Calcium (8.4-10.2) mg/dL Magnesium (1.6-2.3) mg/dL Total Bilirubin (0.2-1.3) mg/dL AST (17-59) U/L ALT (0-50) U/L Alkaline Phosphatase (38-126) U/L Troponin I 0.018 (0.000-0.033) ng/mL NT-Pro-B Natriuret Pep (<300) pg/mL Serum Total Protein (6.3-8.2) g/dL Albumin (3.5-5.0) g/dL - Radiology Impressions Radiology Exams & Impressions: Radiology Procedures Category Date Time Status CHEST 1 VIEW (PORTABLE) Stat Exams 06/10/24 10:44 Completed HEAD WITHOUT CONTRAST [CT] Stat Exams 06/10/24 10:44 Completed - Other Procedures and Tests Respiratory Therapy 06/10/24 14:36 Respiratory Therapy Consult DAILY Telemedicine Encounter - Telemedicine Encounter Telemedicine Encounter: "The entirety of this encounter was performed via Telemedicine" This visit was performed using real-time audio and video connection between my location and thepatients locationwith the assistance of a surrogateat the patients location. Written or verbal consent was obtained from the patient/guardian to perform this visit usingsynchrPluralitytelemedicine technology. Any patient questions regarding the telemedicine interaction were answered. PUJA Encounter - PUJA Encounter Attestation PUJA Encounter Attestation: "IhavepersonallyseenandexaminedORMAN,VAMSHI MACIEL andhavediscussed pertinent aspects of their care with Kaz Carrasco agree with the history, physical exam (any modifications based on my personal exam will be noted below), assessment, and plan as outlined in original note. Please see immediately below for my summary of findings and additional assessment and plan along with any meaningful corrections/explanations to the Subjective/Objective portions of the PUJA note will be noted." My portion of the encounter took place via telemedicine. -Patient presenting with chest pain due to afib with RVR, with history of difficult to control rate and eventual transfer to [facility] last month. Patient tells me they did nothing for him. We have requested records. Patient requiring cardizem drip however still with rapid rate. Cardiology consulted and initiated metoprolol (home coreg d/jermeie).
[2024-06-10] MEDS: Nicoderm CQ 21 MG TOP SCH (15:53)
[2024-06-10] MEDS: BACIGUENT PACKET TP ONE (16:34)
--- NOTE | 2024-06-10 18:09 | PCM.CONS ---
History of Present Illness - Date of Consult Consulting Metal Alloy Scientist: ELIANA VILLANUEVA MD Requesting Provider: Attending Provider: HUBER HERNADEZ MD Primary Care Provider: PCP: ANAND RAMACHANDRAN - Consult Narrative Reason for Consult: afib HPI: Patient is a 73M w/ PMHx of COPD, afib on eliquis, systolic heart failure, HTN, HL, nephrectomy,ckd (Cr baseline is 1.4), and hypothyroidism who presents after a fall from home and found to be in afib with RVR for which cardiology is consulted. The patient reports long standing history of dizziness, shortness of breath, and palpitations. These symptoms have been present for months and may have been slowly worsening over time but no acute changes today. He says that if he had not have fallen today, he wouldn't have come to the hospital. Of note, he presented last month with a similar presentation and they had trouble controlling his rates on both dilt and amio gtt. He was ultimately transferred for DCCV but apparently this was not done. He doens't know what his BP or HR typically runs. He says his BP is all over the place but cannot be more precise. In the ER, the patient was treated with Cardizem gtt and IV fluids with minimal change in HR. Initial lab results show a WBC of 9.3, an anion gap of 16.0, and creatinine of 1.99 (baseline 1.39). BNP in the 4000s, down from 21,000 in April. EKG shows afib with LAFB and LVH Echo from Apr 2024 1. Moderately dilated right atrium and right ventricle. Mildly dilated left atrium and left ventricle. 2. Poor left ventricular systolic function due to severe global hypokinesis. Estimated EF 15-20%. 3. Unable to assess grade of diastolic dysfunction due to underlying atrial fibrillation. 4. Mildly depressed right ventricular systolic function. 5. Mildly dilated aortic root. 6. Structurally normal valves. 7. Doppler: Mild mitral and tricuspid regurgitation. 8. Mild pulmonary hypertension with an estimated PA systolic pressure 46 mmHg. 9. Normal right atrial pressure. 10. No pericardial effusion. cc:: The requesting physician will be sent a copy of the consult. Review of Systems - Review of Systems All systems: as per HPI - Past Medical History Past Medical History: Yes Neurological History: Seizures ENT History: No Pertinent History Cardiac History: Arrhythmia, Congestive Heart Failure, Coronary Artery Disease, Hypertension, Other Respiratory History: CHF, COPD, Pneumonia, Tuberculosis Endocrine Medical History: No Pertinent History Musculoskelatal History: No Pertinent History GI Medical History: GI Bleed, Hemorrhoids, Polyps History: Renal Disease Pyscho-Social History: No Pertinent History Male Reproductive Disorders: No Pertinent History Comment: tuberculosis of kidney, Metal Alloy Scientist: Dr. Ennis - Past Surgical History Past Surgical History: Yes Neuro Surgical History: No Pertinent History Cardiac History: Cardiac Catheterization Respiratory Surgery: No Pertinent History GI Surgical History: No Pertinent History Genitourinary Surgical Hx: Kidney Surgery, Other Musculskeletal Surgical Hx: Other Male Surgical History: No Pertinent History Other Surgical History: Toes sewed together,colonoscopy, pt only has left kidney - Social History Smoking Status: Current every day smoker How long have you smoked: 54 years Exposure to second hand smoke: Yes Alcohol: None Drug Use: none - Social Determinants of Health Will the patient participate in the screening: Yes Do you worry about a steady place to live?: No Do you have any problems with any of the following?: No known problems In the past 12 months,have you had to go without utilities?: No Have you or anyone in your house had to go without enough: No Transportation Issues: No Has anyone in your support network made you feel unsafe?: No Does the patient want assistance with any of the above?: No Medications & Allergies Home Medications: Home Medication List Isosorbide Mononitrate 30 mg [Imdur 30 MG] 60 mg PO DAILY 07/03/18 [History Confirmed 06/10/24] Melatonin 30 mg PO HS 12/26/20 [History Confirmed 06/10/24] Albuterol 2.5 mg/3 ml Neb [Proventil 2.5 mg/3 ml Neb] 2.5 mg IH TID 02/02/24 [History Confirmed 06/10/24] Apixaban [Eliquis] 5 mg PO DAILY 02/02/24 [History Confirmed 06/10/24] Hydrocodone/Acetaminophen [Hydrocodone-Acetamin 10-325 mg] 1 each PO Q4-6HPRN PRN 02/02/24 [History Confirmed 06/10/24] Carvedilol 3.125 mg [Coreg 3.125 MG] 3.125 mg PO BID 06/10/24 [History Confirmed 06/10/24] Empagliflozin [Jardiance] 10 mg PO DAILY 06/10/24 [History Confirmed 06/10/24] Memantine HCl 10 mg PO BID 06/10/24 [History Confirmed 06/10/24] Allergies/Adverse Reactions: Allergies Allergy/AdvReac Type Severity Reaction Status Date / Time lorazepam [From Ativan] Allergy Verified 06/10/24 10:25 Exam - Vitals Vital Signs: Vital Signs - 24 hr Temp Pulse Resp BP BP Pulse Ox 06/10/24 18:06 124 H 23 113/78 06/10/24 18:00 111 H 22 113/78 98 06/10/24 17:40 140 H 24 131/91 06/10/24 17:39 146 H 29 H 131/91 06/10/24 17:33 133 H 15 06/10/24 17:27 130 H 23 153/59 06/10/24 17:26 136 H 24 153/59 98 06/10/24 17:25 125 H 22 94 L 06/10/24 17:20 120 H 20 98 06/10/24 17:10 113 H 22 97 06/10/24 17:02 109 H 19 97 06/10/24 16:56 113 H 21 06/10/24 16:34 105 H 21 112/86 06/10/24 16:32 97.8 F 120 H 34 H 112/86 98 06/10/24 16:31 99 06/10/24 16:01 115 H 25 H 122/80 95 06/10/24 16:00 120 H 06/10/24 15:56 122 H 26 H 132/95 06/10/24 15:43 118 H 19 132/95 97 06/10/24 15:40 116 H 18 97 06/10/24 15:33 107 H 18 98 06/10/24 15:09 97.3 F 133 H 24 131/97 99 06/10/24 14:45 97.3 F 127 H 24 131/97 99 06/10/24 14:36 126 H 25 H 99 06/10/24 14:31 106 H 18 99 06/10/24 14:21 111 H 18 106/77 99 06/10/24 14:20 103 H 22 99 06/10/24 14:17 103 H 29 H 98 06/10/24 14:01 92 H 22 94/58 99 06/10/24 13:46 103 H 18 86/63 97 06/10/24 13:45 95 H 24 90 L 06/10/24 13:40 99 H 23 98 06/10/24 13:32 118 H 25 H 98 06/10/24 13:02 113 H 20 104/73 99 06/10/24 12:38 104 H 21 121/77 93 L 06/10/24 12:37 131 H 23 98 06/10/24 12:30 136 H 18 98 06/10/24 12:20 128 H 23 99 06/10/24 12:13 118 H 18 99 06/10/24 12:05 113 H 16 101/61 98 06/10/24 12:02 139 H 20 95/74 98 06/10/24 12:01 120 H 17 96 06/10/24 12:00 125 H 15 100 06/10/24 11:54 120 H 22 94 L 06/10/24 11:31 104 H 21 103/65 98 06/10/24 11:30 109 H 28 H 97 06/10/24 11:20 102 H 21 98 06/10/24 11:10 119 H 18 98 06/10/24 11:02 117 H 25 H 98 06/10/24 10:42 123 H 20 118/81 98 06/10/24 10:26 96.7 F 131 H 25 H 110/76 99 General:: alert and oriented x 4 HEENT: EOMI Cardiovascular Exam: irregular Respiratory Exam: lungs clear SpO2: 98 Gastrointestinal/Abdomen Exam: soft Skin Exam: normal color Extremity Exam: normal range of motion, other (no edema) Neurologic: rod mill tender II-XII grossly intact Results Vital Signs: Vital Signs - 24 hr Temp Pulse Resp BP BP Pulse Ox 06/10/24 18:06 124 H 23 113/78 06/10/24 18:00 111 H 22 113/78 98 06/10/24 17:40 140 H 24 131/91 06/10/24 17:39 146 H 29 H 131/91 06/10/24 17:33 133 H 15 06/10/24 17:27 130 H 23 153/59 06/10/24 17:26 136 H 24 153/59 98 06/10/24 17:25 125 H 22 94 L 06/10/24 17:20 120 H 20 98 06/10/24 17:10 113 H 22 97 06/10/24 17:02 109 H 19 97 06/10/24 16:56 113 H 21 06/10/24 16:34 105 H 21 112/86 06/10/24 16:32 97.8 F 120 H 34 H 112/86 98 06/10/24 16:31 99 06/10/24 16:01 115 H 25 H 122/80 95 06/10/24 16:00 120 H 06/10/24 15:56 122 H 26 H 132/95 06/10/24 15:43 118 H 19 132/95 97 06/10/24 15:40 116 H 18 97 06/10/24 15:33 107 H 18 98 06/10/24 15:09 97.3 F 133 H 24 131/97 99 06/10/24 14:45 97.3 F 127 H 24 131/97 99 06/10/24 14:36 126 H 25 H 99 06/10/24 14:31 106 H 18 99 06/10/24 14:21 111 H 18 106/77 99 06/10/24 14:20 103 H 22 99 06/10/24 14:17 103 H 29 H 98 06/10/24 14:01 92 H 22 94/58 99 06/10/24 13:46 103 H 18 86/63 97 06/10/24 13:45 95 H 24 90 L 06/10/24 13:40 99 H 23 98 06/10/24 13:32 118 H 25 H 98 06/10/24 13:02 113 H 20 104/73 99 06/10/24 12:38 104 H 21 121/77 93 L 06/10/24 12:37 131 H 23 98 06/10/24 12:30 136 H 18 98 06/10/24 12:20 128 H 23 99 06/10/24 12:13 118 H 18 99 06/10/24 12:05 113 H 16 101/61 98 06/10/24 12:02 139 H 20 95/74 98 06/10/24 12:01 120 H 17 96 06/10/24 12:00 125 H 15 100 06/10/24 11:54 120 H 22 94 L 06/10/24 11:31 104 H 21 103/65 98 06/10/24 11:30 109 H 28 H 97 06/10/24 11:20 102 H 21 98 06/10/24 11:10 119 H 18 98 06/10/24 11:02 117 H 25 H 98 06/10/24 10:42 123 H 20 118/81 98 06/10/24 10:26 96.7 F 131 H 25 H 110/76 99 Pain Assessment - Last Documented Pain Intensity 0 Pain Scale Used 0-10 Pain Scale Intake and Output: Intake & Output 06/08/24 06/09/24 06/10/24 06/11/24 11:59 11:59 11:59 11:59 Intake Total 574 Balance 574 Weight 66.678 kg 71.4 kg LAB: I have reviewed the Labs in [facility]. Radiology Exams: Radiology Procedures Category Date Time Status CHEST 1 VIEW (PORTABLE) Stat Exams 06/10/24 10:44 Completed HEAD WITHOUT CONTRAST [CT] Stat Exams 06/10/24 10:44 Completed - ECHO Echo: report reviewed by me Assessment & Plan (1) Atrial fibrillation with rapid ventricular response Current Visit: Yes Status: Acute Assessment & Plan: Will titrate nahid blocking meds for optimal control. Maintain adequate k/Mg. Will d/c coreg and start metoprolol tartrate so that it can be more aggressively uptitrated to control HR without bottoming out blood pressure. Code(s): I48.91 - UNSPECIFIED ATRIAL FIBRILLATION (2) Systolic heart failure Current Visit: Yes Status: Acute Assessment & Plan: Appears to be compensated; will continue GDMT. Code(s): I50.20 - UNSPECIFIED SYSTOLIC (CONGESTIVE) HEART FAILURE - Encounter Encounter: "The entirety of this encounter was performed via Telemedicine using audio and visual "
[2024-06-10] MEDS: NORCO 10-325 MG PO PRN (18:42)
[2024-06-10] MEDS: Xopenex 1.25 MG/0.5 ML UD NEBULE IH SCH (18:50)
[2024-06-10] MEDS: Sodium Chloride 3 ML UD NEBULES IH SCH (19:09)
[2024-06-10] MEDS: Namenda 5 MG PO SCH (21:13)
[2024-06-10] MEDS: MELATONIN PO SCH (21:13)
[2024-06-10] MEDS: Lopressor 25MG Tab PO SCH (21:13)
[2024-06-10] MEDS ORDERED: NON-FORMULARY ITEM (Melatonin [Melatonin] 5 MG Capsule) PO SCH (22:00)
[2024-06-10] MEDS ORDERED: PROVENTIL 2.5 MG/3 ML NEB IH SCH (22:00)
[2024-06-10] MEDS ORDERED: Coreg 3.125 MG PO SCH (22:00)
[2024-06-10 22:24] LABS: Appearance Clear (Clear); Bacteria None Seen /HPF (None Seen); Bilirubin Negative (Negative); Blood Negative (Negative); Epithelial Cells None Seen /HPF (None Seen); Glucose, Urine >=1000 mg/dL (Negative); Ketones Negative (Negative); Leukocyte Esterase Negative (Negative); Nitrite Negative (Negative); Ph 5.5 (4.6-8.0); Protein,Urine Dip Negative (Negative); RBC 0-2 /HPF (0-5); Specific Gravity >=1.030 (1.005-1.030); Urobilinogen 0.2 mg/dL (0.2)
[2024-06-11 05:02] LABS: Hematocrit 43.1 % (40.1-51.0); Hemoglobin 13.7 g/dL (13.7-17.5); Mean Cell Volume 95.1 fL (79.0-92.2); Mean Corpuscular Hemoglobin 30.2 pg (25.7-32.2); Mean Corpuscular Hgb Concent. 31.8 g/dL (32.3-36.5); Mean Platelet Volume 10.3 fL (9.4-12.4); Platelet Count 204 x10^3/uL (163-337); Red Blood Count 4.53 x10^6/uL (4.63-6.08); Red Cell Distribution Width 16.9 % (11.6-14.4); White Blood Count 8.4 x10^3/uL (4.23-9.07)
[2024-06-11 06:04] LABS: ALBUMIN 3.8 g/dL (3.5-5.0); ANION GAP 16.7 MEQ/L (5-15); BILIRUBIN,TOTAL 0.6 mg/dL (0.2-1.3); Calcium 8.6 mg/dL (8.4-10.2); Creatinine 1 1.55 mg/dL (0.66-1.25); EST GLOMERULAR FILTRATION RATE 47.3 ML/MIN; Potassium 4.3 mmol/L (3.5-5.1); TSH, 3RD Generation 8.504 mIU/L (0.470-4.680); Total Protein 6.3 g/dL (6.3-8.2)
[2024-06-11 07:36] VITALS: O2SAT 96
[2024-06-11] MEDS: SYNTHROID 25 MCG PO SCH (08:17)
[2024-06-11 09:14] VITALS: BP 121/98; PULSE 134; RESP 28; TEMP 96.9
[2024-06-11] MEDS: ELIQUIS 2.5 MG TABLET PO SCH (10:34)
[2024-06-11] MEDS: Imdur 60MG PO SCH (10:34)
[2024-06-11] MEDS: Nicoderm CQ 21 MG TOP SCH (10:35)
[2024-06-11] MEDS: JARDIANCE PO SCH (10:35)
--- NOTE | 2024-06-11 11:29 | PCM.DS ---
Discharge Summary Date of Admission: 06/10/24 14:35 Date of Discharge: 06/11/24 Admitting Physician: HUBER HERNADEZ MD Consults: Consults on Case 06/10/24 15:07 Consult Cardiology ROUTINE Primary Care Provider: ANAND RAMACHANDRAN Allergies Allergies lorazepam [From Ativan] Allergy (Verified 06/10/24 10:25) Hospital Summary - Hospital Course Hospital Course: 06/10/24 The patient is a 73-year-old male with a medical history significant for daily tobacco use, COPD, atrial fibrillation (on Eliquis), hypertension, hyperlipidemia, nephrectomy, and hypothyroidism, who presented to the ER with complaints of chest pain at 8 AM, followed by dizziness, lightheadedness, and a fall onto his right knee, resulting in some abrasion but no difficulty with movement and only minimal discomfort. He also reported palpitations. Upon presentation, the patient was found to be in atrial fibrillation with a rapid ventricular response (A-fib RVR). He denies fever, chills, or difficulty breathing but notes some difficulty with exertion, which is typical for his baseline. He also denies abdominal pain, nausea, vomiting, or diarrhea, and has no known sick contacts. In the ER, the patient was treated with Cardizem gtt and IV fluids, but despite this, he remains in A-fib RVR. Head CT and chest X-ray are pending. Initial lab results show a WBC of 9.3, an anion gap of 16.0, and creatinine of 1.99 (baseline 1.39). Given the persistent A-fib RVR and other clinical concerns, cardiology has been consulted for further management. Pt admitted to the ICU. At last visit about 1 month ago pt had to be transferred to a higher level of care for cardioversion. Will obtain records from other hospital on last visit. 06/11/24 Pt resting in bed. He states he feels much better and stronger and ready to d/c today. Cardizem gtt stopped at midnight. Cardiology stopped coreg and started metoprolol yesterday. HR 80'90's today- atrial fibrillation Creat near baseline- will need to f/u with nephrology OP. TSH 8.504- synthroid started at 25mcg daily. Will need to f/u with PCP for titration. If ok with cardiology will d/c today/ OP appointment made with cardiology. Pt walked well in halls with nursing staff. He denies any further concerns at this time. - Vitals & Intake/Output Vital Signs: Vital Signs Temperature 96.9 F 06/11/24 08:08 Pulse Rate 134 H 06/11/24 08:08 Respiratory Rate 28 H 06/11/24 08:08 Blood Pressure 121/98 06/11/24 08:08 O2 Sat by Pulse Oximetry 96 06/11/24 07:34 Intake & Output: Intake & Output 06/08/24 06/09/24 06/10/24 06/11/24 11:59 11:59 11:59 11:59 Intake Total 2185 Output Total 800 Balance 1385 Weight 66.678 kg 71.4 kg - Lab Result Diagrams: 06/11/24 04:11 06/11/24 04:11 Lab Results-Last 24 Hrs: Lab Results-Last 24 Hours 06/10/24 06/10/24 06/10/24 Range/Units 10:44 11:07 11:07 WBC (4.23-9.07) x10^3/uL RBC (4.63-6.08) x10^6/uL Hgb (13.7-17.5) g/dL Hct (40.1-51.0) % MCV (79.0-92.2) fL MCH (25.7-32.2) pg MCHC (32.3-36.5) g/dL RDW (11.6-14.4) % Plt Count (163-337) x10^3/uL MPV (9.4-12.4) fL Sodium 143 (135-145) mmol/L Potassium 4.7 (3.5-5.1) mmol/L Chloride 108 H (98-107) mmol/L Carbon Dioxide 25 (22-30) mmol/L Anion Gap 16.0 H (5-15) MEQ/L BUN 29 H (9-20) mg/dL Creatinine 1.99 H (0.66-1.25) mg/dL Estimated GFR 35.0 ML/MIN Glucose 74 (74-106) mg/dL Lactic Acid (0.4-2.0) Calcium 9.4 (8.4-10.2) mg/dL Magnesium 2.3 (1.6-2.3) mg/dL Total Bilirubin 0.70 (0.2-1.3) mg/dL AST 38 (17-59) U/L ALT 26 (0-50) U/L Alkaline Phosphatase 179 H (38-126) U/L Troponin I 0.018 (0.000-0.033) ng/mL NT-Pro-B Natriuret Pep (<300) pg/mL Serum Total Protein 7.2 (6.3-8.2) g/dL Albumin 4.2 (3.5-5.0) g/dL TSH 3rd Generation (0.470-4.680) mIU/L Urine Color Yellow (Yellow) Urine Appearance Clear (Clear) Urine pH 5.5 (4.6-8.0) Ur Specific [place] >=1.030 A (1.005-1.030) Urine Protein Negative (Negative) Urine Glucose (UA) >=1000 A (Negative) mg/dL Urine Ketones Negative (Negative) Urine Blood Negative (Negative) Urine Nitrite Negative (Negative) Urine Bilirubin Negative (Negative) Urine Urobilinogen 0.2 (0.2) mg/dL Ur Leukocyte Esterase Negative (Negative) U Hyaline Cast (Auto) 3-5 A (0-2) /LPF Urine Microscopic RBC 0-2 (0-5) /HPF Urine Microscopic WBC 3-5 (0-5) /HPF Ur Epithelial Cells None Seen (None Seen) /HPF Urine Bacteria None Seen (None Seen) /HPF Urine Culture Reflexed NO (NO) 06/10/24 06/10/24 06/10/24 Range/Units 11:30 14:03 14:03 WBC (4.23-9.07) x10^3/uL RBC (4.63-6.08) x10^6/uL Hgb (13.7-17.5) g/dL Hct (40.1-51.0) % MCV (79.0-92.2) fL MCH (25.7-32.2) pg MCHC (32.3-36.5) g/dL RDW (11.6-14.4) % Plt Count (163-337) x10^3/uL MPV (9.4-12.4) fL Sodium (135-145) mmol/L Potassium (3.5-5.1) mmol/L Chloride (98-107) mmol/L Carbon Dioxide (22-30) mmol/L Anion Gap (5-15) MEQ/L BUN (9-20) mg/dL Creatinine (0.66-1.25) mg/dL Estimated GFR ML/MIN Glucose (74-106) mg/dL Lactic Acid 1.7 (0.4-2.0) Calcium (8.4-10.2) mg/dL Magnesium (1.6-2.3) mg/dL Total Bilirubin (0.2-1.3) mg/dL AST (17-59) U/L ALT (0-50) U/L Alkaline Phosphatase (38-126) U/L Troponin I 0.017 (0.000-0.033) ng/mL NT-Pro-B Natriuret Pep 4940 (<300) pg/mL Serum Total Protein (6.3-8.2) g/dL Albumin (3.5-5.0) g/dL TSH 3rd Generation (0.470-4.680) mIU/L Urine Color (Yellow) Urine Appearance (Clear) Urine pH (4.6-8.0) Ur Specific [place] (1.005-1.030) Urine Protein (Negative) Urine Glucose (UA) (Negative) mg/dL Urine Ketones (Negative) Urine Blood (Negative) Urine Nitrite (Negative) Urine Bilirubin (Negative) Urine Urobilinogen (0.2) mg/dL Ur Leukocyte Esterase (Negative) U Hyaline Cast (Auto) (0-2) /LPF Urine Microscopic RBC (0-5) /HPF Urine Microscopic WBC (0-5) /HPF Ur Epithelial Cells (None Seen) /HPF Urine Bacteria (None Seen) /HPF Urine Culture Reflexed (NO) 06/10/24 06/11/24 06/11/24 Range/Units 18:35 04:11 04:11 WBC 8.4 (4.23-9.07) x10^3/uL RBC 4.53 L (4.63-6.08) x10^6/uL Hgb 13.7 (13.7-17.5) g/dL Hct 43.1 (40.1-51.0) % MCV 95.1 H (79.0-92.2) fL MCH 30.2 (25.7-32.2) pg MCHC 31.8 L (32.3-36.5) g/dL RDW 16.9 H (11.6-14.4) % Plt Count 204 (163-337) x10^3/uL MPV 10.3 (9.4-12.4) fL Sodium 142 (135-145) mmol/L Potassium 4.3 (3.5-5.1) mmol/L Chloride 108 H (98-107) mmol/L Carbon Dioxide 22 (22-30) mmol/L Anion Gap 16.7 H (5-15) MEQ/L BUN 30 H (9-20) mg/dL Creatinine 1.55 H (0.66-1.25) mg/dL Estimated GFR 47.3 ML/MIN Glucose 72 L (74-106) mg/dL Lactic Acid (0.4-2.0) Calcium 8.6 (8.4-10.2) mg/dL Magnesium (1.6-2.3) mg/dL Total Bilirubin 0.60 (0.2-1.3) mg/dL AST 28 (17-59) U/L ALT 22 (0-50) U/L Alkaline Phosphatase 138 H (38-126) U/L Troponin I 0.018 (0.000-0.033) ng/mL NT-Pro-B Natriuret Pep (<300) pg/mL Serum Total Protein 6.3 (6.3-8.2) g/dL Albumin 3.8 (3.5-5.0) g/dL TSH 3rd Generation 8.504 H (0.470-4.680) mIU/L Urine Color (Yellow) Urine Appearance (Clear) Urine pH (4.6-8.0) Ur Specific [place] (1.005-1.030) Urine Protein (Negative) Urine Glucose (UA) (Negative) mg/dL Urine Ketones (Negative) Urine Blood (Negative) Urine Nitrite (Negative) Urine Bilirubin (Negative) Urine Urobilinogen (0.2) mg/dL Ur Leukocyte Esterase (Negative) U Hyaline Cast (Auto) (0-2) /LPF Urine Microscopic RBC (0-5) /HPF Urine Microscopic WBC (0-5) /HPF Ur Epithelial Cells (None Seen) /HPF Urine Bacteria (None Seen) /HPF Urine Culture Reflexed (NO) - Radiology Exams Ordered Rad Exams-Entire Visit: Radiology Procedures Category Date Time Status CHEST 1 VIEW (PORTABLE) Stat Exams 06/10/24 10:44 Completed HEAD WITHOUT CONTRAST [CT] Stat Exams 06/10/24 10:44 Completed - Procedures and Test Procedures and Tests throughout Hospitalization: Therapy Orders & Screens 06/10/24 14:36 Respiratory Therapy Consult DAILY Comment: Reason For Exam: 06/10/24 15:29 Smoking Cessation Education ONCE Comment: Diagnosis: a-fib rvr Smoking Status: Current every day smoker How long have you smoked: 54 years Have you smoked in the past 12 months: Yes Approximately how many cigarettes per day: 1 pack/day Do you dip or chew tobacco: No 06/10/24 18:47 EKG STAT Comment: Diagnosis: a-fib rvr Discharge Exam General Appearance: no apparent distress, alert Neurologic Exam: alert, oriented x 3, cooperative, normal mood/affect, nml cerebellar function, sensation nml, No motor deficits Eye Exam: PERRL, EOMI, eyes nml inspection Ears, Nose, Throat Exam: normal ENT inspection, pharynx normal, moist mucous membranes Neck Exam: normal inspection, non-tender, supple, full range of motion Respiratory Exam: normal breath sounds, lungs clear, No respiratory distress Cardiovascular Exam: normal heart sounds, irregular Gastrointestinal/Abdomen Exam: soft, No tenderness, No mass Male Genitalia Exam: deferred Rectal Exam: deferred Back Exam: normal inspection, normal range of motion, No CVA tenderness, No vertebral tenderness Extremity Exam: normal inspection, normal range of motion Skin Exam: normal color, warm, dry Final Diagnosis/Problem List - Final Discharge Diagnosis/Problem (1) Atrial fibrillation with rapid ventricular response Current Visit: Yes Status: Acute Code(s): I48.91 - UNSPECIFIED ATRIAL FIBRILLATION (2) Chest pain Current Visit: Yes Status: Acute Code(s): R07.9 - CHEST PAIN, UNSPECIFIED (3) Acute kidney injury superimposed on CKD Current Visit: Yes Status: Acute Code(s): N17.9 - ACUTE KIDNEY FAILURE, UNSPECIFIED; N18.9 - CHRONIC KIDNEY DISEASE, UNSPECIFIED (4) Fall Current Visit: Yes Status: Acute Code(s): W19.XXXA - UNSPECIFIED FALL, INITIAL ENCOUNTER (5) Knee abrasion Current Visit: Yes Status: Acute Code(s): S80.219A - ABRASION, UNSPECIFIED KNEE, INITIAL ENCOUNTER (6) CHF (congestive heart failure) Current Visit: No Status: Chronic Code(s): I50.9 - HEART FAILURE, UNSPECIFIED (7) COPD (chronic obstructive pulmonary disease) Current Visit: No Status: Chronic (8) Dementia Current Visit: No Status: Chronic Code(s): F03.90 - UNSP DEMENTIA, UNSP SEVERITY, WITHOUT BEH/PSYCH/MOOD/ANX (9) Hypertension Current Visit: No Status: Chronic Code(s): I10 - ESSENTIAL (PRIMARY) HYPERTENSION (10) Insomnia Current Visit: No Status: Chronic Code(s): G47.00 - INSOMNIA, UNSPECIFIED (11) Smoker Current Visit: No Status: Chronic Assessment & Plan: (1) Atrial fibrillation with rapid ventricular response Current Visit: Yes Status: Acute Assessment & Plan: - Cardizem gave in ER - ICU tele - EKG - cardiology consult - cardizem gtt- hold if systolic BP drops < 90 - Keep K> 4 and MG+ > 2 - previous echo reviewed - TSH - Follows Dr. Floresita Ennis cardiology 06/11 - cardizem gtt stopped at midnight - Cardiology note reviewed- coreg stopped and metoprolol started - ok with cardiology to d/c today- metoprolol increased to 37.5mg BID OP per cardiology recs - move to med surg bed - F/U with Dr. Pr. Ennis- cardiology OP Code(s): I48.91 - UNSPECIFIED ATRIAL FIBRILLATION (2) Chest pain Current Visit: Yes Status: Acute Assessment & Plan: -trop x3 negative - ICU tele - cardiology consult- note reviewed and agree with plan of care - CP resolved since admission - TSH - 8.504- Synthroid started - CXR: Portable chest again hyperinflated with scattered peripheral fibrosis/scarring, right midlung calcified granulomas, and blunting right costophrenic angle. Heart remains borderline enlarged. Bony thorax intact again with osteopenia and degenerative changes. No new/acute findings. Code(s): R07.9 - CHEST PAIN, UNSPECIFIED (3) Acute kidney injury superimposed on CKD Current Visit: Yes Status: Acute Assessment & Plan: -creatinine of 1.99 (baseline 1.39) - pt has one kidney d/t hx nephrectomy - NS @ 50 ml/hr - CMP reviewed 06/11 - Creat 1.55- improved- f/u OP with nephrology Code(s): N17.9 - ACUTE KIDNEY FAILURE, UNSPECIFIED; N18.9 - CHRONIC KIDNEY DISEASE, UNSPECIFIED (4) Fall Current Visit: Yes Status: Acute Assessment & Plan: - ground level fall - Head CT: Impression: Continued normal CT head without contrast exam. Code(s): W19.XXXA - UNSPECIFIED FALL, INITIAL ENCOUNTER (5) Knee abrasion Current Visit: Yes Status: Acute Qualifiers: Encounter type: initial encounter Laterality: right Qualified Code(s): S80.211A - Abrasion, right knee, initial encounter Assessment & Plan: -abrasion rigt knee from fall - tdap gave in ER. Code(s): S80.219A - ABRASION, UNSPECIFIED KNEE, INITIAL ENCOUNTER (6) CHF (congestive heart failure) Current Visit: No Status: Chronic Qualifiers: Heart failure type: systolic Heart failure chronicity: chronic Qualified Code(s): I50.22 - Chronic systolic (congestive) heart failure Assessment & Plan: - Echo 04/24/24- EF- 15-20% - Transferred to higher level of care last visit for cardioversion- will obtain records from hospital he was transferred to. - Continue home meds - Not in acute exacerbation - BNP 4940 Code(s): I50.9 - HEART FAILURE, UNSPECIFIED (7) COPD (chronic obstructive pulmonary disease) Current Visit: No Status: Chronic Assessment & Plan: - not in acute exacerbation - Continue proventil inhaler - CBC reviewed - Xoponex (8) Dementia Current Visit: No Status: Chronic Assessment & Plan: - continue namenda Code(s): F03.90 - UNSP DEMENTIA, UNSP SEVERITY, WITHOUT BEH/PSYCH/MOOD/ANX (9) Hypertension Current Visit: No Status: Chronic Assessment & Plan: - BP stable - Continue home meds Code(s): I10 - ESSENTIAL (PRIMARY) HYPERTENSION (10) Insomnia Current Visit: No Status: Chronic Assessment & Plan: - Melatonin at HS Code(s): G47.00 - INSOMNIA, UNSPECIFIED (11) Smoker Current Visit: No Status: Chronic Assessment & Plan: - nicotine patch - advised cessation Code(s): F17.200 - NICOTINE DEPENDENCE, UNSPECIFIED, UNCOMPLICATED (12) Adult onset hypothyroidism Current Visit: Yes Status: Acute Assessment & Plan: - TSh 8.504 - Started synthroid 25mcg- f/u with PCP for titration Code(s): E03.8 - OTHER SPECIFIED HYPOTHYROIDISM - Discharge Discharge Date: 06/11/24 Disposition: HOME HEALTH SERVICE Condition: Stable Prescriptions: New Levothyroxine Sodium 25 Mcg [Synthroid 25 Mcg] 25 mcg PO QAM@0700 30 Days #30 tablet Metoprolol Tartrate 25 mg [Lopressor 25MG Tab] 37.5 mg PO BID 30 Days #90 tab Continue Isosorbide Mononitrate 30 mg [Imdur 30 MG] 60 mg PO DAILY Melatonin 30 mg PO HS Hydrocodone/Acetaminophen [Hydrocodone-Acetamin 10-325 mg] 1 each PO Q4-6HPRN PRN PRN Reason: Pain Albuterol 2.5 mg/3 ml Neb [Proventil 2.5 mg/3 ml Neb] 2.5 mg IH TID Apixaban [Eliquis] 5 mg PO DAILY Empagliflozin [Jardiance] 10 mg PO DAILY Memantine HCl 10 mg PO BID Discontinued Carvedilol 3.125 mg [Coreg 3.125 MG] 3.125 mg PO BID Follow up with: ANAND RAMACHANDRAN [Primary Care Provider] - 06/18/24 10:00 am MARTINEZ VANESSA MD [CONSULTING PHYSICIAN] - 06/17/24 4:10 pm FLORESITA ENNIS MD [CONSULTING PHYSICIAN] - 06/14/24 3:30 pm
== END 2024-06-11 13:14 | disposition home health service (06) ==
LOC: ED 10:20 → ICU 14:35
PROVIDERS: ADMIT Internal Medicine; ATTEND Internal Medicine
DX: I48.20 Chronic atrial fibrillation, unspecified (principal); I11.0 Hypertensive heart disease with heart failure; I50.20 Unspecified systolic (congestive) heart failure; F17.200 Nicotine dependence, unspecified, uncomplicated; J44.9 Chronic obstructive pulmonary disease, unspecified; E78.5 Hyperlipidemia, unspecified; E03.9 Hypothyroidism, unspecified; W19.XXXA Unspecified fall, initial encounter; R07.9 Chest pain, unspecified; N17.9 Acute kidney failure, unspecified; N18.9 Chronic kidney disease, unspecified; S80.211A Abrasion, right knee, initial encounter; F03.90 Unspecified dementia, unspecified severity, without behavioral disturbance, psychotic disturbance, mood disturbance, and anxiety; G47.00 Insomnia, unspecified; E03.8 Other specified hypothyroidism; Z79.01 Long term (current) use of anticoagulants; Z79.899 Other long term (current) drug therapy
CPT/HCPCS: 36415; 70450; 71045; 80053; 81001; 83605; 83735; 83880; 84443; 84484; 85025; 85027; 90471; 93005; 93041; 93268; 94640; 96374; 99291; G0378; Q3014; 90715; 99285; J7609; A9270-GY

== ENCOUNTER 2024-07-31 19:07 | Emergency (ER) | payer MEDICARE ==
[2024-07-31] MEDS ORDERED: Cardizem IV 50 MG/10 ML IV ONE (19:22)
[2024-07-31] MEDS ORDERED: CARDIZEM DRIP 100 MG/100 ML D5W 100 ML IV ONE (19:22)
[2024-07-31] MEDS ORDERED: DUONEB 0.5-3 MG/3 ml Neb IH ONE (19:25)
[2024-07-31] MEDS ORDERED: PROVENTIL Solution 2.5 MG/0.5 ML IH ONE (19:25)
[2024-07-31] MEDS: Cardizem IV 50 MG/10 ML IV ONE (19:28)
[2024-07-31] MEDS: CARDIZEM DRIP 100 MG/100 ML D5W 100 ML IV PRN (19:29)
[2024-07-31 19:33] LABS: Lactic Acid 4.2 (0.4-2.0); VBG BASE EXCESS 1.9 (-2.0-2.0); VBG CARBOXYHEMOGLOBIN 3.3 % T HGB (0.0-6.9); VBG HCO3- 26.6 meq/L (22-28); VBG HEMOGLOBIN 13.9; VBG O2 SATURATION 30.3 (95-100); VBG pH 7.42 (7.32-7.42)
[2024-07-31] MEDS: solu-MEDROL 125 MG, Sterile H2O 10 ml 2 ML IV ONE (19:41)
--- NOTE | 2024-07-31 19:41 | ERPHSYRPT ---
- History of Present Illness Source: patient Exam Limitations: no limitations Physician History: Patient has about a week history of dyspnea. Is gotten worse today. He has been coughing has been producing some clear sputum. He has not had fever or chills. They called EMS because the symptoms got worse today. He has had some chest pain. Is in the right chest. It is described as aching. Nothing only makes it better or worse. He has a history of COPD CHF atrial fibrillation coronary vascular disease. When he got here he was in A-fib with RVR. They gave him 2 or 3 nebulizer treatments en route as well as some Solu-Medrol. They did not give him any Cardizem. Allergies/Adverse Reactions: lorazepam [From Ativan] Allergy (Verified 06/10/24 10:25) Home Medications: Isosorbide Mononitrate 30 mg [Imdur 30 MG] 60 mg PO DAILY 07/03/18 [History] Melatonin 30 mg PO HS 12/26/20 [History] Albuterol 2.5 mg/3 ml Neb [Proventil 2.5 mg/3 ml Neb] 2.5 mg IH TID 02/02/24 [History] Apixaban [Eliquis] 5 mg PO DAILY 02/02/24 [History] Hydrocodone/Acetaminophen [Hydrocodone-Acetamin 10-325 mg] 1 each PO Q4-6HPRN PRN 02/02/24 [History] Empagliflozin [Jardiance] 10 mg PO DAILY 06/10/24 [History] Memantine HCl 10 mg PO BID 06/10/24 [History] Furosemide 20 mg [Lasix 20 mg] 1 tab PO DAILY 07/31/24 [History] Prednisone 20 mg [Deltasone 20 mg] 2 tab PO BID 07/31/24 [History] Hx Tetanus, Diphtheria Vaccination/Date Given: Yes Hx Influenza Vaccination/Date Given: No Hx Pneumococcal Vaccination/Date Given: Yes Travel Risk - Emerging Infectious Disease Are you exhibiting symptoms associated with any current EIDs: No Symptoms: Cough: New Onset, Shortness of Breath - Review of Systems Constitutional: No Symptoms Eyes: No Symptoms Ears, Nose, & Throat: No Symptoms Respiratory: Dyspnea Cardiac: Chest Pain Abdominal/Gastrointestinal: No Symptoms Genitourinary Symptoms: No Symptoms Skin: No Symptoms All Other Systems: Reviewed and Negative - Past Medical History Pertinent Past Medical History: Yes Neurological History: Seizures ENT History: No Pertinent History Cardiac History: Arrhythmia, Congestive Heart Failure, Coronary Artery Disease, Hypertension, Other Respiratory History: CHF, COPD, Pneumonia, Tuberculosis Endocrine Medical History: No Pertinent History Musculoskeletal History: No Pertinent History GI Medical History: GI Bleed, Hemorrhoids, Polyps History: Renal Disease Psycho-Social History: No Pertinent History Male Reproductive Disorders: No Pertinent History Other Medical History: tuberculosis of kidney, Brick Pointer: Dr. Ennis - Past Surgical History Past Surgical History: Yes Neuro Surgical History: No Pertinent History Cardiac: Cardiac Catheterization Respiratory: No Pertinent History Gastrointestinal: No Pertinent History Genitourinary: Kidney Surgery, Other Musculoskeletal: Other Male Surgical History: No Pertinent History Other Surgical History: Toes sewed together,colonoscopy, pt only has left kidney - Social History Smoking Status: Current every day smoker How long have you smoked: 54 years Exposure to second hand smoke: Yes Drug Use: none - Social Determinants of Health Will the patient participate in the screening: Yes Do you worry about a steady place to live?: No In the past 12 months,have you had to go without utilities?: No Transportation Issues: No Has anyone in your support network made you feel unsafe?: No Have you or anyone in your house had to go w/o enough food: No - Nursing Vital Signs Nursing Vital Signs: Initial Vital Signs Temperature 98.4 F 07/31/24 19:07 Pulse Rate 179 H 07/31/24 19:07 Respiratory Rate 28 H 07/31/24 19:07 Blood Pressure 111/92 07/31/24 19:07 O2 Sat by Pulse Oximetry 99 07/31/24 19:07 Pain Scale Pain Intensity 3 - Physical Exam General Appearance: moderate distress Eye Exam: PERRL/EOMI Ears, Nose, Throat Exam: hearing grossly normal, normal ENT inspection Neck Exam: normal inspection, non-tender, supple Respiratory Exam: respiratory distress, diminished breath sounds, accessory muscle use, crackles/rales (Basis), wheezing Cardiovascular/Chest Exam: tachycardia, irregular Abdominal/Gastrointestinal Exam: soft, normal bowel sounds, No tenderness, No distention Rectal Exam: deferred Extremity Exam: non-tender Neurologic Exam: alert, oriented x 3 Skin Exam: normal color, warm, dry SpO2 Interpretation: borderline oxygenation - Course EKG Interpreted by Me: RATE, A-fib, LAFB, NORMAL QRS Ordered Tests: Active Orders 24 hr Category Date Time Status EKG-ER Only STAT Care 07/31/24 19:18 Active CHEST 1 VIEW (PORTABLE) Stat Exams 07/31/24 19:18 Taken BLOOD CULTURE Stat Lab 07/31/24 19:35 Received BNPII [NT PRO BNPII] Stat Lab 07/31/24 19:30 Completed CBC W DIFF Stat Lab 07/31/24 19:30 Completed CMP Stat Lab 07/31/24 19:30 Completed D-DIMER QUANTITATIVE Stat Lab 07/31/24 20:55 Completed Lactic Acid Stat Lab 07/31/24 19:25 Completed TROPONIN Q4H Lab 07/31/24 19:30 Completed TROPONIN Q4H Lab 07/31/24 23:30 Ordered TROPONIN Q4H Lab 08/01/24 03:30 Ordered VENOUS BLOOD GAS Stat Lab 07/31/24 19:25 Completed Respiratory Therapy Assessment UD RT 07/31/24 21:35 Completed Medication Summary Generic Name Dose Route Start Last Admin Trade Name Freq PRN Reason Stop Dose Admin Diltiazem HCl 100 mls @ 5 mls/hr 07/31/24 19:19 07/31/24 20:16 Cardizem Drip 100 Mg/100 Ml D5w IV 08/30/24 19:18 10 mg/hr .Q20H PRN 10 mls/hr HEART RATE/ A-FIB Titration Protocol 5 MG/HR Discontinued Medications Generic Name Dose Route Start Last Admin Trade Name Freq PRN Reason Stop Dose Admin Acetaminophen 1,000 mg 07/31/24 20:04 07/31/24 20:14 Acetaminophen 500 Mg Tablet PO 07/31/24 20:05 1,000 mg STAT STA Administration Acetaminophen Confirm 07/31/24 20:13 Acetaminophen 500 Mg Tablet Administered 07/31/24 20:14 Dose 1,000 mg .ROUTE .STK-MED ONE Albuterol Sulfate 2.5 mg 07/31/24 19:19 07/31/24 21:05 Albuterol Sulfate 2.5 Mg/3 Ml Neb IH 07/31/24 19:20 2.5 mg STAT ONE Administration Albuterol Sulfate Confirm 07/31/24 19:25 Albuterol Solution 2.5 Mg/0.5 Ml Ud Solution Administered 07/31/24 19:26 Dose 2.5 mg IH .STK-MED ONE Albuterol/Ipratropium 3 ml 07/31/24 19:19 07/31/24 21:05 Ipratropium/Albuterol Sulfate 3 Ml Ampul.Neb IH 07/31/24 19:20 3 ml STAT ONE Administration Albuterol/Ipratropium Confirm 07/31/24 19:25 Ipratropium/Albuterol Sulfate 3 Ml Ampul.Neb Administered 07/31/24 19:26 Dose 3 ml IH .STK-MED ONE Methylprednisolone Sodium 0 mg 07/31/24 19:19 07/31/24 19:41 Succinate 125 mg/ Sterile IV 07/31/24 19:20 Not Given Water 2 ml STAT ONE Diltiazem HCl 15 mg 07/31/24 19:20 07/31/24 19:28 Diltiazem Hcl Iv 5 Mg/Ml Vial IV 07/31/24 19:21 15 mg STAT ONE Administration Diltiazem HCl Confirm 07/31/24 19:22 Diltiazem Hcl Iv 5 Mg/Ml Vial Administered 07/31/24 19:23 Dose 50 mg IV .STK-MED ONE Metoprolol Tartrate 2.5 mg 07/31/24 20:17 07/31/24 20:24 Metoprolol Tartrate 5 Mg/5 Ml Vial IV 07/31/24 20:18 5 mg STAT ONE Administration Metoprolol Tartrate Confirm 07/31/24 20:23 Metoprolol Tartrate 5 Mg/5 Ml Vial Administered 07/31/24 20:24 Dose 5 mg IV .STK-MED ONE Lab/Rad Data: Laboratory Result Diagrams 07/31/24 19:30 07/31/24 19:30 Laboratory Results 07/31/24 07/31/24 07/31/24 Range/Units 20:55 19:30 19:30 WBC (4.23-9.07) x10^3/uL RBC (4.63-6.08) x10^6/uL Hgb (13.7-17.5) g/dL Hct (40.1-51.0) % MCV (79.0-92.2) fL MCH (25.7-32.2) pg MCHC (32.3-36.5) g/dL RDW (11.6-14.4) % Plt Count (163-337) x10^3/uL MPV (9.4-12.4) fL Gran % (34.0-67.9) % Immature Gran % (Auto) (0.001-0.429) % Nucleat RBC Rel Count (0.00-0.2) % Eos # (Auto) (0.04-0.54) x10^3/uL Immature Gran # (Auto) (0.001-0.031) x10^3u/L Absolute Lymphs (auto) (1.32-3.57) x10^3/uL Absolute Monos (auto) (0.30-0.82) x10^3/uL Absolute Nucleated RBC (0.00-0.012) x10^3u/L Lymphocytes % (21.8-53.1) % Monocytes % (5.3-12.2) % Eosinophils % (0.8-7.0) % Basophils % (0.2-1.2) % Absolute Granulocytes (1.78-5.38) x10^3/uL Basophils # (0.01-0.08) x10^3/uL D-Dimer 4.68 H* (0.0-0.50) mg/L pO2/FiO2 Ratio % VBG pH (7.32-7.42) VBG pCO2 at Pat Temp (42-55) mm/Hg VBG pO2 at Pat Temp (25-40) mm/Hg VBG HCO3 (22-28) meq/L VBG O2 Sat (Rebeca) (95-100) VBG Base Excess (-2.0-2.0) VBG Hemoglobin VBG Carboxyhemoglobin (0.0-6.9) % T HGB POC Potassium (3.5-5.1) Sodium (135-145) mmol/L Potassium (3.5-5.1) mmol/L Chloride (98-107) mmol/L Carbon Dioxide (22-30) mmol/L Anion Gap (5-15) MEQ/L BUN (9-20) mg/dL Creatinine (0.66-1.25) mg/dL Estimated GFR ML/MIN Glucose (74-106) mg/dL Lactic Acid (0.4-2.0) Calcium (8.4-10.2) mg/dL Total Bilirubin (0.2-1.3) mg/dL AST (17-59) U/L ALT (0-50) U/L Alkaline Phosphatase (38-126) U/L Troponin I 0.076 H* (0.000-0.033) ng/mL NT-Pro-B Natriuret Pep (<300) pg/mL Serum Total Protein (6.3-8.2) g/dL Albumin (3.5-5.0) g/dL Influenza Type A Ag NEGATIVE (NEGATIVE) Influenza Type B Ag NEGATIVE (NEGATIVE) RSV (PCR) NEGATIVE (NEGATIVE) SARS-CoV-2 (PCR) NEGATIVE (NEGATIVE) 07/31/24 07/31/24 07/31/24 Range/Units 19:30 19:30 19:25 WBC 13.1 H (4.23-9.07) x10^3/uL RBC 4.60 L (4.63-6.08) x10^6/uL Hgb 13.2 L (13.7-17.5) g/dL Hct 42.6 (40.1-51.0) % MCV 92.6 H (79.0-92.2) fL MCH 28.7 (25.7-32.2) pg MCHC 31.0 L (32.3-36.5) g/dL RDW 16.9 H (11.6-14.4) % Plt Count 328 (163-337) x10^3/uL MPV 10.8 (9.4-12.4) fL Gran % 82.7 H (34.0-67.9) % Immature Gran % (Auto) 0.6 H (0.001-0.429) % Nucleat RBC Rel Count 0.0 (0.00-0.2) % Eos # (Auto) 0.06 (0.04-0.54) x10^3/uL Immature Gran # (Auto) 0.08 H (0.001-0.031) x10^3u/L Absolute Lymphs (auto) 1.29 L (1.32-3.57) x10^3/uL Absolute Monos (auto) 0.77 (0.30-0.82) x10^3/uL Absolute Nucleated RBC 0.00 (0.00-0.012) x10^3u/L Lymphocytes % 9.8 L (21.8-53.1) % Monocytes % 5.9 (5.3-12.2) % Eosinophils % 0.5 L (0.8-7.0) % Basophils % 0.5 (0.2-1.2) % Absolute Granulocytes 10.85 H (1.78-5.38) x10^3/uL Basophils # 0.07 (0.01-0.08) x10^3/uL D-Dimer (0.0-0.50) mg/L pO2/FiO2 Ratio 21.0 % VBG pH 7.42 (7.32-7.42) VBG pCO2 at Pat Temp 41 L (42-55) mm/Hg VBG pO2 at Pat Temp 26 (25-40) mm/Hg VBG HCO3 26.6 (22-28) meq/L VBG O2 Sat (Rebeca) 30.3 L (95-100) VBG Base Excess 1.9 (-2.0-2.0) VBG Hemoglobin 13.9 VBG Carboxyhemoglobin 3.3 (0.0-6.9) % T HGB POC Potassium 4.0 (3.5-5.1) Sodium 144 (135-145) mmol/L Potassium 3.9 (3.5-5.1) mmol/L Chloride 104 (98-107) mmol/L Carbon Dioxide 23 (22-30) mmol/L Anion Gap 20.7 H (5-15) MEQ/L BUN 39 H (9-20) mg/dL Creatinine 2.03 H (0.66-1.25) mg/dL Estimated GFR 34.0 ML/MIN Glucose 110 H (74-106) mg/dL Lactic Acid 4.2 H (0.4-2.0) Calcium 9.3 (8.4-10.2) mg/dL Total Bilirubin 1.40 H (0.2-1.3) mg/dL AST 43 (17-59) U/L ALT 47 (0-50) U/L Alkaline Phosphatase 157 H (38-126) U/L Troponin I (0.000-0.033) ng/mL NT-Pro-B Natriuret Pep 64781 (<300) pg/mL Serum Total Protein 6.8 (6.3-8.2) g/dL Albumin 4.1 (3.5-5.0) g/dL Influenza Type A Ag (NEGATIVE) Influenza Type B Ag (NEGATIVE) RSV (PCR) (NEGATIVE) SARS-CoV-2 (PCR) (NEGATIVE) - Progress Progress Note: On the differential is pneumonia, COPD exacerbation, CHF, A-fib with RVR, coronary vascular event,. I am going to get an x-ray and some labs. An EKG was done as interpreted by me. A workup was started. I am going to start the patient on Cardizem drip after he gets a 15 mg Cardizem bolus. We started the drip at 5 increased it to 1015 and then 20. That was not working he was still running around 160 on an average. I went ahead and backed the Cardizem drip down to 10. I added A 2.5 mg bolus of Lopressor IV.That seem to help him down to get in the 130s. His labs started to come back. He has slightly elevated troponin. His BNP was 46,000. His D-dimer was 4.7. I was unable to get a CTA on him because of his kidney function. He is already on Eliquis so I am not going to start him on heparin at this time.I d o think that he needs a VQ scan. We do not do that here so I am going to call [facility] see about getting him transferred.I spoke with Dr. Hernandez he agreed to accept the patient. 07/31/24 19:41 07/31/24 20:18 07/31/24 21:48 07/31/24 22:19 07/31/24 22:21 Blood Culture(s) Obtained: No Antibiotics given: No - Departure Departure Disposition: Transfer Clinical Impression: Acute on chronic HFrEF (heart failure with reduced ejection fraction), Elevated d-dimer, Atrial fibrillation, COPD (chronic obstructive pulmonary disease) Condition: Fair Critical Care Time: Yes Critical Care Time(excluding separately billable procedures): Critical 30-74 mins Referrals: ANAND RAMACHANDRAN [Primary Care Provider] - Follow up/PCP as directed Instructions: Chronic Obstructive Pulmonary Disease
[2024-07-31 19:46] LABS: Absolute Neutrophil Ct (ANC) 10.85 x10^3/uL (1.78-5.38); BASOPHIL % 0.5 % (0.2-1.2); Basophil (Absolute #) 0.07 x10^3/uL (0.01-0.08); Eosinophil % 0.5 % (0.8-7.0); Eosinophil (Absolute #) 0.06 x10^3/uL (0.04-0.54); Hematocrit 42.6 % (40.1-51.0); Hemoglobin 13.2 g/dL (13.7-17.5); IMMATURE GRAN # 0.08 x10^3u/L (0.001-0.031); IMMATURE GRAN % 0.6 % (0.001-0.429); Lymphocyte (Absolute #) 1.29 x10^3/uL (1.32-3.57); Lymphocytes % 9.8 % (21.8-53.1); Mean Cell Volume 92.6 fL (79.0-92.2); Mean Corpuscular Hemoglobin 28.7 pg (25.7-32.2); Mean Platelet Volume 10.8 fL (9.4-12.4); Monocyte (Absolute #) 0.77 x10^3/uL (0.30-0.82); Monocytes % 5.9 % (5.3-12.2); Neutrophil % 82.7 % (34.0-67.9); Platelet Count 328 x10^3/uL (163-337); Red Cell Distribution Width 16.9 % (11.6-14.4); White Blood Count 13.1 x10^3/uL (4.23-9.07)
[2024-07-31 20:09] LABS: ALBUMIN 4.1 g/dL (3.5-5.0); ANION GAP 20.7 MEQ/L (5-15); BILIRUBIN,TOTAL 1.4 mg/dL (0.2-1.3); Calcium 9.3 mg/dL (8.4-10.2); Creatinine 1 2.03 mg/dL (0.66-1.25); Potassium 3.9 mmol/L (3.5-5.1); Total Protein 6.8 g/dL (6.3-8.2)
[2024-07-31] MEDS ORDERED: TYLENOL EXTRA STRENGTH 500 MG ONE (20:13)
[2024-07-31] MEDS: TYLENOL EXTRA STRENGTH 500 MG PO STA (20:14)
[2024-07-31 20:23] LABS: INFLUENZA A NEGATIVE (NEGATIVE); INFLUENZA B NEGATIVE (NEGATIVE); RESPIRATORY SYNCTIAL VIRUS NEGATIVE (NEGATIVE); SARS-CoV-2 Xpert Express NEGATIVE (NEGATIVE)
[2024-07-31] MEDS ORDERED: LOPRESSOR INJECTION IV ONE (20:23)
[2024-07-31] MEDS: LOPRESSOR INJECTION IV ONE (20:24)
[2024-07-31 20:41] VITALS: TEMP 98.4
[2024-07-31] MEDS: PROVENTIL 2.5 MG/3 ML NEB IH ONE (21:05)
[2024-07-31] MEDS: DUONEB 0.5-3 MG/3 ml Neb IH ONE (21:05)
[2024-08-01 00:03] VITALS: O2SAT 100
[2024-08-01 01:26] VITALS: BP 101/73; PULSE 111; RESP 18
--- NOTE | 2024-08-01 07:27 | XRAY ---
Indication: Dyspnea. Comparison: June 10, 2024 Portable chest now demonstrates cardiomegaly, mild pulmonary edema, and small bibasilar effusions favoring cardiac decompensation/CHF. Superimposed pneumonia not completely excluded. Bony thorax intact again with osteopenia and degenerative changes.
== END 2024-08-01 01:38 | disposition short-term general hospital (02) ==
LOC: ED 19:07
DX: I11.0 Hypertensive heart disease with heart failure (principal); I50.23 Acute on chronic systolic (congestive) heart failure; R79.1 Abnormal coagulation profile; J18.9 Pneumonia, unspecified organism; J44.1 Chronic obstructive pulmonary disease with (acute) exacerbation; I48.20 Chronic atrial fibrillation, unspecified; R06.00 Dyspnea, unspecified; R05.9 Cough, unspecified; R07.9 Chest pain, unspecified; Z79.01 Long term (current) use of anticoagulants; Z79.84 Long term (current) use of oral hypoglycemic drugs; Z79.52 Long term (current) use of systemic steroids; Z79.899 Other long term (current) drug therapy; Z72.0 Tobacco use
CPT/HCPCS: 0241U; 36415; 71045; 80053; 82805; 83605; 83880; 84484; 85025; 85379; 87040; 93005; 94640; 96365; 96375; 99285; 99291; 96374; J7609; A9270-GY